=== PATIENT | male | born 1955 | race Caucasian/White ===

== ENCOUNTER 2021-10-03 18:46 | Inpatient (IN) | payer OTHER, SELFPAY ==
--- NOTE | ~2021-10-03 | XR_ITS ---
EXAMINATION: XR CHEST CLINICAL INFORMATION: Status post aspiration COMPARISON: None TECHNIQUE: Frontal view of the chest was obtained. FINDINGS: Lung volumes are symmetric. No focal consolidation is seen. Biapical scarring is noted, right greater than left. No evidence of pneumothorax, pleural effusion, or pulmonary edema. Cardiac size is within normal limits. Calcification is present at the aortic arch. No acute osseous findings are seen. XR/XR chest 1V IMPRESSION: No acute cardiopulmonary findings.
--- NOTE | ~2021-10-03 | CT_ITS ---
EXAMINATION: CT HEAD WITHOUT CONTRAST CLINICAL INFORMATION: Altered mental status, psychosis. COMPARISON: None TECHNIQUE: Contiguous axial imaging was performed from the skull base to vertex without intravenous administration of contrast. This CT examination was performed using dose optimization techniques as appropriate, variously including the following: *Automated exposure control *Adjustment of mA and/or kV according to patient size (this includes techniques or standardized protocols for targeted exams where dose is matched to indication/reason for exam; i.e. extremities or head) *Use of iterative reconstruction technique DLP: 714 mGy-cm FINDINGS: There is no evidence of acute intracranial hemorrhage or territorial infarction. No abnormal mass effect or midline shift is seen. Roberts to white matter differentiation is well preserved. No extra-axial fluid collections are identified. There is prominence of ventricles, sulci, and cisterns consistent with generalized atrophy. There is a partially calcified dural based lesion measuring approximately 1.3 x 0.4 x 1.9 cm in size with the appearance of a meningioma about the right parietal region. This does not cause significant mass effect. There is no abnormal attenuation within the brain parenchyma. The osseous structures and soft tissues are normal. The mastoid air cells are well aerated. There is partial opacification of the left sphenoid sinus and some posterior ethmoid air cells bilaterally. There is pneumatization of the right petrous portion of the temporal bone. CT/CT head/brain wo con IMPRESSION: 1. No acute intracranial pathology. 2. Right parietal meningioma without mass effect. 3. Generalized atrophy.
[2021-10-03 19:30] VITALS: BP 118/64; PULSE 91; RESP 18; TEMP 37.4; O2SAT 96
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
[2021-10-04 06:00] VITALS: BP 117/69; PULSE 83; RESP 18; TEMP 36.8; O2SAT 94
[2021-10-04] MEDS: Sennosides 8.6 MG TABLET PO (08:49)
[2021-10-04] MEDS: Milk of Magnesia 30 ML ORAL.SUSP PO (08:49)
[2021-10-04] MEDS: Gabapentin 100 MG CAPSULE PO ×3 (08:49→20:50)
[2021-10-04] MEDS: Docusate Sodium 100 MG CAPSULE PO ×2 (08:50→20:50)
[2021-10-04] MEDS: timoloL maleate 0.5 % Oph Sol 5 ML DRBTL 1 DROP EYE-BOTH ×2 (08:50→20:56)
[2021-10-04] MEDS: Brimonidine Tartrate 0.2% Oph 5 ML BOTTLE 1 DROP EYE-BOTH ×3 (08:50→20:49)
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
[2021-10-04 18:00] VITALS: BP 127/68; PULSE 83; RESP 16; TEMP 37.2; O2SAT 95
[2021-10-04] MEDS: Albuterol Sulfate 90 MCG 8 GM INHALER 1 PUFF INHALE (20:49)
[2021-10-04] MEDS: Latanoprost 0.005 % Ophth Sol 2.5 ML DROPS 1 DROP EYE-BOTH (20:51)
[2021-10-04] MEDS: Mirtazapine 7.5 MG TABLET PO (20:51)
[2021-10-04] MEDS: risperiDONE 0.25 MG TABLET PO (20:51)
[2021-10-05 06:00] VITALS: BP 112/62; PULSE 85; RESP 16; TEMP 37.2; O2SAT 93
[2021-10-05 08:12] LABS: MANUAL DIFF FLAG NO
[2021-10-05 08:24] LABS: Basophils Percent Auto 0.3 % (0-2); Eosinophils Absolute Auto 0.2 X10*3/uL (0.0-0.4); Eosinophils Percent Auto 1.6 % (0-4); Hematocrit 41.2 % (42.0-52.0); Hemoglobin 13.5 g/dl (14.0-18.0); Imm Gran Abs Auto 0.17 X10*3/uL (0.00-0.03); Imm Gran Pct Auto 1.5 % (0.0-0.4); Lymphocytes Absolute Auto 1.4 X10*3/uL (1.2-4.9); Lymphocytes Percent Auto 12.3 % (20-40); Mean Corpuscular HGB Conc 32.8 g/dl (31.0-36.0); Mean Corpuscular Volume 91.6 fL (80.0-98.0); Mean Platelet Volume 9.1 fL (9.4-12.4); Monocytes Absolute Auto 1.1 X10*3/uL (0.1-1.2); Monocytes Percent Auto 9.6 % (2-11); Neutrophils Absolute Auto 8.4 x10*3/uL (2.0-8.3); Neutrophils Percent Auto 74.7 % (45-73); Platelet Count 282 X10*3/uL (160-400); Red Cell Distribution Width 13.2 % (11.0-16.0); White Blood Count 11.3 X10*3/uL (4.8-10.8)
[2021-10-05 08:29] LABS: Estimated Average Glucose 108 mg/dL; Hemoglobin A1c % 5.4 %
[2021-10-05 08:42] LABS: Alanine Aminotransferase 12 U/L (0-40); Albumin Level 3.9 g/dL (3.5-5.0); Alkaline Phosphatase 121 U/L (39-117); Anion Gap 17 (12-20); Aspartate Amino Transferase 18 U/L (5-37); Bilirubin Direct 0.4 mg/dL (0.0-0.5); Bilirubin Total 1.4 mg/dL (0.0-1.0); Blood Urea Nitrogen 20 mg/dL (9-16); Carbon Dioxide 25 mmol/L (22-29); Chloride 102 mmol/L (96-108); Cholesterol 232 mg/dL; Estimated Glomerular Filt Rate > 60; Glucose Random 89 mg/dL (60-115); HDL Cholesterol 42 mg/dL; LDL Cholesterol Calculated 169 mg/dl; Potassium 4.8 mmol/L (3.3-5.1); Sodium 139 mmol/L (135-145); Total Protein 6.5 g/dL (6.5-8.0); Triglycerides 108 mg/dL
[2021-10-05 09:02] LABS: Thyroid Stimulating Hormone 1.95 uIU/mL (0.32-4.0)
[2021-10-05] MEDS: Gabapentin 100 MG CAPSULE PO ×2 (09:06→21:21)
[2021-10-05] MEDS: Docusate Sodium 100 MG CAPSULE PO ×2 (09:06→21:23)
[2021-10-05] MEDS: Milk of Magnesia 30 ML ORAL.SUSP PO (09:06)
[2021-10-05] MEDS: Sennosides 8.6 MG TABLET PO (09:06)
[2021-10-05] MEDS: Brimonidine Tartrate 0.2% Oph 5 ML BOTTLE 1 DROP EYE-BOTH ×2 (09:07→21:17)
[2021-10-05] MEDS: timoloL maleate 0.5 % Oph Sol 5 ML DRBTL 1 DROP EYE-BOTH ×2 (09:11→21:20)
--- NOTE | 2021-10-05 11:36 | HO.PSYCHPN ---
Subjective Subjective Date of Service: 10/05/21 Reason For Visit: Unspecified Depressive Disorder Subjective Notes: Conditional Voluntary Interim History: The nursing staff reported the patient has been pleasant and cooperative, he was notice illogical thinking at times. He has attended a few groups and history did only to person and he presented with delayed response. The social science research assistant contact her sister and apparently he does not have any mental hygiene problems but he has been mostly isolated most of his life. On interview the patient denies new symptoms he looks emaciated, confused. Mental Status Exam Mental Status Exam Patient Appearance: Well Grooomed Patient Orientation: Person and Situation Level of Consciousness: Awake Patient Behavior: Cooperative Mood Description: Suspicious Affect Description: Constricted Patient Cognition Impaired: Yes Ability to Follow Directions: Good Speech Pattern: Clear Hallucinations: None Delusions: Paranoid Ideation Thought Process: Distracted and Evasive Thought Content: positive for [place] and positive for Circumstantial Judgement: Fair Diagnostics Vital Signs (24Hr): Vital Signs - 24 hr 10/04/21 18:00 10/05/21 06:00 Temperature 98.9 F 98.9 F Pulse Rate 83 85 Respiratory Rate 16 16 Blood Pressure 127/68 112/62 Pulse Oximetry 95 93 Oxygen Delivery Method Room Air Room Air Labs Results: 10/05/21 08:01 10/05/21 08:01 Labs: Laboratory Results - last 48 hr 10/05/21 10/05/21 10/05/21 08:01 08:01 08:01 WBC 11.3 H RBC 4.50 L Hgb 13.5 L Hct 41.2 L MCV 91.6 MCH 30.0 MCHC 32.8 RDW 13.2 Plt Count 282 MPV 9.1 L Immature Gran % (Auto) 1.5 H Neut % (Auto) 74.7 H Lymph % (Auto) 12.3 L [place] % (Auto) 9.6 Eos % (Auto) 1.6 Baso % (Auto) 0.3 Lymph # (Auto) 1.4 [place] # (Auto) 1.1 Eos # (Auto) 0.2 Baso # (Auto) 0.0 Abs Immat Gran (auto) 0.17 H Absolute Neuts (auto) 8.4 H Absolute Nucleated RBC 0.000 Nucleated RBC % (auto) 0.0 Sodium 139 Potassium 4.8 Chloride 102 Carbon Dioxide 25 Anion Gap 17 BUN 20 H Creatinine 1.00 Estim Creat Clear Calc TNP Estimated GFR > 60 Random Glucose 89 Estimat Average Glucose 108 Hemoglobin A1c % 5.4 Calcium 9.0 Total Bilirubin 1.4 H Direct Bilirubin 0.4 AST 18 ALT 12 Alkaline Phosphatase 121 H Total Protein 6.5 Albumin 3.9 Triglycerides 108 Cholesterol 232 LDL Cholesterol, Calc 169 HDL Cholesterol 42 TSH 1.95 Medications Medications Current Medications Acetaminophen (Acetaminophen 325 Mg Tablet) 650 mg PO Q6H PRN PRN Reason: Headache/Pain Mild Scale (1-3) Al Hydroxide/Mg Hydroxide (Magnesium Hydrox/Alum Hydrox 30 Ml Oral.Susp) 30 ml PO Q6H PRN PRN Reason: Heartburn/Nausea Albuterol Sulfate (Albuterol Sulfate 90 Mcg 8 Gm Inhaler) 1 puff INHALE RQID [facility] Last Admin: 10/05/21 09:10 Dose: Not Given Brimonidine Tartrate (Brimonidine Tartrate 0.2% Oph 5 Ml Bottle) 1 drop EYE-BOTH TID [facility] Last Admin: 10/05/21 09:07 Dose: 1 drop Docusate Sodium (Docusate Sodium 100 Mg Capsule) 100 mg PO BID [facility] Last Admin: 10/05/21 09:06 Dose: 100 mg Gabapentin (Gabapentin 100 Mg Capsule) 100 mg PO TID [facility] Last Admin: 10/05/21 09:06 Dose: 100 mg Latanoprost (Latanoprost 0.005 % Ophth Jessie 2.5 Ml Drops) 1 drop EYE-BOTH BEDTIME [facility] Last Admin: 10/04/21 20:51 Dose: 1 drop Magnesium Hydroxide (Milk Of Magnesia 30 Ml Oral.Susp) 30 ml PO DAILY [facility] Last Admin: 10/05/21 09:06 Dose: 30 ml Melatonin (Melatonin 3 Mg Tablet) 3 mg PO BEDTIME PRN PRN Reason: Insomnia Mirtazapine (Mirtazapine 7.5 Mg Tablet) 7.5 mg PO BEDTIME [facility] Last Admin: 10/04/21 20:51 Dose: 7.5 mg Risperidone (Risperidone 0.25 Mg Tablet) 0.25 mg PO BEDTIME [facility] Last Admin: 10/04/21 20:51 Dose: 0.25 mg Senna (Sennosides 8.6 Mg Tablet) 8.6 mg PO DAILY [facility] Last Admin: 10/05/21 09:06 Dose: 8.6 mg Timolol Maleate (Timolol Maleate 0.5 % Oph Jessie 5 Ml Drbtl) 1 drop EYE-BOTH BID [facility] Last Admin: 10/05/21 09:11 Dose: 1 drop Allergies Allergies Allergy/AdvReac Type Severity Reaction Status Date / Time sulfamethoxazole Allergy Itching Verified 10/03/21 19:19 [From Bactrim] trimethoprim [From Bactrim] Allergy Itching Verified 10/03/21 19:19 Assessment & Plan Assessment & Plan (1) Mood disorder: Status: Acute Code(s): F39 - Unspecified mood [affective] disorder Plan The patient is an elderly male with no prior psychiatric history admitted for bizarre statements and suicidal ideation. He has a strong family history sings her mother suffer from schizophrenia. Plan 1. Gather collateral information. 2. Start Risperdal 0.25 mg p.o. q.h.s. to target psychosis and mood lability. 3. Start Remeron 7.5 mg p.o. q.h.s. to target depression. 4. Basic metabolic panel, CBC, TSH and other blood work for tomorrow morning. 5. CT scan today. 6. Hospitalist consult. I spent ___20___ minutes with the patient and/or on the patient floor today, greater than?50% of which was spent counseling/coordinating care. Reason for contiued inpatient stay Substantial Risk for: inability to function, rapid decompensation and med/psych decompensation
[2021-10-05 14:51] VITALS: BMI 17.8
--- NOTE | 2021-10-05 16:09 | P.CNHOSGPS_ITS ---
History of Present Illness Data of Consult Service Date: 10/05/21 Primary Care Provider: Unknown Physician HPI Reason for consult: routine 66M admitted to inpatient psychiatry for acute psychosis. Patient has past medical history of being underweight, otherwise unremarkable. Patient denies any active symptoms such as chest pain, shortness of breath, fever, chills. Review of Systems Review of Systems: Yes all other systems are reviewed and are negative PMFSH Medical History Underweight Family History Mother Psychotic disorder Social History Household Members: Unknown / Unable to assess Housing: Unknown / Unable to assess Unable to assess alcohol history related to: Unknown Patient Tobacco Use Status: Never used Tobacco Use of substances other than those prescribed or required for medical reasons: Unknown Substance Use Type: Unknown Last Used Substance: Unknown Currently Displaying Signs/Symptoms of Drug Intoxication Withdrawal: No Advance Directives: No Advance Directives Information Provided: No Do you have thoughts of harming others: None Do you have a plan to hurt others: No Plan Recently lost weight without trying: Unsure How much weight loss: Unsure Eating poorly because of decreased appetite: Yes Nutrition screen score: 5 Poor oral hygiene: Yes service: No Sexual orientation: Straight/Heterosexual Meds Allergies Allergy/AdvReac Type Severity Reaction Status Date / Time sulfamethoxazole Allergy Itching Verified 10/03/21 19:19 [From Bactrim] trimethoprim [From Bactrim] Allergy Itching Verified 10/03/21 19:19 Active Medications: Current Medications Acetaminophen (Acetaminophen 325 Mg Tablet) 650 mg PO Q6H PRN PRN Reason: Headache/Pain Mild Scale (1-3) Al Hydroxide/Mg Hydroxide (Magnesium Hydrox/Alum Hydrox 30 Ml Oral.Susp) 30 ml PO Q6H PRN PRN Reason: Heartburn/Nausea Albuterol Sulfate (Albuterol Sulfate 90 Mcg 8 Gm Inhaler) 1 puff INHALE RQID [facility] Last Admin: 10/05/21 12:21 Dose: Not Given Brimonidine Tartrate (Brimonidine Tartrate 0.2% Oph 5 Ml Bottle) 1 drop EYE- BOTH TID [facility] Last Admin: 10/05/21 15:44 Dose: Not Given Docusate Sodium (Docusate Sodium 100 Mg Capsule) 100 mg PO BID [facility] Last Admin: 10/05/21 09:06 Dose: 100 mg Gabapentin (Gabapentin 100 Mg Capsule) 100 mg PO TID [facility] Last Admin: 10/05/21 15:44 Dose: Not Given Latanoprost (Latanoprost 0.005 % Ophth Jessie 2.5 Ml Drops) 1 drop EYE-BOTH BEDTIME [facility] Last Admin: 10/04/21 20:51 Dose: 1 drop Magnesium Hydroxide (Milk Of Magnesia 30 Ml Oral.Susp) 30 ml PO DAILY [facility] Last Admin: 10/05/21 09:06 Dose: 30 ml Melatonin (Melatonin 3 Mg Tablet) 3 mg PO BEDTIME PRN PRN Reason: Insomnia Mirtazapine (Mirtazapine 7.5 Mg Tablet) 7.5 mg PO BEDTIME [facility] Last Admin: 10/04/21 20:51 Dose: 7.5 mg Risperidone (Risperidone 0.25 Mg Tablet) 0.25 mg PO BEDTIME [facility] Last Admin: 10/04/21 20:51 Dose: 0.25 mg Senna (Sennosides 8.6 Mg Tablet) 8.6 mg PO DAILY [facility] Last Admin: 10/05/21 09:06 Dose: 8.6 mg Timolol Maleate (Timolol Maleate 0.5 % Oph Jessie 5 Ml Drbtl) 1 drop EYE-BOTH BID [facility] Last Admin: 10/05/21 09:11 Dose: 1 drop Home Medications Medication Instructions Recorded Confirmed Last Taken Type Milk of Magnesia 30 ml PO DAILY 10/03/21 10/03/21 Unknown History acetaminophen 650 mg tablet 650 mg PO Q6H PRN Pain 10/03/21 10/03/21 Unknown History albuterol 90 mcg/actuation aerosol 90 mcg inhalation QID 10/03/21 10/03/21 Unknown History inhaler brimonidine 0.2 % ophthalmic (eye) TID 10/03/21 10/03/21 Unknown History docusate sodium 100 mg capsule 100 mg PO BID 10/03/21 10/03/21 Unknown History gabapentin 100 mg capsule 100 mg PO TID 10/03/21 10/03/21 Unknown History latanoprost 0.005 % eye drops 1 drp ophthalmic (eye) QPM 10/03/21 10/03/21 Unknown History melatonin 3 mg capsule 3 mg PO BEDTIME PRN Insomnia 10/03/21 10/03/21 Unknown History sennosides 8.6 mg tablet (senna) 8.6 mg PO DAILY 10/03/21 10/03/21 Unknown History timolol 0.5 % eye drops 1 drp ophthalmic (eye) BID 10/03/21 10/03/21 Unknown History Results Labs CBC and Chem 7: 10/05/21 08:01 10/05/21 08:01 Labs: Laboratory Results - last 24 hr 10/05/21 10/05/21 10/05/21 08:01 08:01 08:01 MCV 91.6 MCH 30.0 MCHC 32.8 RDW 13.2 Plt Count 282 MPV 9.1 L Immature Gran % (Auto) 1.5 H Neut % (Auto) 74.7 H Lymph % (Auto) 12.3 L [place] % (Auto) 9.6 Eos % (Auto) 1.6 Baso % (Auto) 0.3 Lymph # (Auto) 1.4 [place] # (Auto) 1.1 Eos # (Auto) 0.2 Baso # (Auto) 0.0 Abs Immat Gran (auto) 0.17 H Absolute Neuts (auto) 8.4 H Absolute Nucleated RBC 0.000 Nucleated RBC % (auto) 0.0 Anion Gap 17 Estim Creat Clear Calc TNP Estimated GFR > 60 Random Glucose 89 Estimat Average Glucose 108 Hemoglobin A1c % 5.4 Calcium 9.0 Total Bilirubin 1.4 H Direct Bilirubin 0.4 AST 18 ALT 12 Alkaline Phosphatase 121 H Total Protein 6.5 Albumin 3.9 Triglycerides 108 Cholesterol 232 LDL Cholesterol, Calc 169 HDL Cholesterol 42 TSH 1.95 Imaging Radiologist's Impressions: Impressions Head CT 10/04/21 15:04 IMPRESSION: 1. No acute intracranial pathology. 2. Right parietal meningioma without mass effect. 3. Generalized atrophy. Assessment and Plan (1) Underweight: Status: Acute Plan 66M admitted to inpatient psychiatry for acute psychosis Under weight Consider nutrition evaluation Physical Exam Vital Signs: Last Vital Signs Temp 98.9 F 10/05/21 06:00 Pulse 85 10/05/21 06:00 Resp 16 10/05/21 06:00 BP 112/62 10/05/21 06:00 Pulse Ox 93 10/05/21 06:00 O2 Del Method 10/05/21 06:00 BMI result Body Mass Index 17.8 General: AO X 3, no acute distress Resp: CTA bilateral, no accessory muscles used CVS: S1,S2,RRR GI: soft, non tender, non distended Neuro: motor grossly intact, alert Neuro Cranial nerves: Yes CN's II-XII intact bilaterally
[2021-10-05 18:00] VITALS: BP 119/67; PULSE 75; RESP 16; TEMP 37.7; O2SAT 93
[2021-10-05] MEDS: Mirtazapine 7.5 MG TABLET PO (21:18)
[2021-10-05] MEDS: risperiDONE 0.25 MG TABLET PO (21:19)
[2021-10-05] MEDS: Melatonin 3 MG TABLET PO (21:22)
[2021-10-05] MEDS: Latanoprost 0.005 % Ophth Sol 2.5 ML DROPS 1 DROP EYE-BOTH (21:23)
[2021-10-05] MEDS: Albuterol Sulfate 90 MCG 8 GM INHALER 1 PUFF INHALE (21:28)
[2021-10-05 22:14] VITALS: TEMP 37.6
[2021-10-06] MEDS: Sennosides 8.6 MG TABLET PO (08:24)
[2021-10-06] MEDS: Gabapentin 100 MG CAPSULE PO ×3 (08:25→21:07)
[2021-10-06] MEDS: Docusate Sodium 100 MG CAPSULE PO ×2 (08:25→21:09)
[2021-10-06] MEDS: Milk of Magnesia 30 ML ORAL.SUSP PO (08:25)
[2021-10-06] MEDS: Brimonidine Tartrate 0.2% Oph 5 ML BOTTLE 1 DROP EYE-BOTH ×3 (08:31→21:11)
[2021-10-06 08:44] VITALS: BP 124/66; PULSE 84; RESP 18; TEMP 36.5; O2SAT 96
[2021-10-06] MEDS: timoloL maleate 0.5 % Oph Sol 5 ML DRBTL 1 DROP EYE-BOTH ×2 (08:53→21:07)
--- NOTE | 2021-10-06 09:05 | P.PNPSI_ITS ---
Subjective Subjective Date of Service: 10/06/21 Reason For Visit: Unspecified Depressive Disorder Subjective Notes: [place] Warning Healthcare Proxy: No Guardianship: No Medical Problems Affecting Mental Status: No Interim History: I spoke with pt's team, he is not caring for himself, has recent wt loss. Pt has R parietal meningioma, seen by hospitalist, RN is having to clean it as area surrounding is serosanguinous. Will order wound consult. I spoke with pt today and when asked about his meningioma he reports its not another nipple, you dont have to worry about it. Says his mood is okay. Pt is unable to meaningfully engage in conversation, says he has difficulty comprehending, youre talking, its just not coming through as Urdu. Pt makes non-sensical statements, i.e. says something about subzero temperatures, brain function. Pt says he is bored, I have nothing to keep my mind on anything. He is not oriented to situation, says he is in the hospital because im not where I was. No med changes made. Medication Compliance: Yes Side effects from medications: No Attending Groups: No Review of Systems Acute medical concerns: No Medical Review of Systems: unchanged Mental Status Exam Mental Status Exam Narrative: Patient Appearance: Well Grooomed Patient Orientation: Person and Situation Level of Consciousness: Awake Patient Behavior: Cooperative Mood Description: Suspicious Affect Description: Constricted Patient Cognition Impaired: Yes Ability to Follow Directions: Good Speech Pattern: Clear Hallucinations: None Delusions: Paranoid Ideation Thought Process: Distracted and Evasive Thought Content: positive for [place] and positive for Circumstantial Judgement: Fair Diagnostics Vital Signs (24Hr): Vital Signs - 24 hr 10/05/21 18:00 10/05/21 22:14 Temperature 100 F 99.6 F Pulse Rate 75 Respiratory Rate 16 Blood Pressure 119/67 Pulse Oximetry 93 Oxygen Delivery Method Room Air BMI result Body Mass Index 17.8 Labs Results: 10/05/21 08:01 10/05/21 08:01 Labs: Laboratory Results - last 48 hr 10/05/21 10/05/21 10/05/21 08:01 08:01 08:01 WBC 11.3 H RBC 4.50 L Hgb 13.5 L Hct 41.2 L MCV 91.6 MCH 30.0 MCHC 32.8 RDW 13.2 Plt Count 282 MPV 9.1 L Immature Gran % (Auto) 1.5 H Neut % (Auto) 74.7 H Lymph % (Auto) 12.3 L [place] % (Auto) 9.6 Eos % (Auto) 1.6 Baso % (Auto) 0.3 Lymph # (Auto) 1.4 [place] # (Auto) 1.1 Eos # (Auto) 0.2 Baso # (Auto) 0.0 Abs Immat Gran (auto) 0.17 H Absolute Neuts (auto) 8.4 H Absolute Nucleated RBC 0.000 Nucleated RBC % (auto) 0.0 Sodium 139 Potassium 4.8 Chloride 102 Carbon Dioxide 25 Anion Gap 17 BUN 20 H Creatinine 1.00 Estim Creat Clear Calc TNP Estimated GFR > 60 Random Glucose 89 Estimat Average Glucose 108 Hemoglobin A1c % 5.4 Calcium 9.0 Total Bilirubin 1.4 H Direct Bilirubin 0.4 AST 18 ALT 12 Alkaline Phosphatase 121 H Total Protein 6.5 Albumin 3.9 Triglycerides 108 Cholesterol 232 LDL Cholesterol, Calc 169 HDL Cholesterol 42 TSH 1.95 Imaging Radiology Impressions: ITS Impressions Head CT 10/04/21 15:04 IMPRESSION: 1. No acute intracranial pathology. 2. Right parietal meningioma without mass effect. 3. Generalized atrophy. Medications Medications Current Medications Acetaminophen (Acetaminophen 325 Mg Tablet) 650 mg PO Q6H PRN PRN Reason: Headache/Pain Mild Scale (1-3) Al Hydroxide/Mg Hydroxide (Magnesium Hydrox/Alum Hydrox 30 Ml Oral.Susp) 30 ml PO Q6H PRN PRN Reason: Heartburn/Nausea Albuterol Sulfate (Albuterol Sulfate 90 Mcg 8 Gm Inhaler) 1 puff INHALE RQID [facility] Last Admin: 10/06/21 08:31 Dose: Not Given Brimonidine Tartrate (Brimonidine Tartrate 0.2% Oph 5 Ml Bottle) 1 drop EYE- BOTH TID [facility] Last Admin: 10/06/21 08:31 Dose: 1 drop Docusate Sodium (Docusate Sodium 100 Mg Capsule) 100 mg PO BID [facility] Last Admin: 10/06/21 08:25 Dose: 100 mg Gabapentin (Gabapentin 100 Mg Capsule) 100 mg PO TID [facility] Last Admin: 10/06/21 08:25 Dose: 100 mg Latanoprost (Latanoprost 0.005 % Ophth Jessie 2.5 Ml Drops) 1 drop EYE-BOTH BEDTIME [facility] Last Admin: 10/05/21 21:23 Dose: 1 drop Magnesium Hydroxide (Milk Of Magnesia 30 Ml Oral.Susp) 30 ml PO DAILY [facility] Last Admin: 10/06/21 08:25 Dose: 30 ml Melatonin (Melatonin 3 Mg Tablet) 3 mg PO BEDTIME PRN PRN Reason: Insomnia Last Admin: 10/05/21 21:22 Dose: 3 mg Mirtazapine (Mirtazapine 7.5 Mg Tablet) 7.5 mg PO BEDTIME [facility] Last Admin: 10/05/21 21:18 Dose: 7.5 mg Risperidone (Risperidone 0.25 Mg Tablet) 0.25 mg PO BEDTIME [facility] Last Admin: 10/05/21 21:19 Dose: 0.25 mg Senna (Sennosides 8.6 Mg Tablet) 8.6 mg PO DAILY [facility] Last Admin: 10/06/21 08:24 Dose: 8.6 mg Timolol Maleate (Timolol Maleate 0.5 % Oph Jessie 5 Ml Drbtl) 1 drop EYE-BOTH BID [facility] Last Admin: 10/06/21 08:53 Dose: 1 drop Allergies Allergies Allergy/AdvReac Type Severity Reaction Status Date / Time sulfamethoxazole Allergy Itching Verified 10/03/21 19:19 [From Bactrim] trimethoprim [From Bactrim] Allergy Itching Verified 10/03/21 19:19 Assessment & Plan Assessment & Plan (1) Underweight: Status: Acute Code(s): R63.6 - Underweight Plan 66M admitted to inpatient psychiatry for acute psychosis Under weight Consider nutrition evaluation I spent minutes with the patient and/or on the patient floor today, greater than?50% of which was spent counseling/coordinating care. Patient educated on: other Reason for contiued inpatient stay Substantial Risk for: inability to function, rapid decompensation and med/psych decompensation
[2021-10-06 18:00] VITALS: BP 110/62; PULSE 68; RESP 18; TEMP 37.2; O2SAT 95
[2021-10-06] MEDS: risperiDONE 0.25 MG TABLET PO (21:08)
[2021-10-06] MEDS: Mirtazapine 7.5 MG TABLET PO (21:08)
[2021-10-06] MEDS: Melatonin 3 MG TABLET PO (21:08)
[2021-10-06] MEDS: Latanoprost 0.005 % Ophth Sol 2.5 ML DROPS 1 DROP EYE-BOTH (21:10)
[2021-10-07 08:00] VITALS: BP 136/65; PULSE 74; RESP 16; TEMP 36.8; O2SAT 94
[2021-10-07] MEDS: Docusate Sodium 100 MG CAPSULE PO ×2 (08:11→21:03)
[2021-10-07] MEDS: Sennosides 8.6 MG TABLET PO (08:11)
[2021-10-07] MEDS: Gabapentin 100 MG CAPSULE PO ×3 (08:12→21:03)
[2021-10-07] MEDS: Brimonidine Tartrate 0.2% Oph 5 ML BOTTLE 1 DROP EYE-BOTH ×3 (08:12→21:01)
[2021-10-07] MEDS: Milk of Magnesia 30 ML ORAL.SUSP PO (08:12)
[2021-10-07] MEDS: timoloL maleate 0.5 % Oph Sol 5 ML DRBTL 1 DROP EYE-BOTH ×2 (08:18→21:02)
--- NOTE | 2021-10-07 17:49 | P.PNPSI_ITS ---
Subjective Subjective Date of Service: 10/07/21 Reason For Visit: Unspecified Depressive Disorder Interim History: I spoke with pt's team, he slept well last night, isolative, cognition is confused. I attempted to evaluated pt this evening but he declined, asleep and prefers to keep sleeping. No med adjustments. Mental Status Exam Mental Status Exam Narrative: Patient Appearance: Well Grooomed Patient Orientation: Person and Situation Level of Consciousness: Awake Patient Behavior: Cooperative Mood Description: Suspicious Affect Description: Constricted Patient Cognition Impaired: Yes Ability to Follow Directions: Good Speech Pattern: Clear Hallucinations: None Delusions: Paranoid Ideation Thought Process: Distracted and Evasive Thought Content: positive for [place] and positive for Circumstantial Judgement: Fair Diagnostics Vital Signs (24Hr): Vital Signs - 24 hr 10/06/21 18:00 10/07/21 08:00 Temperature 98.9 F 98.3 F Pulse Rate 68 74 Respiratory Rate 18 16 Blood Pressure 110/62 136/65 Pulse Oximetry 95 94 Oxygen Delivery Method Room Air Room Air BMI result Body Mass Index 17.8 Labs Results: 10/05/21 08:01 10/05/21 08:01 Imaging Radiology Impressions: ITS Impressions Head CT 10/04/21 15:04 IMPRESSION: 1. No acute intracranial pathology. 2. Right parietal meningioma without mass effect. 3. Generalized atrophy. Medications Medications Current Medications Acetaminophen (Acetaminophen 325 Mg Tablet) 650 mg PO Q6H PRN PRN Reason: Headache/Pain Mild Scale (1-3) Al Hydroxide/Mg Hydroxide (Magnesium Hydrox/Alum Hydrox 30 Ml Oral.Susp) 30 ml PO Q6H PRN PRN Reason: Heartburn/Nausea Brimonidine Tartrate (Brimonidine Tartrate 0.2% Oph 5 Ml Bottle) 1 drop EYE- BOTH TID [facility] Docusate Sodium (Docusate Sodium 100 Mg Capsule) 100 mg PO BID [facility] Last Admin: 10/07/21 08:11 Dose: 100 mg Gabapentin (Gabapentin 100 Mg Capsule) 100 mg PO TID [facility] Last Admin: 10/07/21 15:29 Dose: 100 mg Latanoprost (Latanoprost 0.005 % Ophth Jessie 2.5 Ml Drops) 1 drop EYE-BOTH BEDTIME [facility] Magnesium Hydroxide (Milk Of Magnesia 30 Ml Oral.Susp) 30 ml PO DAILY [facility] Last Admin: 10/07/21 08:12 Dose: 30 ml Melatonin (Melatonin 3 Mg Tablet) 3 mg PO BEDTIME PRN PRN Reason: Insomnia Last Admin: 10/06/21 21:08 Dose: 3 mg Mirtazapine (Mirtazapine 7.5 Mg Tablet) 7.5 mg PO BEDTIME [facility] Last Admin: 10/06/21 21:08 Dose: 7.5 mg Risperidone (Risperidone 0.25 Mg Tablet) 0.25 mg PO BEDTIME [facility] Last Admin: 10/06/21 21:08 Dose: 0.25 mg Senna (Sennosides 8.6 Mg Tablet) 8.6 mg PO DAILY [facility] Last Admin: 10/07/21 08:11 Dose: 8.6 mg Timolol Maleate (Timolol Maleate 0.5 % Oph Jessie 5 Ml Drbtl) 1 drop EYE-BOTH BID [facility] Allergies Allergies Allergy/AdvReac Type Severity Reaction Status Date / Time sulfamethoxazole Allergy Itching Verified 10/03/21 19:19 [From Bactrim] trimethoprim [From Bactrim] Allergy Itching Verified 10/03/21 19:19 Assessment & Plan Assessment & Plan (1) Underweight: Status: Acute Code(s): R63.6 - Underweight Plan The patient is an elderly male with no prior psychiatric history admitted for bizarre statements and suicidal ideation.? He has a strong family history sings her mother suffer from schizophrenia.? Plan 1. Gather collateral information.? 2. Start Risperdal 0.25 mg p.o. q.h.s. to target psychosis and mood lability.? 3. Start Remeron 7.5 mg p.o. q.h.s. to target depression.? 4. Basic metabolic panel, CBC, TSH and other blood work for tomorrow morning.? 5. CT scan today. 6. wound consult ordered Per Hospitalist consult: 66M admitted to inpatient psychiatry for acute psychosis Under weight Consider nutrition evaluation I spent minutes with the patient and/or on the patient floor today, greater than?50% of which was spent counseling/coordinating care. Patient educated on: other Reason for contiued inpatient stay Substantial Risk for: inability to function and med/psych decompensation
[2021-10-07 18:00] VITALS: BP 95/50; PULSE 68; RESP 16; TEMP 37.6; O2SAT 94
[2021-10-07] MEDS: Latanoprost 0.005 % Ophth Sol 2.5 ML DROPS 1 DROP EYE-BOTH (21:02)
[2021-10-07] MEDS: Mirtazapine 7.5 MG TABLET PO (21:03)
[2021-10-07] MEDS: risperiDONE 0.25 MG TABLET PO (21:03)
[2021-10-08 08:00] VITALS: BP 97/55; PULSE 64; RESP 14; TEMP 37.1; O2SAT 95
[2021-10-08] MEDS: Docusate Sodium 100 MG CAPSULE PO ×2 (08:08→20:07)
[2021-10-08] MEDS: Milk of Magnesia 30 ML ORAL.SUSP PO (08:09)
[2021-10-08] MEDS: Gabapentin 100 MG CAPSULE PO ×3 (08:09→20:07)
[2021-10-08] MEDS: Sennosides 8.6 MG TABLET PO (08:09)
[2021-10-08] MEDS: Brimonidine Tartrate 0.2% Oph 5 ML BOTTLE 1 DROP EYE-BOTH (14:34)
--- NOTE | 2021-10-08 14:52 | MHC.CLN ---
NUTRITION DIET=REGULAR NDD2 CONSISTENCY. NUTRITION DX MODERATE MALNUTRITION. PATIENT DECLINED SUPPLEMENT AND EXPRESSED CONCERNS WITH APPEARING FAT . FOLLOW FOR WEIGHTS AND INTAKE.
--- NOTE | 2021-10-08 15:54 | HO.PSYCHPN ---
Subjective Subjective Date of Service: 10/08/21 Reason For Visit: Unspecified Depressive Disorder Subjective Notes: Conditional Voluntary Interim History: The nursing staff reported the patient has been isolative mostly in his room he remains is slightly depressed and anxious but he has attended to several groups. On interview the patient denies new symptoms he denies side effects with the medications and he states that he feels a little better. Currently walking with the help of a Merry Walker. Mental Status Exam Mental Status Exam Patient Appearance: Appropriate Patient Orientation: Person and Situation Level of Consciousness: Awake Patient Behavior: Cooperative Mood Description: Withdrawn Affect Description: Constricted Patient Cognition Impaired: Yes Ability to Follow Directions: Good Speech Pattern: Clear Hallucinations: None Delusions: Paranoid Ideation and Bizarre Thought Process: Slowed Thinking Thought Content: positive for Disoriented Judgement: Fair Diagnostics Vital Signs (24Hr): Vital Signs - 24 hr 10/07/21 18:00 10/08/21 08:00 Temperature 99.6 F 98.8 F Pulse Rate 68 64 Respiratory Rate 16 14 Blood Pressure 95/50 L 97/55 L Pulse Oximetry 94 95 Oxygen Delivery Method Room Air Room Air BMI result Body Mass Index 17.8 Labs Results: 10/05/21 08:01 10/05/21 08:01 Imaging Radiology Impressions: ITS Impressions Head CT 10/04/21 15:04 IMPRESSION: 1. No acute intracranial pathology. 2. Right parietal meningioma without mass effect. 3. Generalized atrophy. Medications Medications Current Medications Acetaminophen (Acetaminophen 325 Mg Tablet) 650 mg PO Q6H PRN PRN Reason: Headache/Pain Mild Scale (1-3) Al Hydroxide/Mg Hydroxide (Magnesium Hydrox/Alum Hydrox 30 Ml Oral.Susp) 30 ml PO Q6H PRN PRN Reason: Heartburn/Nausea Brimonidine Tartrate (Brimonidine Tartrate 0.2% Oph 5 Ml Bottle) 1 drop EYE-BOTH TID [facility] Last Admin: 10/08/21 14:34 Dose: 1 drop Docusate Sodium (Docusate Sodium 100 Mg Capsule) 100 mg PO BID [facility] Last Admin: 10/08/21 08:08 Dose: 100 mg Gabapentin (Gabapentin 100 Mg Capsule) 100 mg PO TID [facility] Last Admin: 10/08/21 14:32 Dose: 100 mg Latanoprost (Latanoprost 0.005 % Ophth Jessie 2.5 Ml Drops) 1 drop EYE-BOTH BEDTIME [facility] Last Admin: 10/07/21 21:02 Dose: 1 drop Magnesium Hydroxide (Milk Of Magnesia 30 Ml Oral.Susp) 30 ml PO DAILY [facility] Last Admin: 10/08/21 08:09 Dose: 30 ml Melatonin (Melatonin 3 Mg Tablet) 3 mg PO BEDTIME PRN PRN Reason: Insomnia Last Admin: 10/06/21 21:08 Dose: 3 mg Mirtazapine (Mirtazapine 7.5 Mg Tablet) 7.5 mg PO BEDTIME [facility] Last Admin: 10/07/21 21:03 Dose: 7.5 mg Risperidone (Risperidone 0.25 Mg Tablet) 0.25 mg PO BEDTIME [facility] Last Admin: 10/07/21 21:03 Dose: 0.25 mg Senna (Sennosides 8.6 Mg Tablet) 8.6 mg PO DAILY [facility] Last Admin: 10/08/21 08:09 Dose: 8.6 mg Timolol Maleate (Timolol Maleate 0.5 % Oph Jessie 5 Ml Drbtl) 1 drop EYE-BOTH BID [facility] Last Admin: 10/08/21 10:04 Dose: Not Given Allergies Allergies Allergy/AdvReac Type Severity Reaction Status Date / Time sulfamethoxazole Allergy Itching Verified 10/03/21 19:19 [From Bactrim] trimethoprim [From Bactrim] Allergy Itching Verified 10/03/21 19:19 Assessment & Plan Assessment & Plan (1) Underweight: Status: Acute Code(s): R63.6 - Underweight Plan The patient is an elderly male with no prior psychiatric history admitted for bizarre statements and suicidal ideation.? He has a strong family history sings her mother suffer from schizophrenia.? Plan 1. Gather collateral information.? 2. Start Risperdal 0.25 mg p.o. q.h.s. to target psychosis and mood lability.? 3. Start Remeron 7.5 mg p.o. q.h.s. to target depression.? 4. Basic metabolic panel, CBC, TSH and other blood work for tomorrow morning.? 5. CT scan with no new lesions. 6. wound consult ordered Per Hospitalist consult: 66M admitted to inpatient psychiatry for acute psychosis Under weight Consider nutrition evaluation I spent __20____ minutes with the patient and/or on the patient floor today, greater than?50% of which was spent counseling/coordinating care. Reason for contiued inpatient stay Substantial Risk for: inability to function, rapid decompensation and med/psych decompensation
[2021-10-08 18:00] VITALS: BP 114/62; PULSE 79; RESP 16; TEMP 37.3; O2SAT 95
[2021-10-08] MEDS: Mirtazapine 7.5 MG TABLET PO (20:07)
[2021-10-08] MEDS: risperiDONE 0.25 MG TABLET PO (20:07)
[2021-10-09 06:00] VITALS: BP 114/67; PULSE 72; RESP 18; TEMP 36.7; O2SAT 97
[2021-10-09] MEDS: Sennosides 8.6 MG TABLET PO (08:25)
[2021-10-09] MEDS: Docusate Sodium 100 MG CAPSULE PO ×2 (08:26→20:17)
[2021-10-09] MEDS: Gabapentin 100 MG CAPSULE PO ×3 (08:26→20:17)
[2021-10-09] MEDS: Milk of Magnesia 30 ML ORAL.SUSP PO (08:26)
[2021-10-09] MEDS: timoloL maleate 0.5 % Oph Sol 5 ML DRBTL 1 DROP EYE-BOTH ×2 (08:38→20:17)
[2021-10-09] MEDS: Brimonidine Tartrate 0.2% Oph 5 ML BOTTLE 1 DROP EYE-BOTH ×3 (08:45→20:17)
[2021-10-09] MEDS: Acetaminophen 325 MG TABLET 650 MG PO (15:33)
--- NOTE | 2021-10-09 16:55 | P.PNPSI_ITS ---
Subjective Subjective Date of Service: 10/09/21 Reason For Visit: Unspecified Depressive Disorder Subjective Notes: Conditional Voluntary Interim History: The nursing staff reported the patient has been socializing with peers and he admitted to 1 group in the morning. He is eating 100% of his meals. On interview the patient complained of headaches he feels a little better but still he looks slightly confused and dysphoric. We will try to gather more collateral information. Mental Status Exam Mental Status Exam Patient Appearance: Well Grooomed Patient Orientation: Person and Situation Level of Consciousness: Awake Patient Behavior: Cooperative Mood Description: Calm Affect Description: Constricted Patient Cognition Impaired: Yes Ability to Follow Directions: Good Speech Pattern: Clear Hallucinations: None Delusions: Paranoid Ideation Thought Process: Illogical and Distracted Thought Content: positive for [place] Judgement: Fair Diagnostics Vital Signs (24Hr): Vital Signs - 24 hr 10/08/21 18:00 10/09/21 06:00 Temperature 99.1 F 98.0 F Pulse Rate 79 72 Respiratory Rate 16 18 Blood Pressure 114/62 114/67 Pulse Oximetry 95 97 Oxygen Delivery Method Room Air Room Air BMI result Body Mass Index 17.8 Labs Results: 10/05/21 08:01 10/05/21 08:01 Imaging Radiology Impressions: ITS Impressions Head CT 10/04/21 15:04 IMPRESSION: 1. No acute intracranial pathology. 2. Right parietal meningioma without mass effect. 3. Generalized atrophy. Medications Medications Current Medications Acetaminophen (Acetaminophen 325 Mg Tablet) 650 mg PO Q6H PRN PRN Reason: Headache/Pain Mild Scale (1-3) Last Admin: 10/09/21 15:33 Dose: 650 mg Al Hydroxide/Mg Hydroxide (Magnesium Hydrox/Alum Hydrox 30 Ml Oral.Susp) 30 ml PO Q6H PRN PRN Reason: Heartburn/Nausea Brimonidine Tartrate (Brimonidine Tartrate 0.2% Oph 5 Ml Bottle) 1 drop EYE- BOTH TID [facility] Last Admin: 10/09/21 15:34 Dose: 1 drop Docusate Sodium (Docusate Sodium 100 Mg Capsule) 100 mg PO BID [facility] Last Admin: 10/09/21 08:26 Dose: 100 mg Gabapentin (Gabapentin 100 Mg Capsule) 100 mg PO TID [facility] Last Admin: 10/09/21 15:34 Dose: 100 mg Latanoprost (Latanoprost 0.005 % Ophth Jessie 2.5 Ml Drops) 1 drop EYE-BOTH BEDTIME [facility] Last Admin: 10/08/21 20:08 Dose: Not Given Magnesium Hydroxide (Milk Of Magnesia 30 Ml Oral.Susp) 30 ml PO DAILY [facility] Last Admin: 10/09/21 08:26 Dose: 30 ml Melatonin (Melatonin 3 Mg Tablet) 3 mg PO BEDTIME PRN PRN Reason: Insomnia Last Admin: 10/06/21 21:08 Dose: 3 mg Mirtazapine (Mirtazapine 7.5 Mg Tablet) 7.5 mg PO BEDTIME [facility] Last Admin: 10/08/21 20:07 Dose: 7.5 mg Risperidone (Risperidone 0.25 Mg Tablet) 0.25 mg PO BEDTIME [facility] Last Admin: 10/08/21 20:07 Dose: 0.25 mg Senna (Sennosides 8.6 Mg Tablet) 8.6 mg PO DAILY [facility] Last Admin: 10/09/21 08:25 Dose: 8.6 mg Timolol Maleate (Timolol Maleate 0.5 % Oph Jessie 5 Ml Drbtl) 1 drop EYE-BOTH BID [facility] Last Admin: 10/09/21 08:38 Dose: 1 drop Allergies Allergies Allergy/AdvReac Type Severity Reaction Status Date / Time sulfamethoxazole Allergy Itching Verified 10/03/21 19:19 [From Bactrim] trimethoprim [From Bactrim] Allergy Itching Verified 10/03/21 19:19 Assessment & Plan Assessment & Plan (1) Underweight: Status: Acute Code(s): R63.6 - Underweight Plan The patient is an elderly male with no prior psychiatric history ad mitted for bizarre statements and suicidal ideation.? He has a strong family history sings her mother suffer from schizophrenia.? Plan 1. Gather collateral information.? 2. Start Risperdal 0.25 mg p.o. q.h.s. to target psychosis and mood lability.? 3. Start Remeron 7.5 mg p.o. q.h.s. to target depression.? 4. Basic metabolic panel, CBC, TSH and other blood work for tomorrow morning.? 5. CT scan with no new lesions. 6. wound consult ordered Per Hospitalist consult: 66M admitted to inpatient psychiatry for acute psychosis Under weight Consider nutrition evaluation I spent __20____ minutes with the patient and/or on the patient floor today, greater than?50% of which was spent counseling/coordinating care. Reason for contiued inpatient stay Substantial Risk for: inability to function, rapid decompensation and med/psych decompensation
[2021-10-09] MEDS: Mirtazapine 7.5 MG TABLET PO (20:17)
[2021-10-09] MEDS: risperiDONE 0.25 MG TABLET PO (20:17)
[2021-10-09] MEDS: Latanoprost 0.005 % Ophth Sol 2.5 ML DROPS 1 DROP EYE-BOTH (20:23)
[2021-10-09 20:26] VITALS: BP 96/51; PULSE 62; RESP 16; TEMP 36.8; O2SAT 95
[2021-10-10 08:00] VITALS: BP 103/59; PULSE 63; RESP 18; TEMP 36.4; O2SAT 95
[2021-10-10] MEDS: Brimonidine Tartrate 0.2% Oph 5 ML BOTTLE 1 DROP EYE-BOTH ×3 (08:05→20:57)
[2021-10-10] MEDS: Docusate Sodium 100 MG CAPSULE PO ×2 (08:08→20:54)
[2021-10-10] MEDS: Milk of Magnesia 30 ML ORAL.SUSP PO (08:08)
[2021-10-10] MEDS: Gabapentin 100 MG CAPSULE PO ×3 (08:08→20:53)
[2021-10-10] MEDS: Sennosides 8.6 MG TABLET PO (08:08)
[2021-10-10] MEDS: timoloL maleate 0.5 % Oph Sol 5 ML DRBTL 1 DROP EYE-BOTH ×2 (08:13→20:58)
--- NOTE | 2021-10-10 14:20 | P.PNPSI_ITS ---
Subjective Subjective Date of Service: 10/10/21 Reason For Visit: Unspecified Depressive Disorder Subjective Notes: Conditional Voluntary Interim History: The occupational therapist reported that his Prentice was 7/30. He has attended a couple of groups and he has been pleasant and cooperative, sometimes he has even sarcastic. The social media marketing specialist talk with his sister apparently she did not know that he was cognitively impaired they tried to fill an application for ancillary services and the patient needed a lot of redirection. The nursing staff reported that he has a lesion on his neck and knows that bleeds and it looks like skin cancer. We will call the hospitalist. On interview the patient denies new symptoms he is pleasant and cooperative. Today at noon, will [facility] stating that the roommate that he had at [facility] had Klebsiella multidrug resistant and he needed to be tested. Testing supplies will be mailed. At this moment the patient is asymptomatic. According to that the pH worker, he does not need to be on isolation. Medication Compliance: Yes Side effects from medications: No Attending Groups: Yes Review of Systems Medical Review of Systems: unchanged Mental Status Exam Mental Status Exam Patient Appearance: Appropriate Patient Orientation: Person and Situation Level of Consciousness: Awake Patient Behavior: Cooperative Mood Description: Calm Affect Description: Constricted Patient Cognition Impaired: Yes Ability to Follow Directions: Good Speech Pattern: Clear Hallucinations: None Delusions: Not Present Thought Process: Illogical Thought Content: positive for Disoriented Judgement: Fair Diagnostics Vital Signs (24Hr): Vital Signs - 24 hr 10/09/21 20:26 10/10/21 08:00 Temperature 98.2 F 97.5 F Pulse Rate 62 63 Respiratory Rate 16 18 Blood Pressure 96/51 L 103/59 L Pulse Oximetry 95 95 Oxygen Delivery Method Room Air Room Air BMI result Body Mass Index 17.8 Labs Results: 10/05/21 08:01 10/05/21 08:01 Imaging Radiology Impressions: ITS Impressions Head CT 10/04/21 15:04 IMPRESSION: 1. No acute intracranial pathology. 2. Right parietal meningioma without mass effect. 3. Generalized atrophy. Medications Medications Current Medications Acetaminophen (Acetaminophen 325 Mg Tablet) 650 mg PO Q6H PRN PRN Reason: Headache/Pain Mild Scale (1-3) Last Admin: 10/09/21 15:33 Dose: 650 mg Al Hydroxide/Mg Hydroxide (Magnesium Hydrox/Alum Hydrox 30 Ml Oral.Susp) 30 ml PO Q6H PRN PRN Reason: Heartburn/Nausea Brimonidine Tartrate (Brimonidine Tartrate 0.2% Oph 5 Ml Bottle) 1 drop EYE- BOTH TID [facility] Last Admin: 10/10/21 08:05 Dose: 1 drop Docusate Sodium (Docusate Sodium 100 Mg Capsule) 100 mg PO BID [facility] Last Admin: 10/10/21 08:08 Dose: 100 mg Gabapentin (Gabapentin 100 Mg Capsule) 100 mg PO TID [facility] Last Admin: 10/10/21 08:08 Dose: 100 mg Latanoprost (Latanoprost 0.005 % Ophth Jessie 2.5 Ml Drops) 1 drop EYE-BOTH BEDTIME [facility] Last Admin: 10/09/21 20:23 Dose: 1 drop Magnesium Hydroxide (Milk Of Magnesia 30 Ml Oral.Susp) 30 ml PO DAILY [facility] Last Admin: 10/10/21 08:08 Dose: 30 ml Melatonin (Melatonin 3 Mg Tablet) 3 mg PO BEDTIME PRN PRN Reason: Insomnia Last Admin: 10/06/21 21:08 Dose: 3 mg Mirtazapine (Mirtazapine 7.5 Mg Tablet) 7.5 mg PO BEDTIME [facility] Last Admin: 10/09/21 20:17 Dose: 7.5 mg Risperidone (Risperidone 0.25 Mg Tablet) 0.25 mg PO BEDTIME [facility] Last Admin: 10/09/21 20:17 Dose: 0.25 mg Senna (Sennosides 8.6 Mg Tablet) 8.6 mg PO DAILY [facility] Last Admin: 10/10/21 08:08 Dose: 8.6 mg Timolol Maleate (Timolol Maleate 0.5 % Oph Jessie 5 Ml Drbtl) 1 drop EYE-BOTH BID [facility] Last Admin: 10/10/21 08:13 Dose: 1 drop Allergies Allergies Allergy/AdvReac Type Severity Reaction Status Date / Time sulfamethoxazole Allergy Itching Verified 10/03/21 19:19 [From Bactrim] trimethoprim [From Bactrim] Allergy Itching Verified 10/03/21 19:19 Assessment & Plan Assessment & Plan (1) Underweight: Status: Acute Code(s): R63.6 - Underweight Plan The patient is an elderly male with no prior psychiatric history admitted for bizarre statements and suicidal ideation.? He has a strong family history sings her mother suffer from schizophrenia.? Plan 1. Gather collateral information.? 2. Start Risperdal 0.25 mg p.o. q.h.s. to target psychosis and mood lability.? 3. Start Remeron 7.5 mg p.o. q.h.s. to target depression.? 4. Basic metabolic panel, CBC, TSH and other blood work for tomorrow morning.? 5. CT scan with no new lesions. 6. wound consult ordered Per Hospitalist consult: 66M admitted to inpatient psychiatry for acute psychosis Under weight Consider nutrition evaluation I spent ___20___ minutes with the patient and/or on the patient floor today, greater than?50% of which was spent counseling/coordinating care. Reason for contiued inpatient stay Substantial Risk for: inability to function, rapid decompensation and med/psych decompensation
--- NOTE | 2021-10-10 14:58 | MHC.CLN ---
F/U PATIENT APPEARS TO BE EATING WELL. DIET=NDD2. NO ADDITIONAL NUTRITION INTERVENTIONS AT THIS TIME.
[2021-10-10 18:00] VITALS: BP 100/55; PULSE 61; RESP 16; TEMP 37.2; O2SAT 98
[2021-10-10] MEDS: Mirtazapine 7.5 MG TABLET PO (20:52)
[2021-10-10] MEDS: Melatonin 3 MG TABLET PO (20:52)
[2021-10-10] MEDS: risperiDONE 0.25 MG TABLET PO (20:53)
[2021-10-10] MEDS: Latanoprost 0.005 % Ophth Sol 2.5 ML DROPS 1 DROP EYE-BOTH (20:59)
[2021-10-11 06:00] VITALS: BP 105/57; PULSE 63; RESP 18; TEMP 35.9; O2SAT 96
--- NOTE | 2021-10-11 09:30 | HO.PSYCHPN ---
Subjective Subjective Date of Service: 10/11/21 Reason For Visit: Unspecified Depressive Disorder Subjective Notes: Conditional Voluntary Interim History: Pt reports he is doing well. He reports he is not sure why he is here but knows this is [facility]. He denies SI but expresses overall sadness. Pt denies VH/AH. Per nursing, pt slept through the night. No behavioral concerns. Medication Compliance: Yes Side effects from medications: No Review of Systems Review of Systems Yes all other systems are reviewed and are negative Mental Status Exam Mental Status Exam Narrative: Patient Appearance: Well Grooomed Patient Orientation: Person and Situation Level of Consciousness: Awake Patient Behavior: Cooperative Mood Description: Suspicious Affect Description: Constricted Patient Cognition Impaired: Yes Ability to Follow Directions: Good Speech Pattern: Clear Hallucinations: None Delusions: Paranoid Ideation Thought Process: Distracted and Evasive Thought Content: positive for [place] and positive for Circumstantial Judgement: Fair Patient Appearance: Appropriate Patient Orientation: Person and Situation Level of Consciousness: Awake Patient Behavior: Cooperative Mood Description: Calm Affect Description: Constricted Patient Cognition Impaired: Yes Ability to Follow Directions: Good Speech Pattern: Clear Diagnostics Vital Signs (24Hr): Vital Signs - 24 hr 10/11/21 18:00 10/12/21 08:37 Temperature 98.9 F 97.5 F Pulse Rate 67 75 Respiratory Rate 16 18 Blood Pressure 108/59 L 116/62 Pulse Oximetry 97 95 Oxygen Delivery Method Room Air BMI result Body Mass Index 17.8 Labs Results: 10/05/21 08:01 10/05/21 08:01 Imaging Radiology Impressions: ITS Impressions Head CT 10/04/21 15:04 IMPRESSION: 1. No acute intracranial pathology. 2. Right parietal meningioma without mass effect. 3. Generalized atrophy. Medications Medications Current Medications Acetaminophen (Acetaminophen 325 Mg Tablet) 650 mg PO Q6H PRN PRN Reason: Headache/Pain Mild Scale (1-3) Last Admin: 10/09/21 15:33 Dose: 650 mg Al Hydroxide/Mg Hydroxide (Magnesium Hydrox/Alum Hydrox 30 Ml Oral.Susp) 30 ml PO Q6H PRN PRN Reason: Heartburn/Nausea Brimonidine Tartrate (Brimonidine Tartrate 0.2% Oph 5 Ml Bottle) 1 drop EYE-BOTH TID [facility] Last Admin: 10/12/21 08:54 Dose: 1 drop Docusate Sodium (Docusate Sodium 100 Mg Capsule) 100 mg PO BID [facility] Last Admin: 10/12/21 08:53 Dose: 100 mg Gabapentin (Gabapentin 100 Mg Capsule) 100 mg PO TID [facility] Last Admin: 10/12/21 08:53 Dose: 100 mg Latanoprost (Latanoprost 0.005 % Ophth Jessie 2.5 Ml Drops) 1 drop EYE-BOTH BEDTIME [facility] Last Admin: 10/11/21 21:20 Dose: 1 drop Magnesium Hydroxide (Milk Of Magnesia 30 Ml Oral.Susp) 30 ml PO DAILY [facility] Last Admin: 10/12/21 08:53 Dose: 30 ml Melatonin (Melatonin 3 Mg Tablet) 3 mg PO BEDTIME PRN PRN Reason: Insomnia Last Admin: 10/10/21 20:52 Dose: 3 mg Mirtazapine (Mirtazapine 7.5 Mg Tablet) 7.5 mg PO BEDTIME [facility] Last Admin: 10/11/21 20:37 Dose: 7.5 mg Risperidone (Risperidone 0.25 Mg Tablet) 0.25 mg PO BEDTIME [facility] Last Admin: 10/11/21 20:37 Dose: 0.25 mg Senna (Sennosides 8.6 Mg Tablet) 8.6 mg PO DAILY [facility] Last Admin: 10/12/21 08:53 Dose: 8.6 mg Timolol Maleate (Timolol Maleate 0.5 % Oph Jessie 5 Ml Drbtl) 1 drop EYE-BOTH BID [facility] Last Admin: 10/12/21 08:54 Dose: 1 drop Allergies Allergies Allergy/AdvReac Type Severity Reaction Status Date / Time sulfamethoxazole Allergy Itching Verified 10/03/21 19:19 [From Bactrim] trimethoprim [From Bactrim] Allergy Itching Verified 10/03/21 19:19 Assessment & Plan Assessment & Plan (1) Mood disorder: Status: Acute Code(s): F39 - Unspecified mood [affective] disorder Plan The patient is an elderly male with no prior psychiatric history admitted for bizarre statements and suicidal ideation.? He has a strong family history sings her mother suffer from schizophrenia.? Plan 1. Gather collateral information.? 2. Start Risperdal 0.25 mg p.o. q.h.s. to target psychosis and mood lability.? 3. Start Remeron 7.5 mg p.o. q.h.s. to target depression.? 4. Basic metabolic panel, CBC, TSH and other blood work for tomorrow morning.? 5. CT scan with no new lesions. 6. wound consult ordered Per Hospitalist consult: 66M admitted to inpatient psychiatry for acute psychosis Under weight Consider nutrition evaluation 10/11 continue current medications I spent minutes with the patient and/or on the patient floor today, greater than?50% of which was spent counseling/coordinating care. Reason for contiued inpatient stay Substantial Risk for: inability to function
[2021-10-11] MEDS: Gabapentin 100 MG CAPSULE PO ×3 (10:19→20:36)
[2021-10-11] MEDS: Docusate Sodium 100 MG CAPSULE PO ×2 (10:19→20:36)
[2021-10-11] MEDS: Milk of Magnesia 30 ML ORAL.SUSP PO (10:19)
[2021-10-11] MEDS: Sennosides 8.6 MG TABLET PO (10:19)
[2021-10-11] MEDS: timoloL maleate 0.5 % Oph Sol 5 ML DRBTL 1 DROP EYE-BOTH ×2 (10:21→20:37)
[2021-10-11] MEDS: Brimonidine Tartrate 0.2% Oph 5 ML BOTTLE 1 DROP EYE-BOTH ×3 (10:21→20:36)
[2021-10-11 18:00] VITALS: BP 108/59; PULSE 67; RESP 16; TEMP 37.2; O2SAT 97
[2021-10-11] MEDS: risperiDONE 0.25 MG TABLET PO (20:37)
[2021-10-11] MEDS: Mirtazapine 7.5 MG TABLET PO (20:37)
[2021-10-11] MEDS: Latanoprost 0.005 % Ophth Sol 2.5 ML DROPS 1 DROP EYE-BOTH (21:20)
--- NOTE | 2021-10-12 | EEG_ITS ---
This is a 16-channel EEG with an EKG lead. The patient is reported awake during the tracing. Background EEG rhythm is 16 to 20 hertz 5 to 20 microvolt posteriorly and lower amplitude fast anteriorly. Photic stimulation does not produce any significant abnormality. Hyperventilation is not performed. Cardiac lead does not reveal any significant abnormality. Some muscle and lead artifacts are noted. IMPRESSION: No significant abnormality noted on this EEG. MD HERO Farrar/JENARO / [id number]
[2021-10-12 08:37] VITALS: BP 116/62; PULSE 75; RESP 18; TEMP 36.4; O2SAT 95
[2021-10-12] MEDS: Sennosides 8.6 MG TABLET PO (08:53)
[2021-10-12] MEDS: Milk of Magnesia 30 ML ORAL.SUSP PO (08:53)
[2021-10-12] MEDS: Gabapentin 100 MG CAPSULE PO ×3 (08:53→20:14)
[2021-10-12] MEDS: Docusate Sodium 100 MG CAPSULE PO ×2 (08:53→20:14)
[2021-10-12] MEDS: timoloL maleate 0.5 % Oph Sol 5 ML DRBTL 1 DROP EYE-BOTH ×2 (08:54→20:12)
[2021-10-12] MEDS: Brimonidine Tartrate 0.2% Oph 5 ML BOTTLE 1 DROP EYE-BOTH ×3 (08:54→20:14)
--- NOTE | 2021-10-12 11:14 | P.PNPSI_ITS ---
Subjective Subjective Date of Service: 10/12/21 Reason For Visit: Unspecified Depressive Disorder Subjective Notes: Conditional Voluntary Interim History: pt with odd affect anxious dysphoric Mental Status Exam Mental Status Exam Patient Appearance: Appropriate Patient Orientation: Person and Situation Level of Consciousness: Awake Patient Behavior: Cooperative Mood Description: Calm Affect Description: Constricted Patient Cognition Impaired: Yes Ability to Follow Directions: Good Speech Pattern: Clear Hallucinations: None Delusions: Not Present Thought Process: Illogical Thought Content: positive for Disoriented Judgement: Fair Diagnostics Vital Signs (24Hr): Vital Signs - 24 hr 10/11/21 18:00 10/12/21 08:37 Temperature 98.9 F 97.5 F Pulse Rate 67 75 Respiratory Rate 16 18 Blood Pressure 108/59 L 116/62 Pulse Oximetry 97 95 Oxygen Delivery Method Room Air BMI result Body Mass Index 17.8 Labs Results: 10/05/21 08:01 10/05/21 08:01 Imaging Radiology Impressions: ITS Impressions Head CT 10/04/21 15:04 IMPRESSION: 1. No acute intracranial pathology. 2. Right parietal meningioma without mass effect. 3. Generalized atrophy. Medications Medications Current Medications Acetaminophen (Acetaminophen 325 Mg Tablet) 650 mg PO Q6H PRN PRN Reason: Headache/Pain Mild Scale (1-3) Last Admin: 10/09/21 15:33 Dose: 650 mg Al Hydroxide/Mg Hydroxide (Magnesium Hydrox/Alum Hydrox 30 Ml Oral.Susp) 30 ml PO Q6H PRN PRN Reason: Heartburn/Nausea Brimonidine Tartrate (Brimonidine Tartrate 0.2% Oph 5 Ml Bottle) 1 drop EYE- BOTH TID [facility] Last Admin: 10/12/21 08:54 Dose: 1 drop Docusate Sodium (Docusate Sodium 100 Mg Capsule) 100 mg PO BID [facility] Last Admin: 10/12/21 08:53 Dose: 100 mg Gabapentin (Gabapentin 100 Mg Capsule) 100 mg PO TID [facility] Last Admin: 10/12/21 08:53 Dose: 100 mg Latanoprost (Latanoprost 0.005 % Ophth Jessie 2.5 Ml Drops) 1 drop EYE-BOTH BEDTIME [facility] Last Admin: 10/11/21 21:20 Dose: 1 drop Magnesium Hydroxide (Milk Of Magnesia 30 Ml Oral.Susp) 30 ml PO DAILY [facility] Last Admin: 10/12/21 08:53 Dose: 30 ml Melatonin (Melatonin 3 Mg Tablet) 3 mg PO BEDTIME PRN PRN Reason: Insomnia Last Admin: 10/10/21 20:52 Dose: 3 mg Mirtazapine (Mirtazapine 7.5 Mg Tablet) 7.5 mg PO BEDTIME [facility] Last Admin: 10/11/21 20:37 Dose: 7.5 mg Risperidone (Risperidone 0.25 Mg Tablet) 0.25 mg PO BEDTIME [facility] Last Admin: 10/11/21 20:37 Dose: 0.25 mg Senna (Sennosides 8.6 Mg Tablet) 8.6 mg PO DAILY [facility] Last Admin: 10/12/21 08:53 Dose: 8.6 mg Timolol Maleate (Timolol Maleate 0.5 % Oph Jessie 5 Ml Drbtl) 1 drop EYE-BOTH BID [facility] Last Admin: 10/12/21 08:54 Dose: 1 drop Allergies Allergies Allergy/AdvReac Type Severity Reaction Status Date / Time sulfamethoxazole Allergy Itching Verified 10/03/21 19:19 [From Bactrim] trimethoprim [From Bactrim] Allergy Itching Verified 10/03/21 19:19 Assessment & Plan Assessment & Plan (1) Mood disorder: Status: Acute Code(s): F39 - Unspecified mood [affective] disorder Plan The patient is an elderly male with no prior psychiatric history admitted for bizarre statements and suicidal ideation.? He has a strong family history sings her mother suffer from schizophrenia.? Plan 1. Gather collateral information.? 2. Start Risperdal 0.25 mg p.o. q.h.s. to target psychosis and mood lability.? 3. Start Remeron 7.5 mg p.o. q.h.s. to target depression.? 4. Basic metabolic panel, CBC, TSH and other blood work for tomorrow morning.? 5. CT scan with no new lesions. 6. wound consult ordered Per Hospitalist consult: 66M admitted to inpatient psychiatry for acute psychosis Under weight Consider nutrition evaluation 10/11 continue current medications 10/12/21 Pt seen in f/u mood anxious dysphoric cont plan of care I spent minutes with the patient and/or on the patient floor today, greater than?50% of which was spent counseling/coordinating care. Reason for contiued inpatient stay Substantial Risk for: inability to function, rapid decompensation and med/psych decompensation
--- NOTE | 2021-10-12 15:48 | MHC.CLN ---
F/U PATIENT APPEARS TO BE EATING WELL. DIET=NDD2. NO ADDITIONAL NUTRITION INTERVENTIONS AT THIS TIME. RD TO FOLLOW WEEKLY.
[2021-10-12 18:00] VITALS: BP 126/78; PULSE 58; RESP 16; TEMP 36.6; O2SAT 95
[2021-10-12] MEDS: risperiDONE 0.25 MG TABLET PO (20:14)
[2021-10-12] MEDS: Mirtazapine 7.5 MG TABLET PO (20:14)
[2021-10-12] MEDS: Latanoprost 0.005 % Ophth Sol 2.5 ML DROPS 1 DROP EYE-BOTH (20:14)
[2021-10-13 06:00] VITALS: BP 119/70; PULSE 70; RESP 14; TEMP 35.9; O2SAT 95
[2021-10-13] MEDS: Sennosides 8.6 MG TABLET PO (08:24)
[2021-10-13] MEDS: Docusate Sodium 100 MG CAPSULE PO ×2 (08:24→21:11)
[2021-10-13] MEDS: Gabapentin 100 MG CAPSULE PO ×3 (08:24→21:11)
[2021-10-13] MEDS: Milk of Magnesia 30 ML ORAL.SUSP PO (08:24)
[2021-10-13] MEDS: Brimonidine Tartrate 0.2% Oph 5 ML BOTTLE 1 DROP EYE-BOTH ×3 (08:25→21:12)
[2021-10-13] MEDS: timoloL maleate 0.5 % Oph Sol 5 ML DRBTL 1 DROP EYE-BOTH ×2 (08:25→21:12)
--- NOTE | 2021-10-13 12:31 | HO.PSYCHPN ---
Subjective Subjective Date of Service: 10/13/21 Reason For Visit: Unspecified Depressive Disorder Subjective Notes: Conditional Voluntary Interim History: Patient was seen and discussed in rounds today. Records and plans were reviewed. He has been stable, doing fairly well with no complaints. No respiratory symptoms reported. He is med compliant. Eating and sleeping well. No complaints. No side effects. No changes were made today Medication Compliance: Yes Side effects from medications: No Mental Status Exam Mental Status Exam Narrative: In today's visit he is alert, oriented x2. Speech is slow. Little eye contact. Affect is constricted. Some paranoia reported. Cognitively is impaired. No SI. Judgment is impaired Diagnostics Vital Signs (24Hr): Vital Signs - 24 hr 10/12/21 18:00 10/13/21 06:00 Temperature 97.9 F 96.7 F L Pulse Rate 58 70 Respiratory Rate 16 14 Blood Pressure 126/78 119/70 Pulse Oximetry 95 95 Oxygen Delivery Method Room Air Room Air BMI result Body Mass Index 17.8 Labs Results: 10/05/21 08:01 10/05/21 08:01 Imaging Radiology Impressions: ITS Impressions Head CT 10/04/21 15:04 IMPRESSION: 1. No acute intracranial pathology. 2. Right parietal meningioma without mass effect. 3. Generalized atrophy. Medications Medications Current Medications Acetaminophen (Acetaminophen 325 Mg Tablet) 650 mg PO Q6H PRN PRN Reason: Headache/Pain Mild Scale (1-3) Last Admin: 10/09/21 15:33 Dose: 650 mg Al Hydroxide/Mg Hydroxide (Magnesium Hydrox/Alum Hydrox 30 Ml Oral.Susp) 30 ml PO Q6H PRN PRN Reason: Heartburn/Nausea Brimonidine Tartrate (Brimonidine Tartrate 0.2% Oph 5 Ml Bottle) 1 drop EYE-BOTH TID [facility] Last Admin: 10/13/21 08:25 Dose: 1 drop Docusate Sodium (Docusate Sodium 100 Mg Capsule) 100 mg PO BID [facility] Last Admin: 10/13/21 08:24 Dose: 100 mg Gabapentin (Gabapentin 100 Mg Capsule) 100 mg PO TID [facility] Last Admin: 10/13/21 08:24 Dose: 100 mg Latanoprost (Latanoprost 0.005 % Ophth Jessie 2.5 Ml Drops) 1 drop EYE-BOTH BEDTIME [facility] Last Admin: 10/12/21 20:14 Dose: 1 drop Magnesium Hydroxide (Milk Of Magnesia 30 Ml Oral.Susp) 30 ml PO DAILY [facility] Last Admin: 10/13/21 08:24 Dose: 30 ml Melatonin (Melatonin 3 Mg Tablet) 3 mg PO BEDTIME PRN PRN Reason: Insomnia Last Admin: 10/10/21 20:52 Dose: 3 mg Mirtazapine (Mirtazapine 7.5 Mg Tablet) 7.5 mg PO BEDTIME [facility] Last Admin: 10/12/21 20:14 Dose: 7.5 mg Risperidone (Risperidone 0.25 Mg Tablet) 0.25 mg PO BEDTIME [facility] Last Admin: 10/12/21 20:14 Dose: 0.25 mg Senna (Sennosides 8.6 Mg Tablet) 8.6 mg PO DAILY [facility] Last Admin: 10/13/21 08:24 Dose: 8.6 mg Timolol Maleate (Timolol Maleate 0.5 % Oph Jessie 5 Ml Drbtl) 1 drop EYE-BOTH BID [facility] Last Admin: 10/13/21 08:25 Dose: 1 drop Allergies Allergies Allergy/AdvReac Type Severity Reaction Status Date / Time sulfamethoxazole Allergy Itching Verified 10/03/21 19:19 [From Bactrim] trimethoprim [From Bactrim] Allergy Itching Verified 10/03/21 19:19 Assessment & Plan Assessment & Plan (1) Mood disorder: Status: Acute Code(s): F39 - Unspecified mood [affective] disorder Plan The patient is an elderly male with no prior psychiatric history admitted for bizarre statements and suicidal ideation.? He has a strong family history sings her mother suffer from schizophrenia.? Plan 1. Gather collateral information.? 2. Start Risperdal 0.25 mg p.o. q.h.s. to target psychosis and mood lability.? 3. Start Remeron 7.5 mg p.o. q.h.s. to target depression.? 4. Basic metabolic panel, CBC, TSH and other blood work for tomorrow morning.? 5. CT scan with no new lesions. 6. wound consult ordered Per Hospitalist consult: 66M admitted to inpatient psychiatry for acute psychosis Under weight Consider nutrition evaluation 10/11 continue current medications 10/13: Continue current regimen and plans I spent minutes with the patient and/or on the patient floor today, greater than?50% of which was spent counseling/coordinating care. Reason for contiued inpatient stay Substantial Risk for: inability to function
[2021-10-13] MEDS: risperiDONE 0.25 MG TABLET PO (21:12)
[2021-10-13] MEDS: Latanoprost 0.005 % Ophth Sol 2.5 ML DROPS 1 DROP EYE-BOTH (21:12)
[2021-10-13] MEDS: Mirtazapine 7.5 MG TABLET PO (21:12)
[2021-10-14 06:00] VITALS: BP 116/72; PULSE 69; RESP 14; TEMP 36.9; O2SAT 97
[2021-10-14] MEDS: Milk of Magnesia 30 ML ORAL.SUSP PO (08:08)
[2021-10-14] MEDS: Sennosides 8.6 MG TABLET PO (08:08)
[2021-10-14] MEDS: Gabapentin 100 MG CAPSULE PO ×3 (08:08→21:03)
--- NOTE | 2021-10-14 09:58 | P.PNPSI_ITS ---
Subjective Subjective Date of Service: 10/14/21 Reason For Visit: Unspecified Depressive Disorder Subjective Notes: Conditional Voluntary Medical Problems Affecting Mental Status: No Interim History: Patient was seen and discussed in rounds today. Records and plans were reviewed. He has been stable, doing fairly well with no complaints. Continues to be confused about where he is and why he is here. He is eating and sleeping adequately. No complaints or side effects. No dangerous behaviors. No changes were made today y Medication Compliance: Yes Side effects from medications: No Review of Systems Review of Systems Yes all other systems are reviewed and are negative Mental Status Exam Mental Status Exam Narrative: In today's visit he is alert, oriented x2. Speech is slow. Little eye contact. Affect is constricted. Some paranoia reported. Cognitively is impaired and he continues to be somewhat confused. No SI. Judgment is impaired Diagnostics Vital Signs (24Hr): Vital Signs - 24 hr 10/14/21 06:00 Temperature 98.5 F Pulse Rate 69 Respiratory Rate 14 Blood Pressure 116/72 Pulse Oximetry 97 Oxygen Delivery Method Room Air BMI result Body Mass Index 17.8 Labs Results: 10/05/21 08:01 10/05/21 08:01 Imaging Radiology Impressions: ITS Impressions Head CT 10/04/21 15:04 IMPRESSION: 1. No acute intracranial pathology. 2. Right parietal meningioma without mass effect. 3. Generalized atrophy. Medications Medications Current Medications Acetaminophen (Acetaminophen 325 Mg Tablet) 650 mg PO Q6H PRN PRN Reason: Headache/Pain Mild Scale (1-3) Last Admin: 10/09/21 15:33 Dose: 650 mg Al Hydroxide/Mg Hydroxide (Magnesium Hydrox/Alum Hydrox 30 Ml Oral.Susp) 30 ml PO Q6H PRN PRN Reason: Heartburn/Nausea Brimonidine Tartrate (Brimonidine Tartrate 0.2% Oph 5 Ml Bottle) 1 drop EYE- BOTH TID [facility] Last Admin: 10/13/21 21:12 Dose: 1 drop Docusate Sodium (Docusate Sodium 100 Mg Capsule) 100 mg PO BID [facility] Last Admin: 10/13/21 21:11 Dose: 100 mg Gabapentin (Gabapentin 100 Mg Capsule) 100 mg PO TID [facility] Last Admin: 10/14/21 08:08 Dose: 100 mg Latanoprost (Latanoprost 0.005 % Ophth Jessie 2.5 Ml Drops) 1 drop EYE-BOTH BEDTIME [facility] Last Admin: 10/13/21 21:12 Dose: 1 drop Magnesium Hydroxide (Milk Of Magnesia 30 Ml Oral.Susp) 30 ml PO DAILY [facility] Last Admin: 10/14/21 08:08 Dose: 30 ml Melatonin (Melatonin 3 Mg Tablet) 3 mg PO BEDTIME PRN PRN Reason: Insomnia Last Admin: 10/10/21 20:52 Dose: 3 mg Mirtazapine (Mirtazapine 7.5 Mg Tablet) 7.5 mg PO BEDTIME [facility] Last Admin: 10/13/21 21:12 Dose: 7.5 mg Risperidone (Risperidone 0.25 Mg Tablet) 0.25 mg PO BEDTIME [facility] Last Admin: 10/13/21 21:12 Dose: 0.25 mg Senna (Sennosides 8.6 Mg Tablet) 8.6 mg PO DAILY [facility] Last Admin: 10/14/21 08:08 Dose: 8.6 mg Timolol Maleate (Timolol Maleate 0.5 % Oph Jessie 5 Ml Drbtl) 1 drop EYE-BOTH BID [facility] Last Admin: 10/13/21 21:12 Dose: 1 drop Allergies Allergies Allergy/AdvReac Type Severity Reaction Status Date / Time sulfamethoxazole Allergy Itching Verified 10/03/21 19:19 [From Bactrim] trimethoprim [From Bactrim] Allergy Itching Verified 10/03/21 19:19 Assessment & Plan Assessment & Plan (1) Mood disorder: Status: Acute Code(s): F39 - Unspecified mood [affective] disorder Plan The patient is an elderly male with no prior psychiatric history admitted for bizarre statements and suicidal ideation.? He has a strong family h istory sings her mother suffer from schizophrenia.? Plan 1. Gather collateral information.? 2. Start Risperdal 0.25 mg p.o. q.h.s. to target psychosis and mood lability.? 3. Start Remeron 7.5 mg p.o. q.h.s. to target depression.? 4. Basic metabolic panel, CBC, TSH and other blood work for tomorrow morning.? 5. CT scan with no new lesions. 6. wound consult ordered Per Hospitalist consult: 66M admitted to inpatient psychiatry for acute psychosis Under weight Consider nutrition evaluation 10/11 continue current medications 10/13: Continue current regimen and plans 10/14: Continue current plans and regimen I spent minutes with the patient and/or on the patient floor today, greater than?50% of which was spent counseling/coordinating care. Reason for contiued inpatient stay Substantial Risk for: inability to function
[2021-10-14] MEDS: Docusate Sodium 100 MG CAPSULE PO ×2 (11:26→21:03)
[2021-10-14] MEDS: Brimonidine Tartrate 0.2% Oph 5 ML BOTTLE 1 DROP EYE-BOTH ×3 (11:26→21:07)
[2021-10-14] MEDS: timoloL maleate 0.5 % Oph Sol 5 ML DRBTL 1 DROP EYE-BOTH ×2 (11:26→21:09)
[2021-10-14 18:00] VITALS: BP 109/63; PULSE 68; RESP 16; TEMP 37.4; O2SAT 96
[2021-10-14] MEDS: Mirtazapine 7.5 MG TABLET PO (21:03)
[2021-10-14] MEDS: risperiDONE 0.25 MG TABLET PO (21:03)
[2021-10-14] MEDS: Melatonin 3 MG TABLET PO (21:05)
[2021-10-14] MEDS: Latanoprost 0.005 % Ophth Sol 2.5 ML DROPS 1 DROP EYE-BOTH (21:08)
[2021-10-15 08:05] VITALS: BP 116/64; PULSE 68; RESP 17; TEMP 36.2; O2SAT 95
[2021-10-15] MEDS: Sennosides 8.6 MG TABLET PO (08:07)
[2021-10-15] MEDS: Gabapentin 100 MG CAPSULE PO ×3 (08:07→21:54)
[2021-10-15] MEDS: Milk of Magnesia 30 ML ORAL.SUSP PO (08:07)
[2021-10-15] MEDS: Docusate Sodium 100 MG CAPSULE PO ×2 (08:07→21:54)
[2021-10-15] MEDS: timoloL maleate 0.5 % Oph Sol 5 ML DRBTL 1 DROP EYE-BOTH ×2 (08:08→21:57)
[2021-10-15] MEDS: Brimonidine Tartrate 0.2% Oph 5 ML BOTTLE 1 DROP EYE-BOTH ×3 (08:08→21:58)
--- NOTE | 2021-10-15 16:52 | HO.PSYCHPN ---
Subjective Subjective Reason For Visit: Unspecified Depressive Disorder Interim History: biopsy, slept well, confused Diagnostics Vital Signs (24Hr): Vital Signs - 24 hr 10/14/21 18:00 10/15/21 08:05 Temperature 99.3 F 97.2 F Pulse Rate 68 68 Respiratory Rate 16 17 Blood Pressure 109/63 116/64 Pulse Oximetry 96 95 Oxygen Delivery Method Room Air Room Air BMI result Body Mass Index 17.8 Labs Results: 10/05/21 08:01 10/05/21 08:01 Imaging Radiology Impressions: ITS Impressions Head CT 10/04/21 15:04 IMPRESSION: 1. No acute intracranial pathology. 2. Right parietal meningioma without mass effect. 3. Generalized atrophy. Medications Medications Current Medications Acetaminophen (Acetaminophen 325 Mg Tablet) 650 mg PO Q6H PRN PRN Reason: Headache/Pain Mild Scale (1-3) Last Admin: 10/09/21 15:33 Dose: 650 mg Al Hydroxide/Mg Hydroxide (Magnesium Hydrox/Alum Hydrox 30 Ml Oral.Susp) 30 ml PO Q6H PRN PRN Reason: Heartburn/Nausea Brimonidine Tartrate (Brimonidine Tartrate 0.2% Oph 5 Ml Bottle) 1 drop EYE-BOTH TID [facility] Last Admin: 10/15/21 15:51 Dose: 1 drop Docusate Sodium (Docusate Sodium 100 Mg Capsule) 100 mg PO BID [facility] Last Admin: 10/15/21 08:07 Dose: 100 mg Gabapentin (Gabapentin 100 Mg Capsule) 100 mg PO TID [facility] Last Admin: 10/15/21 15:50 Dose: 100 mg Latanoprost (Latanoprost 0.005 % Ophth Jessie 2.5 Ml Drops) 1 drop EYE-BOTH BEDTIME [facility] Last Admin: 10/14/21 21:08 Dose: 1 drop Magnesium Hydroxide (Milk Of Magnesia 30 Ml Oral.Susp) 30 ml PO DAILY [facility] Last Admin: 10/15/21 08:07 Dose: 30 ml Melatonin (Melatonin 3 Mg Tablet) 3 mg PO BEDTIME PRN PRN Reason: Insomnia Last Admin: 10/14/21 21:05 Dose: 3 mg Mirtazapine (Mirtazapine 7.5 Mg Tablet) 7.5 mg PO BEDTIME [facility] Last Admin: 10/14/21 21:03 Dose: 7.5 mg Risperidone (Risperidone 0.25 Mg Tablet) 0.25 mg PO BEDTIME [facility] Last Admin: 10/14/21 21:03 Dose: 0.25 mg Senna (Sennosides 8.6 Mg Tablet) 8.6 mg PO DAILY [facility] Last Admin: 10/15/21 08:07 Dose: 8.6 mg Timolol Maleate (Timolol Maleate 0.5 % Oph Jessie 5 Ml Drbtl) 1 drop EYE-BOTH BID [facility] Last Admin: 10/15/21 08:08 Dose: 1 drop Allergies Allergies Allergy/AdvReac Type Severity Reaction Status Date / Time sulfamethoxazole Allergy Itching Verified 10/03/21 19:19 [From Bactrim] trimethoprim [From Bactrim] Allergy Itching Verified 10/03/21 19:19 Assessment & Plan Assessment & Plan (1) Mood disorder: Status: Acute Code(s): F39 - Unspecified mood [affective] disorder Plan The patient is an elderly male with no prior psychiatric history admitted for bizarre statements and suicidal ideation.? He has a strong family history sings her mother suffer from schizophrenia.? Plan 1. Gather collateral information.? 2. Start Risperdal 0.25 mg p.o. q.h.s. to target psychosis and mood lability.? 3. Start Remeron 7.5 mg p.o. q.h.s. to target depression.? 4. Basic metabolic panel, CBC, TSH and other blood work for tomorrow morning.? 5. CT scan with no new lesions. 6. wound consult ordered Per Hospitalist consult: 66M admitted to inpatient psychiatry for acute psychosis Under weight Consider nutrition evaluation 10/11 continue current medications 10/12/21 Pt seen in f/u mood anxious dysphoric cont plan of care I spent minutes with the patient and/or on the patient floor today, greater than?50% of which was spent counseling/coordinating care.
[2021-10-15] MEDS: Mirtazapine 7.5 MG TABLET PO (21:52)
[2021-10-15] MEDS: Melatonin 3 MG TABLET PO (21:53)
[2021-10-15] MEDS: risperiDONE 0.25 MG TABLET PO (21:53)
--- NOTE | 2021-10-15 21:54 | HO.PSYCHPN ---
Subjective Subjective Date of Service: 10/15/21 Reason For Visit: Unspecified Depressive Disorder Subjective Notes: Conditional Voluntary Guardianship: No Interim History: pt noted have 2 lesions one on nose 1 on neck reportedly x months Mental Status Exam Mental Status Exam Patient Appearance: Appropriate Level of Consciousness: Awake Mood Description: Apprehensive Affect Description: Suspicious, Depressed and Nervous Ability to Follow Directions: Good Memory Description: Episodic Impaired Thought Process: Slowed Thinking Thought Content: positive for Poverty of Content and positive for Slowed Thinking Abnormal Motor Activity Signs and Symptoms: Hyperactivity Judgement and Insight: lesions noted on neck and nose Diagnostics Vital Signs (24Hr): Vital Signs - 24 hr 10/15/21 08:05 Temperature 97.2 F Pulse Rate 68 Respiratory Rate 17 Blood Pressure 116/64 Pulse Oximetry 95 Oxygen Delivery Method Room Air BMI result Body Mass Index 17.8 Labs Results: 10/05/21 08:01 10/05/21 08:01 Imaging Radiology Impressions: ITS Impressions Head CT 10/04/21 15:04 IMPRESSION: 1. No acute intracranial pathology. 2. Right parietal meningioma without mass effect. 3. Generalized atrophy. Medications Medications Current Medications Acetaminophen (Acetaminophen 325 Mg Tablet) 650 mg PO Q6H PRN PRN Reason: Headache/Pain Mild Scale (1-3) Last Admin: 10/09/21 15:33 Dose: 650 mg Al Hydroxide/Mg Hydroxide (Magnesium Hydrox/Alum Hydrox 30 Ml Oral.Susp) 30 ml PO Q6H PRN PRN Reason: Heartburn/Nausea Brimonidine Tartrate (Brimonidine Tartrate 0.2% Oph 5 Ml Bottle) 1 drop EYE-BOTH TID [facility] Last Admin: 10/15/21 15:51 Dose: 1 drop Docusate Sodium (Docusate Sodium 100 Mg Capsule) 100 mg PO BID [facility] Last Admin: 10/15/21 08:07 Dose: 100 mg Gabapentin (Gabapentin 100 Mg Capsule) 100 mg PO TID [facility] Last Admin: 10/15/21 15:50 Dose: 100 mg Latanoprost (Latanoprost 0.005 % Ophth Jessie 2.5 Ml Drops) 1 drop EYE-BOTH BEDTIME [facility] Last Admin: 10/14/21 21:08 Dose: 1 drop Magnesium Hydroxide (Milk Of Magnesia 30 Ml Oral.Susp) 30 ml PO DAILY [facility] Last Admin: 10/15/21 08:07 Dose: 30 ml Melatonin (Melatonin 3 Mg Tablet) 3 mg PO BEDTIME PRN PRN Reason: Insomnia Last Admin: 10/14/21 21:05 Dose: 3 mg Mirtazapine (Mirtazapine 7.5 Mg Tablet) 7.5 mg PO BEDTIME [facility] Last Admin: 10/14/21 21:03 Dose: 7.5 mg Risperidone (Risperidone 0.25 Mg Tablet) 0.25 mg PO BEDTIME [facility] Last Admin: 10/14/21 21:03 Dose: 0.25 mg Senna (Sennosides 8.6 Mg Tablet) 8.6 mg PO DAILY [facility] Last Admin: 10/15/21 08:07 Dose: 8.6 mg Timolol Maleate (Timolol Maleate 0.5 % Oph Jessie 5 Ml Drbtl) 1 drop EYE-BOTH BID [facility] Last Admin: 10/15/21 08:08 Dose: 1 drop Allergies Allergies Allergy/AdvReac Type Severity Reaction Status Date / Time sulfamethoxazole Allergy Itching Verified 10/03/21 19:19 [From Bactrim] trimethoprim [From Bactrim] Allergy Itching Verified 10/03/21 19:19 Assessment & Plan Assessment & Plan (1) Mood disorder: Status: Acute Code(s): F39 - Unspecified mood [affective] disorder Plan continue mirtazapine low dose risperadol lesions noted hosp consult eeg pos meningioma I spent minutes with the patient and/or on the patient floor today, greater than?50% of which was spent counseling/coordinating care. Reason for contiued inpatient stay Substantial Risk for: inability to function, rapid decompensation and med/psych decompensation
[2021-10-15] MEDS: Latanoprost 0.005 % Ophth Sol 2.5 ML DROPS 1 DROP EYE-BOTH (21:56)
[2021-10-15 23:14] VITALS: BP 114/58; PULSE 82; RESP 18; TEMP 36.6; O2SAT 96
--- NOTE | 2021-10-16 09:46 | P.PNPSI_ITS ---
Subjective Subjective Date of Service: 10/16/21 Reason For Visit: Unspecified Depressive Disorder Subjective Notes: Conditional Voluntary Interim History: Patient feeling somewhat more stable disorganized in thought feeling more secure less paranoid not overly aggressive Medication Compliance: Yes Mental Status Exam Mental Status Exam Patient Appearance: Appropriate Level of Consciousness: Awake Patient Behavior: Guarded and Suspicious Mood Description: Apprehensive Affect Description: Suspicious, Depressed and Nervous Ability to Follow Directions: Good Memory Description: Episodic Impaired Thought Process: Slowed Thinking Thought Content: positive for Poverty of Content and positive for Slowed Thinking Abnormal Motor Activity Signs and Symptoms: Hyperactivity Judgement and Insight: lesions noted on neck and nose Diagnostics Vital Signs (24Hr): Vital Signs - 24 hr 10/15/21 23:14 Temperature 97.8 F Pulse Rate 82 Respiratory Rate 18 Blood Pressure 114/58 L Pulse Oximetry 96 BMI result Body Mass Index 17.8 Labs Results: 10/05/21 08:01 10/05/21 08:01 Imaging Radiology Impressions: ITS Impressions Head CT 10/04/21 15:04 IMPRESSION: 1. No acute intracranial pathology. 2. Right parietal meningioma without mass effect. 3. Generalized atrophy. Medications Medications Current Medications Acetaminophen (Acetaminophen 325 Mg Tablet) 650 mg PO Q6H PRN PRN Reason: Headache/Pain Mild Scale (1-3) Last Admin: 10/09/21 15:33 Dose: 650 mg Al Hydroxide/Mg Hydroxide (Magnesium Hydrox/Alum Hydrox 30 Ml Oral.Susp) 30 ml PO Q6H PRN PRN Reason: Heartburn/Nausea Brimonidine Tartrate (Brimonidine Tartrate 0.2% Oph 5 Ml Bottle) 1 drop EYE- BOTH TID [facility] Last Admin: 10/15/21 21:58 Dose: 1 drop Docusate Sodium (Docusate Sodium 100 Mg Capsule) 100 mg PO BID [facility] Last Admin: 10/15/21 21:54 Dose: 100 mg Gabapentin (Gabapentin 100 Mg Capsule) 100 mg PO TID [facility] Last Admin: 10/15/21 21:54 Dose: 100 mg Latanoprost (Latanoprost 0.005 % Ophth Jessie 2.5 Ml Drops) 1 drop EYE-BOTH BEDTIME [facility] Last Admin: 10/15/21 21:56 Dose: 1 drop Magnesium Hydroxide (Milk Of Magnesia 30 Ml Oral.Susp) 30 ml PO DAILY [facility] Last Admin: 08/29/22 08:07 Dose: 30 ml Melatonin (Melatonin 3 Mg Tablet) 3 mg PO BEDTIME PRN PRN Reason: Insomnia Last Admin: 10/15/21 21:53 Dose: 3 mg Mirtazapine (Mirtazapine 7.5 Mg Tablet) 7.5 mg PO BEDTIME [facility] Last Admin: 10/15/21 21:52 Dose: 7.5 mg Risperidone (Risperidone 0.25 Mg Tablet) 0.25 mg PO BEDTIME [facility] Last Admin: 10/15/21 21:53 Dose: 0.25 mg Senna (Sennosides 8.6 Mg Tablet) 8.6 mg PO DAILY [facility] Last Admin: 10/15/21 08:07 Dose: 8.6 mg Timolol Maleate (Timolol Maleate 0.5 % Oph Jessie 5 Ml Drbtl) 1 drop EYE-BOTH BID [facility] Last Admin: 10/15/21 21:57 Dose: 1 drop Allergies Allergies Allergy/AdvReac Type Severity Reaction Status Date / Time sulfamethoxazole Allergy Itching Verified 10/03/21 19:19 [From Bactrim] trimethoprim [From Bactrim] Allergy Itching Verified 10/03/21 19:19 Assessment & Plan Assessment & Plan (1) Mood disorder: Status: Acute Code(s): F39 - Unspecified mood [affective] disorder Plan continue mirtazapine low dose risperadol lesions noted hosp consult eeg pos meningioma surgical consult for lesions I spent minutes with the patient and/or on the patient floor today, greater than?50% of which was spent counseling/coordinating care. Reason for contiued inpatient stay Substantial Risk for: harm to others, rapid decompensation and med/psych decomp ensation
[2021-10-16] MEDS: timoloL maleate 0.5 % Oph Sol 5 ML DRBTL 1 DROP EYE-BOTH ×2 (11:26→20:15)
[2021-10-16] MEDS: Brimonidine Tartrate 0.2% Oph 5 ML BOTTLE 1 DROP EYE-BOTH ×3 (11:26→20:12)
[2021-10-16] MEDS: Docusate Sodium 100 MG CAPSULE PO ×2 (11:26→20:14)
[2021-10-16] MEDS: Gabapentin 100 MG CAPSULE PO ×3 (11:26→20:14)
[2021-10-16] MEDS: Sennosides 8.6 MG TABLET PO (11:26)
[2021-10-16] MEDS: Milk of Magnesia 30 ML ORAL.SUSP PO (11:27)
--- NOTE | 2021-10-16 15:49 | P.PNIM_ITS ---
Subjective Subjective Date of Service: 10/16/21 Interval History: Denies neck discomfort or pain, no fevers no chills, patient offers no acute complaints, has neck and right-sided neck lesion for several months unable to provide details about how they started, denies itching Review of Systems Review of Systems: Yes Unobtainable due to mental status Physical Exam Vital Signs: Vital Signs: Last Vital Signs Temp 97.8 F 10/15/21 23:14 Pulse 82 10/15/21 23:14 Resp 18 10/15/21 23:14 BP 114/58 L 10/15/21 23:14 Pulse Ox 96 10/15/21 23:14 O2 Del Method 10/15/21 08:05 BMI result Body Mass Index 17.8 Const: Other: General in no acute distress. Neck right-sided raised lesion with no surrounding erythema, nontender to palpation, no drainage. Nose right-sided small ulcer, margin not raised no drainage CVS regular rate rhythm, Respiratory lungs clear no respiratory distress Gastrointestinal abdomen soft, nontender, bowel sounds audible, no no guarding , no rigidity. Extremities no edema. Objective Data Active Medications Acetaminophen (Acetaminophen 325 Mg Tablet) 650 mg PO Q6H PRN PRN Reason: Headache/Pain Mild Scale (1-3) Last Admin: 10/09/21 15:33 Dose: 650 mg Documented By: FINESSE Al Hydroxide/Mg Hydroxide (Magnesium Hydrox/Alum Hydrox 30 Ml Oral.Susp) 30 ml PO Q6H PRN PRN Reason: Heartburn/Nausea Brimonidine Tartrate (Brimonidine Tartrate 0.2% Oph 5 Ml Bottle) 1 drop EYE- BOTH TID [facility] Last Admin: 10/16/21 15:18 Dose: 1 drop Documented By: TAYLOR Docusate Sodium (Docusate Sodium 100 Mg Capsule) 100 mg PO BID [facility] Last Admin: 10/16/21 11:26 Dose: 100 mg Documented By: TAYLOR Gabapentin (Gabapentin 100 Mg Capsule) 100 mg PO TID [facility] Last Admin: 10/16/21 15:18 Dose: 100 mg Documented By: TAYLOR Latanoprost (Latanoprost 0.005 % Ophth Jessie 2.5 Ml Drops) 1 drop EYE-BOTH BEDTIME [facility] Last Admin: 10/15/21 21:56 Dose: 1 drop Documented By: JOANIE Magnesium Hydroxide (Milk Of Magnesia 30 Ml Oral.Susp) 30 ml PO DAILY [facility] Last Admin: 10/16/21 11:27 Dose: 30 ml Documented By: TAYLOR Melatonin (Melatonin 3 Mg Tablet) 3 mg PO BEDTIME PRN PRN Reason: Insomnia Last Admin: 10/15/21 21:53 Dose: 3 mg Documented By: JOANIE Mirtazapine (Mirtazapine 7.5 Mg Tablet) 7.5 mg PO BEDTIME [facility] Last Admin: 10/15/21 21:52 Dose: 7.5 mg Documented By: JOANIE Risperidone (Risperidone 0.25 Mg Tablet) 0.25 mg PO BEDTIME [facility] Last Admin: 10/15/21 21:53 Dose: 0.25 mg Documented By: JOANIE Senna (Sennosides 8.6 Mg Tablet) 8.6 mg PO DAILY [facility] Last Admin: 10/16/21 11:26 Dose: 8.6 mg Documented By: TAYLOR Timolol Maleate (Timolol Maleate 0.5 % Oph Jessie 5 Ml Drbtl) 1 drop EYE-BOTH BID [facility] Last Admin: 10/16/21 11:26 Dose: 1 drop Documented By: TAYLOR Labs CBC & Chem 7: 10/05/21 08:01 10/05/21 08:01 Microbiology Microbiology Results: Microbiology 10/16/21 05:00 Gram Stain - Final Neck 10/16/21 05:00 Gram Stain - Final Nasal - Drainage Assessment and Plan (1) Underweight: Status: Acute (2) Mood disorder: Status: Acute (3) Skin lesion of neck: Status: Acute Plan 66-year-old gentleman admitted to psych for bizarre statements and suicidal ideation, hospitalist consult obtain for chronic right-sided neck and nose lesion Right-sided neck lesion chronic for last several months, no evidence of acute infection needs biopsy for definitive diagnosis Small nose lesion also no evidence of infection Recommend surgical consultation Underweight being followed by patroller, eating well. Acute psychosis treatment as per psych Quality Stroke Does the patient have a stroke diagnosis?: No VTE Prior VTE?: No VTE Risk Level:: Medical - low VTE Device Contraindication: Treatment Not Indicated VTE Drug Contraindication: Treatment Not Indicated
[2021-10-16 18:00] VITALS: BP 102/58; PULSE 65; RESP 16; TEMP 36.8; O2SAT 97
[2021-10-16] MEDS: risperiDONE 0.25 MG TABLET PO (20:14)
[2021-10-16] MEDS: Latanoprost 0.005 % Ophth Sol 2.5 ML DROPS 1 DROP EYE-BOTH (20:14)
[2021-10-16] MEDS: Mirtazapine 7.5 MG TABLET PO (20:14)
[2021-10-17 06:00] VITALS: BP 105/57; PULSE 60; RESP 17; TEMP 36.7; O2SAT 95
[2021-10-17] MEDS: Milk of Magnesia 30 ML ORAL.SUSP PO (08:14)
[2021-10-17] MEDS: Gabapentin 100 MG CAPSULE PO ×3 (08:14→21:11)
[2021-10-17] MEDS: Sennosides 8.6 MG TABLET PO (08:14)
[2021-10-17] MEDS: Docusate Sodium 100 MG CAPSULE PO ×2 (08:14→21:11)
[2021-10-17] MEDS: timoloL maleate 0.5 % Oph Sol 5 ML DRBTL 1 DROP EYE-BOTH ×2 (08:15→21:12)
[2021-10-17] MEDS: Brimonidine Tartrate 0.2% Oph 5 ML BOTTLE 1 DROP EYE-BOTH ×3 (08:15→21:10)
--- NOTE | 2021-10-17 08:49 | P.CONGS_ITS ---
History of Present Illness Consult details Consult date: 10/17/21 Narrative: 66-year-old male referred for lesions on the nose as well as the right neck. He says that he has had this for ?several months . He actually was admitted to the psych unit last October 05 because suicidal ideations. He currently says he is ?better?. He is not a very good historian. Review of Systems Constitutional: Constitutional: Denies chills and Denies fever(s) Cardiovascular: Cardiovascular: Denies chest pain, Denies dyspnea and Denies dyspnea on exertion Respiratory: Respiratory: Denies cough, Denies dyspnea and Denies dyspnea on exertion Gastrointestinal: Gastrointestinal: Denies hematochezia and Denies change in bowel habits Genitourinary: Genitourinary: Denies hematuria and Denies difficulty urinating Musculoskeletal: Musculoskeletal: Denies back pain and Denies limited range of motion Neurologic: Denies focal weakness and Denies convulsions Psychiatric: Psychiatric: Reports depression and Denies mood swings PMFSH Past Medical History Medical History Underweight Family History Family History Mother Psychotic disorder Social History Social History Household Members: Unknown / Unable to assess Housing: Unknown / Unable to assess Unable to assess alcohol history related to: Unknown Patient Tobacco Use Status: Never used Tobacco Use of substances other than those prescribed or required for medical reasons: Unknown Substance Use Type: Unknown Last Used Substance: Unknown Currently Displaying Signs/Symptoms of Drug Intoxication Withdrawal: No Advance Directives: No Advance Directives Information Provided: No Do you have thoughts of harming others: None Do you have a plan to hurt others: No Plan Recently lost weight without trying: Unsure How much weight loss: Unsure Eating poorly because of decreased appetite: Yes Nutrition screen score: 5 Poor oral hygiene: Yes service: No Sexual orientation: Straight/Heterosexual Meds Allergies Allergy/AdvReac Type Severity Reaction Status Date / Time sulfamethoxazole Allergy Itching Verified 10/03/21 19:19 [From Bactrim] trimethoprim [From Bactrim] Allergy Itching Verified 10/03/21 19:19 Active Medications: Current Medications Acetaminophen (Acetaminophen 325 Mg Tablet) 650 mg PO Q6H PRN PRN Reason: Headache/Pain Mild Scale (1-3) Last Admin: 10/09/21 15:33 Dose: 650 mg Al Hydroxide/Mg Hydroxide (Magnesium Hydrox/Alum Hydrox 30 Ml Oral.Susp) 30 ml PO Q6H PRN PRN Reason: Heartburn/Nausea Brimonidine Tartrate (Brimonidine Tartrate 0.2% Oph 5 Ml Bottle) 1 drop EYE- BOTH TID [facility] Last Admin: 10/17/21 08:15 Dose: 1 drop Docusate Sodium (Docusate Sodium 100 Mg Capsule) 100 mg PO BID [facility] Last Admin: 10/17/21 08:14 Dose: 100 mg Gabapentin (Gabapentin 100 Mg Capsule) 100 mg PO TID [facility] Last Admin: 10/17/21 08:14 Dose: 100 mg Latanoprost (Latanoprost 0.005 % Ophth Jessie 2.5 Ml Drops) 1 drop EYE-BOTH BEDTIME [facility] Last Admin: 10/16/21 20:14 Dose: 1 drop Magnesium Hydroxide (Milk Of Magnesia 30 Ml Oral.Susp) 30 ml PO DAILY [facility] Last Admin: 10/17/21 08:14 Dose: 30 ml Melatonin (Melatonin 3 Mg Tablet) 3 mg PO BEDTIME PRN PRN Reason: Insomnia Last Admin: 10/15/21 21:53 Dose: 3 mg Mirtazapine (Mirtazapine 7.5 Mg Tablet) 7.5 mg PO BEDTIME [facility] Last Admin: 10/16/21 20:14 Dose: 7.5 mg Risperidone (Risperidone 0.25 Mg Tablet) 0.25 mg PO BEDTIME [facility] Last Admin: 10/16/21 20:14 Dose: 0.25 mg Senna (Sennosides 8.6 Mg Tablet) 8.6 mg PO DAILY [facility] Last Admin: 10/17/21 08:14 Dose: 8.6 mg Timolol Maleate (Timolol Maleate 0.5 % Oph Jessie 5 Ml Drbtl) 1 drop EYE-BOTH BID [facility] Last Admin: 10/17/21 08:15 Dose: 1 drop Home Medications Medication Instructions Recorded Confirmed Last Taken Type Milk of Magnesia 30 ml PO DAILY 10/03/21 10/03/21 Unknown History acetaminophen 650 mg tablet 650 mg PO Q6H PRN Pain 10/03/21 10/03/21 Unknown History albuterol 90 mcg/actuation aerosol 90 mcg inhalation QID 10/03/21 10/03/21 Unknown History inhaler brimonidine 0.2 % ophthalmic (eye) TID 10/03/21 10/03/21 Unknown History docusate sodium 100 mg capsule 100 mg PO BID 10/03/21 10/03/21 Unknown History gabapentin 100 mg capsule 100 mg PO TID 10/03/21 10/03/21 Unknown History latanoprost 0.005 % eye drops 1 drp ophthalmic (eye) QPM 10/03/21 10/03/21 Unknown History melatonin 3 mg capsule 3 mg PO BEDTIME PRN Insomnia 10/03/21 10/03/21 Unknown History sennosides 8.6 mg tablet (senna) 8.6 mg PO DAILY 10/03/21 10/03/21 Unknown History timolol 0.5 % eye drops 1 drp ophthalmic (eye) BID 10/03/21 10/03/21 Unknown History Physical Exam Vital Signs: Vital Signs: Last Vital Signs Temp 98.1 F 10/17/21 06:00 Pulse 60 10/17/21 06:00 Resp 17 10/17/21 06:00 BP 105/57 L 10/17/21 06:00 Pulse Ox 95 10/17/21 06:00 O2 Del Method 10/17/21 06:00 BMI result Body Mass Index 17.8 Const: General: comfortable and no acute distress Orientation/consciousness: patient oriented x3 Neck: Neck: Yes no lymphadenopathy Resp: Auscultation: clear to auscultation bilaterally Cardio: Rhythm: regular rhythm GI: Palpation (GI): Soft to palpation, nontender and no guarding Skin: Other: Flat, excoriating skin lesion on the ala of the right nostril, about 5 mm in diameter, irregular; On the right neck is note of an elevated, skin lesion, about 2 cm in diameter with raw surfaces and pearly edges Neuro: General: patient oriented x3 Results Labs Result diagrams: 10/05/21 08:01 10/05/21 08:01 Labs: All other labs normal. Assessment and Plan (1) Skin lesion of neck: Status: Acute He has 2 skin lesions as described above. I had a long discussion with him about the technique of excision under local anesthesia. He is amenable to this and we will try to do this before his discharge from the unit. This will be done under local anesthesia at bedside. Procedures Date of Service Date of Service: 10/17/21
--- NOTE | 2021-10-17 09:19 | P.PNPSI_ITS ---
Subjective Subjective Date of Service: 10/17/21 Reason For Visit: Unspecified Depressive Disorder Subjective Notes: Conditional Voluntary Healthcare Proxy: Yes Interim History: Patient continues with odd fat affect was seen in surgical consult for lesions neck and nose. The patient is somewhat withdrawn isolated Medication Compliance: Yes Mental Status Exam Mental Status Exam Patient Appearance: Appropriate Level of Consciousness: Awake Patient Behavior: Guarded and Suspicious Mood Description: Apprehensive Affect Description: Suspicious, Depressed and Nervous Ability to Follow Directions: Good Memory Description: Episodic Impaired Thought Process: Slowed Thinking Thought Content: positive for Poverty of Content and positive for Slowed Thinking Abnormal Motor Activity Signs and Symptoms: Hyperactivity Judgement and Insight: lesions noted on neck and nose Diagnostics Vital Signs (24Hr): Vital Signs - 24 hr 10/16/21 18:00 10/17/21 06:00 Temperature 98.3 F 98.1 F Pulse Rate 65 60 Respiratory Rate 16 17 Blood Pressure 102/58 L 105/57 L Pulse Oximetry 97 95 Oxygen Delivery Method Room Air Room Air BMI result Body Mass Index 17.8 Labs Results: 10/05/21 08:01 10/05/21 08:01 Imaging Radiology Impressions: ITS Impressions Head CT 10/04/21 15:04 IMPRESSION: 1. No acute intracranial pathology. 2. Right parietal meningioma without mass effect. 3. Generalized atrophy. Medications Medications Current Medications Acetaminophen (Acetaminophen 325 Mg Tablet) 650 mg PO Q6H PRN PRN Reason: Headache/Pain Mild Scale (1-3) Last Admin: 10/09/21 15:33 Dose: 650 mg Al Hydroxide/Mg Hydroxide (Magnesium Hydrox/Alum Hydrox 30 Ml Oral.Susp) 30 ml PO Q6H PRN PRN Reason: Heartburn/Nausea Brimonidine Tartrate (Brimonidine Tartrate 0.2% Oph 5 Ml Bottle) 1 drop EYE- BOTH TID [facility] Last Admin: 10/17/21 08:15 Dose: 1 drop Docusate Sodium (Docusate Sodium 100 Mg Capsule) 100 mg PO BID [facility] Last Admin: 10/17/21 08:14 Dose: 100 mg Gabapentin (Gabapentin 100 Mg Capsule) 100 mg PO TID [facility] Last Admin: 10/17/21 08:14 Dose: 100 mg Latanoprost (Latanoprost 0.005 % Ophth Jessie 2.5 Ml Drops) 1 drop EYE-BOTH BEDTIME [facility] Last Admin: 10/16/21 20:14 Dose: 1 drop Magnesium Hydroxide (Milk Of Magnesia 30 Ml Oral.Susp) 30 ml PO DAILY [facility] Last Admin: 10/17/21 08:14 Dose: 30 ml Melatonin (Melatonin 3 Mg Tablet) 3 mg PO BEDTIME PRN PRN Reason: Insomnia Last Admin: 10/15/21 21:53 Dose: 3 mg Mirtazapine (Mirtazapine 7.5 Mg Tablet) 7.5 mg PO BEDTIME [facility] Last Admin: 10/16/21 20:14 Dose: 7.5 mg Risperidone (Risperidone 0.25 Mg Tablet) 0.25 mg PO BEDTIME [facility] Last Admin: 10/16/21 20:14 Dose: 0.25 mg Senna (Sennosides 8.6 Mg Tablet) 8.6 mg PO DAILY [facility] Last Admin: 10/17/21 08:14 Dose: 8.6 mg Timolol Maleate (Timolol Maleate 0.5 % Oph Jessie 5 Ml Drbtl) 1 drop EYE-BOTH BID [facility] Last Admin: 10/17/21 08:15 Dose: 1 drop Allergies Allergies Allergy/AdvReac Type Severity Reaction Status Date / Time sulfamethoxazole Allergy Itching Verified 10/03/21 19:19 [From Bactrim] trimethoprim [From Bactrim] Allergy Itching Verified 10/03/21 19:19 Assessment & Plan Assessment & Plan (1) Mood disorder: Status: Acute Code(s): F39 - Unspecified mood [affective] disorder Plan continue mirtazapine low dose risperadol lesions noted hosp consult eeg pos meningioma surgical consult for lesions 10/17/2021 Continue present treatment plan trying get additional medical history. Surgical consult appreciated patient will have biopsy unclear nature of lesions. Patient gradually somewhat less paranoid and suspicious 10/18/2021 Patient seen in psychiatric follow-up. Seems to be cycling somewhat down more withdrawn difficulty regarding discharge planning I spent minutes with the patient and/or on the patient floor today, greater than?50% of which was spent counseling/coordinating care. Reason for contiued inpatient stay Substantial Risk for: inability to function and rapid decompensation
[2021-10-17 18:00] VITALS: BP 110/61; PULSE 72; RESP 18; TEMP 37.1; O2SAT 94
[2021-10-17] MEDS: Latanoprost 0.005 % Ophth Sol 2.5 ML DROPS 1 DROP EYE-BOTH (21:12)
[2021-10-17] MEDS: Mirtazapine 7.5 MG TABLET PO (21:12)
[2021-10-17] MEDS: risperiDONE 0.25 MG TABLET PO (21:12)
[2021-10-18 06:00] VITALS: BP 125/62; PULSE 72; RESP 16; TEMP 36.8; O2SAT 96
[2021-10-18] MEDS: timoloL maleate 0.5 % Oph Sol 5 ML DRBTL 1 DROP EYE-BOTH ×2 (08:13→22:10)
[2021-10-18] MEDS: Milk of Magnesia 30 ML ORAL.SUSP PO (08:13)
[2021-10-18] MEDS: Gabapentin 100 MG CAPSULE PO ×3 (08:13→21:59)
[2021-10-18] MEDS: Docusate Sodium 100 MG CAPSULE PO ×2 (08:13→21:59)
[2021-10-18] MEDS: Brimonidine Tartrate 0.2% Oph 5 ML BOTTLE 1 DROP EYE-BOTH ×3 (08:13→22:03)
[2021-10-18] MEDS: Sennosides 8.6 MG TABLET PO (08:13)
[2021-10-18] MEDS: Acetaminophen 325 MG TABLET 650 MG PO (08:21)
[2021-10-18 18:00] VITALS: BP 95/53; PULSE 61; RESP 18; TEMP 36.4; O2SAT 96
[2021-10-18 20:39] VITALS: BMI 17.1
[2021-10-18] MEDS: Mirtazapine 7.5 MG TABLET PO (21:59)
[2021-10-18] MEDS: risperiDONE 0.25 MG TABLET PO (21:59)
[2021-10-18] MEDS: Latanoprost 0.005 % Ophth Sol 2.5 ML DROPS 1 DROP EYE-BOTH (22:02)
--- NOTE | 2021-10-18 22:42 | HO.PSYCHPN ---
Subjective Subjective Date of Service: 10/18/21 Reason For Visit: Unspecified Depressive Disorder Subjective Notes: Conditional Voluntary Interim History: Patient withdrawn flat odd affect oddly related future oriented somewhat dysphoric oddly related Mental Status Exam Mental Status Exam Patient Appearance: Appropriate Level of Consciousness: Awake Patient Behavior: Guarded and Suspicious Mood Description: Apprehensive Affect Description: Suspicious, Depressed and Nervous Ability to Follow Directions: Good Memory Description: Episodic Impaired Thought Process: Slowed Thinking Thought Content: positive for Poverty of Content and positive for Slowed Thinking Abnormal Motor Activity Signs and Symptoms: Hyperactivity Judgement and Insight: lesions noted on neck and nose Diagnostics Vital Signs (24Hr): Vital Signs - 24 hr 10/18/21 06:00 10/18/21 18:00 Temperature 98.2 F 97.5 F Pulse Rate 72 61 Respiratory Rate 16 18 Blood Pressure 125/62 95/53 L Pulse Oximetry 96 96 Oxygen Delivery Method Room Air Room Air BMI result Body Mass Index 17.1 Labs Results: 10/05/21 08:01 10/05/21 08:01 Imaging Radiology Impressions: [facility] Impressions Head CT 10/04/21 15:04 IMPRESSION: 1. No acute intracranial pathology. 2. Right parietal meningioma without mass effect. 3. Generalized atrophy. Medications Medications Current Medications Acetaminophen (Acetaminophen 325 Mg Tablet) 650 mg PO Q6H PRN PRN Reason: Headache/Pain Mild Scale (1-3) Last Admin: 10/18/21 08:21 Dose: 650 mg Al Hydroxide/Mg Hydroxide (Magnesium Hydrox/Alum Hydrox 30 Ml Oral.Susp) 30 ml PO Q6H PRN PRN Reason: Heartburn/Nausea Brimonidine Tartrate (Brimonidine Tartrate 0.2% Oph 5 Ml Bottle) 1 drop EYE-BOTH TID [facility] Last Admin: 10/18/21 22:03 Dose: 1 drop Docusate Sodium (Docusate Sodium 100 Mg Capsule) 100 mg PO BID [facility] Last Admin: 10/18/21 21:59 Dose: 100 mg Gabapentin (Gabapentin 100 Mg Capsule) 100 mg PO TID [facility] Last Admin: 10/18/21 21:59 Dose: 100 mg Latanoprost (Latanoprost 0.005 % Ophth Jessie 2.5 Ml Drops) 1 drop EYE-BOTH BEDTIME [facility] Last Admin: 10/18/21 22:02 Dose: 1 drop Magnesium Hydroxide (Milk Of Magnesia 30 Ml Oral.Susp) 30 ml PO DAILY [facility] Last Admin: 10/18/21 08:13 Dose: 30 ml Melatonin (Melatonin 3 Mg Tablet) 3 mg PO BEDTIME PRN PRN Reason: Insomnia Last Admin: 10/15/21 21:53 Dose: 3 mg Mirtazapine (Mirtazapine 7.5 Mg Tablet) 7.5 mg PO BEDTIME [facility] Last Admin: 10/18/21 21:59 Dose: 7.5 mg Risperidone (Risperidone 0.25 Mg Tablet) 0.25 mg PO BEDTIME [facility] Last Admin: 10/18/21 21:59 Dose: 0.25 mg Senna (Sennosides 8.6 Mg Tablet) 8.6 mg PO DAILY [facility] Last Admin: 10/18/21 08:13 Dose: 8.6 mg Timolol Maleate (Timolol Maleate 0.5 % Oph Jessie 5 Ml Drbtl) 1 drop EYE-BOTH BID [facility] Last Admin: 10/18/21 22:10 Dose: 1 drop Allergies Allergies Allergy/AdvReac Type Severity Reaction Status Date / Time sulfamethoxazole Allergy Itching Verified 10/03/21 19:19 [From Bactrim] trimethoprim [From Bactrim] Allergy Itching Verified 10/03/21 19:19 Assessment & Plan Assessment & Plan (1) Mood disorder: Status: Acute Code(s): F39 - Unspecified mood [affective] disorder Plan Continue medicine plan of care if healthcare proxy not willing to work with patient may need a guardianship which would extend is probable hospital stay I spent minutes with the patient and/or on the patient floor today, greater than?50% of which was spent counseling/coordinating care. Reason for contiued inpatient stay Substantial Risk for: inability to function, rapid decompensation and med/psych decompensation
[2021-10-19 06:00] VITALS: BP 116/67; PULSE 60; RESP 14; TEMP 36.8; O2SAT 96
[2021-10-19] MEDS: Gabapentin 100 MG CAPSULE PO ×3 (08:24→21:55)
[2021-10-19] MEDS: Docusate Sodium 100 MG CAPSULE PO ×2 (08:24→21:54)
[2021-10-19] MEDS: Sennosides 8.6 MG TABLET PO (08:24)
[2021-10-19] MEDS: Milk of Magnesia 30 ML ORAL.SUSP PO (08:24)
[2021-10-19] MEDS: timoloL maleate 0.5 % Oph Sol 5 ML DRBTL 1 DROP EYE-BOTH ×2 (08:25→22:08)
[2021-10-19] MEDS: Brimonidine Tartrate 0.2% Oph 5 ML BOTTLE 1 DROP EYE-BOTH ×3 (08:25→22:05)
--- NOTE | 2021-10-19 13:56 | MHC.CLN ---
F/U DIET=NDD2. STAFF REPORTS THAT PATIENT IS EATING WELL AND MAY BENEFIT FROM ENSURE SUPPLEMENT TO INCREASE CALORIE/NUTRITIONAL INTAKE. ADDED ENSURE TID (1050 KCALS, [address] TO FOLLOW WEEKLY.
--- NOTE | 2021-10-19 14:35 | W.PM.OPN ---
Operative Note Operative Note Date of Service: 10/19/21 Narrative: Preop dx: Skin lesion right neck Postop dx: same Procedure: exc of skin lesion right neck under local anesthesia at bedside Surgeon: Sushil Henderson MD The pt is a 66M with a skin lesion on the right neck. This was elevated, raw appearing with pearly borders measuring about 2 cm. He understood the technique of excision under local anesthesia and he had given consent. he was placed supine on his bed. the area of the lesion was prepped and draped. Lidocaine 1% was used as local anesthesia, I made an elliptical insion on the skin around the lesion using a mariann 15.This was carried down through the full thickness of the skin to excise the entire lesion. This incision was closed with nylon 4-0 simple interrupted sutures. Dressings were applied. He tolerated the procedure well. EBL was about 20 cc. He may have Tylenol or Ibuprofen for pain. The site should be kept dry for 24 hr.
[2021-10-19 18:00] VITALS: BP 133/67; PULSE 79; RESP 16; TEMP 37.1; O2SAT 95
[2021-10-19] MEDS: Mirtazapine 7.5 MG TABLET PO (21:54)
[2021-10-19] MEDS: risperiDONE 0.25 MG TABLET PO (21:55)
[2021-10-19] MEDS: Acetaminophen 325 MG TABLET 650 MG PO (22:01)
[2021-10-19] MEDS: Latanoprost 0.005 % Ophth Sol 2.5 ML DROPS 1 DROP EYE-BOTH (22:06)
--- NOTE | 2021-10-19 22:20 | HO.PSYCHPN ---
Subjective Subjective Date of Service: 10/19/21 Reason For Visit: Unspecified Depressive Disorder Subjective Notes: Conditional Voluntary Healthcare Proxy: Yes (Unfortunately sister will participate) Medical Problems Affecting Mental Status: Yes Interim History: Patient with meningioma status post reported traumatic brain and body injury. Patient appears to have ability to give consent to minor surgery knowing he is having a biopsy for his neck in nose and knows that he had been referred to a blueprint duplicator for biopsy number of months ago. Patient does know he is in hospital knows he can no longer live at his prior residence patient is dysphoric with suspiciousness of others and motive Mental Status Exam Mental Status Exam Narrative: Patient Appearance: Appropriate Level of Consciousness: Awake Patient Behavior: Guarded and Suspicious Mood Description: Apprehensive Affect Description: Suspicious, Depressed and Nervous Ability to Follow Directions: Good Memory Description: Episodic Impaired Thought Process: Slowed Thinking Thought Content: positive for Poverty of Content and positive for Slowed Thinking Abnormal Motor Activity Signs and Symptoms: Hyperactivity Judgement and Insight: lesions noted on neck and nose Diagnostics Vital Signs (24Hr): Vital Signs - 24 hr 10/19/21 06:00 Temperature 98.3 F Pulse Rate 60 Respiratory Rate 14 Blood Pressure 116/67 Pulse Oximetry 96 Oxygen Delivery Method Room Air BMI result Body Mass Index 17.1 Labs Results: 10/05/21 08:01 10/05/21 08:01 Imaging Radiology Impressions: [facility] Impressions Head CT 10/04/21 15:04 IMPRESSION: 1. No acute intracranial pathology. 2. Right parietal meningioma without mass effect. 3. Generalized atrophy. Medications Medications Current Medications Acetaminophen (Acetaminophen 325 Mg Tablet) 650 mg PO Q6H PRN PRN Reason: Headache/Pain Mild Scale (1-3) Last Admin: 10/19/21 22:01 Dose: 650 mg Al Hydroxide/Mg Hydroxide (Magnesium Hydrox/Alum Hydrox 30 Ml Oral.Susp) 30 ml PO Q6H PRN PRN Reason: Heartburn/Nausea Brimonidine Tartrate (Brimonidine Tartrate 0.2% Oph 5 Ml Bottle) 1 drop EYE-BOTH TID [facility] Last Admin: 10/19/21 22:05 Dose: 1 drop Docusate Sodium (Docusate Sodium 100 Mg Capsule) 100 mg PO BID [facility] Last Admin: 10/19/21 21:54 Dose: 100 mg Gabapentin (Gabapentin 100 Mg Capsule) 100 mg PO TID [facility] Last Admin: 10/19/21 21:55 Dose: 100 mg Latanoprost (Latanoprost 0.005 % Ophth Jessie 2.5 Ml Drops) 1 drop EYE-BOTH BEDTIME [facility] Last Admin: 10/19/21 22:06 Dose: 1 drop Magnesium Hydroxide (Milk Of Magnesia 30 Ml Oral.Susp) 30 ml PO DAILY [facility] Last Admin: 10/19/21 08:24 Dose: 30 ml Melatonin (Melatonin 3 Mg Tablet) 3 mg PO BEDTIME PRN PRN Reason: Insomnia Last Admin: 10/15/21 21:53 Dose: 3 mg Mirtazapine (Mirtazapine 7.5 Mg Tablet) 7.5 mg PO BEDTIME [facility] Last Admin: 10/19/21 21:54 Dose: 7.5 mg Risperidone (Risperidone 0.25 Mg Tablet) 0.25 mg PO BEDTIME [facility] Last Admin: 10/19/21 21:55 Dose: 0.25 mg Senna (Sennosides 8.6 Mg Tablet) 8.6 mg PO DAILY [facility] Last Admin: 10/19/21 08:24 Dose: 8.6 mg Timolol Maleate (Timolol Maleate 0.5 % Oph Jessie 5 Ml Drbtl) 1 drop EYE-BOTH BID [facility] Last Admin: 10/19/21 22:08 Dose: 1 drop Allergies Allergies Allergy/AdvReac Type Severity Reaction Status Date / Time sulfamethoxazole Allergy Itching Verified 10/03/21 19:19 [From Bactrim] trimethoprim [From Bactrim] Allergy Itching Verified 10/03/21 19:19 Assessment & Plan Assessment & Plan (1) Skin lesion of neck: Status: Acute Code(s): L98.9 - Disorder of the skin and subcutaneous tissue, unspecified Assessment and Plan: He has 2 skin lesions as described above. I had a long discussion with him about the technique of excision under local anesthesia. He is amenable to this and we will try to do this before his discharge from the unit. Patient was able to have biopsy by Dr. Henderson of neck lesion. Patient seems improved on combination of mirtazapine Risperdal gabapentin 100 t.i.d.. Difficulty with executive functioning we had hoped to work with HCP but does not appear to be willing and most likely will need guardianship I spent minutes with the patient and/or on the patient floor today, greater than?50% of which was spent counseling/coordinating care. Reason for contiued inpatient stay Substantial Risk for: inability to function and rapid decompensation
[2021-10-20 06:00] VITALS: BP 146/64; PULSE 92; RESP 16; TEMP 36.3; O2SAT 96
--- NOTE | 2021-10-20 09:20 | P.PNPSI_ITS ---
Subjective Subjective Date of Service: 10/20/21 Reason For Visit: Unspecified Depressive Disorder Subjective Notes: Tolbert Warning Guardianship: No Interim History: I spoke with pt and he is evasive, demented. When asked how he is, pt says you can type in that I five minutes ago, says this in joking manner. Sleep is fairly good. Mood is always janette, not good or bad, just there. Then says the good news is im not . Medication Compliance: Yes Side effects from medications: No Attending Groups: Intermittent Review of Systems Acute medical concerns: No Medical Review of Systems: unchanged Mental Status Exam Mental Status Exam Narrative: Patient Appearance: Appropriate Level of Consciousness: Awake Patient Behavior: Guarded and Suspicious Mood Description: Apprehensive Affect Description: Suspicious, Depressed and Nervous Ability to Follow Directions: Good Memory Description: Episodic Impaired Thought Process: Slowed Thinking Thought Content: positive for Poverty of Content and positive for Slowed Thinking Abnormal Motor Activity Signs and Symptoms: Hyperactivity Judgment and Insight: lesions noted on neck and nose Diagnostics Vital Signs (24Hr): Vital Signs - 24 hr 10/19/21 18:00 Temperature 98.7 F Pulse Rate 79 Respiratory Rate 16 Blood Pressure 133/67 Pulse Oximetry 95 Oxygen Delivery Method Room Air BMI result Body Mass Index 17.1 Labs Results: 10/05/21 08:01 10/05/21 08:01 Imaging Radiology Impressions: [facility] Impressions Head CT 10/04/21 15:04 IMPRESSION: 1. No acute intracranial pathology. 2. Right parietal meningioma without mass effect. 3. Generalized atrophy. Medications Medications Current Medications Acetaminophen (Acetaminophen 325 Mg Tablet) 650 mg PO Q6H PRN PRN Reason: Headache/Pain Mild Scale (1-3) Last Admin: 10/19/21 22:01 Dose: 650 mg Al Hydroxide/Mg Hydroxide (Magnesium Hydrox/Alum Hydrox 30 Ml Oral.Susp) 30 ml PO Q6H PRN PRN Reason: Heartburn/Nausea Brimonidine Tartrate (Brimonidine Tartrate 0.2% Oph 5 Ml Bottle) 1 drop EYE- BOTH TID [facility] Last Admin: 10/19/21 22:05 Dose: 1 drop Docusate Sodium (Docusate Sodium 100 Mg Capsule) 100 mg PO BID [facility] Last Admin: 10/19/21 21:54 Dose: 100 mg Gabapentin (Gabapentin 100 Mg Capsule) 100 mg PO TID [facility] Last Admin: 10/19/21 21:55 Dose: 100 mg Latanoprost (Latanoprost 0.005 % Ophth Jessie 2.5 Ml Drops) 1 drop EYE-BOTH BEDTIME [facility] Last Admin: 10/19/21 22:06 Dose: 1 drop Magnesium Hydroxide (Milk Of Magnesia 30 Ml Oral.Susp) 30 ml PO DAILY [facility] Last Admin: 10/19/21 08:24 Dose: 30 ml Melatonin (Melatonin 3 Mg Tablet) 3 mg PO BEDTIME PRN PRN Reason: Insomnia Last Admin: 10/15/21 21:53 Dose: 3 mg Mirtazapine (Mirtazapine 7.5 Mg Tablet) 7.5 mg PO BEDTIME [facility] Last Admin: 10/19/21 21:54 Dose: 7.5 mg Risperidone (Risperidone 0.25 Mg Tablet) 0.25 mg PO BEDTIME [facility] Last Admin: 10/19/21 21:55 Dose: 0.25 mg Senna (Sennosides 8.6 Mg Tablet) 8.6 mg PO DAILY [facility] Last Admin: 10/19/21 08:24 Dose: 8.6 mg Timolol Maleate (Timolol Maleate 0.5 % Oph Jessie 5 Ml Drbtl) 1 drop EYE-BOTH BID [facility] Last Admin: 10/19/21 22:08 Dose: 1 drop Allergies Allergies Allergy/AdvReac Type Severity Reaction Status Date / Time sulfamethoxazole Allergy Itching Verified 10/03/21 19:19 [From Bactrim] trimethoprim [From Bactrim] Allergy Itching Verified 10/03/21 19:19 Assessment & Plan Assessment & Plan (1) Skin lesion of neck: Status: Acute Code(s): L98.9 - Disorder of the skin and subcutaneous tissue, unspecified Assessment and Plan: He has 2 skin lesions as described above. I had a long discussion with him about the technique of excision under local anesthesia. He is amenable to this and we will try to do this before his discharge from the unit. This will be done under local anesthesia at bedside. 10/20: Pt tolerated procedure to excise neck lesion, biopsy results pending. Had stool test for klebsiella pneumonia, as pt's roommate at [facility] had this, results pending. I spent minutes with the patient and/or on the patient floor today, greater than?50% of which was spent counseling/coordinating care. Patient educated on: other Reason for contiued inpatient stay Substantial Risk for: inability to function, rapid decompensation and med/psych decompensation
[2021-10-20] MEDS: Gabapentin 100 MG CAPSULE PO ×2 (09:49→20:31)
[2021-10-20] MEDS: Docusate Sodium 100 MG CAPSULE PO ×2 (09:49→20:30)
[2021-10-20] MEDS: Sennosides 8.6 MG TABLET PO (09:49)
[2021-10-20] MEDS: Milk of Magnesia 30 ML ORAL.SUSP PO (09:49)
[2021-10-20] MEDS: Brimonidine Tartrate 0.2% Oph 5 ML BOTTLE 1 DROP EYE-BOTH ×2 (09:51→20:29)
[2021-10-20] MEDS: timoloL maleate 0.5 % Oph Sol 5 ML DRBTL 1 DROP EYE-BOTH ×2 (09:51→20:31)
[2021-10-20 18:00] VITALS: BP 137/73; PULSE 80; RESP 16; TEMP 37.1; O2SAT 95
[2021-10-20] MEDS: Mirtazapine 7.5 MG TABLET PO (20:30)
[2021-10-20] MEDS: Melatonin 3 MG TABLET PO (20:30)
[2021-10-20] MEDS: risperiDONE 0.25 MG TABLET PO (20:31)
[2021-10-20] MEDS: Latanoprost 0.005 % Ophth Sol 2.5 ML DROPS 1 DROP EYE-BOTH (20:32)
[2021-10-21 06:00] VITALS: BP 113/69; PULSE 64; RESP 16; TEMP 35.9; O2SAT 97
[2021-10-21] MEDS: Brimonidine Tartrate 0.2% Oph 5 ML BOTTLE 1 DROP EYE-BOTH ×2 (09:17→20:05)
[2021-10-21] MEDS: Gabapentin 100 MG CAPSULE PO ×2 (09:17→20:06)
[2021-10-21] MEDS: Sennosides 8.6 MG TABLET PO (09:17)
[2021-10-21] MEDS: Milk of Magnesia 30 ML ORAL.SUSP PO (09:17)
[2021-10-21] MEDS: timoloL maleate 0.5 % Oph Sol 5 ML DRBTL 1 DROP EYE-BOTH ×2 (09:17→20:08)
[2021-10-21] MEDS: Docusate Sodium 100 MG CAPSULE PO ×2 (09:17→20:06)
--- NOTE | 2021-10-21 10:50 | HO.PSYCHPN ---
Subjective Subjective Date of Service: 10/21/21 Reason For Visit: Unspecified Depressive Disorder Interim History: Per pt's team, he is isolative to his room, did not attend group, says he feels good. Slept through the night.?No complaints. Unable to interview pt, as he is asleep. Medication Compliance: Yes Side effects from medications: No Attending Groups: No Review of Systems Acute medical concerns: No Medical Review of Systems: unchanged Mental Status Exam Mental Status Exam Narrative: Patient Appearance: Appropriate Level of Consciousness: Awake Patient Behavior: Guarded and Suspicious Mood Description: Apprehensive Affect Description: Suspicious, Depressed and Nervous Ability to Follow Directions: Good Memory Description: Episodic Impaired Thought Process: Slowed Thinking Thought Content: positive for Poverty of Content and positive for Slowed Thinking Abnormal Motor Activity Signs and Symptoms: Hyperactivity Judgement and Insight: lesions noted on neck and nose Diagnostics Vital Signs (24Hr): Vital Signs - 24 hr 10/20/21 18:00 Temperature 98.7 F Pulse Rate 80 Respiratory Rate 16 Blood Pressure 137/73 Pulse Oximetry 95 Oxygen Delivery Method Room Air BMI result Body Mass Index 17.1 Labs Results: 10/05/21 08:01 10/05/21 08:01 Imaging Radiology Impressions: [facility] Impressions Head CT 10/04/21 15:04 IMPRESSION: 1. No acute intracranial pathology. 2. Right parietal meningioma without mass effect. 3. Generalized atrophy. Medications Medications Current Medications Acetaminophen (Acetaminophen 325 Mg Tablet) 650 mg PO Q6H PRN PRN Reason: Headache/Pain Mild Scale (1-3) Last Admin: 10/19/21 22:01 Dose: 650 mg Al Hydroxide/Mg Hydroxide (Magnesium Hydrox/Alum Hydrox 30 Ml Oral.Susp) 30 ml PO Q6H PRN PRN Reason: Heartburn/Nausea Brimonidine Tartrate (Brimonidine Tartrate 0.2% Oph 5 Ml Bottle) 1 drop EYE-BOTH TID [facility] Last Admin: 10/21/21 09:17 Dose: 1 drop Docusate Sodium (Docusate Sodium 100 Mg Capsule) 100 mg PO BID [facility] Last Admin: 10/21/21 09:17 Dose: 100 mg Gabapentin (Gabapentin 100 Mg Capsule) 100 mg PO TID [facility] Last Admin: 10/21/21 09:17 Dose: 100 mg Latanoprost (Latanoprost 0.005 % Ophth Jessie 2.5 Ml Drops) 1 drop EYE-BOTH BEDTIME [facility] Last Admin: 10/20/21 20:32 Dose: 1 drop Magnesium Hydroxide (Milk Of Magnesia 30 Ml Oral.Susp) 30 ml PO DAILY [facility] Last Admin: 10/21/21 09:17 Dose: 30 ml Melatonin (Melatonin 3 Mg Tablet) 3 mg PO BEDTIME PRN PRN Reason: Insomnia Last Admin: 10/20/21 20:30 Dose: 3 mg Mirtazapine (Mirtazapine 7.5 Mg Tablet) 7.5 mg PO BEDTIME [facility] Last Admin: 10/20/21 20:30 Dose: 7.5 mg Risperidone (Risperidone 0.25 Mg Tablet) 0.25 mg PO BEDTIME [facility] Last Admin: 10/20/21 20:31 Dose: 0.25 mg Senna (Sennosides 8.6 Mg Tablet) 8.6 mg PO DAILY [facility] Last Admin: 10/21/21 09:17 Dose: 8.6 mg Timolol Maleate (Timolol Maleate 0.5 % Oph Jessie 5 Ml Drbtl) 1 drop EYE-BOTH BID [facility] Last Admin: 10/21/21 09:17 Dose: 1 drop Allergies Allergies Allergy/AdvReac Type Severity Reaction Status Date / Time sulfamethoxazole Allergy Itching Verified 10/03/21 19:19 [From Bactrim] trimethoprim [From Bactrim] Allergy Itching Verified 10/03/21 19:19 Assessment & Plan Assessment & Plan (1) Skin lesion of neck: Status: Acute Code(s): L98.9 - Disorder of the skin and subcutaneous tissue, unspecified Assessment and Plan: He has 2 skin lesions as described above. I had a long discussion with him about the technique of excision under local anesthesia. He is amenable to this and we will try to do this before his discharge from the unit. This will be done under local anesthesia at bedside. 10/20: Pt tolerated procedure to excise neck lesion, biopsy results pending. Had stool test for klebsiella pneumonia, as pt's roommate at [facility] had this, results pending. 10/21: No med changes I spent minutes with the patient and/or on the patient floor today, greater than?50% of which was spent counseling/coordinating care. Reason for contiued inpatient stay Substantial Risk for: inability to function, rapid decompensation and med/psych decompensation
[2021-10-21 18:00] VITALS: BP 110/63; PULSE 64; RESP 16; TEMP 36.3; O2SAT 95
[2021-10-21] MEDS: Mirtazapine 7.5 MG TABLET PO (20:06)
[2021-10-21] MEDS: risperiDONE 0.25 MG TABLET PO (20:06)
[2021-10-21] MEDS: Latanoprost 0.005 % Ophth Sol 2.5 ML DROPS 1 DROP EYE-BOTH (20:09)
[2021-10-22 06:00] VITALS: BP 112/72; PULSE 81; RESP 18; TEMP 36.2; O2SAT 94
--- NOTE | 2021-10-22 14:06 | P.PNPSI_ITS ---
Subjective Subjective Date of Service: 10/22/21 Reason For Visit: Unspecified Depressive Disorder Interim History: I spoke with pt's team, his dressing is off his neck, nose open to air. I spoke with pt, who is demented, deflective with humor. When asked how he is, says you want to know if i still have a pulse? Mood is so, so. Sleep is not bad. Pt is awaiting surgery to come back and remove lesion from nose, I look like the wicked witch [place]. Medication Compliance: Yes Side effects from medications: No Attending Groups: No Review of Systems Acute medical concerns: No Medical Review of Systems: unchanged Mental Status Exam Mental Status Exam Narrative: Patient Appearance: Appropriate Level of Consciousness: Awake Patient Behavior: Guarded and Suspicious Mood Description: Apprehensive Affect Description: Suspicious, Depressed and Nervous Ability to Follow Directions: Good Memory Description: Episodic Impaired Thought Process: Slowed Thinking Thought Content: positive for Poverty of Content and positive for Slowed T hinking Abnormal Motor Activity Signs and Symptoms: Hyperactivity Judgement and Insight: lesions noted on neck and nose Diagnostics Vital Signs (24Hr): Vital Signs - 24 hr 10/21/21 18:00 10/22/21 06:00 Temperature 97.3 F 97.1 F Pulse Rate 64 81 Respiratory Rate 16 18 Blood Pressure 110/63 112/72 Pulse Oximetry 95 94 Oxygen Delivery Method Room Air Room Air BMI result Body Mass Index 17.1 Labs Results: 10/05/21 08:01 10/05/21 08:01 Imaging Radiology Impressions: [facility] Impressions Head CT 10/04/21 15:04 IMPRESSION: 1. No acute intracranial pathology. 2. Right parietal meningioma without mass effect. 3. Generalized atrophy. Medications Medications Current Medications Acetaminophen (Acetaminophen 325 Mg Tablet) 650 mg PO Q6H PRN PRN Reason: Headache/Pain Mild Scale (1-3) Last Admin: 10/19/21 22:01 Dose: 650 mg Al Hydroxide/Mg Hydroxide (Magnesium Hydrox/Alum Hydrox 30 Ml Oral.Susp) 30 ml PO Q6H PRN PRN Reason: Heartburn/Nausea Brimonidine Tartrate (Brimonidine Tartrate 0.2% Oph 5 Ml Bottle) 1 drop EYE- BOTH TID [facility] Last Admin: 10/22/21 10:46 Dose: Not Given Docusate Sodium (Docusate Sodium 100 Mg Capsule) 100 mg PO BID [facility] Last Admin: 10/22/21 10:47 Dose: Not Given Gabapentin (Gabapentin 100 Mg Capsule) 100 mg PO TID [facility] Last Admin: 10/22/21 10:47 Dose: Not Given Latanoprost (Latanoprost 0.005 % Ophth Jessie 2.5 Ml Drops) 1 drop EYE-BOTH BEDTIME [facility] Last Admin: 10/21/21 20:09 Dose: 1 drop Magnesium Hydroxide (Milk Of Magnesia 30 Ml Oral.Susp) 30 ml PO DAILY [facility] Last Admin: 10/22/21 10:47 Dose: Not Given Melatonin (Melatonin 3 Mg Tablet) 3 mg PO BEDTIME PRN PRN Reason: Insomnia Last Admin: 10/20/21 20:30 Dose: 3 mg Mirtazapine (Mirtazapine 7.5 Mg Tablet) 7.5 mg PO BEDTIME [facility] Last Admin: 10/21/21 20:06 Dose: 7.5 mg Risperidone (Risperidone 0.25 Mg Tablet) 0.25 mg PO BEDTIME [facility] Last Admin: 10/21/21 20:06 Dose: 0.25 mg Senna (Sennosides 8.6 Mg Tablet) 8.6 mg PO DAILY [facility] Last Admin: 10/22/21 10:47 Dose: Not Given Timolol Maleate (Timolol Maleate 0.5 % Oph Jessie 5 Ml Drbtl) 1 drop EYE-BOTH BID [facility] Last Admin: 10/22/21 10:47 Dose: Not Given Allergies Allergies Allergy/AdvReac Type Severity Reaction Status Date / Time sulfamethoxazole Allergy Itching Verified 10/03/21 19:19 [From Bactrim] trimethoprim [From Bactrim] Allergy Itching Verified 10/03/21 19:19 Assessment & Plan Assessment & Plan (1) Skin lesion of neck: Status: Acute Code(s): L98.9 - Disorder of the skin and subcutaneous tissue, unspecified Assessment and Plan: He has 2 skin lesions as described above. I had a long discussion with him about the technique of excision under local anesthesia. He is amenable to this and we will try to do this before his discharge from the unit. This will be done under local anesthesia at bedside. 10/20: Pt tolerated procedure to excise neck lesion, biopsy results pending. Had stool test for klebsiella pneumonia, as pt's roommate at [facility] had this, results pending. 10/21: No med changes 10/22: No med changes, awaiting biopsy results for neck and biopsy of nares I spent minutes with the patient and/or on the patient floor today, greater than?50% of which was spent counseling/coordinating care. Patient educated on: other Reason for contiued inpatient stay Substantial Risk for: inability to function, rapid decompensation and med/psych decompensation
[2021-10-22 18:00] VITALS: BP 125/58; PULSE 74; RESP 17; TEMP 36.6; O2SAT 94
[2021-10-22] MEDS: Brimonidine Tartrate 0.2% Oph 5 ML BOTTLE 1 DROP EYE-BOTH (20:06)
[2021-10-22] MEDS: Docusate Sodium 100 MG CAPSULE PO (20:07)
[2021-10-22] MEDS: Latanoprost 0.005 % Ophth Sol 2.5 ML DROPS 1 DROP EYE-BOTH (20:08)
[2021-10-22] MEDS: Gabapentin 100 MG CAPSULE PO (20:08)
[2021-10-22] MEDS: risperiDONE 0.25 MG TABLET PO (20:08)
[2021-10-22] MEDS: Mirtazapine 7.5 MG TABLET PO (20:08)
[2021-10-22] MEDS: timoloL maleate 0.5 % Oph Sol 5 ML DRBTL 1 DROP EYE-BOTH (20:08)
[2021-10-23 07:30] VITALS: BP 113/65; PULSE 75; RESP 16; TEMP 36.3; O2SAT 96
[2021-10-23] MEDS: Milk of Magnesia 30 ML ORAL.SUSP PO (10:31)
[2021-10-23] MEDS: Gabapentin 100 MG CAPSULE PO ×3 (10:31→20:43)
[2021-10-23] MEDS: Sennosides 8.6 MG TABLET PO (10:31)
[2021-10-23] MEDS: Docusate Sodium 100 MG CAPSULE PO ×2 (10:31→20:43)
[2021-10-23] MEDS: timoloL maleate 0.5 % Oph Sol 5 ML DRBTL 1 DROP EYE-BOTH ×2 (10:55→20:44)
[2021-10-23] MEDS: Brimonidine Tartrate 0.2% Oph 5 ML BOTTLE 1 DROP EYE-BOTH ×3 (10:55→20:42)
--- NOTE | 2021-10-23 13:53 | P.PNPSI_ITS ---
Subjective Subjective Date of Service: 10/23/21 Reason For Visit: Unspecified Depressive Disorder Subjective Notes: Conditional Voluntary Interim History: The nursing staff reported that today when the remove the gauze covering he has surgical incision, it showed with pause and looked infected. I called the surgeon and he will come to look him today. On rounds, we discussed the possibility of starting guardianship on his case since his Hemlock score 7/30 and his Phani cognitive test 3.2. We will referred to [facility] facilities. On interview the patient denies new symptoms he looks pleasantly confused Mental Status Exam Mental Status Exam Patient Appearance: Well Grooomed Patient Orientation: Person and Situation Level of Consciousness: Restless Patient Behavior: Appropriate and Cooperative Mood Description: Constricted Affect Description: Calm Patient Cognition Impaired: Yes Ability to Follow Directions: Fair Speech Pattern: Clear Hallucinations: None Delusions: Not Present Thought Process: Linear Thought Content: positive for [place] and positive for Poverty of Content Judgement: Fair Diagnostics Vital Signs (24Hr): Vital Signs - 24 hr 10/22/21 18:00 10/23/21 07:30 Temperature 98 F 97.3 F Pulse Rate 74 75 Respiratory Rate 17 16 Blood Pressure 125/58 L 113/65 Pulse Oximetry 94 96 Oxygen Delivery Method Room Air Room Air BMI result Body Mass Index 17.1 Labs Results: 10/05/21 08:01 10/05/21 08:01 Imaging Radiology Impressions: ITS Impressions Head CT 10/04/21 15:04 IMPRESSION: 1. No acute intracranial pathology. 2. Right parietal meningioma without mass effect. 3. Generalized atrophy. Medications Medications Current Medications Acetaminophen (Acetaminophen 325 Mg Tablet) 650 mg PO Q6H PRN PRN Reason: Headache/Pain Mild Scale (1-3) Last Admin: 10/19/21 22:01 Dose: 650 mg Al Hydroxide/Mg Hydroxide (Magnesium Hydrox/Alum Hydrox 30 Ml Oral.Susp) 30 ml PO Q6H PRN PRN Reason: Heartburn/Nausea Brimonidine Tartrate (Brimonidine Tartrate 0.2% Oph 5 Ml Bottle) 1 drop EYE- BOTH TID [facility] Last Admin: 10/23/21 10:55 Dose: 1 drop Docusate Sodium (Docusate Sodium 100 Mg Capsule) 100 mg PO BID [facility] Last Admin: 10/23/21 10:31 Dose: 100 mg Gabapentin (Gabapentin 100 Mg Capsule) 100 mg PO TID [facility] Last Admin: 10/23/21 10:31 Dose: 100 mg Latanoprost (Latanoprost 0.005 % Ophth Jessie 2.5 Ml Drops) 1 drop EYE-BOTH BE DTIME [facility] Last Admin: 10/22/21 20:08 Dose: 1 drop Magnesium Hydroxide (Milk Of Magnesia 30 Ml Oral.Susp) 30 ml PO DAILY [facility] Last Admin: 10/23/21 10:31 Dose: 30 ml Melatonin (Melatonin 3 Mg Tablet) 3 mg PO BEDTIME PRN PRN Reason: Insomnia Last Admin: 10/20/21 20:30 Dose: 3 mg Mirtazapine (Mirtazapine 7.5 Mg Tablet) 7.5 mg PO BEDTIME [facility] Last Admin: 10/22/21 20:08 Dose: 7.5 mg Risperidone (Risperidone 0.25 Mg Tablet) 0.25 mg PO BEDTIME [facility] Last Admin: 10/22/21 20:08 Dose: 0.25 mg Senna (Sennosides 8.6 Mg Tablet) 8.6 mg PO DAILY [facility] Last Admin: 10/23/21 10:31 Dose: 8.6 mg Timolol Maleate (Timolol Maleate 0.5 % Oph Jessie 5 Ml Drbtl) 1 drop EYE-BOTH BID [facility] Last Admin: 10/23/21 10:55 Dose: 1 drop Allergies Allergies Allergy/AdvReac Type Severity Reaction Status Date / Time sulfamethoxazole Allergy Itching Verified 10/03/21 19:19 [From Bactrim] trimethoprim [From Bactrim] Allergy Itching Verified 10/03/21 19:19 Assessment & Plan Assessment & Plan (1) Skin lesion of neck: Status: Acute Code(s): L98.9 - Disorder of the skin and subcutaneous tissue, unspecified Assessment and Plan: He has 2 skin lesions as described above. I had a long discussion with him about the technique of excision under local anesthesia. He is amenable to this and we will try to do this before his discharge from the unit. This will be done under local anesthesia at bedside. 10/20: Pt tolerated procedure to excise neck lesion, biopsy results pending. Had stool test for klebsiella pneumonia, as pt's roommate at [facility] had this, results pending. 10/21: No med changes 10/22: No med changes, awaiting biopsy results for neck and biopsy of nares Plan The patient is an elderly male with a long history of dementia, dysphoria and psychosis admitted for exacerbation of symptoms in the possibility of noncompliance with treatment. Plan 1. Follow-up by surgery regarding his possible infected wound. 2. Continue with the same treatment I spent __20____ minutes with the patient and/or on the patient floor today, greater than?50% of which was spent counseling/coordinating care. Patient educated on: diagnosis Reason for contiued inpatient stay Substantial Risk for: inability to function, rapid decompensation and med/psych decompensation
--- NOTE | 2021-10-23 13:59 | P.PNGS_ITS ---
Subjective Subjective Date of Service: 10/23/21 Interval history: asked to follow-up on patient after excision of right neck skin lesion Redness noted around incision No discharge As per patient, no unusual pain Physical Exam Vital Signs: Vital Signs: Last Vital Signs Temp 97.3 F 10/23/21 07:30 Pulse 75 10/23/21 07:30 Resp 16 10/23/21 07:30 BP 113/65 10/23/21 07:30 Pulse Ox 96 10/23/21 07:30 O2 Del Method 10/23/21 07:30 BMI result Body Mass Index 17.1 Const: General: comfortable and no acute distress Neck: Other: Excision site with some redness, no discharge, sutures in place Objective Data Active Medications Acetaminophen (Acetaminophen 325 Mg Tablet) 650 mg PO Q6H PRN PRN Reason: Headache/Pain Mild Scale (1-3) Last Admin: 10/19/21 22:01 Dose: 650 mg Documented By: JOANIE Al Hydroxide/Mg Hydroxide (Magnesium Hydrox/Alum Hydrox 30 Ml Oral.Susp) 30 ml PO Q6H PRN PRN Reason: Heartburn/Nausea Brimonidine Tartrate (Brimonidine Tartrate 0.2% Oph 5 Ml Bottle) 1 drop EYE- BOTH TID [facility] Last Admin: 10/23/21 10:55 Dose: 1 drop Documented By: JOSHUA Docusate Sodium (Docusate Sodium 100 Mg Capsule) 100 mg PO BID [facility] Last Admin: 10/23/21 10:31 Dose: 100 mg Documented By: JOSHUA Gabapentin (Gabapentin 100 Mg Capsule) 100 mg PO TID [facility] Last Admin: 10/23/21 10:31 Dose: 100 mg Documented By: JOSHUA Latanoprost (Latanoprost 0.005 % Ophth Jessie 2.5 Ml Drops) 1 drop EYE-BOTH BEDTIME [facility] Last Admin: 10/22/21 20:08 Dose: 1 drop Documented By: ZANE Magnesium Hydroxide (Milk Of Magnesia 30 Ml Oral.Susp) 30 ml PO DAILY [facility] Last Admin: 10/23/21 10:31 Dose: 30 ml Documented By: JOSHUA Melatonin (Melatonin 3 Mg Tablet) 3 mg PO BEDTIME PRN PRN Reason: Insomnia Last Admin: 10/20/21 20:30 Dose: 3 mg Documented By: JOANIE Mirtazapine (Mirtazapine 7.5 Mg Tablet) 7.5 mg PO BEDTIME [facility] Last Admin: 10/22/21 20:08 Dose: 7.5 mg Documented By: ZANE Risperidone (Risperidone 0.25 Mg Tablet) 0.25 mg PO BEDTIME [facility] Last Admin: 10/22/21 20:08 Dose: 0.25 mg Documented By: ZANE Senna (Sennosides 8.6 Mg Tablet) 8.6 mg PO DAILY [facility] Last Admin: 10/23/21 10:31 Dose: 8.6 mg Documented By: JSOHUA Timolol Maleate (Timolol Maleate 0.5 % Oph Jessie 5 Ml Drbtl) 1 drop EYE-BOTH BID [facility] Last Admin: 10/23/21 10:55 Dose: 1 drop Documented By: JOSHUA Labs CBC & Chem 7: 10/05/21 08:01 10/05/21 08:01 Procedures Date of Service Date of Service: 10/23/21 Progress Note: A&P Assessment and plan (1) Skin lesion of neck: Status: Acute Assessment and Plan: Status post excision. I was asked to do a wound check because of redness on the incision Likely due to irritation from sutures No pus at this time, no fluctuance, no induration Would not start oral antibiotics at this point Recommend doing warm compresses to the area 3 times a day for 10-15 minutes each time Will continue to follow with periodic wound checks Path report pending Time Spent With Patient Time: Total time spent is greater than 50% in coordination of care (as documented) at patient's floor/unit and/or counseling patient: Quality Stroke Does the patient have a stroke diagnosis?: No VTE Prior VTE?: No VTE Risk Level:: Medical - low VTE Device Contraindication: Treatment Not Indicated VTE Drug Contraindication: Treatment Not Indicated
[2021-10-23 18:00] VITALS: BP 99/57; PULSE 65; RESP 18; TEMP 36.2; O2SAT 96
[2021-10-23] MEDS: Mirtazapine 7.5 MG TABLET PO (20:43)
[2021-10-23] MEDS: Latanoprost 0.005 % Ophth Sol 2.5 ML DROPS 1 DROP EYE-BOTH (20:43)
[2021-10-23] MEDS: risperiDONE 0.25 MG TABLET PO (20:43)
[2021-10-24 07:30] VITALS: BP 110/60; PULSE 60; RESP 16; TEMP 36.1; O2SAT 96
[2021-10-24] MEDS: Gabapentin 100 MG CAPSULE PO ×3 (08:02→21:12)
[2021-10-24] MEDS: Docusate Sodium 100 MG CAPSULE PO ×2 (08:02→21:12)
[2021-10-24] MEDS: Milk of Magnesia 30 ML ORAL.SUSP PO (08:02)
[2021-10-24] MEDS: Sennosides 8.6 MG TABLET PO (08:02)
[2021-10-24] MEDS: timoloL maleate 0.5 % Oph Sol 5 ML DRBTL 1 DROP EYE-BOTH ×2 (08:04→21:13)
[2021-10-24] MEDS: Brimonidine Tartrate 0.2% Oph 5 ML BOTTLE 1 DROP EYE-BOTH ×3 (08:04→21:12)
--- NOTE | 2021-10-24 15:25 | P.PNPSI_ITS ---
Subjective Subjective Date of Service: 10/24/21 Reason For Visit: Unspecified Depressive Disorder Subjective Notes: Conditional Voluntary Interim History: The nursing staff reported the patient was angry with the surgeon yesterday since he did not inform about the treatment about his surgical wound. According to Dr. Henderson, he did not have an infected surgical wound the he suggested warm compresses every shift. On interview the patient remains pleasantly confused. Mental Status Exam Mental Status Exam Patient Appearance: Well Grooomed Patient Orientation: Person and Situation Level of Consciousness: Awake Patient Behavior: Cooperative Mood Description: Withdrawn Affect Description: Constricted Patient Cognition Impaired: Yes Ability to Follow Directions: Good Speech Pattern: Clear Memory Description: Intact Hallucinations: None Delusions: Not Present Thought Process: Distracted Thought Content: positive for [place] and positive for [place] Oriented Judgement: Fair Diagnostics Vital Signs (24Hr): Vital Signs - 24 hr 10/23/21 18:00 10/24/21 07:30 Temperature 97.2 F 96.9 F Pulse Rate 65 60 Respiratory Rate 18 16 Blood Pressure 99/57 L 110/60 Pulse Oximetry 96 96 Oxygen Delivery Method Room Air Room Air BMI result Body Mass Index 17.1 Labs Results: 10/05/21 08:01 10/05/21 08:01 Imaging Radiology Impressions: ITS Impressions Head CT 10/04/21 15:04 IMPRESSION: 1. No acute intracranial pathology. 2. Right parietal meningioma without mass effect. 3. Generalized atrophy. Medications Medications Current Medications Acetaminophen (Acetaminophen 325 Mg Tablet) 650 mg PO Q6H PRN PRN Reason: Headache/Pain Mild Scale (1-3) Last Admin: 10/19/21 22:01 Dose: 650 mg Al Hydroxide/Mg Hydroxide (Magnesium Hydrox/Alum Hydrox 30 Ml Oral.Susp) 30 ml PO Q6H PRN PRN Reason: Heartburn/Nausea Brimonidine Tartrate (Brimonidine Tartrate 0.2% Oph 5 Ml Bottle) 1 drop EYE- BOTH TID [facility] Last Admin: 10/24/21 14:11 Dose: 1 drop Docusate Sodium (Docusate Sodium 100 Mg Capsule) 100 mg PO BID [facility] Last Admin: 10/24/21 08:02 Dose: 100 mg Gabapentin (Gabapentin 100 Mg Capsule) 100 mg PO TID [facility] Last Admin: 10/24/21 14:11 Dose: 100 mg Latanoprost (Latanoprost 0.005 % Ophth Jessie 2.5 Ml Drops) 1 drop EYE-BOTH BEDTIME [facility] Last Admin: 10/23/21 20:43 Dose: 1 drop Magnesium Hydroxide (Milk Of Magnesia 30 Ml Oral.Susp) 30 ml PO DAILY [facility] Last Admin: 10/24/21 08:02 Dose: 30 ml Melatonin (Melatonin 3 Mg Tablet) 3 mg PO BEDTIME PRN PRN Reason: Insomnia Last Admin: 10/20/21 20:30 Dose: 3 mg Mirtazapine (Mirtazapine 7.5 Mg Tablet) 7.5 mg PO BEDTIME [facility] Last Admin: 10/23/21 20:43 Dose: 7.5 mg Risperidone (Risperidone 0.25 Mg Tablet) 0.25 mg PO BEDTIME [facility] Last Admin: 10/23/21 20:43 Dose: 0.25 mg Senna (Sennosides 8.6 Mg Tablet) 8.6 mg PO DAILY [facility] Last Admin: 10/24/21 08:02 Dose: 8.6 mg Timolol Maleate (Timolol Maleate 0.5 % Oph Jessie 5 Ml Drbtl) 1 drop EYE-BOTH BID [facility] Last Admin: 10/24/21 08:04 Dose: 1 drop Allergies Allergies Allergy/AdvReac Type Severity Reaction Status Date / Time sulfamethoxazole Allergy Itching Verified 10/03/21 19:19 [From Bactrim] trimethoprim [From Bactrim] Allergy Itching Verified 10/03/21 19:19 Assessment & Plan Assessment & Plan (1) Skin lesion of neck: Status: Acute Code(s): L98.9 - Disorder of the skin and subcutaneous tissue, unspecified Assessment and Plan: He has 2 skin lesions as described above. I had a long discussion with him about the technique of excision under local anesthesia. He is amenable to this and we will try to do this before his discharge from the unit. This will be done under local anesthesia at bedside. 10/20: Pt tolerated procedure to excise neck lesion, biopsy results pending. Had stool test for klebsiella pneumonia, as pt's roommate at [facility] had this, res ults pending. 10/21: No med changes 10/22: No med changes, awaiting biopsy results for neck and biopsy of nares Plan The patient is an elderly male with a long history of dementia, dysphoria and psychosis admitted for exacerbation of symptoms in the possibility of noncompliance with treatment. Plan 1. Follow-up by surgery regarding his possible infected wound. 2. Continue with the same treatment I spent ___20___ minutes with the patient and/or on the patient floor today, greater than?50% of which was spent counseling/coordinating care. Reason for contiued inpatient stay Substantial Risk for: inability to function, rapid decompensation and med/psych decompensation
[2021-10-24 18:00] VITALS: BP 124/61; PULSE 75; RESP 16; TEMP 37.2; O2SAT 96
[2021-10-24] MEDS: Latanoprost 0.005 % Ophth Sol 2.5 ML DROPS 1 DROP EYE-BOTH (21:13)
[2021-10-24] MEDS: Mirtazapine 7.5 MG TABLET PO (21:13)
[2021-10-24] MEDS: risperiDONE 0.25 MG TABLET PO (21:13)
[2021-10-25 06:00] VITALS: BP 123/66; PULSE 74; RESP 16; TEMP 36.2; O2SAT 96
[2021-10-25 07:00] VITALS: BMI 17.9
[2021-10-25] MEDS: Milk of Magnesia 30 ML ORAL.SUSP PO (08:21)
[2021-10-25] MEDS: Sennosides 8.6 MG TABLET PO (08:21)
[2021-10-25] MEDS: Brimonidine Tartrate 0.2% Oph 5 ML BOTTLE 1 DROP EYE-BOTH ×3 (08:22→20:27)
[2021-10-25] MEDS: Gabapentin 100 MG CAPSULE PO ×3 (08:22→20:28)
[2021-10-25] MEDS: Docusate Sodium 100 MG CAPSULE PO ×2 (08:22→20:28)
[2021-10-25] MEDS: timoloL maleate 0.5 % Oph Sol 5 ML DRBTL 1 DROP EYE-BOTH ×2 (08:22→20:27)
--- NOTE | 2021-10-25 13:33 | HO.PSYCHPN ---
Subjective Subjective Date of Service: 10/25/21 Reason For Visit: Unspecified Depressive Disorder Subjective Notes: Conditional Voluntary Interim History: The nursing staff reported the patient has been isolative in his room, he has not participated in groups according to the occupational therapist. On interview the patient denies new symptoms. Yesterday, the pathology results came back later in the evening and apparently the lesion that was excised was cancer but all the borders were taking off. The surgeon was informed yesterday. Today the patient was interviewed and explained that the lesion was completely taken out and he was relieved that any issue could arise from this lesion. Mental Status Exam Mental Status Exam Patient Appearance: Well Grooomed Patient Orientation: Person and Situation Level of Consciousness: Awake Patient Behavior: Cooperative Mood Description: Calm Affect Description: Withdrawn Patient Cognition Impaired: Yes Ability to Follow Directions: Good Speech Pattern: Appropriate Hallucinations: None Delusions: Not Present Thought Process: Distracted Thought Content: positive for Circumstantial Judgement: Fair Diagnostics Vital Signs (24Hr): Vital Signs - 24 hr 10/24/21 18:00 10/25/21 06:00 Temperature 98.9 F 97.2 F Pulse Rate 75 74 Respiratory Rate 16 16 Blood Pressure 124/61 123/66 Pulse Oximetry 96 96 Oxygen Delivery Method Room Air Room Air BMI result Body Mass Index 17.1 Labs Results: 10/05/21 08:01 10/05/21 08:01 Imaging Radiology Impressions: ITS Impressions Head CT 10/04/21 15:04 IMPRESSION: 1. No acute intracranial pathology. 2. Right parietal meningioma without mass effect. 3. Generalized atrophy. Medications Medications Current Medications Acetaminophen (Acetaminophen 325 Mg Tablet) 650 mg PO Q6H PRN PRN Reason: Headache/Pain Mild Scale (1-3) Last Admin: 10/19/21 22:01 Dose: 650 mg Al Hydroxide/Mg Hydroxide (Magnesium Hydrox/Alum Hydrox 30 Ml Oral.Susp) 30 ml PO Q6H PRN PRN Reason: Heartburn/Nausea Brimonidine Tartrate (Brimonidine Tartrate 0.2% Oph 5 Ml Bottle) 1 drop EYE-BOTH TID [facility] Last Admin: 10/25/21 08:22 Dose: 1 drop Docusate Sodium (Docusate Sodium 100 Mg Capsule) 100 mg PO BID [facility] Last Admin: 10/25/21 08:22 Dose: 100 mg Gabapentin (Gabapentin 100 Mg Capsule) 100 mg PO TID [facility] Last Admin: 10/25/21 08:22 Dose: 100 mg Latanoprost (Latanoprost 0.005 % Ophth Jessie 2.5 Ml Drops) 1 drop EYE-BOTH BEDTIME [facility] Last Admin: 10/24/21 21:13 Dose: 1 drop Magnesium Hydroxide (Milk Of Magnesia 30 Ml Oral.Susp) 30 ml PO DAILY [facility] Last Admin: 10/25/21 08:21 Dose: 30 ml Melatonin (Melatonin 3 Mg Tablet) 3 mg PO BEDTIME PRN PRN Reason: Insomnia Last Admin: 10/20/21 20:30 Dose: 3 mg Mirtazapine (Mirtazapine 7.5 Mg Tablet) 7.5 mg PO BEDTIME [facility] Last Admin: 10/24/21 21:13 Dose: 7.5 mg Risperidone (Risperidone 0.25 Mg Tablet) 0.25 mg PO BEDTIME [facility] Last Admin: 10/24/21 21:13 Dose: 0.25 mg Senna (Sennosides 8.6 Mg Tablet) 8.6 mg PO DAILY [facility] Last Admin: 10/25/21 08:21 Dose: 8.6 mg Timolol Maleate (Timolol Maleate 0.5 % Oph Jessie 5 Ml Drbtl) 1 drop EYE-BOTH BID [facility] Last Admin: 10/25/21 08:22 Dose: 1 drop Allergies Allergies Allergy/AdvReac Type Severity Reaction Status Date / Time sulfamethoxazole Allergy Itching Verified 10/03/21 19:19 [From Bactrim] trimethoprim [From Bactrim] Allergy Itching Verified 10/03/21 19:19 Assessment & Plan Assessment & Plan (1) Skin lesion of neck: Status: Acute Code(s): L98.9 - Disorder of the skin and subcutaneous tissue, unspecified Assessment and Plan: He has 2 skin lesions as described above. I had a long discussion with him about the technique of excision under local anesthesia. He is amenable to this and we will try to do this before his discharge from the unit. This will be done under local anesthesia at bedside. 10/20: Pt tolerated procedure to excise neck lesion, biopsy results pending. Had stool test for klebsiella pneumonia, as pt's roommate at [facility] had this, results pending. 10/21: No med changes 10/22: No med changes, awaiting biopsy results for neck and biopsy of nares Plan The patient is an elderly male with a long history of dementia, dysphoria and psychosis admitted for exacerbation of symptoms in the possibility of noncompliance with treatment. Plan 1. Follow-up by surgery regarding his possible infected wound. Apparently there is no infection 2. Continue with the same treatment 3. The patient had skin cancer but the lesion was completely excised I spent __20____ minutes with the patient and/or on the patient floor today, greater than?50% of which was spent counseling/coordinating care. Reason for contiued inpatient stay Substantial Risk for: inability to function, rapid decompensation and med/psych decompensation
[2021-10-25 18:00] VITALS: BP 102/52; PULSE 75; RESP 16; TEMP 37; O2SAT 95
[2021-10-25] MEDS: Latanoprost 0.005 % Ophth Sol 2.5 ML DROPS 1 DROP EYE-BOTH (20:27)
[2021-10-25] MEDS: risperiDONE 0.25 MG TABLET PO (20:28)
[2021-10-25] MEDS: Mirtazapine 7.5 MG TABLET PO (20:28)
[2021-10-26 06:00] VITALS: BP 115/69; PULSE 78; RESP 18; TEMP 36.1; O2SAT 95
[2021-10-26] MEDS: Gabapentin 100 MG CAPSULE PO ×3 (09:21→20:06)
[2021-10-26] MEDS: timoloL maleate 0.5 % Oph Sol 5 ML DRBTL 1 DROP EYE-BOTH ×2 (09:21→20:06)
[2021-10-26] MEDS: Sennosides 8.6 MG TABLET PO (09:21)
[2021-10-26] MEDS: Docusate Sodium 100 MG CAPSULE PO ×2 (09:21→20:06)
[2021-10-26] MEDS: Milk of Magnesia 30 ML ORAL.SUSP PO (09:22)
[2021-10-26] MEDS: Brimonidine Tartrate 0.2% Oph 5 ML BOTTLE 1 DROP EYE-BOTH ×3 (09:22→20:06)
--- NOTE | 2021-10-26 10:47 | P.PNPSI_ITS ---
Subjective Subjective Date of Service: 10/26/21 Reason For Visit: Unspecified Depressive Disorder Subjective Notes: Conditional Voluntary Interim History: The nursing staff reported the patient took a shower today after several days. He has been mostly seclusive in his room but pleasant and cooperative. On interview the patient denies new symptoms, he is fully compliant with treatment. Mental Status Exam Mental Status Exam Patient Appearance: Well Grooomed Patient Orientation: Person and Situation Level of Consciousness: Awake Patient Behavior: Cooperative Mood Description: Constricted Affect Description: Calm Patient Cognition Impaired: Yes Ability to Follow Directions: Good Speech Pattern: Clear Hallucinations: None Delusions: Not Present Thought Content: positive for [employer] and positive for Poverty of Content Judgement: Fair Diagnostics Vital Signs (24Hr): Vital Signs - 24 hr 10/25/21 18:00 Temperature 98.6 F Pulse Rate 75 Respiratory Rate 16 Blood Pressure 102/52 L Pulse Oximetry 95 Oxygen Delivery Method Room Air BMI result Body Mass Index 17.9 Labs Results: 10/05/21 08:01 10/05/21 08:01 Imaging Radiology Impressions: ITS Impressions Head CT 10/04/21 15:04 IMPRESSION: 1. No acute intracranial pathology. 2. Right parietal meningioma without mass effect. 3. Generalized atrophy. Medications Medications Current Medications Acetaminophen (Acetaminophen 325 Mg Tablet) 650 mg PO Q6H PRN PRN Reason: Headache/Pain Mild Scale (1-3) Last Admin: 10/19/21 22:01 Dose: 650 mg Al Hydroxide/Mg Hydroxide (Magnesium Hydrox/Alum Hydrox 30 Ml Oral.Susp) 30 ml PO Q6H PRN PRN Reason: Heartburn/Nausea Brimonidine Tartrate (Brimonidine Tartrate 0.2% Oph 5 Ml Bottle) 1 drop EYE- BOTH TID [facility] Last Admin: 10/26/21 09:22 Dose: 1 drop Docusate Sodium (Docusate Sodium 100 Mg Capsule) 100 mg PO BID [facility] Last Admin: 10/26/21 09:21 Dose: 100 mg Gabapentin (Gabapentin 100 Mg Capsule) 100 mg PO TID [facility] Last Admin: 10/26/21 09:21 Dose: 100 mg Latanoprost (Latanoprost 0.005 % Ophth Jessie 2.5 Ml Drops) 1 drop EYE-BOTH BEDTIME [facility] Last Admin: 10/25/21 20:27 Dose: 1 drop Magnesium Hydroxide (Milk Of Magnesia 30 Ml Oral.Susp) 30 ml PO DAILY [facility] Last Admin: 10/26/21 09:22 Dose: 30 ml Melatonin (Melatonin 3 Mg Tablet) 3 mg PO BEDTIME PRN PRN Reason: Insomnia Last Admin: 10/20/21 20:30 Dose: 3 mg Mirtazapine (Mirtazapine 7.5 Mg Tablet) 7.5 mg PO BEDTIME [facility] Last Admin: 10/25/21 20:28 Dose: 7.5 mg Risperidone (Risperidone 0.25 Mg Tablet) 0.25 mg PO BEDTIME [facility] Last Admin: 10/25/21 20:28 Dose: 0.25 mg Senna (Sennosides 8.6 Mg Tablet) 8.6 mg PO DAILY [facility] Last Admin: 10/26/21 09:21 Dose: 8.6 mg Timolol Maleate (Timolol Maleate 0.5 % Oph Jessie 5 Ml Drbtl) 1 drop EYE-BOTH BID [facility] Last Admin: 10/26/21 09:21 Dose: 1 drop Allergies Allergies Allergy/AdvReac Type Severity Reaction Status Date / Time sulfamethoxazole Allergy Itching Verified 10/03/21 19:19 [From Bactrim] trimethoprim [From Bactrim] Allergy Itching Verified 10/03/21 19:19 Assessment & Plan Assessment & Plan (1) Skin lesion of neck: Status: Acute Code(s): L98.9 - Disorder of the skin and subcutaneous tissue, unspecified Assessment and Plan: He has 2 skin lesions as described above. I had a long discussion with him about the technique of excision under local anesthesia. He is amenable to this and we will try to do this before his discharge from the unit. This will be done under local anesthesia at bedside. 10/20: Pt tolerated procedure to excise neck lesion, biopsy results pending. Had stool test for klebsiella pneumonia, as pt's roommate at [facility] had this, results pending. 10/21: No med changes 10/22: No med changes, awaiting biopsy results for neck and biopsy of nares Plan The patient is an elderly male with a long history of dementia, dysphoria and psychosis admitted for exacerbation of symptoms in the possibility of noncompliance with treatment. Plan 1. Follow-up by surgery regarding his possible infected wound. Apparently there is no infection 2. Continue with the same treatment 3. The patient had skin cancer but the lesion was completely excised I spent __20____ minutes with the patient and/or on the patient floor today, greater than?50% of which was spent counseling/coordinating care. Reason for contiued inpatient stay Substantial Risk for: inability to function, rapid decompensation and med/psych decompensation
--- NOTE | 2021-10-26 15:17 | P.PNGS_ITS ---
Subjective Subjective Date of Service: 10/26/21 Interval history: No new complaints Physical Exam Vital Signs: Vital Signs: Last Vital Signs Temp 96.9 F 10/26/21 06:00 Pulse 78 10/26/21 06:00 Resp 18 10/26/21 06:00 BP 115/69 10/26/21 06:00 Pulse Ox 95 10/26/21 06:00 O2 Del Method 10/26/21 06:00 BMI result Body Mass Index 17.9 Const: General: comfortable and no acute distress Neck: Other: Excision site on the right neck healing well, sutures intact, no suggestion of acute infection of the wound Objective Data Active Medications Acetaminophen (Acetaminophen 325 Mg Tablet) 650 mg PO Q6H PRN PRN Reason: Headache/Pain Mild Scale (1-3) Last Admin: 10/19/21 22:01 Dose: 650 mg Documented By: JOANIE Al Hydroxide/Mg Hydroxide (Magnesium Hydrox/Alum Hydrox 30 Ml Oral.Susp) 30 ml PO Q6H PRN PRN Reason: Heartburn/Nausea Brimonidine Tartrate (Brimonidine Tartrate 0.2% Oph 5 Ml Bottle) 1 drop EYE- BOTH TID [facility] Last Admin: 10/26/21 09:22 Dose: 1 drop Documented By: SHA Docusate Sodium (Docusate Sodium 100 Mg Capsule) 100 mg PO BID [facility] Last Admin: 10/26/21 09:21 Dose: 100 mg Documented By: SHA Gabapentin (Gabapentin 100 Mg Capsule) 100 mg PO TID [facility] Last Admin: 10/26/21 09:21 Dose: 100 mg Documented By: SHA Latanoprost (Latanoprost 0.005 % Ophth Jessie 2.5 Ml Drops) 1 drop EYE-BOTH BEDTIME [facility] Last Admin: 10/25/21 20:27 Dose: 1 drop Documented By: TAYLOR Magnesium Hydroxide (Milk Of Magnesia 30 Ml Oral.Susp) 30 ml PO DAILY [facility] Last Admin: 10/26/21 09:22 Dose: 30 ml Documented By: SHA Melatonin (Melatonin 3 Mg Tablet) 3 mg PO BEDTIME PRN PRN Reason: Insomnia Last Admin: 10/20/21 20:30 Dose: 3 mg Documented By: JOANIE Mirtazapine (Mirtazapine 7.5 Mg Tablet) 7.5 mg PO BEDTIME [facility] Last Admin: 10/25/21 20:28 Dose: 7.5 mg Documented By: TAYLOR Risperidone (Risperidone 0.25 Mg Tablet) 0.25 mg PO BEDTIME [facility] Last Admin: 10/25/21 20:28 Dose: 0.25 mg Documented By: TAYLOR Senna (Sennosides 8.6 Mg Tablet) 8.6 mg PO DAILY [facility] Last Admin: 10/26/21 09:21 Dose: 8.6 mg Documented By: SHA Timolol Maleate (Timolol Maleate 0.5 % Oph Jessie 5 Ml Drbtl) 1 drop EYE-BOTH BID [facility] Last Admin: 10/26/21 09:21 Dose: 1 drop Documented By: SHA Labs CBC & Chem 7: 10/05/21 08:01 10/05/21 08:01 Procedures Date of Service Date of Service: 10/26/21 Progress Note: A&P Assessment and plan (1) Basal cell carcinoma (BCC) of skin of neck: Status: Acute Assessment and Plan: Status post excision Path report confirms basal cell carcinoma, adequately excise Plan to DC sutures next week Time Spent With Patient Time: Total time spent is greater than 50% in coordination of care (as documented) at patient's floor/unit and/or counseling patient: Quality Stroke Does the patient have a stroke diagnosis?: No VTE Prior VTE?: No VTE Risk Level:: Medical - low VTE Device Contraindication: Treatment Not Indicated VTE Drug Contraindication: Treatment Not Indicated
--- NOTE | 2021-10-26 15:37 | MHC.CLN ---
F/U DIET=NDD2. STAFF REPORTS THAT PATIENT IS EATING WELL. CONTINUE ENSURE TID (1050 KCALS,G PROTEIN). RD TO FOLLOW WEEKLY.
[2021-10-26] MEDS: Mirtazapine 7.5 MG TABLET PO (20:06)
[2021-10-26] MEDS: Latanoprost 0.005 % Ophth Sol 2.5 ML DROPS 1 DROP EYE-BOTH (20:06)
[2021-10-26] MEDS: risperiDONE 0.25 MG TABLET PO (20:06)
[2021-10-26 22:50] VITALS: BP 104/56; PULSE 95; RESP 16; O2SAT 94
[2021-10-27] MEDS: Gabapentin 100 MG CAPSULE PO ×3 (09:03→20:30)
[2021-10-27] MEDS: Milk of Magnesia 30 ML ORAL.SUSP PO (09:03)
[2021-10-27] MEDS: Sennosides 8.6 MG TABLET PO (09:03)
[2021-10-27] MEDS: Docusate Sodium 100 MG CAPSULE PO ×2 (09:03→20:30)
[2021-10-27] MEDS: timoloL maleate 0.5 % Oph Sol 5 ML DRBTL 1 DROP EYE-BOTH ×2 (09:05→20:30)
[2021-10-27] MEDS: Brimonidine Tartrate 0.2% Oph 5 ML BOTTLE 1 DROP EYE-BOTH ×3 (09:05→20:30)
--- NOTE | 2021-10-27 14:54 | HO.PSYCHPN ---
Subjective Subjective Date of Service: 10/27/21 Reason For Visit: Unspecified Depressive Disorder Subjective Notes: Conditional Voluntary Interim History: Patient somewhat withdrawn and isolated. He has periods of distractibility and confusion and other periods where he can have a sharp wit. Difficulty with trusting at times Mental Status Exam Mental Status Exam Patient Appearance: Well Grooomed Patient Orientation: Person and Situation Level of Consciousness: Awake Patient Behavior: Cooperative Mood Description: Constricted Affect Description: Calm Patient Cognition Impaired: Yes Ability to Follow Directions: Good Speech Pattern: Clear Hallucinations: None Delusions: Not Present Thought Content: positive for [place] and positive for Poverty of Content Judgement: Fair Diagnostics Vital Signs (24Hr): Vital Signs - 24 hr 10/26/21 22:50 Pulse Rate 95 Respiratory Rate 16 Blood Pressure 104/56 L Pulse Oximetry 94 Oxygen Delivery Method Room Air BMI result Body Mass Index 17.9 Labs Results: 10/05/21 08:01 10/05/21 08:01 Imaging Radiology Impressions: ITS Impressions Head CT 10/04/21 15:04 IMPRESSION: 1. No acute intracranial pathology. 2. Right parietal meningioma without mass effect. 3. Generalized atrophy. Medications Medications Current Medications Acetaminophen (Acetaminophen 325 Mg Tablet) 650 mg PO Q6H PRN PRN Reason: Headache/Pain Mild Scale (1-3) Last Admin: 10/19/21 22:01 Dose: 650 mg Al Hydroxide/Mg Hydroxide (Magnesium Hydrox/Alum Hydrox 30 Ml Oral.Susp) 30 ml PO Q6H PRN PRN Reason: Heartburn/Nausea Brimonidine Tartrate (Brimonidine Tartrate 0.2% Oph 5 Ml Bottle) 1 drop EYE-BOTH TID [facility] Last Admin: 10/27/21 09:05 Dose: 1 drop Docusate Sodium (Docusate Sodium 100 Mg Capsule) 100 mg PO BID [facility] Last Admin: 10/27/21 09:03 Dose: 100 mg Gabapentin (Gabapentin 100 Mg Capsule) 100 mg PO TID [facility] Last Admin: 10/27/21 09:03 Dose: 100 mg Latanoprost (Latanoprost 0.005 % Ophth Jessie 2.5 Ml Drops) 1 drop EYE-BOTH BEDTIME [facility] Last Admin: 10/26/21 20:06 Dose: 1 drop Magnesium Hydroxide (Milk Of Magnesia 30 Ml Oral.Susp) 30 ml PO DAILY [facility] Last Admin: 10/27/21 09:03 Dose: 30 ml Melatonin (Melatonin 3 Mg Tablet) 3 mg PO BEDTIME PRN PRN Reason: Insomnia Last Admin: 10/20/21 20:30 Dose: 3 mg Mirtazapine (Mirtazapine 7.5 Mg Tablet) 7.5 mg PO BEDTIME [facility] Last Admin: 10/26/21 20:06 Dose: 7.5 mg Risperidone (Risperidone 0.25 Mg Tablet) 0.25 mg PO BEDTIME [facility] Last Admin: 10/26/21 20:06 Dose: 0.25 mg Senna (Sennosides 8.6 Mg Tablet) 8.6 mg PO DAILY [facility] Last Admin: 10/27/21 09:03 Dose: 8.6 mg Timolol Maleate (Timolol Maleate 0.5 % Oph Jessie 5 Ml Drbtl) 1 drop EYE-BOTH BID [facility] Last Admin: 10/27/21 09:05 Dose: 1 drop Allergies Allergies Allergy/AdvReac Type Severity Reaction Status Date / Time sulfamethoxazole Allergy Itching Verified 10/03/21 19:19 [From Bactrim] trimethoprim [From Bactrim] Allergy Itching Verified 10/03/21 19:19 Assessment & Plan Assessment & Plan (1) Basal cell carcinoma (BCC) of skin of neck: Status: Acute Code(s): C44.41 - Basal cell carcinoma of skin of scalp and neck Assessment and Plan: Status post excision Path report confirms basal cell carcinoma, adequately excise Plan to DC sutures next week Plan 10/27/2021 Continue plan of care Some periods of paranoia I spent minutes with the patient and/or on the patient floor today, greater than?50% of which was spent counseling/coordinating care. Reason for contiued inpatient stay Substantial Risk for: inability to function, rapid decompensation and med/psych decompensation
[2021-10-27 18:00] VITALS: BP 110/59; PULSE 70; RESP 20; TEMP 36.9; O2SAT 95
[2021-10-27] MEDS: Mirtazapine 7.5 MG TABLET PO (20:30)
[2021-10-27] MEDS: risperiDONE 0.25 MG TABLET PO (20:30)
[2021-10-27] MEDS: Latanoprost 0.005 % Ophth Sol 2.5 ML DROPS 1 DROP EYE-BOTH (20:30)
[2021-10-28 06:00] VITALS: BP 116/57; PULSE 76; RESP 16; TEMP 36.9; O2SAT 98
[2021-10-28] MEDS: Sennosides 8.6 MG TABLET PO (08:57)
[2021-10-28] MEDS: Docusate Sodium 100 MG CAPSULE PO ×2 (08:57→20:36)
[2021-10-28] MEDS: Gabapentin 100 MG CAPSULE PO ×3 (08:57→20:36)
[2021-10-28] MEDS: Brimonidine Tartrate 0.2% Oph 5 ML BOTTLE 1 DROP EYE-BOTH ×3 (09:00→20:36)
[2021-10-28] MEDS: timoloL maleate 0.5 % Oph Sol 5 ML DRBTL 1 DROP EYE-BOTH ×2 (09:00→20:36)
[2021-10-28] MEDS: Milk of Magnesia 30 ML ORAL.SUSP PO (09:00)
--- NOTE | 2021-10-28 16:07 | HO.PSYCHPN ---
Subjective Subjective Date of Service: 10/28/21 Reason For Visit: Unspecified Depressive Disorder Subjective Notes: Conditional Voluntary Interim History: Patient with odd affect presents with weight and sense of you wear hat difficulty with episodic memory with islands of retained capacity The patient has generally been cooperative periods of paranoia in behavioral control Medication Compliance: Yes Review of Systems Neck basal cell surgery appears to be healing Mental Status Exam Mental Status Exam Patient Appearance: Well Grooomed Patient Orientation: Person and Situation Level of Consciousness: Awake Mood Description: Calm Affect Description: Constricted Patient Cognition Impaired: Yes Ability to Follow Directions: Good Speech Pattern: Clear Hallucinations: None Delusions: Not Present Thought Process: Disoriented Thought Content: positive for [place] and positive for Circumstantial Judgement: Fair Diagnostics Vital Signs (24Hr): Vital Signs - 24 hr 10/27/21 18:00 10/28/21 06:00 Temperature 98.5 F 98.4 F Pulse Rate 70 76 Respiratory Rate 20 16 Blood Pressure 110/59 L 116/57 L Pulse Oximetry 95 98 Oxygen Delivery Method Room Air Room Air BMI result Body Mass Index 17.9 Labs Results: 10/05/21 08:01 10/29/21 07:59 Imaging Radiology Impressions: ITS Impressions Head CT 10/04/21 15:04 IMPRESSION: 1. No acute intracranial pathology. 2. Right parietal meningioma without mass effect. 3. Generalized atrophy. Medications Medications Current Medications Acetaminophen (Acetaminophen 325 Mg Tablet) 650 mg PO Q6H PRN PRN Reason: Headache/Pain Mild Scale (1-3) Last Admin: 10/19/21 22:01 Dose: 650 mg Al Hydroxide/Mg Hydroxide (Magnesium Hydrox/Alum Hydrox 30 Ml Oral.Susp) 30 ml PO Q6H PRN PRN Reason: Heartburn/Nausea Brimonidine Tartrate (Brimonidine Tartrate 0.2% Oph 5 Ml Bottle) 1 drop EYE-BOTH TID [facility] Last Admin: 10/28/21 15:28 Dose: 1 drop Docusate Sodium (Docusate Sodium 100 Mg Capsule) 100 mg PO BID [facility] Last Admin: 10/28/21 08:57 Dose: 100 mg Gabapentin (Gabapentin 100 Mg Capsule) 100 mg PO TID [facility] Last Admin: 10/28/21 15:27 Dose: 100 mg Latanoprost (Latanoprost 0.005 % Ophth Jessie 2.5 Ml Drops) 1 drop EYE-BOTH BEDTIME [facility] Last Admin: 10/27/21 20:30 Dose: 1 drop Magnesium Hydroxide (Milk Of Magnesia 30 Ml Oral.Susp) 30 ml PO DAILY [facility] Last Admin: 10/28/21 09:00 Dose: 30 ml Melatonin (Melatonin 3 Mg Tablet) 3 mg PO BEDTIME PRN PRN Reason: Insomnia Last Admin: 10/20/21 20:30 Dose: 3 mg Mirtazapine (Mirtazapine 7.5 Mg Tablet) 7.5 mg PO BEDTIME [facility] Last Admin: 10/27/21 20:30 Dose: 7.5 mg Risperidone (Risperidone 0.25 Mg Tablet) 0.25 mg PO BEDTIME [facility] Last Admin: 10/27/21 20:30 Dose: 0.25 mg Senna (Sennosides 8.6 Mg Tablet) 8.6 mg PO DAILY [facility] Last Admin: 10/28/21 08:57 Dose: 8.6 mg Timolol Maleate (Timolol Maleate 0.5 % Oph Jessie 5 Ml Drbtl) 1 drop EYE-BOTH BID [facility] Last Admin: 10/28/21 09:00 Dose: 1 drop Allergies Allergies Allergy/AdvReac Type Severity Reaction Status Date / Time sulfamethoxazole Allergy Itching Verified 10/03/21 19:19 [From Bactrim] trimethoprim [From Bactrim] Allergy Itching Verified 10/03/21 19:19 Assessment & Plan Assessment & Plan (1) Basal cell carcinoma (BCC) of skin of neck: Status: Acute Code(s): C44.41 - Basal cell carcinoma of skin of scalp and neck Assessment and Plan: Status post excision Path report confirms basal cell carcinoma, adequately excise Plan to DC sutures next week Plan 10/27/2021 Continue plan of care Some periods of paranoia9 9 9 1122 Continue plan of care discharge planning I spent minutes with the patient and/or on the patient floor today, greater than?50% of which was spent counseling/coordinating care. Reason for contiued inpatient stay Substantial Risk for: inability to function and rapid decompensation
[2021-10-28 18:00] VITALS: BP 123/60; PULSE 81; O2SAT 92
[2021-10-28] MEDS: Mirtazapine 7.5 MG TABLET PO (20:36)
[2021-10-28] MEDS: risperiDONE 0.25 MG TABLET PO (20:36)
[2021-10-28] MEDS: Latanoprost 0.005 % Ophth Sol 2.5 ML DROPS 1 DROP EYE-BOTH (20:36)
[2021-10-29 07:30] VITALS: BP 128/62; PULSE 75; RESP 18; TEMP 36.6; O2SAT 95
[2021-10-29] MEDS: Milk of Magnesia 30 ML ORAL.SUSP PO (08:18)
[2021-10-29] MEDS: Sennosides 8.6 MG TABLET PO (08:18)
[2021-10-29] MEDS: Docusate Sodium 100 MG CAPSULE PO ×2 (08:18→20:01)
[2021-10-29] MEDS: Brimonidine Tartrate 0.2% Oph 5 ML BOTTLE 1 DROP EYE-BOTH ×3 (08:18→20:02)
[2021-10-29] MEDS: Gabapentin 100 MG CAPSULE PO ×3 (08:18→20:01)
[2021-10-29] MEDS: timoloL maleate 0.5 % Oph Sol 5 ML DRBTL 1 DROP EYE-BOTH ×2 (08:18→20:02)
[2021-10-29 08:24] LABS: Anion Gap 16 (12-20); Blood Urea Nitrogen 27 mg/dL (9-16); Calcium 9.4 mg/dL (8.4-10.2); Carbon Dioxide 28 mmol/L (22-29); Chloride 106 mmol/L (96-108); Creatinine Clr Calc Pharmacy 59.7; Estimated Glomerular Filt Rate > 60; Glucose Random 97 mg/dL (60-115); Potassium 4.5 mmol/L (3.3-5.1); Sodium 145 mmol/L (135-145)
[2021-10-29 09:09] LABS: Folate 12.1 ng/mL (> or = 4.0); Vitamin B12 750 pg/mL (200-900)
--- NOTE | 2021-10-29 16:23 | HO.PSYCHPN ---
Subjective Subjective Date of Service: 10/29/21 Reason For Visit: Unspecified Depressive Disorder Subjective Notes: Conditional Voluntary Interim History: The nursing staff reports the patient has been refusing the warm compress on his neck. But he has been fully compliant with all the other medications he has been polite and superficially cooperative he looks pleasantly confused. The occupational therapist realized that the patient has poor hearing and that is why he is not very well engage in conversations. We will work on that. On interview the patient denies new symptoms. Mental Status Exam Mental Status Exam Patient Appearance: Well Grooomed Patient Orientation: Person and Situation Level of Consciousness: Awake Mood Description: Calm Affect Description: Constricted Patient Cognition Impaired: Yes Ability to Follow Directions: Good Speech Pattern: Clear Hallucinations: None Delusions: Not Present Thought Process: Disoriented Thought Content: positive for [place] and positive for Circumstantial Judgement: Fair Diagnostics Vital Signs (24Hr): Vital Signs - 24 hr 10/28/21 18:00 10/29/21 07:30 Temperature 97.9 F Pulse Rate 81 75 Respiratory Rate 18 Blood Pressure 123/60 128/62 Pulse Oximetry 92 95 Oxygen Delivery Method Room Air Room Air BMI result Body Mass Index 17.9 Labs Results: 10/05/21 08:01 10/29/21 07:59 Labs: Laboratory Results - last 48 hr 10/29/21 10/29/21 07:59 07:59 Sodium 145 Potassium 4.5 Chloride 106 Carbon Dioxide 28 Anion Gap 16 BUN 27 H Creatinine 0.95 Estim Creat Clear Calc 59.7 Estimated GFR > 60 Random Glucose 97 Calcium 9.4 Vitamin B12 750 Folate 12.1 Imaging Radiology Impressions: ITS Impressions Head CT 10/04/21 15:04 IMPRESSION: 1. No acute intracranial pathology. 2. Right parietal meningioma without mass effect. 3. Generalized atrophy. Medications Medications Current Medications Acetaminophen (Acetaminophen 325 Mg Tablet) 650 mg PO Q6H PRN PRN Reason: Headache/Pain Mild Scale (1-3) Last Admin: 10/19/21 22:01 Dose: 650 mg Al Hydroxide/Mg Hydroxide (Magnesium Hydrox/Alum Hydrox 30 Ml Oral.Susp) 30 ml PO Q6H PRN PRN Reason: Heartburn/Nausea Brimonidine Tartrate (Brimonidine Tartrate 0.2% Oph 5 Ml Bottle) 1 drop EYE-BOTH TID [facility] Last Admin: 10/29/21 15:02 Dose: 1 drop Docusate Sodium (Docusate Sodium 100 Mg Capsule) 100 mg PO BID [facility] Last Admin: 10/29/21 08:18 Dose: 100 mg Gabapentin (Gabapentin 100 Mg Capsule) 100 mg PO TID [facility] Last Admin: 10/29/21 15:02 Dose: 100 mg Latanoprost (Latanoprost 0.005 % Ophth Jessie 2.5 Ml Drops) 1 drop EYE-BOTH BEDTIME [facility] Last Admin: 10/28/21 20:36 Dose: 1 drop Magnesium Hydroxide (Milk Of Magnesia 30 Ml Oral.Susp) 30 ml PO DAILY [facility] Last Admin: 10/29/21 08:18 Dose: 30 ml Melatonin (Melatonin 3 Mg Tablet) 3 mg PO BEDTIME PRN PRN Reason: Insomnia Last Admin: 10/20/21 20:30 Dose: 3 mg Mirtazapine (Mirtazapine 7.5 Mg Tablet) 7.5 mg PO BEDTIME [facility] Last Admin: 10/28/21 20:36 Dose: 7.5 mg Risperidone (Risperidone 0.25 Mg Tablet) 0.25 mg PO BEDTIME [facility] Last Admin: 10/28/21 20:36 Dose: 0.25 mg Senna (Sennosides 8.6 Mg Tablet) 8.6 mg PO DAILY [facility] Last Admin: 10/29/21 08:18 Dose: 8.6 mg Timolol Maleate (Timolol Maleate 0.5 % Oph Jessie 5 Ml Drbtl) 1 drop EYE-BOTH BID [facility] Last Admin: 10/29/21 08:18 Dose: 1 drop Allergies Allergies Allergy/AdvReac Type Severity Reaction Status Date / Time sulfamethoxazole Allergy Itching Verified 10/03/21 19:19 [From Bactrim] trimethoprim [From Bactrim] Allergy Itching Verified 10/03/21 19:19 Assessment & Plan Assessment & Plan (1) Basal cell carcinoma (BCC) of skin of neck: Status: Acute Code(s): C44.41 - Basal cell carcinoma of skin of scalp and neck Assessment and Plan: Status post excision Path report confirms basal cell carcinoma, adequately excise Plan to DC sutures next week Plan 10/27/2021 Continue plan of care Some periods of paranoia I spent ___20___ minutes with the patient and/or on the patient floor today, greater than?50% of which was spent counseling/coordinating care. Reason for contiued inpatient stay Substantial Risk for: inability to function, rapid decompensation and med/psych decompensation
[2021-10-29 18:00] VITALS: BP 99/58; PULSE 69; RESP 16; TEMP 37.2; O2SAT 97
[2021-10-29] MEDS: risperiDONE 0.25 MG TABLET PO (20:01)
[2021-10-29] MEDS: Mirtazapine 7.5 MG TABLET PO (20:01)
[2021-10-29] MEDS: Latanoprost 0.005 % Ophth Sol 2.5 ML DROPS 1 DROP EYE-BOTH (20:02)
[2021-10-30 07:35] VITALS: BP 100/59; PULSE 68; RESP 17; TEMP 36.6; O2SAT 95
[2021-10-30] MEDS: Brimonidine Tartrate 0.2% Oph 5 ML BOTTLE 1 DROP EYE-BOTH ×3 (09:52→20:37)
[2021-10-30] MEDS: Docusate Sodium 100 MG CAPSULE PO ×2 (09:52→20:37)
[2021-10-30] MEDS: Milk of Magnesia 30 ML ORAL.SUSP PO (09:52)
[2021-10-30] MEDS: Gabapentin 100 MG CAPSULE PO ×3 (09:52→20:37)
[2021-10-30] MEDS: Sennosides 8.6 MG TABLET PO (09:52)
[2021-10-30] MEDS: timoloL maleate 0.5 % Oph Sol 5 ML DRBTL 1 DROP EYE-BOTH ×2 (09:52→20:37)
--- NOTE | 2021-10-30 15:20 | P.PNPSI_ITS ---
Subjective Subjective Date of Service: 10/30/21 Reason For Visit: Unspecified Depressive Disorder Subjective Notes: Conditional Voluntary Interim History: The nursing staff reported the patient has been isolative mostly in his room. He was upset since his diet showed a very small pieces of food, most likely due to suspicions are low. We will try to reassess if he needs to have on this kind of diet. On interview the patient remains pleasantly confused. He asked to help him with his hearing problems, asked for eardrops. Mental Status Exam Mental Status Exam Patient Appearance: Well Grooomed Patient Orientation: Person and Situation Level of Consciousness: Awake Patient Behavior: Cooperative Mood Description: Calm Affect Description: Constricted Patient Cognition Impaired: Yes Ability to Follow Directions: Good Speech Pattern: Clear Hallucinations: None Delusions: Not Present Thought Process: Distracted Thought Content: positive for [place] and positive for [place] Oriented Judgement: Fair Diagnostics Vital Signs (24Hr): Vital Signs - 24 hr 10/29/21 18:00 10/30/21 07:35 Temperature 98.9 F 97.8 F Pulse Rate 69 68 Respiratory Rate 16 17 Blood Pressure 99/58 L 100/59 L Pulse Oximetry 97 95 Oxygen Delivery Method Room Air Room Air BMI result Body Mass Index 17.9 Labs Results: 10/05/21 08:01 10/29/21 07:59 Labs: Laboratory Results - last 48 hr 10/29/21 10/29/21 07:59 07:59 Sodium 145 Potassium 4.5 Chloride 106 Carbon Dioxide 28 Anion Gap 16 BUN 27 H Creatinine 0.95 Estim Creat Clear Calc 59.7 Estimated GFR > 60 Random Glucose 97 Calcium 9.4 Vitamin B12 750 Folate 12.1 Imaging Radiology Impressions: ITS Impressions Head CT 10/04/21 15:04 IMPRESSION: 1. No acute intracranial pathology. 2. Right parietal meningioma without mass effect. 3. Generalized atrophy. Medications Medications Current Medications Acetaminophen (Acetaminophen 325 Mg Tablet) 650 mg PO Q6H PRN PRN Reason: Headache/Pain Mild Scale (1-3) Last Admin: 10/19/21 22:01 Dose: 650 mg Al Hydroxide/Mg Hydroxide (Magnesium Hydrox/Alum Hydrox 30 Ml Oral.Susp) 30 ml PO Q6H PRN PRN Reason: Heartburn/Nausea Brimonidine Tartrate (Brimonidine Tartrate 0.2% Oph 5 Ml Bottle) 1 drop EYE- BOTH TID [facility] Last Admin: 10/30/21 15:18 Dose: 1 drop Docusate Sodium (Docusate Sodium 100 Mg Capsule) 100 mg PO BID [facility] Last Admin: 10/30/21 09:52 Dose: 100 mg Gabapentin (Gabapentin 100 Mg Capsule) 100 mg PO TID [facility] Last Admin: 10/30/21 15:18 Dose: 100 mg Latanoprost (Latanoprost 0.005 % Ophth Jessie 2.5 Ml Drops) 1 drop EYE-BOTH BEDTIME [facility] Last Admin: 10/29/21 20:02 Dose: 1 drop Magnesium Hydroxide (Milk Of Magnesia 30 Ml Oral.Susp) 30 ml PO DAILY [facility] Last Admin: 10/30/21 09:52 Dose: 30 ml Melatonin (Melatonin 3 Mg Tablet) 3 mg PO BEDTIME PRN PRN Reason: Insomnia Last Admin: 10/20/21 20:30 Dose: 3 mg Mirtazapine (Mirtazapine 7.5 Mg Tablet) 7.5 mg PO BEDTIME [facility] Last Admin: 10/29/21 20:01 Dose: 7.5 mg Risperidone (Risperidone 0.25 Mg Tablet) 0.25 mg PO BEDTIME [facility] Last Admin: 10/29/21 20:01 Dose: 0.25 mg Senna (Sennosides 8.6 Mg Tablet) 8.6 mg PO DAILY [facility] Last Admin: 10/30/21 09:52 Dose: 8.6 mg Timolol Maleate (Timolol Maleate 0.5 % Oph Jessie 5 Ml Drbtl) 1 drop EYE-BOTH BID [facility] Last Admin: 10/30/21 09:52 Dose: 1 drop Allergies Allergies Allergy/AdvReac Type Severity Reaction Status Date / Time sulfamethoxazole Allergy Itching Verified 10/03/21 19:19 [From Bactrim] trimethoprim [From Bactrim] Allergy Itching Verified 10/03/21 19:19 Assessment & Plan Assessment & Plan (1) Basal cell carcinoma (BCC) of skin of neck: Status: Acute Code(s): C44.41 - Basal cell carcinoma of skin of scalp and neck Assessment and Plan: Status post excision Path report confirms basal cell carcinoma, adequately excise Plan to DC sutures next week Plan 10/27/2021 Continue plan of care Some periods of paranoia9 9 9 1122 Continue plan of care discharge planning Speech and swallow evaluations I spent _20 minutes with the patient and/or on the patient floor today, greater than?50% of which was spent counseling/coordinating care. Reason for contiued inpatient stay Substantial Risk for: inability to function, rapid decompensation and med/psych decompensation
[2021-10-30 18:00] VITALS: BP 114/59; PULSE 80; RESP 16; TEMP 37.1; O2SAT 94
[2021-10-30] MEDS: Mirtazapine 7.5 MG TABLET PO (20:37)
[2021-10-30] MEDS: Latanoprost 0.005 % Ophth Sol 2.5 ML DROPS 1 DROP EYE-BOTH (20:37)
[2021-10-30] MEDS: risperiDONE 0.25 MG TABLET PO (20:37)
[2021-10-31 08:12] VITALS: BP 115/65; PULSE 78; RESP 18; TEMP 36.5; O2SAT 93
[2021-10-31] MEDS: Sennosides 8.6 MG TABLET PO (08:14)
[2021-10-31] MEDS: Gabapentin 100 MG CAPSULE PO ×3 (08:14→19:44)
[2021-10-31] MEDS: Milk of Magnesia 30 ML ORAL.SUSP PO (08:14)
[2021-10-31] MEDS: Docusate Sodium 100 MG CAPSULE PO ×2 (08:14→19:44)
[2021-10-31] MEDS: Brimonidine Tartrate 0.2% Oph 5 ML BOTTLE 1 DROP EYE-BOTH ×3 (08:16→19:44)
[2021-10-31] MEDS: timoloL maleate 0.5 % Oph Sol 5 ML DRBTL 1 DROP EYE-BOTH ×2 (08:18→19:44)
--- NOTE | 2021-10-31 10:16 | MHC.OT.ID ---
[address] [phone] F: [phone] Occupational Therapy Inpatient Daily Note Start Time: 9AM End Time: 9:30 Visit Duration: Billable Time: Pain Score: Pain Location: Self-Care Feeding: Grooming: Washing: Dressing: Toileting: Functional Mobility Bed Mobility: Transfers: Ambulation: Therapeutic Activities IADL/Homecare: Balance: Gabapentin Therapeutic Exercise: Cognition: Assessment Assessment: Pt is hard of hearing which has affected his participation on the unit milieu. OT procured an [facility] external hearing device and trialled it with pt. He stated Finally, something good happened, I can hear you, it's beautiful. Can I have this all of the time? Pt immediately increase group and milieu participation. Plan Plan of Care: Hearing device has 8 inch speaker wire where ear buds are attached. This is against unit safety policy. Pt will need to be monitored in common areas. Pt will not be able to have device in his room. D/C Today: Electronically Signed By: Davida Escobar OTR/L Reviewed/agree with student documentation: Therapist:
--- NOTE | 2021-10-31 10:37 | PM.EVENT ---
Event Note Date of Service: 10/31/21 Event Note: sutures from right neck excision site removed incision wellhealed plan to remove lesion on nose as well nefore pt gets discharged
--- NOTE | 2021-10-31 13:12 | HO.PSYCHPN ---
Subjective Subjective Date of Service: 10/31/21 Reason For Visit: Unspecified Depressive Disorder Subjective Notes: Conditional Voluntary Interim History: The nursing staff reported the patient has been isolative, laying on his bed most of the time. He was seen going out for meals. Yesterday he complained of poor hearing and we started ear drops to help in remove the cerumen. Still dysphoric, pleasantly confused Mental Status Exam Mental Status Exam Patient Appearance: Well Grooomed Patient Orientation: Person and Situation Level of Consciousness: Awake Mood Description: Withdrawn Affect Description: Constricted Patient Cognition Impaired: Yes Ability to Follow Directions: Good Speech Pattern: Clear Hallucinations: None Delusions: Not Present Thought Process: Distracted Thought Content: positive for [place] and positive for Circumstantial Judgement: Fair Diagnostics Vital Signs (24Hr): Vital Signs - 24 hr 10/30/21 18:00 10/31/21 08:12 Temperature 98.7 F 97.7 F Pulse Rate 80 78 Respiratory Rate 16 18 Blood Pressure 114/59 L 115/65 Pulse Oximetry 94 93 Oxygen Delivery Method Room Air Room Air BMI result Body Mass Index 17.9 Labs Results: 10/05/21 08:01 10/29/21 07:59 Imaging Radiology Impressions: ITS Impressions Head CT 10/04/21 15:04 IMPRESSION: 1. No acute intracranial pathology. 2. Right parietal meningioma without mass effect. 3. Generalized atrophy. Medications Medications Current Medications Acetaminophen (Acetaminophen 325 Mg Tablet) 650 mg PO Q6H PRN PRN Reason: Headache/Pain Mild Scale (1-3) Last Admin: 10/19/21 22:01 Dose: 650 mg Al Hydroxide/Mg Hydroxide (Magnesium Hydrox/Alum Hydrox 30 Ml Oral.Susp) 30 ml PO Q6H PRN PRN Reason: Heartburn/Nausea Brimonidine Tartrate (Brimonidine Tartrate 0.2% Oph 5 Ml Bottle) 1 drop EYE-BOTH TID [facility] Last Admin: 10/31/21 08:16 Dose: 1 drop Carbamide Peroxide (Carbamide Peroxide 6.5% Otic 15 Ml Drpbtl) 5 drop EAR-BOTH BID [facility] Stop: 11/03/21 16:16 Last Admin: 10/31/21 08:19 Dose: Not Given Docusate Sodium (Docusate Sodium 100 Mg Capsule) 100 mg PO BID [facility] Last Admin: 10/31/21 08:14 Dose: 100 mg Gabapentin (Gabapentin 100 Mg Capsule) 100 mg PO TID [facility] Last Admin: 10/31/21 08:14 Dose: 100 mg Latanoprost (Latanoprost 0.005 % Ophth Jessie 2.5 Ml Drops) 1 drop EYE-BOTH BEDTIME [facility] Last Admin: 10/30/21 20:37 Dose: 1 drop Magnesium Hydroxide (Milk Of Magnesia 30 Ml Oral.Susp) 30 ml PO DAILY [facility] Last Admin: 10/31/21 08:14 Dose: 30 ml Melatonin (Melatonin 3 Mg Tablet) 3 mg PO BEDTIME PRN PRN Reason: Insomnia Last Admin: 10/20/21 20:30 Dose: 3 mg Mirtazapine (Mirtazapine 7.5 Mg Tablet) 7.5 mg PO BEDTIME [facility] Last Admin: 10/30/21 20:37 Dose: 7.5 mg Risperidone (Risperidone 0.25 Mg Tablet) 0.25 mg PO BEDTIME [facility] Last Admin: 10/30/21 20:37 Dose: 0.25 mg Senna (Sennosides 8.6 Mg Tablet) 8.6 mg PO DAILY [facility] Last Admin: 10/31/21 08:14 Dose: 8.6 mg Timolol Maleate (Timolol Maleate 0.5 % Oph Jessie 5 Ml Drbtl) 1 drop EYE-BOTH BID [facility] Last Admin: 10/31/21 08:18 Dose: 1 drop Allergies Allergies Allergy/AdvReac Type Severity Reaction Status Date / Time sulfamethoxazole Allergy Itching Verified 10/03/21 19:19 [From Bactrim] trimethoprim [From Bactrim] Allergy Itching Verified 10/03/21 19:19 Assessment & Plan Assessment & Plan (1) Basal cell carcinoma (BCC) of skin of neck: Status: Acute Code(s): C44.41 - Basal cell carcinoma of skin of scalp and neck Assessment and Plan: Status post excision Path report confirms basal cell carcinoma, adequately excise Plan to DC sutures next week Plan 10/27/2021 Continue plan of care Some periods of paranoia9 9 1122 Continue plan of care discharge planning Speech and swallow evaluations I spent ___20___ minutes with the patient and/or on the patient floor today, greater than?50% of which was spent counseling/coordinating care. Reason for contiued inpatient stay Substantial Risk for: inability to function, rapid decompensation and med/psych decompensation
--- NOTE | 2021-10-31 14:11 | MHC.SLORD ---
Addendum entered and electronically signed by Wen Rosas MA, CCC-RECEPTION AGENT 10/31/21 15:58: D.S. Original Note: Speech Language Pathology Order Status: Attempted to see pt 2X today. Staff requested RECEPTION AGENT to come back later in day or around dinner time. Checked in with staff who reported pt pockets and stuffs food in mouth. Staff reports that they need to cue him to stop in chew before taking in more food; he does not always attend to cues. Reported no coughing observed. Staff also reported that they were wondering why he was on the ground diet.
[2021-10-31 19:39] VITALS: BP 125/58; PULSE 77; RESP 16; TEMP 37; O2SAT 95
[2021-10-31] MEDS: risperiDONE 0.25 MG TABLET PO (19:44)
[2021-10-31] MEDS: Mirtazapine 7.5 MG TABLET PO (19:44)
[2021-10-31] MEDS: Carbamide Peroxide 6.5% Otic 15 ML DRPBTL 5 DROP EAR-BOTH (19:45)
[2021-10-31] MEDS: Latanoprost 0.005 % Ophth Sol 2.5 ML DROPS 1 DROP EYE-BOTH (19:45)
[2021-11-01 06:00] VITALS: BP 120/76; PULSE 79; RESP 14; TEMP 37.2; O2SAT 96
[2021-11-01] MEDS: Docusate Sodium 100 MG CAPSULE PO ×2 (08:19→20:34)
[2021-11-01] MEDS: Gabapentin 100 MG CAPSULE PO ×3 (08:19→20:33)
[2021-11-01] MEDS: Sennosides 8.6 MG TABLET PO (08:19)
[2021-11-01] MEDS: Milk of Magnesia 30 ML ORAL.SUSP PO (08:19)
[2021-11-01] MEDS: timoloL maleate 0.5 % Oph Sol 5 ML DRBTL 1 DROP EYE-BOTH ×2 (08:19→20:33)
[2021-11-01] MEDS: Brimonidine Tartrate 0.2% Oph 5 ML BOTTLE 1 DROP EYE-BOTH ×3 (08:19→20:33)
[2021-11-01] MEDS: Carbamide Peroxide 6.5% Otic 15 ML DRPBTL 5 DROP EAR-BOTH ×2 (08:32→20:33)
[2021-11-01 13:28] VITALS: BMI 18.2
--- NOTE | 2021-11-01 15:14 | HO.PSYCHPN ---
Subjective Subjective Date of Service: 11/01/21 Reason For Visit: Unspecified Depressive Disorder Subjective Notes: Conditional Voluntary Interim History: The nursing staff reported the patient has been compliant with treatment. Occupational therapist gave in and [id number] outer leaf on a and he is now able to listen much better, has help in an his affect is brighter now that he can not communicate much better. No new symptoms Mental Status Exam Mental Status Exam Patient Appearance: Well Grooomed Patient Orientation: Person and Situation Level of Consciousness: Awake and Alert Patient Behavior: Cooperative Mood Description: Calm Affect Description: Constricted Patient Cognition Impaired: Yes Ability to Follow Directions: Good Speech Pattern: Clear Hallucinations: None Delusions: Not Present Thought Process: Linear Thought Content: positive for [place] Judgement: Fair Diagnostics Vital Signs (24Hr): Vital Signs - 24 hr 10/31/21 19:39 Temperature 98.6 F Pulse Rate 77 Respiratory Rate 16 Blood Pressure 125/58 L Pulse Oximetry 95 Oxygen Delivery Method Room Air BMI result Body Mass Index 18.2 Labs Results: 10/05/21 08:01 10/29/21 07:59 Imaging Radiology Impressions: ITS Impressions Head CT 10/04/21 15:04 IMPRESSION: 1. No acute intracranial pathology. 2. Right parietal meningioma without mass effect. 3. Generalized atrophy. Medications Medications Current Medications Acetaminophen (Acetaminophen 325 Mg Tablet) 650 mg PO Q6H PRN PRN Reason: Headache/Pain Mild Scale (1-3) Last Admin: 10/19/21 22:01 Dose: 650 mg Al Hydroxide/Mg Hydroxide (Magnesium Hydrox/Alum Hydrox 30 Ml Oral.Susp) 30 ml PO Q6H PRN PRN Reason: Heartburn/Nausea Brimonidine Tartrate (Brimonidine Tartrate 0.2% Oph 5 Ml Bottle) 1 drop EYE-BOTH TID [facility] Last Admin: 11/01/21 08:19 Dose: 1 drop Carbamide Peroxide (Carbamide Peroxide 6.5% Otic 15 Ml Drpbtl) 5 drop EAR-BOTH BID [facility] Stop: 11/03/21 16:16 Last Admin: 11/01/21 08:32 Dose: 5 drop Docusate Sodium (Docusate Sodium 100 Mg Capsule) 100 mg PO BID [facility] Last Admin: 11/01/21 08:19 Dose: 100 mg Gabapentin (Gabapentin 100 Mg Capsule) 100 mg PO TID [facility] Last Admin: 11/01/21 08:19 Dose: 100 mg Latanoprost (Latanoprost 0.005 % Ophth Jessie 2.5 Ml Drops) 1 drop EYE-BOTH BEDTIME [facility] Last Admin: 10/31/21 19:45 Dose: 1 drop Magnesium Hydroxide (Milk Of Magnesia 30 Ml Oral.Susp) 30 ml PO DAILY [facility] Last Admin: 11/01/21 08:19 Dose: 30 ml Melatonin (Melatonin 3 Mg Tablet) 3 mg PO BEDTIME PRN PRN Reason: Insomnia Last Admin: 10/20/21 20:30 Dose: 3 mg Mirtazapine (Mirtazapine 7.5 Mg Tablet) 7.5 mg PO BEDTIME [facility] Last Admin: 10/31/21 19:44 Dose: 7.5 mg Risperidone (Risperidone 0.25 Mg Tablet) 0.25 mg PO BEDTIME [facility] Last Admin: 10/31/21 19:44 Dose: 0.25 mg Senna (Sennosides 8.6 Mg Tablet) 8.6 mg PO DAILY [facility] Last Admin: 11/01/21 08:19 Dose: 8.6 mg Timolol Maleate (Timolol Maleate 0.5 % Oph Jessie 5 Ml Drbtl) 1 drop EYE-BOTH BID [facility] Last Admin: 11/01/21 08:19 Dose: 1 drop Allergies Allergies Allergy/AdvReac Type Severity Reaction Status Date / Time sulfamethoxazole Allergy Itching Verified 10/03/21 19:19 [From Bactrim] trimethoprim [From Bactrim] Allergy Itching Verified 10/03/21 19:19 Assessment & Plan Assessment & Plan (1) Basal cell carcinoma (BCC) of skin of neck: Status: Acute Code(s): C44.41 - Basal cell carcinoma of skin of scalp and neck Assessment and Plan: Status post excision Path report confirms basal cell carcinoma, adequately excise Plan to DC sutures next week Plan 10/27/2021 Continue plan of care Some periods of paranoia9 9 9 1122 Continue plan of care discharge planning Speech and swallow evaluations I spent ___20___ minutes with the patient and/or on the patient floor today, greater than?50% of which was spent counseling/coordinating care. Reason for contiued inpatient stay Substantial Risk for: inability to function, rapid decompensation and med/psych decompensation
--- NOTE | 2021-11-01 15:51 | MHC.SL.SWA ---
Addendum entered and electronically signed by Wen Rosas MA, [facility]-REIMBURSEMENT SPECIALIST 11/06/21 17:39: D.S. Original Note: Speech Pathologist Impression: Dysphagia Risk of Aspiration Due to: Reduced Cognition Weak Cough Unsafe eating behaviors Dysphasia Diet Status: Upgrade solids Liquid Consistency and Strategies for Safe Swallow: Liquid Intake Recommendation: Thin Liquid Intake Strategies: Small Sips No Straws Solid Food Consistency: Dietary Recommendations: Chopped/Advanced (NDD3) Additional Modifications to Solid Foods: Oral Medication Intake: Whole with Liquid Please contact the pharmacy regarding appropriate crushable or liquid drug formulations that are available whenever modified delivery is recommended. Compensatory Strategies and Precautions to be Taken for Safe Swallow: Sitting Upright (90 deg) No Straw Liquids from Cup Small Bites and Sips Alternate Liquids/Solids Rate of Ingestion Change Oral Check Supervision While Eating and Drinking for Safe Swallow: Total Supervision (1:1) Swallowing Recommended Treatments: Compens. Strategy Educat. Recommendation for Speech: Inpatient Speech Therapy Comment: Pt demonstrates unsafe eating behaviors putting him at risk for aspiration. Behaviors include stuffing mouth with food, introduce additional bites prior to clearance of bolus, and taking very large bites. Upon palpation, pt presents with timely and complete swallow. Recommend UPGRADE to CHOPPED/ADVANCED (NDD3), continue with THIN liquid, pills whole with liquid. No straws. Recommend pt be supervised during meals to provide cueing for safe eating behavior. Pt should be cued to take small bites and sips, slow pace of eating, wait to introduce solids or liquids to mouth until oral cavity is cleared, alternate between solids and liquids. Monitor for s/s of aspiration. Monitor for wet vocal quality. Cue pt to swallow again if wet/gurgly voice is observed. REIMBURSEMENT SPECIALIST will continue to follow. REIMBURSEMENT SPECIALIST to continue to follow to reassess swallow, monitor toleration of diet, and upgrade as warranted. Desk Attendant Clinican/Clinical Fellow: Yes: Roseanne Jeff M.A., CF-REIMBURSEMENT SPECIALIST Supervisory Statement: I have reviewed and agree with the student/clinical fellow's documentation: Speech Language Pathologist:
[2021-11-01 18:00] VITALS: BP 134/60; PULSE 99; RESP 16; TEMP 36; O2SAT 96
[2021-11-01] MEDS: Latanoprost 0.005 % Ophth Sol 2.5 ML DROPS 1 DROP EYE-BOTH (20:33)
[2021-11-01] MEDS: risperiDONE 0.25 MG TABLET PO (20:34)
[2021-11-01] MEDS: Mirtazapine 7.5 MG TABLET PO (20:34)
[2021-11-02 06:00] VITALS: BP 126/67; PULSE 76; RESP 14; TEMP 36.7; O2SAT 96
--- NOTE | 2021-11-02 08:27 | P.PNPSI_ITS ---
Subjective Subjective Date of Service: 11/02/21 Reason For Visit: Unspecified Depressive Disorder Subjective Notes: Conditional Voluntary Interim History: The nursing staff reported the patient has been ambulatory with the help of his Merry Walker. Now that he is hearing with a [id number] headphones he is able to communicate well. He slept well last night and he has been eating 100% of his meals but in general he remains mostly isolative in his room. Today on interview he was in the common area on the patio and he looks more organized. He denies new symptoms. Mental Status Exam Mental Status Exam Patient Appearance: Well Grooomed Patient Orientation: Person and Situation Level of Consciousness: Awake Patient Behavior: Cooperative and Passive Mood Description: Constricted Affect Description: Constricted Patient Cognition Impaired: Yes Ability to Follow Directions: Good Speech Pattern: Clear Memory Description: Intact Hallucinations: None Delusions: Not Present Thought Process: Linear Thought Content: positive for [place] and positive for [place] of Content Judgement: Fair Diagnostics Vital Signs (24Hr): Vital Signs - 24 hr 11/01/21 18:00 Temperature 96.8 F Pulse Rate 99 Respiratory Rate 16 Blood Pressure 134/60 Pulse Oximetry 96 Oxygen Delivery Method Room Air BMI result Body Mass Index 18.2 Labs Results: 10/05/21 08:01 10/29/21 07:59 Imaging Radiology Impressions: ITS Impressions Head CT 10/04/21 15:04 IMPRESSION: 1. No acute intracranial pathology. 2. Right parietal meningioma without mass effect. 3. Generalized atrophy. Medications Medications Current Medications Acetaminophen (Acetaminophen 325 Mg Tablet) 650 mg PO Q6H PRN PRN Reason: Headache/Pain Mild Scale (1-3) Last Admin: 10/19/21 22:01 Dose: 650 mg Al Hydroxide/Mg Hydroxide (Magnesium Hydrox/Alum Hydrox 30 Ml Oral.Susp) 30 ml PO Q6H PRN PRN Reason: Heartburn/Nausea Brimonidine Tartrate (Brimonidine Tartrate 0.2% Oph 5 Ml Bottle) 1 drop EYE- BOTH TID [facility] Last Admin: 11/01/21 20:33 Dose: 1 drop Carbamide Peroxide (Carbamide Peroxide 6.5% Otic 15 Ml Drpbtl) 5 drop EAR-BOTH BID [facility] Stop: 11/03/21 16:16 Last Admin: 11/01/21 20:33 Dose: 5 drop Docusate Sodium (Docusate Sodium 100 Mg Capsule) 100 mg PO BID [facility] Last Admin: 11/01/21 20:34 Dose: 100 mg Gabapentin (Gabapentin 100 Mg Capsule) 100 mg PO TID [facility] Last Admin: 11/01/21 20:33 Dose: 100 mg Latanoprost (Latanoprost 0.005 % Ophth Jessie 2.5 Ml Drops) 1 drop EYE-BOTH BEDTIME [facility] Last Admin: 11/01/21 20:33 Dose: 1 drop Magnesium Hydroxide (Milk Of Magnesia 30 Ml Oral.Susp) 30 ml PO DAILY [facility] Last Admin: 11/01/21 08:19 Dose: 30 ml Melatonin (Melatonin 3 Mg Tablet) 3 mg PO BEDTIME PRN PRN Reason: Insomnia Last Admin: 10/20/21 20:30 Dose: 3 mg Mirtazapine (Mirtazapine 7.5 Mg Tablet) 7.5 mg PO BEDTIME [facility] Last Admin: 11/01/21 20:34 Dose: 7.5 mg Risperidone (Risperidone 0.25 Mg Tablet) 0.25 mg PO BEDTIME [facility] Last Admin: 11/01/21 20:34 Dose: 0.25 mg Senna (Sennosides 8.6 Mg Tablet) 8.6 mg PO DAILY [facility] Last Admin: 11/01/21 08:19 Dose: 8.6 mg Timolol Maleate (Timolol Maleate 0.5 % Oph Jessie 5 Ml Drbtl) 1 drop EYE-BOTH BID [facility] Last Admin: 11/01/21 20:33 Dose: 1 drop Allergies Allergies Allergy/AdvReac Type Severity Reaction Status Date / Time sulfamethoxazole Allergy Itching Verified 10/03/21 19:19 [From Bactrim] trimethoprim [From Bactrim] Allergy Itching Verified 10/03/21 19:19 Assessment & Plan Assessment & Plan (1) Basal cell carcinoma (BCC) of skin of neck: Status: Acute Code(s): C44.41 - Basal cell carcinoma of skin of scalp and neck Assessment and Plan: Status post excision Path report confirms basal cell carcinoma, adequately excise Plan to DC sutures next week Plan Continue with Remeron and Risperdal as prescribed. Waiting for guardianship another legal papers for proper placement. I spent __20____ minutes with the patient and/or on the patient floor today, greater than?50% of which was spent counseling/coordinating care. Reason for contiued inpatient stay Substantial Risk for: inability to function, rapid decompensation and med/psych decompensation
[2021-11-02] MEDS: Milk of Magnesia 30 ML ORAL.SUSP PO (08:48)
[2021-11-02] MEDS: Sennosides 8.6 MG TABLET PO (08:48)
[2021-11-02] MEDS: Docusate Sodium 100 MG CAPSULE PO ×2 (08:48→20:55)
[2021-11-02] MEDS: Gabapentin 100 MG CAPSULE PO ×2 (08:48→20:55)
[2021-11-02] MEDS: timoloL maleate 0.5 % Oph Sol 5 ML DRBTL 1 DROP EYE-BOTH ×2 (08:52→20:57)
[2021-11-02] MEDS: Brimonidine Tartrate 0.2% Oph 5 ML BOTTLE 1 DROP EYE-BOTH ×2 (08:52→20:57)
[2021-11-02] MEDS: Carbamide Peroxide 6.5% Otic 15 ML DRPBTL 5 DROP EAR-BOTH ×2 (08:53→21:02)
--- NOTE | 2021-11-02 14:27 | MHC.CLN ---
F/U PATIENT SEEN BY HELIARC WELDER WITH DIET CONSISTENCY UPGRADE TO NDD3. STAFF REPORTS THAT PATIENT IS EATING WELL. CONTINUE ENSURE TID (1050 KCALS,G PROTEIN). SHOWS FAVORABLE WEIGH X 30 DAYS, +2.3%. RD TO FOLLOW WEEKLY.
--- NOTE | 2021-11-02 17:17 | MHC.SLORD ---
Addendum entered and electronically signed by Wen Rosas MA, CCC-DIRECTOR OF PUPIL PERSONNEL PROGRAM 11/02/21 18:27: D.S. Original Note: Speech Language Pathology Order Status: DIRECTOR OF PUPIL PERSONNEL PROGRAM called to check in with RN. RN reported pt is doing fine with current CHOPPED/ADVANCED (NDD3) diet. Reported behavior of packing food into mouth was not observed. DIRECTOR OF PUPIL PERSONNEL PROGRAM will continue to follow.
[2021-11-02 18:00] VITALS: BP 126/60; PULSE 83; RESP 16; TEMP 37.3; O2SAT 97
[2021-11-02] MEDS: risperiDONE 0.25 MG TABLET PO (20:55)
[2021-11-02] MEDS: Mirtazapine 7.5 MG TABLET PO (20:55)
[2021-11-02] MEDS: Latanoprost 0.005 % Ophth Sol 2.5 ML DROPS 1 DROP EYE-BOTH (20:57)
[2021-11-03 07:30] VITALS: BP 134/74; PULSE 71; RESP 18; TEMP 36; O2SAT 97
[2021-11-03] MEDS: Docusate Sodium 100 MG CAPSULE PO ×2 (08:43→21:26)
[2021-11-03] MEDS: Brimonidine Tartrate 0.2% Oph 5 ML BOTTLE 1 DROP EYE-BOTH ×3 (08:43→23:09)
[2021-11-03] MEDS: Carbamide Peroxide 6.5% Otic 15 ML DRPBTL 5 DROP EAR-BOTH (08:43)
[2021-11-03] MEDS: Sennosides 8.6 MG TABLET PO (08:43)
[2021-11-03] MEDS: timoloL maleate 0.5 % Oph Sol 5 ML DRBTL 1 DROP EYE-BOTH ×2 (08:43→21:29)
[2021-11-03] MEDS: Milk of Magnesia 30 ML ORAL.SUSP PO (08:43)
[2021-11-03] MEDS: Gabapentin 100 MG CAPSULE PO ×3 (08:43→21:25)
--- NOTE | 2021-11-03 10:31 | P.PNPSI_ITS ---
Subjective Subjective Date of Service: 11/03/21 Reason For Visit: Unspecified Depressive Disorder Subjective Notes: Section 8 Interim History: Pt ambulating with walker. He reports doing well, hoping to make millions. His affect brightens at times. He denies physical concerns. No SI/HI. No VH/AH. Per nursing, no behavioral concerns. Medication Compliance: Yes Review of Systems Review of Systems Yes all other systems are reviewed and are negative and Unobtainable due to me ntal status Constitutional: Denies chills and Denies fever(s) Cardiovascular: Denies chest pain, Denies dyspnea and Denies dyspnea on exertion Respiratory: Denies cough, Denies dyspnea and Denies dyspnea on exertion Gastrointestinal: Denies hematochezia and Denies change in bowel habits Genitourinary: Denies hematuria and Denies difficulty urinating Musculoskeletal: Denies back pain and Denies limited range of motion Denies focal weakness and Denies convulsions Psychiatric: Reports depression and Denies mood swings Mental Status Exam Mental Status Exam Narrative: Patient Appearance: Well Grooomed Patient Orientation: Person and Situation Level of Consciousness: Awake Patient Behavior: Cooperative Mood Description: Suspicious Affect Description: Constricted Patient Cognition Impaired: Yes Ability to Follow Directions: Good Speech Pattern: Clear Hallucinations: None Delusions: Paranoid Ideation Thought Process: Distracted and Evasive Thought Content: positive for [place] and positive for Circumstantial Judgement: Fair Diagnostics Vital Signs (24Hr): BMI result Body Mass Index 18.2 Labs Results: 10/05/21 08:01 10/29/21 07:59 Imaging Radiology Impressions: ITS Impressions Head CT 10/04/21 15:04 IMPRESSION: 1. No acute intracranial pathology. 2. Right parietal meningioma without mass effect. 3. Generalized atrophy. Medications Medications Current Medications Acetaminophen (Acetaminophen 325 Mg Tablet) 650 mg PO Q6H PRN PRN Reason: Headache/Pain Mild Scale (1-3) Last Admin: 10/19/21 22:01 Dose: 650 mg Al Hydroxide/Mg Hydroxide (Magnesium Hydrox/Alum Hydrox 30 Ml Oral.Susp) 30 ml PO Q6H PRN PRN Reason: Heartburn/Nausea Brimonidine Tartrate (Brimonidine Tartrate 0.2% Oph 5 Ml Bottle) 1 drop EYE- BOTH TID [facility] Last Admin: 11/04/21 09:17 Dose: 1 drop Docusate Sodium (Docusate Sodium 100 Mg Capsule) 100 mg PO BID [facility] Last Admin: 11/04/21 09:15 Dose: 100 mg Gabapentin (Gabapentin 100 Mg Capsule) 100 mg PO TID [facility] Last Admin: 11/04/21 09:15 Dose: 100 mg Latanoprost (Latanoprost 0.005 % Ophth Jessie 2.5 Ml Drops) 1 drop EYE-BOTH B EDTIME [facility] Last Admin: 11/03/21 21:29 Dose: 1 drop Magnesium Hydroxide (Milk Of Magnesia 30 Ml Oral.Susp) 30 ml PO DAILY [facility] Last Admin: 11/04/21 09:16 Dose: 30 ml Melatonin (Melatonin 3 Mg Tablet) 3 mg PO BEDTIME PRN PRN Reason: Insomnia Last Admin: 11/03/21 21:25 Dose: 3 mg Mirtazapine (Mirtazapine 7.5 Mg Tablet) 7.5 mg PO BEDTIME [facility] Last Admin: 11/03/21 21:26 Dose: 7.5 mg Risperidone (Risperidone 0.25 Mg Tablet) 0.25 mg PO BEDTIME [facility] Last Admin: 11/03/21 21:26 Dose: 0.25 mg Senna (Sennosides 8.6 Mg Tablet) 8.6 mg PO DAILY [facility] Last Admin: 11/04/21 09:15 Dose: 8.6 mg Timolol Maleate (Timolol Maleate 0.5 % Oph Jessie 5 Ml Drbtl) 1 drop EYE-BOTH BID [facility] Last Admin: 11/04/21 09:17 Dose: 1 drop Allergies Allergies Allergy/AdvReac Type Severity Reaction Status Date / Time sulfamethoxazole Allergy Itching Verified 10/03/21 19:19 [From Bactrim] trimethoprim [From Bactrim] Allergy Itching Verified 10/03/21 19:19 Assessment & Plan Assessment & Plan (1) Mood disorder: Status: Acute Code(s): F39 - Unspecified mood [affective] disorder Plan Continue with Remeron and Risperdal as prescribed. Waiting for guardianship another legal papers for proper placement. 11/03 continue current medications. I spent minutes with the patient and/or on the patient floor today, greater than?50% of which was spent counseling/coordinating care. Reason for contiued inpatient stay Substantial Risk for: inability to function
[2021-11-03] MEDS: Melatonin 3 MG TABLET PO (21:25)
[2021-11-03] MEDS: risperiDONE 0.25 MG TABLET PO (21:26)
[2021-11-03] MEDS: Mirtazapine 7.5 MG TABLET PO (21:26)
[2021-11-03] MEDS: Latanoprost 0.005 % Ophth Sol 2.5 ML DROPS 1 DROP EYE-BOTH (21:29)
[2021-11-04 07:30] VITALS: BP 108/60; PULSE 60; RESP 16; TEMP 36.4; O2SAT 97
[2021-11-04] MEDS: Docusate Sodium 100 MG CAPSULE PO ×2 (09:15→20:23)
[2021-11-04] MEDS: Sennosides 8.6 MG TABLET PO (09:15)
[2021-11-04] MEDS: Gabapentin 100 MG CAPSULE PO ×3 (09:15→20:23)
[2021-11-04] MEDS: Milk of Magnesia 30 ML ORAL.SUSP PO (09:16)
[2021-11-04] MEDS: Brimonidine Tartrate 0.2% Oph 5 ML BOTTLE 1 DROP EYE-BOTH ×3 (09:17→20:23)
[2021-11-04] MEDS: timoloL maleate 0.5 % Oph Sol 5 ML DRBTL 1 DROP EYE-BOTH ×2 (09:17→20:23)
--- NOTE | 2021-11-04 10:34 | P.PNPSI_ITS ---
Subjective Subjective Date of Service: 11/04/21 Reason For Visit: Unspecified Depressive Disorder Subjective Notes: Section 8 Interim History: Pt in bed. He continues to report he is doing well, hoping to make millions when discharged. His affect brightens at times, while making jokes. He denies physical concerns. No SI/HI. No VH/AH. Per nursing, no behavioral concerns. Review of Systems Review of Systems Yes all other systems are reviewed and are negative and Unobtainable due to mental status Constitutional: Denies chills and Denies fever(s) Cardiovascular: Denies chest pain, Denies dyspnea and Denies dyspnea on exertion Respiratory: Denies cough, Denies dyspnea and Denies dyspnea on exertion Gastrointestinal: Denies hematochezia and Denies change in bowel habits Genitourinary: Denies hematuria and Denies difficulty urinating Musculoskeletal: Denies back pain and Denies limited range of motion Denies focal weakness and Denies convulsions Psychiatric: Reports depression and Denies mood swings Mental Status Exam Mental Status Exam Narrative: Patient Appearance: Well Grooomed Patient Orientation: Person and Situation Level of Consciousness: Awake Patient Behavior: Cooperative Mood Description: Suspicious Affect Description: Constricted Patient Cognition Impaired: Yes Ability to Follow Directions: Good Speech Pattern: Clear Hallucinations: None Delusions: Paranoid Ideation Thought Process: Distracted and Evasive Thought Content: positive for [place] and positive for Circumstantial Judgement: Fair Patient Appearance: Well Grooomed Patient Orientation: Person and Situation Level of Consciousness: Awake Patient Behavior: Cooperative and Passive Mood Description: Constricted Affect Description: Constricted Patient Cognition Impaired: Yes Ability to Follow Directions: Good Speech Pattern: Clear Memory Description: Intact Diagnostics Vital Signs (24Hr): BMI result Body Mass Index 18.2 Labs Results: 10/05/21 08:01 10/29/21 07:59 Imaging Radiology Impressions: ITS Impressions Head CT 10/04/21 15:04 IMPRESSION: 1. No acute intracranial pathology. 2. Right parietal meningioma without mass effect. 3. Generalized atrophy. Medications Medications Current Medications Acetaminophen (Acetaminophen 325 Mg Tablet) 650 mg PO Q6H PRN PRN Reason: Headache/Pain Mild Scale (1-3) Last Admin: 10/19/21 22:01 Dose: 650 mg Al Hydroxide/Mg Hydroxide (Magnesium Hydrox/Alum Hydrox 30 Ml Oral.Susp) 30 ml PO Q6H PRN PRN Reason: Heartburn/Nausea Brimonidine Tartrate (Brimonidine Tartrate 0.2% Oph 5 Ml Bottle) 1 drop EYE- BOTH TID [facility] Last Admin: 11/04/21 09:17 Dose: 1 drop Docusate Sodium (Docusate Sodium 100 Mg Capsule) 100 mg PO BID [facility] Last Admin: 11/04/21 09:15 Dose: 100 mg Gabapentin (Gabapentin 100 Mg Capsule) 100 mg PO TID [facility] Last Admin: 11/04/21 09:15 Dose: 100 mg Latanoprost (Latanoprost 0.005 % Ophth Jessie 2.5 Ml Drops) 1 drop EYE-BOTH BEDTIME [facility] Last Admin: 11/03/21 21:29 Dose: 1 drop Magnesium Hydroxide (Milk Of Magnesia 30 Ml Oral.Susp) 30 ml PO DAILY [facility] Last Admin: 11/04/21 09:16 Dose: 30 ml Melatonin (Melatonin 3 Mg Tablet) 3 mg PO BEDTIME PRN PRN Reason: Insomnia Last Admin: 11/03/21 21:25 Dose: 3 mg Mirtazapine (Mirtazapine 7.5 Mg Tablet) 7.5 mg PO BEDTIME [facility] Last Admin: 11/03/21 21:26 Dose: 7.5 mg Risperidone (Risperidone 0.25 Mg Tablet) 0.25 mg PO BEDTIME [facility] Last Admin: 11/03/21 21:26 Dose: 0.25 mg Senna (Sennosides 8.6 Mg Tablet) 8.6 mg PO DAILY [facility] Last Admin: 11/04/21 09:15 Dose: 8.6 mg Timolol Maleate (Timolol Maleate 0.5 % Oph Jessie 5 Ml Drbtl) 1 drop EYE-BOTH BID [facility] Last Admin: 11/04/21 09:17 Dose: 1 drop Allergies Allergies Allergy/AdvReac Type Severity Reaction Status Date / Time sulfamethoxazole Allergy Itching Verified 10/03/21 19:19 [From Bactrim] trimethoprim [From Bactrim] Allergy Itching Verified 10/03/21 19:19 Assessment & Plan Assessment & Plan (1) Mood disorder: Status: Acute Code(s): F39 - Unspecified mood [affective] disorder Plan Continue with Remeron and Risperdal as prescribed. Waiting for guardianship another legal papers for proper placement. 11/03 continue current medications. 11/04 continue current tx plan. I spent minutes with the patient and/or on the patient floor today, greater than?50% of which was spent counseling/coordinating care. Reason for contiued inpatient stay Substantial Risk for: inability to function
[2021-11-04 18:00] VITALS: BP 108/58; PULSE 72; RESP 16; TEMP 37.1; O2SAT 95
[2021-11-04] MEDS: Latanoprost 0.005 % Ophth Sol 2.5 ML DROPS 1 DROP EYE-BOTH (20:23)
[2021-11-04] MEDS: Mirtazapine 7.5 MG TABLET PO (20:23)
[2021-11-04] MEDS: risperiDONE 0.25 MG TABLET PO (20:23)
[2021-11-05 07:48] VITALS: BP 106/67; PULSE 67; RESP 14; TEMP 36; O2SAT 94
[2021-11-05] MEDS: timoloL maleate 0.5 % Oph Sol 5 ML DRBTL 1 DROP EYE-BOTH ×2 (07:49→20:07)
[2021-11-05] MEDS: Docusate Sodium 100 MG CAPSULE PO ×2 (07:50→20:25)
[2021-11-05] MEDS: Sennosides 8.6 MG TABLET PO (07:50)
[2021-11-05] MEDS: Brimonidine Tartrate 0.2% Oph 5 ML BOTTLE 1 DROP EYE-BOTH ×3 (07:50→20:06)
[2021-11-05] MEDS: Milk of Magnesia 30 ML ORAL.SUSP PO (07:50)
[2021-11-05] MEDS: Gabapentin 100 MG CAPSULE PO ×3 (07:50→20:06)
--- NOTE | 2021-11-05 11:43 | MHC.SLORD ---
Addendum entered and electronically signed by Wen Rosas MA, CCC-ENVIRONMENTAL HEALTH TECHNOLOGIST 11/05/21 12:55: D.S. Original Note: Speech Language Pathology Order Status: ENVIRONMENTAL HEALTH TECHNOLOGIST called floor to check in regarding pt's toleration for solids upgrade (from NDD2 ground to NDD3 chopped/advanced). Staff reported pt ate fine and ate everything for this morning's breakfast. Staff reported no coughing, no packing of food into mouth, no concerns. Staff reported pt eats in common area where there are 3-4 staff present supervising mealtime.
--- NOTE | 2021-11-05 15:13 | HO.PSYCHPN ---
Subjective Subjective Date of Service: 11/05/21 Reason For Visit: Unspecified Depressive Disorder Subjective Notes: Conditional Voluntary Interim History: the nursing staff reported the patient has been cooperative and pleasant, confused at times but easily redirectable. He has been sleeping much better now that he is using [id number] headphones he can hear better. On interview he denies new symptoms. Mental Status Exam Mental Status Exam Patient Appearance: Well Grooomed Patient Orientation: Person and Situation Level of Consciousness: Awake Patient Behavior: Cooperative Mood Description: Calm Affect Description: Constricted Patient Cognition Impaired: Yes Ability to Follow Directions: Good Speech Pattern: Clear Hallucinations: None Delusions: Not Present Thought Process: Linear Thought Content: positive for [place] Judgement: Fair Diagnostics Vital Signs (24Hr): Vital Signs - 24 hr 11/04/21 18:00 11/05/21 07:48 Temperature 98.7 F 96.8 F Pulse Rate 72 67 Respiratory Rate 16 14 Blood Pressure 108/58 L 106/67 Pulse Oximetry 95 94 Oxygen Delivery Method Room Air Room Air BMI result Body Mass Index 18.2 Labs Results: 10/05/21 08:01 10/29/21 07:59 Imaging Radiology Impressions: ITS Impressions Head CT 10/04/21 15:04 IMPRESSION: 1. No acute intracranial pathology. 2. Right parietal meningioma without mass effect. 3. Generalized atrophy. Medications Medications Current Medications Acetaminophen (Acetaminophen 325 Mg Tablet) 650 mg PO Q6H PRN PRN Reason: Headache/Pain Mild Scale (1-3) Last Admin: 10/19/21 22:01 Dose: 650 mg Al Hydroxide/Mg Hydroxide (Magnesium Hydrox/Alum Hydrox 30 Ml Oral.Susp) 30 ml PO Q6H PRN PRN Reason: Heartburn/Nausea Brimonidine Tartrate (Brimonidine Tartrate 0.2% Oph 5 Ml Bottle) 1 drop EYE-BOTH TID [facility] Last Admin: 11/05/21 14:36 Dose: 1 drop Docusate Sodium (Docusate Sodium 100 Mg Capsule) 100 mg PO BID [facility] Last Admin: 11/05/21 07:50 Dose: 100 mg Gabapentin (Gabapentin 100 Mg Capsule) 100 mg PO TID [facility] Last Admin: 11/05/21 14:36 Dose: 100 mg Latanoprost (Latanoprost 0.005 % Ophth Jessie 2.5 Ml Drops) 1 drop EYE-BOTH BEDTIME [facility] Last Admin: 11/04/21 20:23 Dose: 1 drop Magnesium Hydroxide (Milk Of Magnesia 30 Ml Oral.Susp) 30 ml PO DAILY [facility] Last Admin: 11/05/21 07:50 Dose: 30 ml Melatonin (Melatonin 3 Mg Tablet) 3 mg PO BEDTIME PRN PRN Reason: Insomnia Last Admin: 11/03/21 21:25 Dose: 3 mg Mirtazapine (Mirtazapine 7.5 Mg Tablet) 7.5 mg PO BEDTIME [facility] Last Admin: 11/04/21 20:23 Dose: 7.5 mg Risperidone (Risperidone 0.25 Mg Tablet) 0.25 mg PO BEDTIME [facility] Last Admin: 11/04/21 20:23 Dose: 0.25 mg Senna (Sennosides 8.6 Mg Tablet) 8.6 mg PO DAILY [facility] Last Admin: 11/05/21 07:50 Dose: 8.6 mg Timolol Maleate (Timolol Maleate 0.5 % Oph Jessie 5 Ml Drbtl) 1 drop EYE-BOTH BID [facility] Last Admin: 11/05/21 07:49 Dose: 1 drop Allergies Allergies Allergy/AdvReac Type Severity Reaction Status Date / Time sulfamethoxazole Allergy Itching Verified 10/03/21 19:19 [From Bactrim] trimethoprim [From Bactrim] Allergy Itching Verified 10/03/21 19:19 Assessment & Plan Assessment & Plan (1) Mood disorder: Status: Acute Code(s): F39 - Unspecified mood [affective] disorder Plan Continue with Remeron and Risperdal as prescribed. Waiting for guardianship another legal papers for proper placement. I spent ___20___ minutes with the patient and/or on the patient floor today, greater than?50% of which was spent counseling/coordinating care. Reason for contiued inpatient stay Substantial Risk for: inability to function, rapid decompensation and med/psych decompensation
[2021-11-05 18:00] VITALS: BP 99/63; PULSE 66; TEMP 36.3; O2SAT 96
[2021-11-05] MEDS: Melatonin 3 MG TABLET PO (20:06)
[2021-11-05] MEDS: Mirtazapine 7.5 MG TABLET PO (20:06)
[2021-11-05] MEDS: risperiDONE 0.25 MG TABLET PO (20:06)
[2021-11-05] MEDS: Latanoprost 0.005 % Ophth Sol 2.5 ML DROPS 1 DROP EYE-BOTH (20:07)
[2021-11-06 07:45] VITALS: BP 101/62; PULSE 67; RESP 14; TEMP 36.6; O2SAT 97
[2021-11-06] MEDS: Milk of Magnesia 30 ML ORAL.SUSP PO (08:04)
[2021-11-06] MEDS: Sennosides 8.6 MG TABLET PO (08:04)
[2021-11-06] MEDS: Docusate Sodium 100 MG CAPSULE PO (08:04)
[2021-11-06] MEDS: Brimonidine Tartrate 0.2% Oph 5 ML BOTTLE 1 DROP EYE-BOTH ×3 (08:05→20:08)
[2021-11-06] MEDS: Gabapentin 100 MG CAPSULE PO ×3 (08:05→20:03)
[2021-11-06] MEDS: timoloL maleate 0.5 % Oph Sol 5 ML DRBTL 1 DROP EYE-BOTH ×2 (08:10→20:06)
--- NOTE | 2021-11-06 12:40 | HO.PSYCHPN ---
Subjective Subjective Date of Service: 11/06/21 Reason For Visit: Unspecified Depressive Disorder Subjective Notes: Conditional Voluntary Interim History: the nursing staff reported the patient has been fully compliant with treatment. The occupational therapist reported that in 1 group he reported that sometimes I am in your planet, sometimes I am on my own . On interview the patient denies new symptoms he looks pleasantly confused, unable to do his own ADLs without help. Mental Status Exam Mental Status Exam Patient Appearance: Well Grooomed Patient Orientation: Person and Situation Level of Consciousness: Awake Patient Behavior: Cooperative Mood Description: Calm Affect Description: Constricted Patient Cognition Impaired: Yes Ability to Follow Directions: Good Speech Pattern: Clear Hallucinations: None Delusions: Not Present Thought Process: Linear Thought Content: positive for Circumstantial Judgement: Fair Diagnostics Vital Signs (24Hr): Vital Signs - 24 hr 11/05/21 18:00 11/06/21 07:45 Temperature 97.3 F 97.8 F Pulse Rate 66 67 Respiratory Rate 14 Blood Pressure 99/63 101/62 Pulse Oximetry 96 97 Oxygen Delivery Method Room Air Room Air BMI result Body Mass Index 18.2 Labs Results: 10/05/21 08:01 10/29/21 07:59 Imaging Radiology Impressions: ITS Impressions Head CT 10/04/21 15:04 IMPRESSION: 1. No acute intracranial pathology. 2. Right parietal meningioma without mass effect. 3. Generalized atrophy. Medications Medications Current Medications Acetaminophen (Acetaminophen 325 Mg Tablet) 650 mg PO Q6H PRN PRN Reason: Headache/Pain Mild Scale (1-3) Last Admin: 10/19/21 22:01 Dose: 650 mg Al Hydroxide/Mg Hydroxide (Magnesium Hydrox/Alum Hydrox 30 Ml Oral.Susp) 30 ml PO Q6H PRN PRN Reason: Heartburn/Nausea Brimonidine Tartrate (Brimonidine Tartrate 0.2% Oph 5 Ml Bottle) 1 drop EYE-BOTH TID [facility] Last Admin: 11/06/21 08:05 Dose: 1 drop Docusate Sodium (Docusate Sodium 100 Mg Capsule) 100 mg PO BID [facility] Last Admin: 11/06/21 08:04 Dose: 100 mg Gabapentin (Gabapentin 100 Mg Capsule) 100 mg PO TID [facility] Last Admin: 11/06/21 08:05 Dose: 100 mg Latanoprost (Latanoprost 0.005 % Ophth Jessie 2.5 Ml Drops) 1 drop EYE-BOTH BEDTIME [facility] Last Admin: 11/05/21 20:07 Dose: 1 drop Magnesium Hydroxide (Milk Of Magnesia 30 Ml Oral.Susp) 30 ml PO DAILY [facility] Last Admin: 11/06/21 08:04 Dose: 30 ml Melatonin (Melatonin 3 Mg Tablet) 3 mg PO BEDTIME PRN PRN Reason: Insomnia Last Admin: 11/05/21 20:06 Dose: 3 mg Mirtazapine (Mirtazapine 7.5 Mg Tablet) 7.5 mg PO BEDTIME [facility] Last Admin: 11/05/21 20:06 Dose: 7.5 mg Risperidone (Risperidone 0.25 Mg Tablet) 0.25 mg PO BEDTIME [facility] Last Admin: 11/05/21 20:06 Dose: 0.25 mg Senna (Sennosides 8.6 Mg Tablet) 8.6 mg PO DAILY [facility] Last Admin: 11/06/21 08:04 Dose: 8.6 mg Timolol Maleate (Timolol Maleate 0.5 % Oph Jessie 5 Ml Drbtl) 1 drop EYE-BOTH BID [facility] Last Admin: 11/06/21 08:10 Dose: 1 drop Allergies Allergies Allergy/AdvReac Type Severity Reaction Status Date / Time sulfamethoxazole Allergy Itching Verified 10/03/21 19:19 [From Bactrim] trimethoprim [From Bactrim] Allergy Itching Verified 10/03/21 19:19 Assessment & Plan Assessment & Plan (1) Mood disorder: Status: Acute Code(s): F39 - Unspecified mood [affective] disorder Plan Continue with Remeron and Risperdal as prescribed. Waiting for guardianship another legal papers for proper placement. I spent ___20___ minutes with the patient and/or on the patient floor today, greater than?50% of which was spent counseling/coordinating care. Reason for contiued inpatient stay Substantial Risk for: inability to function, rapid decompensation and med/psych decompensation
--- NOTE | 2021-11-06 14:58 | MHC.SL.SWA ---
Addendum entered and electronically signed by Wen Rosas MA, [facility], [place]-LABOUR MARKET ECONOMIST 11/06/21 16:30: D.S. Original Note: Risk of Aspiration Due to: Reduced Cognition Weak Cough Dysphasia Diet Status: Recommend UPGRADE to REGULAR solids and THIN liquids. Liquid Consistency and Strategies for Safe Swallow: Liquid Intake Recommendation: Thin Liquid Intake Strategies: Small Sips No Straws Solid Food Consistency: Dietary Recommendations: Regular Additional Modifications to Solid Foods: Oral Medication Intake: Whole with Liquid Please contact the pharmacy regarding appropriate crushable or liquid drug formulations that are available whenever modified delivery is recommended. Compensatory Strategies and Precautions to be Taken for Safe Swallow: Sitting Upright (90 deg) No Straw Small Bites and Sips Alternate Liquids/Solids Rate of Ingestion Change Supervision While Eating and Drinking for Safe Swallow: Total Supervision (1:1) Swallowing Recommended Treatments: Compens. Strategy Educat. Recommendation for Speech: Inpatient Speech Therapy Comment: Pt seen for bedside dysphagia treatment this afternoon. Staff and pt reported dissatisfaction with modified diet. Pt feels like a baby with food cut up for him. Pt was observed towards the end of lunch. Pt presented with wet vocal quality following a sip of thin liquids by cup. LABOUR MARKET ECONOMIST cued pt to swallow again and vocal quality returned to normal. Pt was not observed to engage in unsafe eating behaviors such as stuffing food into mouth or eating at a fast rate. Staff corroborated that they have not observed these behaviors. LABOUR MARKET ECONOMIST discussed upgrade with pt. LABOUR MARKET ECONOMIST reminded pt that he will need to make sure he continues to take small bites, eat slow, and does not stuff too much food into his mouth. D/t pt observation during lunch, staff reports, and pt's desire for regular solids, recommend UPGRADE to REGULAR solids. Recommend UPGRADE to REGULAR solids and THIN liquids. Pills whole with liquid. No straws. Recommend pt be supervised during meals to provide cueing for safe eating behavior. Pt should be cued to take small bites and sips, slow pace of eating, wait to introduce solids or liquids to mouth until oral cavity is cleared, alternate between solids and liquids. Monitor for s/s of aspiration. Monitor for wet vocal quality. Cue pt to swallow again if wet/gurgly voice is observed. LABOUR MARKET ECONOMIST will continue to follow. Checked in with nursing after evaluation. Sent message to care team via [place]. LABOUR MARKET ECONOMIST to continue to follow to reassess swallow and monitor toleration of diet. Pigment Processor Clinican/Clinical Fellow: Yes: Roseanne Jeff M.A., CF-LABOUR MARKET ECONOMIST Supervisory Statement: I have reviewed and agree with the student/clinical fellow's documentation: Speech Language Pathologist:
[2021-11-06 18:00] VITALS: BP 103/56; PULSE 64; RESP 17; TEMP 37.2; O2SAT 96
[2021-11-06] MEDS: risperiDONE 0.25 MG TABLET PO (20:04)
[2021-11-06] MEDS: Mirtazapine 7.5 MG TABLET PO (20:04)
[2021-11-06] MEDS: Melatonin 3 MG TABLET PO (20:05)
[2021-11-06] MEDS: Latanoprost 0.005 % Ophth Sol 2.5 ML DROPS 1 DROP EYE-BOTH (22:07)
[2021-11-07 07:40] VITALS: BP 112/69; PULSE 63; RESP 16; TEMP 36.2; O2SAT 97
[2021-11-07] MEDS: Brimonidine Tartrate 0.2% Oph 5 ML BOTTLE 1 DROP EYE-BOTH ×3 (07:47→21:44)
[2021-11-07] MEDS: Docusate Sodium 100 MG CAPSULE PO (07:48)
[2021-11-07] MEDS: Sennosides 8.6 MG TABLET PO (07:49)
[2021-11-07] MEDS: Milk of Magnesia 30 ML ORAL.SUSP PO (07:49)
[2021-11-07] MEDS: Gabapentin 100 MG CAPSULE PO ×3 (07:49→20:42)
[2021-11-07] MEDS: timoloL maleate 0.5 % Oph Sol 5 ML DRBTL 1 DROP EYE-BOTH ×2 (07:52→21:45)
--- NOTE | 2021-11-07 09:51 | P.PNPSI_ITS ---
Subjective Subjective Date of Service: 11/07/21 Reason For Visit: Unspecified Depressive Disorder Subjective Notes: Conditional Voluntary Interim History: The nursing staff reported the patient has been compliant with treatment, he has been sleeping all his meals. Speech and Swallow saw him and decided to change his diet to regular diet. He is very pleased with this change. He has slept very well last night. Still with [id number] hearing aids that helps him to communicate. Pleasantly confused cooperative Mental Status Exam Mental Status Exam Patient Appearance: Well Grooomed Patient Orientation: Person, Place and Situation Level of Consciousness: Awake Patient Behavior: Cooperative Mood Description: Calm Affect Description: Constricted Patient Cognition Impaired: Yes Ability to Follow Directions: Good Speech Pattern: Clear Hallucinations: None Delusions: Not Present Thought Process: Distracted Thought Content: positive for Circumstantial Judgement: Fair Diagnostics Vital Signs (24Hr): Vital Signs - 24 hr 11/06/21 18:00 11/07/21 07:40 Temperature 98.9 F 97.2 F Pulse Rate 64 63 Respiratory Rate 17 16 Blood Pressure 103/56 L 112/69 Pulse Oximetry 96 97 Oxygen Delivery Method Room Air Room Air BMI result Body Mass Index 18.2 Labs Results: 10/05/21 08:01 10/29/21 07:59 Imaging Radiology Impressions: ITS Impressions Head CT 10/04/21 15:04 IMPRESSION: 1. No acute intracranial pathology. 2. Right parietal meningioma without mass effect. 3. Generalized atrophy. Medications Medications Current Medications Acetaminophen (Acetaminophen 325 Mg Tablet) 650 mg PO Q6H PRN PRN Reason: Headache/Pain Mild Scale (1-3) Last Admin: 10/19/21 22:01 Dose: 650 mg Al Hydroxide/Mg Hydroxide (Magnesium Hydrox/Alum Hydrox 30 Ml Oral.Susp) 30 ml PO Q6H PRN PRN Reason: Heartburn/Nausea Brimonidine Tartrate (Brimonidine Tartrate 0.2% Oph 5 Ml Bottle) 1 drop EYE- BOTH TID [facility] Last Admin: 11/07/21 07:47 Dose: 1 drop Docusate Sodium (Docusate Sodium 100 Mg Capsule) 100 mg PO BID [facility] Last Admin: 11/07/21 07:48 Dose: 100 mg Gabapentin (Gabapentin 100 Mg Capsule) 100 mg PO TID [facility] Last Admin: 11/07/21 07:49 Dose: 100 mg Latanoprost (Latanoprost 0.005 % Ophth Jessie 2.5 Ml Drops) 1 drop EYE-BOTH BEDTIME [facility] Last Admin: 11/06/21 22:07 Dose: 1 drop Magnesium Hydroxide (Milk Of Magnesia 30 Ml Oral.Susp) 30 ml PO DAILY [facility] Last Admin: 11/07/21 07:49 Dose: 30 ml Melatonin (Melatonin 3 Mg Tablet) 3 mg PO BEDTIME PRN PRN Reason: Insomnia Last Admin: 11/06/21 20:05 Dose: 3 mg Mirtazapine (Mirtazapine 7.5 Mg Tablet) 7.5 mg PO BEDTIME [facility] Last Admin: 11/06/21 20:04 Dose: 7.5 mg Risperidone (Risperidone 0.25 Mg Tablet) 0.25 mg PO BEDTIME [facility] Last Admin: 11/06/21 20:04 Dose: 0.25 mg Senna (Sennosides 8.6 Mg Tablet) 8.6 mg PO DAILY [facility] Last Admin: 11/07/21 07:49 Dose: 8.6 mg Timolol Maleate (Timolol Maleate 0.5 % Oph Jessie 5 Ml Drbtl) 1 drop EYE-BOTH BID [facility] Last Admin: 11/07/21 07:52 Dose: 1 drop Allergies Allergies Allergy/AdvReac Type Severity Reaction Status Date / Time sulfamethoxazole Allergy Itching Verified 10/03/21 19:19 [From Bactrim] trimethoprim [From Bactrim] Allergy Itching Verified 10/03/21 19:19 Assessment & Plan Assessment & Plan (1) Mood disorder: Status: Acute Code(s): F39 - Unspecified mood [affective] disorder Plan Continue with Remeron and Risperdal as prescribed. Waiting for guardianship another legal papers for proper placement. I spent ___20___ minutes with the patient and/or on the patient floor today, greater than?50% of which was spent counseling/coordinating care. Reason for contiued inpatient stay Substantial Risk for: inability to function, rapid decompensation and med/psych decompensation
--- NOTE | 2021-11-07 09:52 | MHC.SL.SWA ---
Addendum entered and electronically signed by Wen Rosas MA, [facility]-MANAGER TALENT 11/07/21 10:04: D.S. Original Note: Risk of Aspiration Due to: Reduced Cognition Weak Cough Dysphasia Diet Status: No change Liquid Consistency and Strategies for Safe Swallow: Liquid Intake Recommendation: Thin Liquid Intake Strategies: Small Sips No Straws Solid Food Consistency: Dietary Recommendations: Regular Additional Modifications to Solid Foods: Oral Medication Intake: Whole with Liquid Please contact the pharmacy regarding appropriate crushable or liquid drug formulations that are available whenever modified delivery is recommended. Compensatory Strategies and Precautions to be Taken for Safe Swallow: Sitting Upright (90 deg) No Straw Small Bites and Sips Alternate Liquids/Solids Rate of Ingestion Change Supervision While Eating and Drinking for Safe Swallow: Intermittent Supervision, provide cueing for safe eating behaviors. Swallowing Recommended Treatments: Compens. Strategy Educat. Recommendation for Speech: Inpatient Speech Therapy Comment: Pt seen this morning to monitor for toleration of diet upgrade to regular solids. Pt was upgraded 11/06 in the afternoon. Staff reported pt did fine with last night's dinner and this morning's breakfast. Staff reported no coughing and no stuffing of mouth during both meals. MANAGER TALENT checked in with pt regarding diet. Pt was awake and alert in room. Pt reported no problems with diet upgrade. MANAGER TALENT provided pt education of safe eating strategies: take small bites, eat slow, and wait to introduce new food until food in mouth is swallowed. Checked in with staff upon exit to update them on plan to d/c pt from speech. Staff was agreeable to plan. Staff demonstrated understanding that pt should continued to be cued when eating. Staff demonstrated understanding of cueing to support pt in safe eating behaviors. MANAGER TALENT updated care team on pt's d/c from speech via [place]. Recommend to continue with REGULAR solids and THIN liquids. Pills whole with liquid. No straws. Recommend pt be supervised intermittently during meals to provide cueing for safe eating behavior. Pt should be cued to take small bites and sips, slow pace of eating, wait to introduce solids or liquids to mouth until oral cavity is cleared, alternate between solids and liquids. Monitor for s/s of aspiration. Monitor for wet vocal quality. Cue pt to swallow again if wet/gurgly voice is observed. Physician Specialist Clinican/Clinical Fellow: Yes: Roseanne Jeff M.A., CF-MANAGER TALENT Supervisory Statement: I have reviewed and agree with the student/clinical fellow's documentation: Yes Speech Language Pathologist: Wen Rosas M.A., [facility]-MANAGER TALENT
[2021-11-07 18:00] VITALS: BP 90/52; PULSE 64; RESP 16; TEMP 37.2; O2SAT 96
[2021-11-07] MEDS: risperiDONE 0.25 MG TABLET PO (20:43)
[2021-11-07] MEDS: Melatonin 3 MG TABLET PO (20:43)
[2021-11-07] MEDS: Mirtazapine 7.5 MG TABLET PO (20:43)
[2021-11-07 20:48] VITALS: BP 89/53; PULSE 66; RESP 18; O2SAT 94
[2021-11-07] MEDS: Latanoprost 0.005 % Ophth Sol 2.5 ML DROPS 1 DROP EYE-BOTH (21:46)
--- NOTE | 2021-11-08 01:20 | PC.NURSE ---
[id number] Dr Shirley Bishop contacted notified 1. pts b/p soft (1899 90/52) (2099 89/53) 2. apical hr 64-66 bpm 3. no temp 4. mentation intact 5. concerned that eye drops scheduled may contribute to further hypotension 6. baseline b/ps reviewed 105-115 mmhg 7. scheduled eye drops reviewed -md ok with b/ps and wishes to proceed with eye drop administration.
[2021-11-08 06:00] VITALS: BP 121/71; PULSE 81; RESP 16; TEMP 35.8; O2SAT 96
[2021-11-08] MEDS: Milk of Magnesia 30 ML ORAL.SUSP PO (08:25)
[2021-11-08] MEDS: Gabapentin 100 MG CAPSULE PO ×2 (08:25→19:57)
[2021-11-08] MEDS: Sennosides 8.6 MG TABLET PO (08:25)
[2021-11-08] MEDS: Docusate Sodium 100 MG CAPSULE PO ×2 (08:25→19:57)
[2021-11-08] MEDS: Brimonidine Tartrate 0.2% Oph 5 ML BOTTLE 1 DROP EYE-BOTH ×2 (10:35→20:13)
[2021-11-08] MEDS: timoloL maleate 0.5 % Oph Sol 5 ML DRBTL 1 DROP EYE-BOTH ×2 (10:36→19:58)
--- NOTE | 2021-11-08 13:43 | P.PNPSI_ITS ---
Subjective Subjective Date of Service: 11/08/21 Reason For Visit: Unspecified Depressive Disorder Subjective Notes: Conditional Voluntary Interim History: The patient slept very well last night, he had a low blood pressure but no symptoms. The occupational therapist reported that he has successfully attended to groups and he participates. On interview the patient denies new symptoms. On physical exam we noticed that the lesion on his nose started bleeding, we will re-consult surgery for Assessment and treatment. Mental Status Exam Mental Status Exam Patient Appearance: Well Grooomed Patient Orientation: Person Level of Consciousness: Awake Patient Behavior: Cooperative Mood Description: Constricted Affect Description: Calm Patient Cognition Impaired: Yes Ability to Follow Directions: Good Speech Pattern: Clear Hallucinations: None Delusions: Not Present Thought Process: Linear Thought Content: positive for [place] Judgement: Fair Diagnostics Vital Signs (24Hr): Vital Signs - 24 hr 11/07/21 20:48 11/07/21 18:00 11/08/21 06:00 Temperature 99 F 96.5 F L Pulse Rate 66 64 81 Respiratory Rate 18 16 16 Blood Pressure 89/53 L 90/52 L 121/71 Pulse Oximetry 94 96 96 Oxygen Delivery Method Room Air Room Air Room Air BMI result Body Mass Index 18.2 Labs Results: 10/05/21 08:01 10/29/21 07:59 Imaging Radiology Impressions: ITS Impressions Head CT 10/04/21 15:04 IMPRESSION: 1. No acute intracranial pathology. 2. Right parietal meningioma without mass effect. 3. Generalized atrophy. Medications Medications Current Medications Acetaminophen (Acetaminophen 325 Mg Tablet) 650 mg PO Q6H PRN PRN Reason: Headache/Pain Mild Scale (1-3) Last Admin: 10/19/21 22:01 Dose: 650 mg Al Hydroxide/Mg Hydroxide (Magnesium Hydrox/Alum Hydrox 30 Ml Oral.Susp) 30 ml PO Q6H PRN PRN Reason: Heartburn/Nausea Brimonidine Tartrate (Brimonidine Tartrate 0.2% Oph 5 Ml Bottle) 1 drop EYE- BOTH TID [facility] Last Admin: 11/08/21 10:35 Dose: 1 drop Docusate Sodium (Docusate Sodium 100 Mg Capsule) 100 mg PO BID [facility] Last Admin: 11/08/21 08:25 Dose: 100 mg Gabapentin (Gabapentin 100 Mg Capsule) 100 mg PO TID [facility] Last Admin: 11/08/21 08:25 Dose: 100 mg Latanoprost (Latanoprost 0.005 % Ophth Jessie 2.5 Ml Drops) 1 drop EYE-BOTH BEDTIME [facility] Last Admin: 11/07/21 21:46 Dose: 1 drop Magnesium Hydroxide (Milk Of Magnesia 30 Ml Oral.Susp) 30 ml PO DAILY [facility] Last Admin: 11/08/21 08:25 Dose: 30 ml Melatonin (Melatonin 3 Mg Tablet) 3 mg PO BEDTIME PRN PRN Reason: Insomnia Last Admin: 11/07/21 20:43 Dose: 3 mg Mirtazapine (Mirtazapine 7.5 Mg Tablet) 7.5 mg PO BEDTIME [facility] Last Admin: 11/07/21 20:43 Dose: 7.5 mg Risperidone (Risperidone 0.25 Mg Tablet) 0.25 mg PO BEDTIME [facility] Last Admin: 11/07/21 20:43 Dose: 0.25 mg Senna (Sennosides 8.6 Mg Tablet) 8.6 mg PO DAILY [facility] Last Admin: 11/08/21 08:25 Dose: 8.6 mg Timolol Maleate (Timolol Maleate 0.5 % Oph Jessie 5 Ml Drbtl) 1 drop EYE-BOTH BID [facility] Last Admin: 11/08/21 10:36 Dose: 1 drop Allergies Allergies Allergy/AdvReac Type Severity Reaction Status Date / Time sulfamethoxazole Allergy Itching Verified 10/03/21 19:19 [From Bactrim] trimethoprim [From Bactrim] Allergy Itching Verified 10/03/21 19:19 Assessment & Plan Assessment & Plan (1) Mood disorder: Status: Acute Code(s): F39 - Unspecified mood [affective] disorder Plan Continue with Remeron and Risperdal as prescribed. Waiting for guardianship another legal papers for proper placement. Re-consult for surgery I spent __20____ minutes with the patient and/or on the patient floor today, greater than?50% of which was spent counseling/coordinating care. Reason for contiued inpatient stay Substantial Risk for: inability to function, rapid decompensation and med/psych decompensation
[2021-11-08 19:40] VITALS: BP 113/59; PULSE 70; RESP 14; TEMP 37.1; O2SAT 70
[2021-11-08] MEDS: Mirtazapine 7.5 MG TABLET PO (19:56)
[2021-11-08] MEDS: risperiDONE 0.25 MG TABLET PO (19:56)
[2021-11-08] MEDS: Melatonin 3 MG TABLET PO (19:57)
[2021-11-08] MEDS: Latanoprost 0.005 % Ophth Sol 2.5 ML DROPS 1 DROP EYE-BOTH (19:58)
[2021-11-09 06:00] VITALS: BP 128/67; PULSE 77; RESP 16; TEMP 35.9; O2SAT 97
[2021-11-09] MEDS: Docusate Sodium 100 MG CAPSULE PO ×2 (08:10→20:21)
[2021-11-09] MEDS: Gabapentin 100 MG CAPSULE PO ×2 (08:10→20:21)
[2021-11-09] MEDS: Sennosides 8.6 MG TABLET PO (08:10)
[2021-11-09] MEDS: Milk of Magnesia 30 ML ORAL.SUSP PO (08:10)
--- NOTE | 2021-11-09 08:30 | HO.PSYCHPN ---
Subjective Subjective Date of Service: 11/09/21 Reason For Visit: Unspecified Depressive Disorder Subjective Notes: Conditional Voluntary Interim History: The nursing staff reported the patient has been fully compliant with treatment. He slept 6 hours and he has been participating groups. Yesterday I spoke with the surgeon and he will followed the lesion on his nose. On interview today the patient denies new symptoms he is cooperative, pleasant and sarcastic at times. Mental Status Exam Mental Status Exam Patient Appearance: Well Grooomed Patient Orientation: Person and Situation Level of Consciousness: Awake Patient Behavior: Cooperative Mood Description: Withdrawn Affect Description: Constricted Patient Cognition Impaired: Yes Ability to Follow Directions: Good Speech Pattern: Clear Hallucinations: None Delusions: Not Present Thought Process: Distracted Thought Content: positive for [place], positive for Circumstantial and positive for Poverty of Content Judgement: Fair Diagnostics Vital Signs (24Hr): Vital Signs - 24 hr 11/08/21 19:40 Temperature 98.8 F Pulse Rate 70 Respiratory Rate 14 Blood Pressure 113/59 L Pulse Oximetry 70 L Oxygen Delivery Method Room Air BMI result Body Mass Index 18.2 Labs Results: 10/05/21 08:01 10/29/21 07:59 Imaging Radiology Impressions: ITS Impressions Head CT 10/04/21 15:04 IMPRESSION: 1. No acute intracranial pathology. 2. Right parietal meningioma without mass effect. 3. Generalized atrophy. Medications Medications Current Medications Acetaminophen (Acetaminophen 325 Mg Tablet) 650 mg PO Q6H PRN PRN Reason: Headache/Pain Mild Scale (1-3) Last Admin: 10/19/21 22:01 Dose: 650 mg Al Hydroxide/Mg Hydroxide (Magnesium Hydrox/Alum Hydrox 30 Ml Oral.Susp) 30 ml PO Q6H PRN PRN Reason: Heartburn/Nausea Brimonidine Tartrate (Brimonidine Tartrate 0.2% Oph 5 Ml Bottle) 1 drop EYE-BOTH TID [facility] Last Admin: 11/08/21 20:13 Dose: 1 drop Docusate Sodium (Docusate Sodium 100 Mg Capsule) 100 mg PO BID [facility] Last Admin: 11/09/21 08:10 Dose: 100 mg Gabapentin (Gabapentin 100 Mg Capsule) 100 mg PO TID [facility] Last Admin: 11/09/21 08:10 Dose: 100 mg Latanoprost (Latanoprost 0.005 % Ophth Jessie 2.5 Ml Drops) 1 drop EYE-BOTH BEDTIME [facility] Last Admin: 11/08/21 19:58 Dose: 1 drop Magnesium Hydroxide (Milk Of Magnesia 30 Ml Oral.Susp) 30 ml PO DAILY [facility] Last Admin: 11/09/21 08:10 Dose: 30 ml Melatonin (Melatonin 3 Mg Tablet) 3 mg PO BEDTIME PRN PRN Reason: Insomnia Last Admin: 11/08/21 19:57 Dose: 3 mg Mirtazapine (Mirtazapine 7.5 Mg Tablet) 7.5 mg PO BEDTIME [facility] Last Admin: 11/08/21 19:56 Dose: 7.5 mg Risperidone (Risperidone 0.25 Mg Tablet) 0.25 mg PO BEDTIME [facility] Last Admin: 11/08/21 19:56 Dose: 0.25 mg Senna (Sennosides 8.6 Mg Tablet) 8.6 mg PO DAILY [facility] Last Admin: 11/09/21 08:10 Dose: 8.6 mg Timolol Maleate (Timolol Maleate 0.5 % Oph Jessie 5 Ml Drbtl) 1 drop EYE-BOTH BID [facility] Last Admin: 11/08/21 19:58 Dose: 1 drop Allergies Allergies Allergy/AdvReac Type Severity Reaction Status Date / Time sulfamethoxazole Allergy Itching Verified 10/03/21 19:19 [From Bactrim] trimethoprim [From Bactrim] Allergy Itching Verified 10/03/21 19:19 Assessment & Plan Assessment & Plan (1) Mood disorder: Status: Acute Code(s): F39 - Unspecified mood [affective] disorder Plan Continue with Remeron and Risperdal as prescribed. Waiting for guardianship another legal papers for proper placement. Re-consult for surgery . Dr. Henderson stated that he will come and see him again to schedule at next biopsy. I spent ___20___ minutes with the patient and/or on the patient floor today, greater than?50% of which was spent counseling/coordinating care. Reason for contiued inpatient stay Substantial Risk for: inability to function, rapid decompensation and med/psych decompensation
[2021-11-09] MEDS: Brimonidine Tartrate 0.2% Oph 5 ML BOTTLE 1 DROP EYE-BOTH ×3 (10:35→21:41)
--- NOTE | 2021-11-09 10:53 | MHC.CLN ---
F/U DIET CONSISTENCY UPGRADED TO REGULAR PER [employer] 11/06. STAFF REPORTS THAT PATIENT IS EATING WELL. CONTINUE ENSURE TID (1050 KCALS, 60 G PROTEIN). BMI=18.2, UNDERWEIGHT WITH NUTRITION DX NON SEVERE (MODERATE) MALNUTRITION. RD TO FOLLOW WEEKLY.
[2021-11-09] MEDS: Acetaminophen 325 MG TABLET 650 MG PO (14:37)
--- NOTE | 2021-11-09 14:41 | P.OP_ITS ---
Operative Note Operative Note Date of Service: 11/09/21 Narrative: Preop diagnosis: Skin lesion, right side of the nose Postop diagnosis: The same Procedure: Excision of skin lesion, right side of the nose under local anesthesia done at bedside Surgeon: Sushil Henderson MD The patient is a 66-year-old male who is in the because of a mood disorder, with a skin lesion on the right side of the nose at the ala. This was about . 8 cm ulcerating lesion. He understood the technique of excision under local anesthesia. He was ordered risks benefits, and alternatives. He has given consent. The procedure was done at bedside. He was placed supine in a slightly reclining position. the nose was prepped and draped in the sterile fashion. A surgical time-out was done. The area around the lesion was infiltrated with lidocaine 1%. I made the incision surrounding this lesion using blade 15 and this carried down through the full-thickness of the skin and subcutaneous layer. The specimen actually was tearing apart during the procedure because of the thin nature of the soft tissue of the ala of the nose. I excise Up to grossly normal-appearing margins. I then proceeded to close the incision with full- thickness nylon 5 0 interrupted sutures. Steri-Strips and dressings were applied. The procedure was completed. The patient tolerated procedure well. There were no immediate complications Estimated blood loss about 5 cc. The wound should be kept clean and dry for at least 24-48 hours. After that, dressing changes may be done big band aid or a dry gauze.
[2021-11-09] MEDS: timoloL maleate 0.5 % Oph Sol 5 ML DRBTL 1 DROP EYE-BOTH ×2 (15:00→21:41)
[2021-11-09 19:30] VITALS: BP 111/73; PULSE 82; RESP 16; TEMP 37.3; O2SAT 98
[2021-11-09] MEDS: Mirtazapine 7.5 MG TABLET PO (20:21)
[2021-11-09] MEDS: risperiDONE 0.25 MG TABLET PO (20:21)
[2021-11-09] MEDS: Latanoprost 0.005 % Ophth Sol 2.5 ML DROPS 1 DROP EYE-BOTH (21:41)
[2021-11-10 08:23] VITALS: BP 111/74; PULSE 68; RESP 16; TEMP 37.2; O2SAT 98
[2021-11-10] MEDS: timoloL maleate 0.5 % Oph Sol 5 ML DRBTL 1 DROP EYE-BOTH ×2 (08:33→20:38)
[2021-11-10] MEDS: Brimonidine Tartrate 0.2% Oph 5 ML BOTTLE 1 DROP EYE-BOTH ×3 (08:33→20:38)
[2021-11-10] MEDS: Sennosides 8.6 MG TABLET PO (08:33)
[2021-11-10] MEDS: Milk of Magnesia 30 ML ORAL.SUSP PO (08:33)
[2021-11-10] MEDS: Docusate Sodium 100 MG CAPSULE PO ×2 (08:33→20:42)
[2021-11-10] MEDS: Gabapentin 100 MG CAPSULE PO ×3 (08:33→20:41)
--- NOTE | 2021-11-10 10:45 | HO.PSYCHPN ---
Subjective Subjective Date of Service: 11/10/21 Reason For Visit: Unspecified Depressive Disorder Subjective Notes: Conditional Voluntary Interim History: Patient was seen and discussed in rounds today. Records and plans were reviewed. He continues to be on 5 minute checks. He has been med compliant. He had a bout of diarrhea this morning. Unfortunately he had received his morning medications. Stool softeners and laxatives will be held tomorrow if he still has diarrhea. No other complaints or changes. No other side effects or issues. Current regimen is maintained with attention to stool softeners and laxatives Mental Status Exam Mental Status Exam Patient Appearance: Well Grooomed Patient Orientation: Person and Situation Level of Consciousness: Awake Patient Behavior: Cooperative Mood Description: Withdrawn Affect Description: Constricted Patient Cognition Impaired: Yes Ability to Follow Directions: Good Speech Pattern: Clear Hallucinations: None Delusions: Not Present Thought Process: Distracted Thought Content: positive for [place], positive for Circumstantial and positive for Poverty of Content Judgement: Fair Diagnostics Vital Signs (24Hr): Vital Signs - 24 hr 11/09/21 19:30 11/10/21 08:23 Temperature 99.2 F 98.9 F Pulse Rate 82 68 Respiratory Rate 16 16 Blood Pressure 111/73 111/74 Pulse Oximetry 98 98 Oxygen Delivery Method Room Air Room Air BMI result Body Mass Index 18.2 Labs Results: 10/05/21 08:01 10/29/21 07:59 Imaging Radiology Impressions: ITS Impressions Head CT 10/04/21 15:04 IMPRESSION: 1. No acute intracranial pathology. 2. Right parietal meningioma without mass effect. 3. Generalized atrophy. Medications Medications Current Medications Acetaminophen (Acetaminophen 325 Mg Tablet) 650 mg PO Q6H PRN PRN Reason: Headache/Pain Mild Scale (1-3) Last Admin: 11/09/21 14:37 Dose: 650 mg Al Hydroxide/Mg Hydroxide (Magnesium Hydrox/Alum Hydrox 30 Ml Oral.Susp) 30 ml PO Q6H PRN PRN Reason: Heartburn/Nausea Brimonidine Tartrate (Brimonidine Tartrate 0.2% Oph 5 Ml Bottle) 1 drop EYE-BOTH TID [facility] Last Admin: 11/10/21 08:33 Dose: 1 drop Docusate Sodium (Docusate Sodium 100 Mg Capsule) 100 mg PO BID [facility] Last Admin: 11/10/21 08:33 Dose: 100 mg Gabapentin (Gabapentin 100 Mg Capsule) 100 mg PO TID [facility] Last Admin: 11/10/21 08:33 Dose: 100 mg Latanoprost (Latanoprost 0.005 % Ophth Jessie 2.5 Ml Drops) 1 drop EYE-BOTH BEDTIME [facility] Last Admin: 11/09/21 21:41 Dose: 1 drop Magnesium Hydroxide (Milk Of Magnesia 30 Ml Oral.Susp) 30 ml PO DAILY [facility] Last Admin: 11/10/21 08:33 Dose: 30 ml Melatonin (Melatonin 3 Mg Tablet) 3 mg PO BEDTIME PRN PRN Reason: Insomnia Last Admin: 11/08/21 19:57 Dose: 3 mg Mirtazapine (Mirtazapine 7.5 Mg Tablet) 7.5 mg PO BEDTIME [facility] Last Admin: 11/09/21 20:21 Dose: 7.5 mg Risperidone (Risperidone 0.25 Mg Tablet) 0.25 mg PO BEDTIME [facility] Last Admin: 11/09/21 20:21 Dose: 0.25 mg Senna (Sennosides 8.6 Mg Tablet) 8.6 mg PO DAILY [facility] Last Admin: 11/10/21 08:33 Dose: 8.6 mg Timolol Maleate (Timolol Maleate 0.5 % Oph Jessie 5 Ml Drbtl) 1 drop EYE-BOTH BID [facility] Last Admin: 11/10/21 08:33 Dose: 1 drop Allergies Allergies Allergy/AdvReac Type Severity Reaction Status Date / Time sulfamethoxazole Allergy Itching Verified 10/03/21 19:19 [From Bactrim] trimethoprim [From Bactrim] Allergy Itching Verified 10/03/21 19:19 Assessment & Plan Assessment & Plan (1) Mood disorder: Status: Acute Code(s): F39 - Unspecified mood [affective] disorder Plan Continue with Remeron and Risperdal as prescribed. Waiting for guardianship another legal papers for proper placement. Re-consult for surgery . Dr. Henderson stated that he will come and see him again to schedule at next biopsy. 11/10: Continue current regimen and plans. Hold stool softeners and laxatives tomorrow if he still has diarrhea I spent minutes with the patient and/or on the patient floor today, greater than?50% of which was spent counseling/coordinating care. Reason for contiued inpatient stay Substantial Risk for: med/psych decompensation
[2021-11-10 18:27] VITALS: BP 129/66; PULSE 80; RESP 16; TEMP 36.3; O2SAT 96
[2021-11-10] MEDS: Latanoprost 0.005 % Ophth Sol 2.5 ML DROPS 1 DROP EYE-BOTH (20:38)
[2021-11-10] MEDS: risperiDONE 0.25 MG TABLET PO (20:42)
[2021-11-10] MEDS: Mirtazapine 7.5 MG TABLET PO (20:42)
[2021-11-11 08:29] VITALS: BP 119/72; PULSE 72; RESP 16; TEMP 36.8; O2SAT 95
[2021-11-11] MEDS: Brimonidine Tartrate 0.2% Oph 5 ML BOTTLE 1 DROP EYE-BOTH ×3 (08:30→21:04)
[2021-11-11] MEDS: timoloL maleate 0.5 % Oph Sol 5 ML DRBTL 1 DROP EYE-BOTH ×2 (08:30→21:04)
[2021-11-11] MEDS: Docusate Sodium 100 MG CAPSULE PO ×2 (08:31→21:01)
[2021-11-11] MEDS: Milk of Magnesia 30 ML ORAL.SUSP PO (08:31)
[2021-11-11] MEDS: Gabapentin 100 MG CAPSULE PO ×3 (08:31→21:01)
[2021-11-11] MEDS: Sennosides 8.6 MG TABLET PO (08:31)
--- NOTE | 2021-11-11 08:37 | P.PNPSI_ITS ---
Subjective Subjective Date of Service: 11/11/21 Reason For Visit: Unspecified Depressive Disorder Subjective Notes: Conditional Voluntary Interim History: Patient was seen and discussed in rounds today. Records and plans were reviewed. He is doing much better today and has had no more bouts of diarrhea. He states that he knows why he had diarrhea yesterday and thinks it was because of eating chili. Current medications reviewed. No changes were implemented. He is eating and sleeping adequately and has been pleasant and interactive and social. No complaints. No changes were made today. No behavioral issues reported Review of Systems Review of Systems Yes all other systems are reviewed and are negative Cardiovascular: Denies chest pain, Denies dyspnea and Denies dyspnea on exertion Respiratory: Denies cough, Denies dyspnea and Denies dyspnea on exertion Gastrointestinal: Denies hematochezia and Denies change in bowel habits Genitourinary: Denies hematuria and Denies difficulty urinating Musculoskeletal: Denies back pain and Denies limited range of motion Denies focal weakness and Denies convulsions Psychiatric: Reports depression and Denies mood swings Mental Status Exam Mental Status Exam Patient Appearance: Well Grooomed Patient Orientation: Person and Situation Level of Consciousness: Awake Patient Behavior: Cooperative Mood Description: Withdrawn Affect Description: Constricted Patient Cognition Impaired: Yes Ability to Follow Directions: Good Speech Pattern: Clear Hallucinations: None Delusions: Not Present Thought Process: Distracted Thought Content: positive for [place], positive for Circumstantial and positive for Poverty of Content Judgement: Fair Diagnostics Vital Signs (24Hr): Vital Signs - 24 hr 11/10/21 18:27 11/11/21 08:29 Temperature 97.3 F 98.3 F Pulse Rate 80 72 Respiratory Rate 16 16 Blood Pressure 129/66 119/72 Pulse Oximetry 96 95 Oxygen Delivery Method Room Air Room Air BMI result Body Mass Index 18.2 Labs Results: 10/05/21 08:01 10/29/21 07:59 Imaging Radiology Impressions: ITS Impressions Head CT 10/04/21 15:04 IMPRESSION: 1. No acute intracranial pathology. 2. Right parietal meningioma without mass effect. 3. Generalized atrophy. Medications Medications Current Medications Acetaminophen (Acetaminophen 325 Mg Tablet) 650 mg PO Q6H PRN PRN Reason: Headache/Pain Mild Scale (1-3) Last Admin: 11/09/21 14:37 Dose: 650 mg Al Hydroxide/Mg Hydroxide (Magnesium Hydrox/Alum Hydrox 30 Ml Oral.Susp) 30 ml PO Q6H PRN PRN Reason: Heartburn/Nausea Brimonidine Tartrate (Brimonidine Tartrate 0.2% Oph 5 Ml Bottle) 1 drop EYE- BOTH TID [facility] Last Admin: 11/11/21 08:30 Dose: 1 drop Docusate Sodium (Docusate Sodium 100 Mg Capsule) 100 mg PO BID [facility] Last Admin: 11/11/21 08:31 Dose: 100 mg Gabapentin (Gabapentin 100 Mg Capsule) 100 mg PO TID [facility] Last Admin: 11/11/21 08:31 Dose: 100 mg Latanoprost (Latanoprost 0.005 % Ophth Jessie 2.5 Ml Drops) 1 drop EYE-BOTH BEDTIME [facility] Last Admin: 11/10/21 20:38 Dose: 1 drop Magnesium Hydroxide (Milk Of Magnesia 30 Ml Oral.Susp) 30 ml PO DAILY [facility] Last Admin: 11/11/21 08:31 Dose: 30 ml Melatonin (Melatonin 3 Mg Tablet) 3 mg PO BEDTIME PRN PRN Reason: Insomnia Last Admin: 11/08/21 19:57 Dose: 3 mg Mirtazapine (Mirtazapine 7.5 Mg Tablet) 7.5 mg PO BEDTIME [facility] Last Admin: 11/10/21 20:42 Dose: 7.5 mg Risperidone (Risperidone 0.25 Mg Tablet) 0.25 mg PO BEDTIME [facility] Last Admin: 11/10/21 20:42 Dose: 0.25 mg Senna (Sennosides 8.6 Mg Tablet) 8.6 mg PO DAILY [facility] Last Admin: 11/11/21 08:31 Dose: 8.6 mg Timolol Maleate (Timolol Maleate 0.5 % Oph Jessie 5 Ml Drbtl) 1 drop EYE-BOTH BID [facility] Last Admin: 11/11/21 08:30 Dose: 1 drop Allergies Allergies Allergy/AdvReac Type Severity Reaction Status Date / Time sulfamethoxazole Allergy Itching Verified 10/03/21 19:19 [From Bactrim] trimethoprim [From Bactrim] Allergy Itching Verified 10/03/21 19:19 Assessment & Plan Assessment & Plan (1) Mood disorder: Status: Acute Code(s): F39 - Unspecified mood [affective] disorder Plan 11/11: Continue current regimen and plans I spent minutes with the patient and/or on the patient floor today, greater than?50% of which was spent counseling/coordinating care. Reason for contiued inpatient stay Substantial Risk for: med/psych decompensation
[2021-11-11 18:00] VITALS: BP 109/58; PULSE 68; RESP 16; TEMP 37; O2SAT 95
[2021-11-11] MEDS: Melatonin 3 MG TABLET PO (21:01)
[2021-11-11] MEDS: risperiDONE 0.25 MG TABLET PO (21:02)
[2021-11-11] MEDS: Mirtazapine 7.5 MG TABLET PO (21:02)
[2021-11-11] MEDS: Latanoprost 0.005 % Ophth Sol 2.5 ML DROPS 1 DROP EYE-BOTH (21:04)
[2021-11-12 06:00] VITALS: BP 127/80; PULSE 88; RESP 16; TEMP 37; O2SAT 98
[2021-11-12] MEDS: Gabapentin 100 MG CAPSULE PO ×2 (10:33→21:14)
[2021-11-12] MEDS: Sennosides 8.6 MG TABLET PO (10:33)
[2021-11-12] MEDS: Docusate Sodium 100 MG CAPSULE PO ×2 (10:33→21:15)
[2021-11-12] MEDS: Milk of Magnesia 30 ML ORAL.SUSP PO (10:33)
[2021-11-12] MEDS: timoloL maleate 0.5 % Oph Sol 5 ML DRBTL 1 DROP EYE-BOTH ×2 (10:35→21:16)
[2021-11-12] MEDS: Brimonidine Tartrate 0.2% Oph 5 ML BOTTLE 1 DROP EYE-BOTH ×2 (10:35→21:16)
--- NOTE | 2021-11-12 13:56 | HO.PSYCHPN ---
Subjective Subjective Date of Service: 11/12/21 Reason For Visit: Unspecified Depressive Disorder Subjective Notes: Conditional Voluntary Interim History: The nursing staff reported the patient had been fully compliant with treatment, he is doing fine and his nose was biopsied. On interview the patient denies new symptoms, we will have the hearing next for his guardianship. Mental Status Exam Mental Status Exam Patient Appearance: Well Grooomed Patient Orientation: Person and Situation Level of Consciousness: Awake Patient Behavior: Guarded Mood Description: Constricted Affect Description: Depressed Patient Cognition Impaired: Yes Ability to Follow Directions: Good Speech Pattern: Clear Hallucinations: None Delusions: Not Present Thought Process: Distracted Judgement: Fair Diagnostics Vital Signs (24Hr): Vital Signs - 24 hr 11/11/21 18:00 11/12/21 06:00 Temperature 98.6 F 98.6 F Pulse Rate 68 88 Respiratory Rate 16 16 Blood Pressure 109/58 L 127/80 Pulse Oximetry 95 98 Oxygen Delivery Method Room Air Room Air BMI result Body Mass Index 18.2 Labs Results: 10/05/21 08:01 10/29/21 07:59 Imaging Radiology Impressions: ITS Impressions Head CT 10/04/21 15:04 IMPRESSION: 1. No acute intracranial pathology. 2. Right parietal meningioma without mass effect. 3. Generalized atrophy. Medications Medications Current Medications Acetaminophen (Acetaminophen 325 Mg Tablet) 650 mg PO Q6H PRN PRN Reason: Headache/Pain Mild Scale (1-3) Last Admin: 11/09/21 14:37 Dose: 650 mg Al Hydroxide/Mg Hydroxide (Magnesium Hydrox/Alum Hydrox 30 Ml Oral.Susp) 30 ml PO Q6H PRN PRN Reason: Heartburn/Nausea Brimonidine Tartrate (Brimonidine Tartrate 0.2% Oph 5 Ml Bottle) 1 drop EYE-BOTH TID [facility] Last Admin: 11/12/21 10:35 Dose: 1 drop Docusate Sodium (Docusate Sodium 100 Mg Capsule) 100 mg PO BID [facility] Last Admin: 11/12/21 10:33 Dose: 100 mg Gabapentin (Gabapentin 100 Mg Capsule) 100 mg PO TID [facility] Last Admin: 11/12/21 10:33 Dose: 100 mg Latanoprost (Latanoprost 0.005 % Ophth Jessie 2.5 Ml Drops) 1 drop EYE-BOTH BEDTIME [facility] Last Admin: 11/11/21 21:04 Dose: 1 drop Magnesium Hydroxide (Milk Of Magnesia 30 Ml Oral.Susp) 30 ml PO DAILY [facility] Last Admin: 11/12/21 10:33 Dose: 30 ml Melatonin (Melatonin 3 Mg Tablet) 3 mg PO BEDTIME PRN PRN Reason: Insomnia Last Admin: 11/11/21 21:01 Dose: 3 mg Mirtazapine (Mirtazapine 7.5 Mg Tablet) 7.5 mg PO BEDTIME [facility] Last Admin: 11/11/21 21:02 Dose: 7.5 mg Risperidone (Risperidone 0.25 Mg Tablet) 0.25 mg PO BEDTIME [facility] Last Admin: 11/11/21 21:02 Dose: 0.25 mg Senna (Sennosides 8.6 Mg Tablet) 8.6 mg PO DAILY [facility] Last Admin: 11/12/21 10:33 Dose: 8.6 mg Timolol Maleate (Timolol Maleate 0.5 % Oph Jessie 5 Ml Drbtl) 1 drop EYE-BOTH BID [facility] Last Admin: 11/12/21 10:35 Dose: 1 drop Allergies Allergies Allergy/AdvReac Type Severity Reaction Status Date / Time sulfamethoxazole Allergy Itching Verified 10/03/21 19:19 [From Bactrim] trimethoprim [From Bactrim] Allergy Itching Verified 10/03/21 19:19 Assessment & Plan Assessment & Plan (1) Mood disorder: Status: Acute Code(s): F39 - Unspecified mood [affective] disorder Plan Continue with same treatment, waiting for guardianship and later placement. I spent ___20___ minutes with the patient and/or on the patient floor today, greater than?50% of which was spent counseling/coordinating care. Reason for contiued inpatient stay Substantial Risk for: inability to function, rapid decompensation and med/psych decompensation
[2021-11-12 19:00] VITALS: BP 121/62; PULSE 88; RESP 16; TEMP 37.4; O2SAT 95
[2021-11-12] MEDS: Mirtazapine 7.5 MG TABLET PO (21:14)
[2021-11-12] MEDS: risperiDONE 0.25 MG TABLET PO (21:14)
[2021-11-12] MEDS: Melatonin 3 MG TABLET PO (21:14)
[2021-11-12] MEDS: Latanoprost 0.005 % Ophth Sol 2.5 ML DROPS 1 DROP EYE-BOTH (21:16)
[2021-11-13] MEDS: timoloL maleate 0.5 % Oph Sol 5 ML DRBTL 1 DROP EYE-BOTH ×2 (08:05→21:00)
[2021-11-13] MEDS: Sennosides 8.6 MG TABLET PO (08:05)
[2021-11-13] MEDS: Gabapentin 100 MG CAPSULE PO ×2 (08:05→21:00)
[2021-11-13] MEDS: Milk of Magnesia 30 ML ORAL.SUSP PO (08:05)
[2021-11-13] MEDS: Docusate Sodium 100 MG CAPSULE PO ×2 (08:05→20:59)
[2021-11-13 08:09] VITALS: BP 126/60; PULSE 71; RESP 17; TEMP 37; O2SAT 97
[2021-11-13] MEDS: Brimonidine Tartrate 0.2% Oph 5 ML BOTTLE 1 DROP EYE-BOTH ×2 (08:09→20:59)
--- NOTE | 2021-11-13 16:16 | P.PNPSI_ITS ---
Subjective Subjective Date of Service: 11/13/21 Reason For Visit: Unspecified Depressive Disorder Subjective Notes: Conditional Voluntary Interim History: the nursing staff reported the patient has been fully compliant with treatment, he is pleasant and sarcastic at times. On interview the patient denies new symptoms Mental Status Exam Mental Status Exam Patient Appearance: Well Grooomed Patient Orientation: Person Level of Consciousness: Awake Patient Behavior: Cooperative Mood Description: Calm Affect Description: Constricted Patient Cognition Impaired: Yes Ability to Follow Directions: Good Speech Pattern: Clear Hallucinations: None Delusions: Not Present Thought Process: Linear Thought Content: positive for Circumstantial Judgement: Fair Diagnostics Vital Signs (24Hr): Vital Signs - 24 hr 11/12/21 19:00 11/13/21 08:09 Temperature 99.4 F 98.6 F Pulse Rate 88 71 Respiratory Rate 16 17 Blood Pressure 121/62 126/60 Pulse Oximetry 95 97 Oxygen Delivery Method Room Air Room Air BMI result Body Mass Index 18.2 Labs Results: 10/05/21 08:01 10/29/21 07:59 Imaging Radiology Impressions: ITS Impressions Head CT 10/04/21 15:04 IMPRESSION: 1. No acute intracranial pathology. 2. Right parietal meningioma without mass effect. 3. Generalized atrophy. Medications Medications Current Medications Acetaminophen (Acetaminophen 325 Mg Tablet) 650 mg PO Q6H PRN PRN Reason: Headache/Pain Mild Scale (1-3) Last Admin: 11/09/21 14:37 Dose: 650 mg Al Hydroxide/Mg Hydroxide (Magnesium Hydrox/Alum Hydrox 30 Ml Oral.Susp) 30 ml PO Q6H PRN PRN Reason: Heartburn/Nausea Brimonidine Tartrate (Brimonidine Tartrate 0.2% Oph 5 Ml Bottle) 1 drop EYE- BOTH TID [facility] Last Admin: 11/13/21 08:09 Dose: 1 drop Docusate Sodium (Docusate Sodium 100 Mg Capsule) 100 mg PO BID [facility] Last Admin: 11/13/21 08:05 Dose: 100 mg Gabapentin (Gabapentin 100 Mg Capsule) 100 mg PO TID [facility] Last Admin: 11/13/21 08:05 Dose: 100 mg Latanoprost (Latanoprost 0.005 % Ophth Jessie 2.5 Ml Drops) 1 drop EYE-BOTH BEDTIME [facility] Last Admin: 11/12/21 21:16 Dose: 1 drop Magnesium Hydroxide (Milk Of Magnesia 30 Ml Oral.Susp) 30 ml PO DAILY [facility] Last Admin: 11/13/21 08:05 Dose: 30 ml Melatonin (Melatonin 3 Mg Tablet) 3 mg PO BEDTIME PRN PRN Reason: Insomnia Last Admin: 11/12/21 21:14 Dose: 3 mg Mirtazapine (Mirtazapine 7.5 Mg Tablet) 7.5 mg PO BEDTIME [facility] Last Admin: 11/12/21 21:14 Dose: 7.5 mg Risperidone (Risperidone 0.25 Mg Tablet) 0.25 mg PO BEDTIME [facility] Last Admin: 11/12/21 21:14 Dose: 0.25 mg Senna (Sennosides 8.6 Mg Tablet) 8.6 mg PO DAILY [facility] Last Admin: 11/13/21 08:05 Dose: 8.6 mg Timolol Maleate (Timolol Maleate 0.5 % Oph Jessie 5 Ml Drbtl) 1 drop EYE-BOTH BID [facility] Last Admin: 11/13/21 08:05 Dose: 1 drop Allergies Allergies Allergy/AdvReac Type Severity Reaction Status Date / Time sulfamethoxazole Allergy Itching Verified 10/03/21 19:19 [From Bactrim] trimethoprim [From Bactrim] Allergy Itching Verified 10/03/21 19:19 Assessment & Plan Assessment & Plan (1) Mood disorder: Status: Acute Code(s): F39 - Unspecified mood [affective] disorder Plan Continue with same treatment, waiting for guardianship and later placement. I spent _20 minutes with the patient and/or on the patient floor today, greater than?50% of which was spent counseling/coordinating care. Reason for contiued inpatient stay Substantial Risk for: inability to function, rapid decompensation and med/psych decompensation
[2021-11-13 18:00] VITALS: BP 142/68; PULSE 78; RESP 14; TEMP 37.3; O2SAT 96
[2021-11-13] MEDS: Latanoprost 0.005 % Ophth Sol 2.5 ML DROPS 1 DROP EYE-BOTH (21:00)
[2021-11-13] MEDS: risperiDONE 0.25 MG TABLET PO (21:00)
[2021-11-13] MEDS: Mirtazapine 7.5 MG TABLET PO (21:00)
[2021-11-14 07:30] VITALS: BP 128/76; PULSE 79; RESP 16; TEMP 36.4; O2SAT 95
[2021-11-14] MEDS: Milk of Magnesia 30 ML ORAL.SUSP PO (09:53)
[2021-11-14] MEDS: Docusate Sodium 100 MG CAPSULE PO ×2 (09:56→20:16)
[2021-11-14] MEDS: timoloL maleate 0.5 % Oph Sol 5 ML DRBTL 1 DROP EYE-BOTH ×2 (09:56→20:17)
[2021-11-14] MEDS: Gabapentin 100 MG CAPSULE PO ×3 (09:56→20:16)
[2021-11-14] MEDS: Sennosides 8.6 MG TABLET PO (09:56)
[2021-11-14] MEDS: Brimonidine Tartrate 0.2% Oph 5 ML BOTTLE 1 DROP EYE-BOTH ×3 (09:56→20:17)
--- NOTE | 2021-11-14 14:56 | P.PNPSI_ITS ---
Subjective Subjective Date of Service: 11/14/21 Reason For Visit: Unspecified Depressive Disorder Subjective Notes: Conditional Voluntary Interim History: The nursing staff reported the patient has been isolative in his room most of the time. The transition social worker reported that he will have a hearing for his guardianship today and he is not objecting eat it. On interview the patient denies new symptoms, we will contact Dr. Henderson regarding his treatment of skin cancer. Mental Status Exam Mental Status Exam Patient Appearance: Well Grooomed Patient Orientation: Person Level of Consciousness: Awake Patient Behavior: Cooperative Mood Description: Constricted Affect Description: Calm Patient Cognition Impaired: Yes Ability to Follow Directions: Good Speech Pattern: Clear Hallucinations: None Delusions: Not Present Thought Content: positive for Circumstantial Judgement: Fair Diagnostics Vital Signs (24Hr): Vital Signs - 24 hr 11/13/21 18:00 11/14/21 07:30 Temperature 99.2 F 97.6 F Pulse Rate 78 79 Respiratory Rate 14 16 Blood Pressure 142/68 H 128/76 Pulse Oximetry 96 95 Oxygen Delivery Method Room Air Room Air BMI result Body Mass Index 18.2 Labs Results: 10/05/21 08:01 10/29/21 07:59 Imaging Radiology Impressions: ITS Impressions Head CT 10/04/21 15:04 IMPRESSION: 1. No acute intracranial pathology. 2. Right parietal meningioma without mass effect. 3. Generalized atrophy. Medications Medications Current Medications Acetaminophen (Acetaminophen 325 Mg Tablet) 650 mg PO Q6H PRN PRN Reason: Headache/Pain Mild Scale (1-3) Last Admin: 11/09/21 14:37 Dose: 650 mg Al Hydroxide/Mg Hydroxide (Magnesium Hydrox/Alum Hydrox 30 Ml Oral.Susp) 30 ml PO Q6H PRN PRN Reason: Heartburn/Nausea Brimonidine Tartrate (Brimonidine Tartrate 0.2% Oph 5 Ml Bottle) 1 drop EYE- BOTH TID [facility] Last Admin: 11/14/21 09:56 Dose: 1 drop Docusate Sodium (Docusate Sodium 100 Mg Capsule) 100 mg PO BID [facility] Last Admin: 11/14/21 09:56 Dose: 100 mg Gabapentin (Gabapentin 100 Mg Capsule) 100 mg PO TID [facility] Last Admin: 11/14/21 09:56 Dose: 100 mg Latanoprost (Latanoprost 0.005 % Ophth Jessie 2.5 Ml Drops) 1 drop EYE-BOTH BEDTIME [facility] Last Admin: 11/13/21 21:00 Dose: 1 drop Magnesium Hydroxide (Milk Of Magnesia 30 Ml Oral.Susp) 30 ml PO DAILY [facility] Last Admin: 11/14/21 09:53 Dose: 30 ml Melatonin (Melatonin 3 Mg Tablet) 3 mg PO BEDTIME PRN PRN Reason: Insomnia Last Admin: 11/12/21 21:14 Dose: 3 mg Mirtazapine (Mirtazapine 7.5 Mg Tablet) 7.5 mg PO BEDTIME [facility] Last Admin: 11/13/21 21:00 Dose: 7.5 mg Risperidone (Risperidone 0.25 Mg Tablet) 0.25 mg PO BEDTIME [facility] Last Admin: 11/13/21 21:00 Dose: 0.25 mg Senna (Sennosides 8.6 Mg Tablet) 8.6 mg PO DAILY [facility] Last Admin: 11/14/21 09:56 Dose: 8.6 mg Timolol Maleate (Timolol Maleate 0.5 % Oph Jessie 5 Ml Drbtl) 1 drop EYE-BOTH BID [facility] Last Admin: 11/14/21 09:56 Dose: 1 drop Allergies Allergies Allergy/AdvReac Type Severity Reaction Status Date / Time sulfamethoxazole Allergy Itching Verified 10/03/21 19:19 [From Bactrim] trimethoprim [From Bactrim] Allergy Itching Verified 10/03/21 19:19 Assessment & Plan Assessment & Plan (1) Mood disorder: Status: Acute Code(s): F39 - Unspecified mood [affective] disorder Plan Continue with same treatment, waiting for guardianship and later placement. According to Dr. Henderson, he will not need other referrals for his skin cancer at this moment. I spent __20____ minutes with the patient and/or on the patient floor today, greater than?50% of which was spent counseling/coordinating care. Reason for contiued inpatient stay Substantial Risk for: inability to function, rapid decompensation and med/psych decompensation
[2021-11-14 18:00] VITALS: BP 105/60; PULSE 75; RESP 14; TEMP 35.6; O2SAT 97
[2021-11-14] MEDS: Mirtazapine 7.5 MG TABLET PO (20:16)
[2021-11-14] MEDS: risperiDONE 0.25 MG TABLET PO (20:16)
[2021-11-14] MEDS: Latanoprost 0.005 % Ophth Sol 2.5 ML DROPS 1 DROP EYE-BOTH (20:17)
[2021-11-15 06:00] VITALS: BP 101/61; PULSE 62; RESP 16; TEMP 36.6; O2SAT 95
[2021-11-15] MEDS: Sennosides 8.6 MG TABLET PO (08:16)
[2021-11-15] MEDS: Milk of Magnesia 30 ML ORAL.SUSP PO (08:16)
[2021-11-15] MEDS: Gabapentin 100 MG CAPSULE PO ×3 (08:16→20:03)
[2021-11-15] MEDS: Docusate Sodium 100 MG CAPSULE PO ×2 (08:16→20:03)
[2021-11-15] MEDS: Brimonidine Tartrate 0.2% Oph 5 ML BOTTLE 1 DROP EYE-BOTH ×3 (08:17→20:03)
[2021-11-15] MEDS: timoloL maleate 0.5 % Oph Sol 5 ML DRBTL 1 DROP EYE-BOTH ×2 (08:18→20:03)
[2021-11-15 13:00] VITALS: BMI 18.8
--- NOTE | 2021-11-15 13:05 | HO.PSYCHPN ---
Subjective Subjective Date of Service: 11/15/21 Reason For Visit: Unspecified Depressive Disorder Subjective Notes: Conditional Voluntary Interim History: The nursing staff reports the patient has slept well with his medications. He is pleasant, isolative in his room. The occupational therapist reported that he engages in some groups. Court appointed a guardian for him. On interview the patient denies new symptoms, still confused at times. Mental Status Exam Mental Status Exam Patient Appearance: Well Grooomed Patient Orientation: Person and Situation Level of Consciousness: Awake Patient Behavior: Cooperative Mood Description: Constricted Affect Description: Calm Patient Cognition Impaired: Yes Ability to Follow Directions: Good Speech Pattern: Clear Hallucinations: None Delusions: Not Present Thought Process: Distracted Thought Content: positive for [place] and positive for Circumstantial Judgement: Fair Diagnostics Vital Signs (24Hr): Vital Signs - 24 hr 11/14/21 18:00 11/15/21 06:00 Temperature 96.0 F L 97.8 F Pulse Rate 75 62 Respiratory Rate 14 16 Blood Pressure 105/60 101/61 Pulse Oximetry 97 95 Oxygen Delivery Method Room Air Room Air BMI result Body Mass Index 18.2 Labs Results: 10/05/21 08:01 10/29/21 07:59 Imaging Radiology Impressions: ITS Impressions Head CT 10/04/21 15:04 IMPRESSION: 1. No acute intracranial pathology. 2. Right parietal meningioma without mass effect. 3. Generalized atrophy. Medications Medications Current Medications Acetaminophen (Acetaminophen 325 Mg Tablet) 650 mg PO Q6H PRN PRN Reason: Headache/Pain Mild Scale (1-3) Last Admin: 11/09/21 14:37 Dose: 650 mg Al Hydroxide/Mg Hydroxide (Magnesium Hydrox/Alum Hydrox 30 Ml Oral.Susp) 30 ml PO Q6H PRN PRN Reason: Heartburn/Nausea Brimonidine Tartrate (Brimonidine Tartrate 0.2% Oph 5 Ml Bottle) 1 drop EYE-BOTH TID [facility] Last Admin: 11/15/21 08:17 Dose: 1 drop Docusate Sodium (Docusate Sodium 100 Mg Capsule) 100 mg PO BID [facility] Last Admin: 11/15/21 08:16 Dose: 100 mg Gabapentin (Gabapentin 100 Mg Capsule) 100 mg PO TID [facility] Last Admin: 11/15/21 08:16 Dose: 100 mg Latanoprost (Latanoprost 0.005 % Ophth Jessie 2.5 Ml Drops) 1 drop EYE-BOTH BEDTIME [facility] Last Admin: 11/14/21 20:17 Dose: 1 drop Magnesium Hydroxide (Milk Of Magnesia 30 Ml Oral.Susp) 30 ml PO DAILY [facility] Last Admin: 11/15/21 08:16 Dose: 30 ml Melatonin (Melatonin 3 Mg Tablet) 3 mg PO BEDTIME PRN PRN Reason: Insomnia Last Admin: 11/12/21 21:14 Dose: 3 mg Mirtazapine (Mirtazapine 7.5 Mg Tablet) 7.5 mg PO BEDTIME [facility] Last Admin: 11/14/21 20:16 Dose: 7.5 mg Risperidone (Risperidone 0.25 Mg Tablet) 0.25 mg PO BEDTIME [facility] Last Admin: 11/14/21 20:16 Dose: 0.25 mg Senna (Sennosides 8.6 Mg Tablet) 8.6 mg PO DAILY [facility] Last Admin: 11/15/21 08:16 Dose: 8.6 mg Timolol Maleate (Timolol Maleate 0.5 % Oph Jessie 5 Ml Drbtl) 1 drop EYE-BOTH BID [facility] Last Admin: 11/15/21 08:18 Dose: 1 drop Allergies Allergies Allergy/AdvReac Type Severity Reaction Status Date / Time sulfamethoxazole Allergy Itching Verified 10/03/21 19:19 [From Bactrim] trimethoprim [From Bactrim] Allergy Itching Verified 10/03/21 19:19 Assessment & Plan Assessment & Plan (1) Mood disorder: Status: Acute Code(s): F39 - Unspecified mood [affective] disorder Plan Continue with same treatment, waiting for guardianship and later placement. According to Dr. Henderson, he will not need other referrals for his skin cancer at this moment. I spent ___20___ minutes with the patient and/or on the patient floor today, greater than?50% of which was spent counseling/coordinating care. Reason for contiued inpatient stay Substantial Risk for: inability to function, rapid decompensation and med/psych decompensation
[2021-11-15 18:00] VITALS: BP 116/67; PULSE 92; TEMP 36.7; O2SAT 94
[2021-11-15] MEDS: Latanoprost 0.005 % Ophth Sol 2.5 ML DROPS 1 DROP EYE-BOTH (20:03)
[2021-11-15] MEDS: Melatonin 3 MG TABLET PO (20:03)
[2021-11-15] MEDS: risperiDONE 0.25 MG TABLET PO (20:03)
[2021-11-15] MEDS: Mirtazapine 7.5 MG TABLET PO (20:03)
[2021-11-16 07:45] VITALS: BP 114/62; PULSE 75; RESP 14; TEMP 35.8; O2SAT 97
[2021-11-16] MEDS: Sennosides 8.6 MG TABLET PO (08:11)
[2021-11-16] MEDS: Docusate Sodium 100 MG CAPSULE PO ×2 (08:11→21:01)
[2021-11-16] MEDS: Milk of Magnesia 30 ML ORAL.SUSP PO (08:11)
[2021-11-16] MEDS: Gabapentin 100 MG CAPSULE PO ×3 (08:11→21:01)
[2021-11-16] MEDS: timoloL maleate 0.5 % Oph Sol 5 ML DRBTL 1 DROP EYE-BOTH ×2 (08:11→21:06)
[2021-11-16] MEDS: Brimonidine Tartrate 0.2% Oph 5 ML BOTTLE 1 DROP EYE-BOTH ×3 (08:11→21:05)
[2021-11-16] MEDS: Magnesium Hydrox/Alum Hydrox 30 ML ORAL.SUSP PO (08:11)
--- NOTE | 2021-11-16 12:35 | MHC.CLN ---
F/U DIET=REGULAR. CONTINUE ENSURE TID (1050 KCALS, 60 G PROTEIN). STAFF REPORTS THAT PATIENT IS EATING WELL. FAVORABLE +5.7% WEIGHT GAIN SINCE ADMISSION. CONTINUE CURRENT DIET AND SUPPLEMENT. RD TO FOLLOW WEEKLY.
--- NOTE | 2021-11-16 15:07 | P.PNPSI_ITS ---
Subjective Subjective Date of Service: 11/16/21 Reason For Visit: Unspecified Depressive Disorder Subjective Notes: Conditional Voluntary Interim History: the nursing staff reports the patient prefers to be in his room he comes out for meals and sporadically engage in some groups. Occupational therapist will try to do a [place] this week. On interview the patient denies new symptoms Mental Status Exam Mental Status Exam Patient Appearance: Well Grooomed Patient Orientation: Person and Situation Level of Consciousness: Awake Mood Description: Withdrawn Affect Description: Constricted Patient Cognition Impaired: Yes Ability to Follow Directions: Fair Speech Pattern: Clear Hallucinations: None Delusions: Not Present Thought Process: Linear Thought Content: positive for Intact Judgement: Fair Diagnostics Vital Signs (24Hr): Vital Signs - 24 hr 11/15/21 18:00 11/16/21 07:45 Temperature 98.0 F 96.4 F L Pulse Rate 92 75 Respiratory Rate 14 Blood Pressure 116/67 114/62 Pulse Oximetry 94 97 Oxygen Delivery Method Room Air Room Air BMI result Body Mass Index 18.8 Labs Results: 10/05/21 08:01 10/29/21 07:59 Imaging Radiology Impressions: ITS Impressions Head CT 10/04/21 15:04 IMPRESSION: 1. No acute intracranial pathology. 2. Right parietal meningioma without mass effect. 3. Generalized atrophy. Medications Medications Current Medications Acetaminophen (Acetaminophen 325 Mg Tablet) 650 mg PO Q6H PRN PRN Reason: Headache/Pain Mild Scale (1-3) Last Admin: 11/09/21 14:37 Dose: 650 mg Al Hydroxide/Mg Hydroxide (Magnesium Hydrox/Alum Hydrox 30 Ml Oral.Susp) 30 ml PO Q6H PRN PRN Reason: Heartburn/Nausea Last Admin: 11/16/21 08:11 Dose: 30 ml Brimonidine Tartrate (Brimonidine Tartrate 0.2% Oph 5 Ml Bottle) 1 drop EYE- BOTH TID [facility] Last Admin: 11/16/21 08:11 Dose: 1 drop Docusate Sodium (Docusate Sodium 100 Mg Capsule) 100 mg PO BID [facility] Last Admin: 11/16/21 08:11 Dose: 100 mg Gabapentin (Gabapentin 100 Mg Capsule) 100 mg PO TID [facility] Last Admin: 11/16/21 08:11 Dose: 100 mg Latanoprost (Latanoprost 0.005 % Ophth Jessie 2.5 Ml Drops) 1 drop EYE-BOTH BEDTIME [facility] Last Admin: 11/15/21 20:03 Dose: 1 drop Magnesium Hydroxide (Milk Of Magnesia 30 Ml Oral.Susp) 30 ml PO DAILY [facility] Last Admin: 11/16/21 08:11 Dose: 30 ml Melatonin (Melatonin 3 Mg Tablet) 3 mg PO BEDTIME PRN PRN Reason: Insomnia Last Admin: 11/15/21 20:03 Dose: 3 mg Mirtazapine (Mirtazapine 7.5 Mg Tablet) 7.5 mg PO BEDTIME [facility] Last Admin: 11/15/21 20:03 Dose: 7.5 mg Risperidone (Risperidone 0.25 Mg Tablet) 0.25 mg PO BEDTIME [facility] Last Admin: 11/15/21 20:03 Dose: 0.25 mg Senna (Sennosides 8.6 Mg Tablet) 8.6 mg PO DAILY [facility] Last Admin: 11/16/21 08:11 Dose: 8.6 mg Timolol Maleate (Timolol Maleate 0.5 % Oph Jessie 5 Ml Drbtl) 1 drop EYE-BOTH BID [facility] Last Admin: 11/16/21 08:11 Dose: 1 drop Allergies Allergies Allergy/AdvReac Type Severity Reaction Status Date / Time sulfamethoxazole Allergy Itching Verified 10/03/21 19:19 [From Bactrim] trimethoprim [From Bactrim] Allergy Itching Verified 10/03/21 19:19 Assessment & Plan Assessment & Plan (1) Mood disorder: Status: Acute Code(s): F39 - Unspecified mood [affective] disorder Plan Continue with same treatment, waiting for guardianship and later placement. According to Dr. Henderson, he will not need other referrals for his skin cancer at this moment. I spent ___20___ minutes with the patient and/or on the patient floor today, greater than?50% of which was spent counseling/coordinating care. Reason for contiued inpatient stay Substantial Risk for: inability to function, rapid decompensation and med/psych decompensation
[2021-11-16 18:00] VITALS: BP 106/63; PULSE 80; RESP 14; TEMP 36.8; O2SAT 95
[2021-11-16] MEDS: Mirtazapine 7.5 MG TABLET PO (21:01)
[2021-11-16] MEDS: risperiDONE 0.25 MG TABLET PO (21:02)
[2021-11-16] MEDS: Latanoprost 0.005 % Ophth Sol 2.5 ML DROPS 1 DROP EYE-BOTH (21:03)
[2021-11-17 06:00] VITALS: BP 118/62; PULSE 82; RESP 16; TEMP 36.7; O2SAT 97
[2021-11-17] MEDS: Gabapentin 100 MG CAPSULE PO ×3 (08:23→20:47)
[2021-11-17] MEDS: Docusate Sodium 100 MG CAPSULE PO ×2 (08:23→20:47)
[2021-11-17] MEDS: Sennosides 8.6 MG TABLET PO (08:23)
[2021-11-17] MEDS: Milk of Magnesia 30 ML ORAL.SUSP PO (08:23)
--- NOTE | 2021-11-17 09:18 | P.PNPSI_ITS ---
Subjective Subjective Date of Service: 11/17/21 Reason For Visit: Unspecified Depressive Disorder Subjective Notes: Conditional Voluntary Interim History: The nursing staff reported the patient has been cooperative and pleasant, he has been fully compliant with treatment. On interview the patient denies new symptoms Mental Status Exam Mental Status Exam Patient Appearance: Well Grooomed Patient Orientation: Person Level of Consciousness: Awake Patient Behavior: Cooperative Mood Description: Constricted Affect Description: Calm Patient Cognition Impaired: Yes Ability to Follow Directions: Good Speech Pattern: Clear Hallucinations: None Delusions: Not Present Thought Content: positive for Circumstantial Judgement: Fair Diagnostics Vital Signs (24Hr): Vital Signs - 24 hr 11/16/21 18:00 Temperature 98.2 F Pulse Rate 80 Respiratory Rate 14 Blood Pressure 106/63 Pulse Oximetry 95 Oxygen Delivery Method Room Air BMI result Body Mass Index 18.8 Labs Results: 10/05/21 08:01 10/29/21 07:59 Imaging Radiology Impressions: ITS Impressions Head CT 10/04/21 15:04 IMPRESSION: 1. No acute intracranial pathology. 2. Right parietal meningioma without mass effect. 3. Generalized atrophy. Medications Medications Current Medications Acetaminophen (Acetaminophen 325 Mg Tablet) 650 mg PO Q6H PRN PRN Reason: Headache/Pain Mild Scale (1-3) Last Admin: 11/09/21 14:37 Dose: 650 mg Al Hydroxide/Mg Hydroxide (Magnesium Hydrox/Alum Hydrox 30 Ml Oral.Susp) 30 ml PO Q6H PRN PRN Reason: Heartburn/Nausea Last Admin: 11/16/21 08:11 Dose: 30 ml Brimonidine Tartrate (Brimonidine Tartrate 0.2% Oph 5 Ml Bottle) 1 drop EYE- BOTH TID [facility] Last Admin: 11/16/21 21:05 Dose: 1 drop Docusate Sodium (Docusate Sodium 100 Mg Capsule) 100 mg PO BID [facility] Last Admin: 11/17/21 08:23 Dose: 100 mg Gabapentin (Gabapentin 100 Mg Capsule) 100 mg PO TID [facility] Last Admin: 11/17/21 08:23 Dose: 100 mg Latanoprost (Latanoprost 0.005 % Ophth Jessie 2.5 Ml Drops) 1 drop EYE-BOTH BEDTIME [facility] Last Admin: 11/16/21 21:03 Dose: 1 drop Magnesium Hydroxide (Milk Of Magnesia 30 Ml Oral.Susp) 30 ml PO DAILY [facility] Last Admin: 11/17/21 08:23 Dose: 30 ml Melatonin (Melatonin 3 Mg Tablet) 3 mg PO BEDTIME PRN PRN Reason: Insomnia Last Admin: 11/15/21 20:03 Dose: 3 mg Mirtazapine (Mirtazapine 7.5 Mg Tablet) 7.5 mg PO BEDTIME [facility] Last Admin: 11/16/21 21:01 Dose: 7.5 mg Risperidone (Risperidone 0.25 Mg Tablet) 0.25 mg PO BEDTIME [facility] Last Admin: 11/16/21 21:02 Dose: 0.25 mg Senna (Sennosides 8.6 Mg Tablet) 8.6 mg PO DAILY [facility] Last Admin: 11/17/21 08:23 Dose: 8.6 mg Timolol Maleate (Timolol Maleate 0.5 % Oph Jessie 5 Ml Drbtl) 1 drop EYE-BOTH BID [facility] Last Admin: 11/16/21 21:06 Dose: 1 drop Allergies Allergies Allergy/AdvReac Type Severity Reaction Status Date / Time sulfamethoxazole Allergy Itching Verified 10/03/21 19:19 [From Bactrim] trimethoprim [From Bactrim] Allergy Itching Verified 10/03/21 19:19 Assessment & Plan Assessment & Plan (1) Mood disorder: Status: Acute Code(s): F39 - Unspecified mood [affective] disorder Plan Continue with same treatment, waiting for guardianship and later placement. According to Dr. Henderson, he will not need other referrals for his skin cancer at this moment. I spent ___20___ minutes with the patient and/or on the patient floor today, greater than?50% of which was spent counseling/coordinating care. Reason for contiued inpatient stay Substantial Risk for: inability to function, rapid decompensation and med/psych decompensation
[2021-11-17] MEDS: Brimonidine Tartrate 0.2% Oph 5 ML BOTTLE 1 DROP EYE-BOTH ×3 (16:17→20:48)
[2021-11-17 19:45] VITALS: BP 103/63; PULSE 75; RESP 14; TEMP 37; O2SAT 96
[2021-11-17] MEDS: risperiDONE 0.25 MG TABLET PO (20:47)
[2021-11-17] MEDS: Mirtazapine 7.5 MG TABLET PO (20:47)
[2021-11-17] MEDS: timoloL maleate 0.5 % Oph Sol 5 ML DRBTL 1 DROP EYE-BOTH (20:48)
[2021-11-17] MEDS: Latanoprost 0.005 % Ophth Sol 2.5 ML DROPS 1 DROP EYE-BOTH (20:48)
[2021-11-18 06:00] VITALS: BP 113/61; PULSE 74; RESP 16; TEMP 36.4; O2SAT 97
[2021-11-18] MEDS: Milk of Magnesia 30 ML ORAL.SUSP PO (10:50)
[2021-11-18] MEDS: Gabapentin 100 MG CAPSULE PO ×3 (10:50→20:04)
[2021-11-18] MEDS: Docusate Sodium 100 MG CAPSULE PO ×2 (10:50→20:04)
[2021-11-18] MEDS: Sennosides 8.6 MG TABLET PO (10:50)
[2021-11-18] MEDS: timoloL maleate 0.5 % Oph Sol 5 ML DRBTL 1 DROP EYE-BOTH ×2 (10:52→20:07)
[2021-11-18] MEDS: Brimonidine Tartrate 0.2% Oph 5 ML BOTTLE 1 DROP EYE-BOTH ×2 (10:53→20:06)
--- NOTE | 2021-11-18 11:00 | HO.PSYCHPN ---
Subjective Subjective Date of Service: 11/18/21 Reason For Visit: Unspecified Depressive Disorder Subjective Notes: Conditional Voluntary Interim History: The nursing staff reported the patient has been compliant with treatment, he slept 7 hours he denies new symptoms. Today, at lunch, he choked with his food, no evidence of aspiration. Mental Status Exam Mental Status Exam Patient Appearance: Well Grooomed Patient Orientation: Person and Situation Level of Consciousness: Awake Patient Behavior: Cooperative Mood Description: Constricted Affect Description: Calm Patient Cognition Impaired: Yes Ability to Follow Directions: Good Speech Pattern: Clear Hallucinations: None Delusions: Not Present Thought Process: Distracted Thought Content: positive for Circumstantial Judgement: Fair Diagnostics Vital Signs (24Hr): Vital Signs - 24 hr 11/17/21 19:45 11/18/21 06:00 Temperature 98.6 F 97.5 F Pulse Rate 75 74 Respiratory Rate 14 16 Blood Pressure 103/63 113/61 Pulse Oximetry 96 97 Oxygen Delivery Method Room Air Room Air BMI result Body Mass Index 18.8 Labs Results: 10/05/21 08:01 10/29/21 07:59 Imaging Radiology Impressions: ITS Impressions Head CT 10/04/21 15:04 IMPRESSION: 1. No acute intracranial pathology. 2. Right parietal meningioma without mass effect. 3. Generalized atrophy. Medications Medications Current Medications Acetaminophen (Acetaminophen 325 Mg Tablet) 650 mg PO Q6H PRN PRN Reason: Headache/Pain Mild Scale (1-3) Last Admin: 11/09/21 14:37 Dose: 650 mg Al Hydroxide/Mg Hydroxide (Magnesium Hydrox/Alum Hydrox 30 Ml Oral.Susp) 30 ml PO Q6H PRN PRN Reason: Heartburn/Nausea Last Admin: 11/16/21 08:11 Dose: 30 ml Brimonidine Tartrate (Brimonidine Tartrate 0.2% Oph 5 Ml Bottle) 1 drop EYE-BOTH TID [facility] Last Admin: 11/18/21 10:53 Dose: 1 drop Docusate Sodium (Docusate Sodium 100 Mg Capsule) 100 mg PO BID [facility] Last Admin: 11/18/21 10:50 Dose: 100 mg Gabapentin (Gabapentin 100 Mg Capsule) 100 mg PO TID [facility] Last Admin: 11/18/21 10:50 Dose: 100 mg Latanoprost (Latanoprost 0.005 % Ophth Jessie 2.5 Ml Drops) 1 drop EYE-BOTH BEDTIME [facility] Last Admin: 11/17/21 20:48 Dose: 1 drop Magnesium Hydroxide (Milk Of Magnesia 30 Ml Oral.Susp) 30 ml PO DAILY [facility] Last Admin: 11/18/21 10:50 Dose: 30 ml Melatonin (Melatonin 3 Mg Tablet) 3 mg PO BEDTIME PRN PRN Reason: Insomnia Last Admin: 11/15/21 20:03 Dose: 3 mg Mirtazapine (Mirtazapine 7.5 Mg Tablet) 7.5 mg PO BEDTIME [facility] Last Admin: 11/17/21 20:47 Dose: 7.5 mg Risperidone (Risperidone 0.25 Mg Tablet) 0.25 mg PO BEDTIME [facility] Last Admin: 11/17/21 20:47 Dose: 0.25 mg Senna (Sennosides 8.6 Mg Tablet) 8.6 mg PO DAILY [facility] Last Admin: 11/18/21 10:50 Dose: 8.6 mg Timolol Maleate (Timolol Maleate 0.5 % Oph Jessie 5 Ml Drbtl) 1 drop EYE-BOTH BID [facility] Last Admin: 11/18/21 10:52 Dose: 1 drop Allergies Allergies Allergy/AdvReac Type Severity Reaction Status Date / Time sulfamethoxazole Allergy Itching Verified 10/03/21 19:19 [From Bactrim] trimethoprim [From Bactrim] Allergy Itching Verified 10/03/21 19:19 Assessment & Plan Assessment & Plan (1) Mood disorder: Status: Acute Code(s): F39 - Unspecified mood [affective] disorder Plan Continue with same treatment, waiting for guardianship and later placement. According to Dr. Henderson, he will not need other referrals for his skin cancer at this moment. I spent ___20___ minutes with the patient and/or on the patient floor today, greater than?50% of which was spent counseling/coordinating care. Reason for contiued inpatient stay Substantial Risk for: inability to function, rapid decompensation and med/psych decompensation
--- NOTE | 2021-11-18 15:35 | PC.NURSE ---
Pt observed at lunch time with copious amt of mucous on napkin in front of him on table and hanging off of hand and chin. Face/eyes reddened, fearful expression on face. Initially did not say anything, but kept trying to clear throat. Pt stated he felt as though food was stuck at chest level. Continued to bring up large amt's clear mucous x4 and continued to state he felt food was stuck and felt it was at throat level. This advertising copy writer assisted pt with positioning, support. Pt not able to clear on own. Staff assisted with clearing with back tap. Lg amt undigested food vomited with full relief reported. Lung sounds clear upon auscultation. Dr Recio informed, chopped diet ordered.
[2021-11-18 19:34] VITALS: PULSE 85; RESP 16; TEMP 36.9; O2SAT 96
[2021-11-18] MEDS: risperiDONE 0.25 MG TABLET PO (20:03)
[2021-11-18] MEDS: Mirtazapine 7.5 MG TABLET PO (20:03)
[2021-11-18] MEDS: Latanoprost 0.005 % Ophth Sol 2.5 ML DROPS 1 DROP EYE-BOTH (20:07)
[2021-11-19 07:30] VITALS: BP 128/64; PULSE 87; RESP 15; TEMP 36.6; O2SAT 98
--- NOTE | 2021-11-19 08:34 | PM.EVENT ---
Event Note Date of Service: 11/19/21 Event Note: Sutures removed Incision healing well Path report shows basal cell carcinoma, margins positive Allow incision to completely heal Re-evaluate down the line for likely wider excision Doing well overall
[2021-11-19] MEDS: Brimonidine Tartrate 0.2% Oph 5 ML BOTTLE 1 DROP EYE-BOTH ×3 (09:14→19:54)
[2021-11-19] MEDS: Milk of Magnesia 30 ML ORAL.SUSP PO (09:14)
[2021-11-19] MEDS: Gabapentin 100 MG CAPSULE PO ×3 (09:15→19:51)
[2021-11-19] MEDS: Sennosides 8.6 MG TABLET PO (09:15)
[2021-11-19] MEDS: Docusate Sodium 100 MG CAPSULE PO ×2 (09:15→19:52)
[2021-11-19] MEDS: timoloL maleate 0.5 % Oph Sol 5 ML DRBTL 1 DROP EYE-BOTH ×2 (09:39→19:55)
--- NOTE | 2021-11-19 15:41 | HO.PSYCHPN ---
Subjective Subjective Date of Service: 11/19/21 Reason For Visit: Unspecified Depressive Disorder Subjective Notes: Conditional Voluntary Interim History: The nursing staff reported the patient had been fully compliant with treatment, he denies new symptoms on interview today he walked about 06:00 o'clock in the morning and he was taking his Ensure. Yesterday he choked on his food and we needed to change his diet he was unhappy with that. Mental Status Exam Mental Status Exam Patient Appearance: Well Grooomed Patient Orientation: Person and Situation Level of Consciousness: Awake Patient Behavior: Cooperative Mood Description: Constricted Affect Description: Calm Patient Cognition Impaired: Yes Ability to Follow Directions: Good Speech Pattern: Clear Hallucinations: None Delusions: Not Present Thought Process: Distracted Thought Content: positive for [place] Judgement: Fair Diagnostics Vital Signs (24Hr): Vital Signs - 24 hr 11/18/21 19:34 11/19/21 07:30 Temperature 98.4 F 97.9 F Pulse Rate 85 87 Respiratory Rate 16 15 Blood Pressure 128/64 Pulse Oximetry 96 98 Oxygen Delivery Method Room Air Room Air BMI result Body Mass Index 18.8 Labs Results: 10/05/21 08:01 10/29/21 07:59 Imaging Radiology Impressions: ITS Impressions Head CT 10/04/21 15:04 IMPRESSION: 1. No acute intracranial pathology. 2. Right parietal meningioma without mass effect. 3. Generalized atrophy. Medications Medications Current Medications Acetaminophen (Acetaminophen 325 Mg Tablet) 650 mg PO Q6H PRN PRN Reason: Headache/Pain Mild Scale (1-3) Last Admin: 11/09/21 14:37 Dose: 650 mg Al Hydroxide/Mg Hydroxide (Magnesium Hydrox/Alum Hydrox 30 Ml Oral.Susp) 30 ml PO Q6H PRN PRN Reason: Heartburn/Nausea Last Admin: 11/16/21 08:11 Dose: 30 ml Brimonidine Tartrate (Brimonidine Tartrate 0.2% Oph 5 Ml Bottle) 1 drop EYE-BOTH TID [facility] Last Admin: 11/19/21 09:14 Dose: 1 drop Docusate Sodium (Docusate Sodium 100 Mg Capsule) 100 mg PO BID [facility] Last Admin: 11/19/21 09:15 Dose: 100 mg Gabapentin (Gabapentin 100 Mg Capsule) 100 mg PO TID [facility] Last Admin: 11/19/21 09:15 Dose: 100 mg Latanoprost (Latanoprost 0.005 % Ophth Jessie 2.5 Ml Drops) 1 drop EYE-BOTH BEDTIME [facility] Last Admin: 11/18/21 20:07 Dose: 1 drop Magnesium Hydroxide (Milk Of Magnesia 30 Ml Oral.Susp) 30 ml PO DAILY [facility] Last Admin: 11/19/21 09:14 Dose: 30 ml Melatonin (Melatonin 3 Mg Tablet) 3 mg PO BEDTIME PRN PRN Reason: Insomnia Last Admin: 11/15/21 20:03 Dose: 3 mg Mirtazapine (Mirtazapine 7.5 Mg Tablet) 7.5 mg PO BEDTIME [facility] Last Admin: 11/18/21 20:03 Dose: 7.5 mg Risperidone (Risperidone 0.25 Mg Tablet) 0.25 mg PO BEDTIME [facility] Last Admin: 11/18/21 20:03 Dose: 0.25 mg Senna (Sennosides 8.6 Mg Tablet) 8.6 mg PO DAILY [facility] Last Admin: 11/19/21 09:15 Dose: 8.6 mg Timolol Maleate (Timolol Maleate 0.5 % Oph Jessie 5 Ml Drbtl) 1 drop EYE-BOTH BID [facility] Last Admin: 11/19/21 09:39 Dose: 1 drop Allergies Allergies Allergy/AdvReac Type Severity Reaction Status Date / Time sulfamethoxazole Allergy Itching Verified 10/03/21 19:19 [From Bactrim] trimethoprim [From Bactrim] Allergy Itching Verified 10/03/21 19:19 Assessment & Plan Assessment & Plan (1) Mood disorder: Status: Acute Code(s): F39 - Unspecified mood [affective] disorder Plan Continue with same treatment, waiting for guardianship and later placement. According to Dr. Henderson, he will not need other referrals for his skin cancer at this moment. I spent __20____ minutes with the patient and/or on the patient floor today, greater than?50% of which was spent counseling/coordinating care. Reason for contiued inpatient stay Substantial Risk for: inability to function, rapid decompensation and med/psych decompensation
[2021-11-19 18:00] VITALS: BP 97/59; PULSE 64; RESP 17; TEMP 36.9; O2SAT 96
[2021-11-19] MEDS: Mirtazapine 7.5 MG TABLET PO (19:52)
[2021-11-19] MEDS: risperiDONE 0.25 MG TABLET PO (19:52)
[2021-11-19] MEDS: Latanoprost 0.005 % Ophth Sol 2.5 ML DROPS 1 DROP EYE-BOTH (19:55)
[2021-11-20 07:30] VITALS: BP 139/70; PULSE 75; RESP 16; TEMP 36.2; O2SAT 97
[2021-11-20] MEDS: Docusate Sodium 100 MG CAPSULE PO ×2 (08:06→21:12)
[2021-11-20] MEDS: Gabapentin 100 MG CAPSULE PO ×3 (08:06→21:13)
[2021-11-20] MEDS: Milk of Magnesia 30 ML ORAL.SUSP PO (08:06)
[2021-11-20] MEDS: Sennosides 8.6 MG TABLET PO (08:06)
[2021-11-20] MEDS: Brimonidine Tartrate 0.2% Oph 5 ML BOTTLE 1 DROP EYE-BOTH ×3 (08:09→21:10)
[2021-11-20] MEDS: timoloL maleate 0.5 % Oph Sol 5 ML DRBTL 1 DROP EYE-BOTH ×2 (08:09→21:11)
--- NOTE | 2021-11-20 15:32 | P.PNPSI_ITS ---
Subjective Subjective Date of Service: 11/20/21 Reason For Visit: Unspecified Depressive Disorder Subjective Notes: Conditional Voluntary Interim History: The nursing staff reported the patient has been isolative in his room, medicated compliance. His [place] now was redo and he score 16/30 much better since the last time. He scored 4.8 on the Phani test. On interview the patient denies new symptoms. Mental Status Exam Mental Status Exam Patient Appearance: Well Grooomed Patient Orientation: Person and Situation Level of Consciousness: Appropriate Patient Behavior: Cooperative Mood Description: Calm Affect Description: Constricted Patient Cognition Impaired: Yes Ability to Follow Directions: Good Speech Pattern: Clear Hallucinations: None Thought Process: Distracted Thought Content: positive for [place] Judgement: Fair Diagnostics Vital Signs (24Hr): Vital Signs - 24 hr 11/19/21 18:00 11/20/21 07:30 Temperature 98.4 F 97.1 F Pulse Rate 64 75 Respiratory Rate 17 16 Blood Pressure 97/59 L 139/70 Pulse Oximetry 96 97 Oxygen Delivery Method Room Air Room Air BMI result Body Mass Index 18.8 Labs Results: 10/05/21 08:01 10/29/21 07:59 Imaging Radiology Impressions: ITS Impressions Head CT 10/04/21 15:04 IMPRESSION: 1. No acute intracranial pathology. 2. Right parietal meningioma without mass effect. 3. Generalized atrophy. Medications Medications Current Medications Acetaminophen (Acetaminophen 325 Mg Tablet) 650 mg PO Q6H PRN PRN Reason: Headache/Pain Mild Scale (1-3) Last Admin: 11/09/21 14:37 Dose: 650 mg Al Hydroxide/Mg Hydroxide (Magnesium Hydrox/Alum Hydrox 30 Ml Oral.Susp) 30 ml PO Q6H PRN PRN Reason: Heartburn/Nausea Last Admin: 11/16/21 08:11 Dose: 30 ml Brimonidine Tartrate (Brimonidine Tartrate 0.2% Oph 5 Ml Bottle) 1 drop EYE- BOTH TID [facility] Last Admin: 11/20/21 15:03 Dose: 1 drop Docusate Sodium (Docusate Sodium 100 Mg Capsule) 100 mg PO BID [facility] Last Admin: 11/20/21 08:06 Dose: 100 mg Gabapentin (Gabapentin 100 Mg Capsule) 100 mg PO TID [facility] Last Admin: 11/20/21 15:03 Dose: 100 mg Latanoprost (Latanoprost 0.005 % Ophth Jessie 2.5 Ml Drops) 1 drop EYE-BOTH BEDTIME [facility] Last Admin: 11/19/21 19:55 Dose: 1 drop Magnesium Hydroxide (Milk Of Magnesia 30 Ml Oral.Susp) 30 ml PO DAILY [facility] Last Admin: 11/20/21 08:06 Dose: 30 ml Melatonin (Melatonin 3 Mg Tablet) 3 mg PO BEDTIME PRN PRN Reason: Insomnia Last Admin: 11/15/21 20:03 Dose: 3 mg Mirtazapine (Mirtazapine 7.5 Mg Tablet) 7.5 mg PO BEDTIME [facility] Last Admin: 11/19/21 19:52 Dose: 7.5 mg Risperidone (Risperidone 0.25 Mg Tablet) 0.25 mg PO BEDTIME [facility] Last Admin: 11/19/21 19:52 Dose: 0.25 mg Senna (Sennosides 8.6 Mg Tablet) 8.6 mg PO DAILY [facility] Last Admin: 11/20/21 08:06 Dose: 8.6 mg Timolol Maleate (Timolol Maleate 0.5 % Oph Jessie 5 Ml Drbtl) 1 drop EYE-BOTH BID [facility] Last Admin: 11/20/21 08:09 Dose: 1 drop Allergies Allergies Allergy/AdvReac Type Severity Reaction Status Date / Time sulfamethoxazole Allergy Itching Verified 10/03/21 19:19 [From Bactrim] trimethoprim [From Bactrim] Allergy Itching Verified 10/03/21 19:19 Assessment & Plan Assessment & Plan (1) Mood disorder: Status: Acute Code(s): F39 - Unspecified mood [affective] disorder Plan Continue with same treatment, waiting for guardianship and later placement. According to Dr. Henderson, he will not need other referrals for his skin cancer at this moment. I spent ___20___ minutes with the patient and/or on the patient floor today, greater than?50% of which was spent counseling/coordinating care. Reason for contiued inpatient stay Substantial Risk for: inability to function, rapid decompensation and med/psych decompensation
[2021-11-20 16:34] VITALS: BP 98/54; PULSE 64; RESP 16; TEMP 36.7; O2SAT 96
[2021-11-20] MEDS: Latanoprost 0.005 % Ophth Sol 2.5 ML DROPS 1 DROP EYE-BOTH (21:10)
[2021-11-20] MEDS: Mirtazapine 7.5 MG TABLET PO (21:12)
[2021-11-20] MEDS: risperiDONE 0.25 MG TABLET PO (21:13)
[2021-11-20] MEDS: Melatonin 3 MG TABLET PO (21:13)
[2021-11-21 06:00] VITALS: BP 112/68; PULSE 76; TEMP 36.7; O2SAT 94
[2021-11-21] MEDS: Milk of Magnesia 30 ML ORAL.SUSP PO (09:48)
[2021-11-21] MEDS: Docusate Sodium 100 MG CAPSULE PO ×2 (09:48→21:08)
[2021-11-21] MEDS: Gabapentin 100 MG CAPSULE PO ×3 (09:48→21:08)
[2021-11-21] MEDS: Sennosides 8.6 MG TABLET PO (09:48)
[2021-11-21] MEDS: timoloL maleate 0.5 % Oph Sol 5 ML DRBTL 1 DROP EYE-BOTH ×2 (12:28→21:06)
[2021-11-21] MEDS: Brimonidine Tartrate 0.2% Oph 5 ML BOTTLE 1 DROP EYE-BOTH ×3 (12:28→21:06)
--- NOTE | 2021-11-21 12:44 | HO.PSYCHPN ---
Subjective Subjective Date of Service: 11/21/21 Reason For Visit: Unspecified Depressive Disorder Subjective Notes: Conditional Voluntary Interim History: The nursing staff reported the patient has been cooperative and pleasant, he even has been joking. The social studies teacher spoke with her new guardian and a new mass had a plication was started. On interview the patient denies new symptoms. Mental Status Exam Mental Status Exam Patient Appearance: Well Grooomed Patient Orientation: Person and Situation Level of Consciousness: Disoriented Patient Behavior: Cooperative Mood Description: Constricted Affect Description: Labile Patient Cognition Impaired: Yes Ability to Follow Directions: Good Speech Pattern: Clear Hallucinations: None Delusions: Not Present Thought Process: Distracted Thought Content: positive for [place] Judgement: Fair Diagnostics Vital Signs (24Hr): Vital Signs - 24 hr 11/20/21 16:34 11/21/21 06:00 Temperature 98.0 F 98.1 F Pulse Rate 64 76 Respiratory Rate 16 Blood Pressure 98/54 L 112/68 Pulse Oximetry 96 94 Oxygen Delivery Method Room Air Room Air BMI result Body Mass Index 18.8 Labs Results: 10/05/21 08:01 10/29/21 07:59 Imaging Radiology Impressions: ITS Impressions Head CT 10/04/21 15:04 IMPRESSION: 1. No acute intracranial pathology. 2. Right parietal meningioma without mass effect. 3. Generalized atrophy. Medications Medications Current Medications Acetaminophen (Acetaminophen 325 Mg Tablet) 650 mg PO Q6H PRN PRN Reason: Headache/Pain Mild Scale (1-3) Last Admin: 11/09/21 14:37 Dose: 650 mg Al Hydroxide/Mg Hydroxide (Magnesium Hydrox/Alum Hydrox 30 Ml Oral.Susp) 30 ml PO Q6H PRN PRN Reason: Heartburn/Nausea Last Admin: 11/16/21 08:11 Dose: 30 ml Brimonidine Tartrate (Brimonidine Tartrate 0.2% Oph 5 Ml Bottle) 1 drop EYE-BOTH TID [facility] Last Admin: 11/21/21 12:28 Dose: 1 drop Docusate Sodium (Docusate Sodium 100 Mg Capsule) 100 mg PO BID [facility] Last Admin: 11/21/21 09:48 Dose: 100 mg Gabapentin (Gabapentin 100 Mg Capsule) 100 mg PO TID [facility] Last Admin: 11/21/21 09:48 Dose: 100 mg Latanoprost (Latanoprost 0.005 % Ophth Jessie 2.5 Ml Drops) 1 drop EYE-BOTH BEDTIME [facility] Last Admin: 11/20/21 21:10 Dose: 1 drop Magnesium Hydroxide (Milk Of Magnesia 30 Ml Oral.Susp) 30 ml PO DAILY [facility] Last Admin: 11/21/21 09:48 Dose: 30 ml Melatonin (Melatonin 3 Mg Tablet) 3 mg PO BEDTIME PRN PRN Reason: Insomnia Last Admin: 11/20/21 21:13 Dose: 3 mg Mirtazapine (Mirtazapine 7.5 Mg Tablet) 7.5 mg PO BEDTIME [facility] Last Admin: 11/20/21 21:12 Dose: 7.5 mg Risperidone (Risperidone 0.25 Mg Tablet) 0.25 mg PO BEDTIME [facility] Last Admin: 11/20/21 21:13 Dose: 0.25 mg Senna (Sennosides 8.6 Mg Tablet) 8.6 mg PO DAILY [facility] Last Admin: 11/21/21 09:48 Dose: 8.6 mg Timolol Maleate (Timolol Maleate 0.5 % Oph Jessie 5 Ml Drbtl) 1 drop EYE-BOTH BID [facility] Last Admin: 11/21/21 12:28 Dose: 1 drop Allergies Allergies Allergy/AdvReac Type Severity Reaction Status Date / Time sulfamethoxazole Allergy Itching Verified 10/03/21 19:19 [From Bactrim] trimethoprim [From Bactrim] Allergy Itching Verified 10/03/21 19:19 Assessment & Plan Assessment & Plan (1) Mood disorder: Status: Acute Code(s): F39 - Unspecified mood [affective] disorder Plan Continue with same treatment, According to Dr. Henderson, he will not need other referrals for his skin cancer at this moment. Waiting for placement now that we have guardianship I spent minutes with the patient and/or on the patient floor today, greater than?50% of which was spent counseling/coordinating care. Reason for contiued inpatient stay Substantial Risk for: inability to function, rapid decompensation and med/psych decompensation
[2021-11-21 18:00] VITALS: BP 110/59; PULSE 78; RESP 12; TEMP 36.7; O2SAT 96
[2021-11-21] MEDS: Latanoprost 0.005 % Ophth Sol 2.5 ML DROPS 1 DROP EYE-BOTH (21:06)
[2021-11-21] MEDS: Mirtazapine 7.5 MG TABLET PO (21:08)
[2021-11-21] MEDS: Melatonin 3 MG TABLET PO (21:08)
[2021-11-21] MEDS: risperiDONE 0.25 MG TABLET PO (21:08)
[2021-11-22 06:00] VITALS: BP 131/70; PULSE 75; RESP 15; TEMP 37; O2SAT 94
[2021-11-22] MEDS: Docusate Sodium 100 MG CAPSULE PO ×2 (10:43→20:31)
[2021-11-22] MEDS: timoloL maleate 0.5 % Oph Sol 5 ML DRBTL 1 DROP EYE-BOTH ×2 (10:43→20:34)
[2021-11-22] MEDS: Gabapentin 100 MG CAPSULE PO ×3 (10:43→20:31)
[2021-11-22] MEDS: Milk of Magnesia 30 ML ORAL.SUSP PO (10:44)
[2021-11-22] MEDS: Brimonidine Tartrate 0.2% Oph 5 ML BOTTLE 1 DROP EYE-BOTH ×3 (10:44→20:32)
[2021-11-22] MEDS: Sennosides 8.6 MG TABLET PO (10:44)
--- NOTE | 2021-11-22 16:16 | P.PNPSI_ITS ---
Subjective Subjective Date of Service: 11/22/21 Reason For Visit: Unspecified Depressive Disorder Subjective Notes: Conditional Voluntary Interim History: The nursing staff reported the patient has been out more in the common areas, he has been more active and he has participating a few crypts. On interview the patient denies new symptoms Mental Status Exam Mental Status Exam Patient Appearance: Well Grooomed Patient Orientation: Person and Situation Level of Consciousness: Awake Patient Behavior: Cooperative Mood Description: Calm Affect Description: Constricted Patient Cognition Impaired: Yes Ability to Follow Directions: Good Speech Pattern: Clear Hallucinations: None Delusions: Not Present Thought Process: Distracted Thought Content: positive for [place] Judgement: Fair Diagnostics Vital Signs (24Hr): Vital Signs - 24 hr 11/21/21 18:00 11/22/21 06:00 Temperature 98.1 F 98.6 F Pulse Rate 78 75 Respiratory Rate 12 15 Blood Pressure 110/59 L 131/70 Pulse Oximetry 96 94 Oxygen Delivery Method Room Air Room Air BMI result Body Mass Index 18.8 Labs Results: 10/05/21 08:01 10/29/21 07:59 Imaging Radiology Impressions: ITS Impressions Head CT 10/04/21 15:04 IMPRESSION: 1. No acute intracranial pathology. 2. Right parietal meningioma without mass effect. 3. Generalized atrophy. Medications Medications Current Medications Acetaminophen (Acetaminophen 325 Mg Tablet) 650 mg PO Q6H PRN PRN Reason: Headache/Pain Mild Scale (1-3) Last Admin: 11/09/21 14:37 Dose: 650 mg Al Hydroxide/Mg Hydroxide (Magnesium Hydrox/Alum Hydrox 30 Ml Oral.Susp) 30 ml PO Q6H PRN PRN Reason: Heartburn/Nausea Last Admin: 11/16/21 08:11 Dose: 30 ml Brimonidine Tartrate (Brimonidine Tartrate 0.2% Oph 5 Ml Bottle) 1 drop EYE- BOTH TID [facility] Last Admin: 11/22/21 15:58 Dose: 1 drop Docusate Sodium (Docusate Sodium 100 Mg Capsule) 100 mg PO BID [facility] Last Admin: 11/22/21 10:43 Dose: 100 mg Gabapentin (Gabapentin 100 Mg Capsule) 100 mg PO TID [facility] Last Admin: 11/22/21 15:57 Dose: 100 mg Latanoprost (Latanoprost 0.005 % Ophth Jessie 2.5 Ml Drops) 1 drop EYE-BOTH BEDTIME [facility] Last Admin: 11/21/21 21:06 Dose: 1 drop Magnesium Hydroxide (Milk Of Magnesia 30 Ml Oral.Susp) 30 ml PO DAILY [facility] Last Admin: 11/22/21 10:44 Dose: 30 ml Melatonin (Melatonin 3 Mg Tablet) 3 mg PO BEDTIME PRN PRN Reason: Insomnia Last Admin: 11/21/21 21:08 Dose: 3 mg Mirtazapine (Mirtazapine 7.5 Mg Tablet) 7.5 mg PO BEDTIME [facility] Last Admin: 11/21/21 21:08 Dose: 7.5 mg Risperidone (Risperidone 0.25 Mg Tablet) 0.25 mg PO BEDTIME [facility] Last Admin: 11/21/21 21:08 Dose: 0.25 mg Senna (Sennosides 8.6 Mg Tablet) 8.6 mg PO DAILY [facility] Last Admin: 11/22/21 10:44 Dose: 8.6 mg Timolol Maleate (Timolol Maleate 0.5 % Oph Jessie 5 Ml Drbtl) 1 drop EYE-BOTH BID [facility] Last Admin: 11/22/21 10:43 Dose: 1 drop Allergies Allergies Allergy/AdvReac Type Severity Reaction Status Date / Time sulfamethoxazole Allergy Itching Verified 10/03/21 19:19 [From Bactrim] trimethoprim [From Bactrim] Allergy Itching Verified 10/03/21 19:19 Assessment & Plan Assessment & Plan (1) Mood disorder: Status: Acute Code(s): F39 - Unspecified mood [affective] disorder Plan Continue with same treatment, According to Dr. Henderson, he will not need other referrals for his skin cancer at this moment. Waiting for placement now that we have guardianship I spent ___20___ minutes with the patient and/or on the patient floor today, greater than?50% of which was spent counseling/coordinating care. Reason for contiued inpatient stay Substantial Risk for: inability to function, rapid decompensation and med/psych decompensation
[2021-11-22 18:00] VITALS: BP 118/60; PULSE 77; RESP 18; TEMP 37.1; O2SAT 97
[2021-11-22] MEDS: Mirtazapine 7.5 MG TABLET PO (20:30)
[2021-11-22] MEDS: risperiDONE 0.25 MG TABLET PO (20:31)
[2021-11-22] MEDS: Latanoprost 0.005 % Ophth Sol 2.5 ML DROPS 1 DROP EYE-BOTH (20:33)
[2021-11-23] MEDS: timoloL maleate 0.5 % Oph Sol 5 ML DRBTL 1 DROP EYE-BOTH ×2 (07:42→20:25)
[2021-11-23] MEDS: Milk of Magnesia 30 ML ORAL.SUSP PO (07:42)
[2021-11-23] MEDS: Docusate Sodium 100 MG CAPSULE PO ×2 (07:43→20:26)
[2021-11-23] MEDS: Sennosides 8.6 MG TABLET PO (07:43)
[2021-11-23] MEDS: Gabapentin 100 MG CAPSULE PO ×3 (07:43→20:26)
[2021-11-23 07:52] VITALS: BP 124/72; PULSE 91; RESP 17; TEMP 37.2; O2SAT 94
--- NOTE | 2021-11-23 11:23 | HO.PSYCHPN ---
Subjective Subjective Date of Service: 11/23/21 Reason For Visit: Unspecified Depressive Disorder Subjective Notes: Conditional Voluntary Interim History: Pt sitting outside in the sun. When asked how he was feeling he states I don't know, what do you think? He has some sense of humor. He denies SI/HI. He reports sleeping and eating well. He asks this scientific technical writer if I can get him a million dollars, otherwise denies any concern. Per nursing, no behavioral concerns, pt sleeps through the night, takes medications as prescribed. Medication Compliance: Yes Side effects from medications: No Attending Groups: Yes Review of Systems Review of Systems Yes all other systems are reviewed and are negative and Unobtainable due to mental status Constitutional: Denies chills and Denies fever(s) Cardiovascular: Denies chest pain, Denies dyspnea and Denies dyspnea on exertion Respiratory: Denies cough, Denies dyspnea and Denies dyspnea on exertion Gastrointestinal: Denies hematochezia and Denies change in bowel habits Genitourinary: Denies hematuria and Denies difficulty urinating Musculoskeletal: Denies back pain and Denies limited range of motion Denies focal weakness and Denies convulsions Psychiatric: Reports depression and Denies mood swings Mental Status Exam Mental Status Exam Patient Appearance: Well Grooomed Patient Orientation: Person and Situation Level of Consciousness: Awake Patient Behavior: Cooperative Mood Description: Calm Affect Description: Constricted Patient Cognition Impaired: Yes Ability to Follow Directions: Good Speech Pattern: Clear Memory Description: Intact Diagnostics Vital Signs (24Hr): Vital Signs - 24 hr 11/23/21 18:00 Temperature 98.7 F Pulse Rate 67 Respiratory Rate 18 Blood Pressure 99/55 L Pulse Oximetry 97 Oxygen Delivery Method Room Air BMI result Body Mass Index 18.8 Labs Results: 10/05/21 08:01 10/29/21 07:59 Imaging Radiology Impressions: ITS Impressions Head CT 10/04/21 15:04 IMPRESSION: 1. No acute intracranial pathology. 2. Right parietal meningioma without mass effect. 3. Generalized atrophy. Medications Medications Current Medications Acetaminophen (Acetaminophen 325 Mg Tablet) 650 mg PO Q6H PRN PRN Reason: Headache/Pain Mild Scale (1-3) Last Admin: 11/09/21 14:37 Dose: 650 mg Al Hydroxide/Mg Hydroxide (Magnesium Hydrox/Alum Hydrox 30 Ml Oral.Susp) 30 ml PO Q6H PRN PRN Reason: Heartburn/Nausea Last Admin: 11/16/21 08:11 Dose: 30 ml Brimonidine Tartrate (Brimonidine Tartrate 0.2% Oph 5 Ml Bottle) 1 drop EYE-BOTH TID [facility] Last Admin: 11/23/21 20:24 Dose: 1 drop Docusate Sodium (Docusate Sodium 100 Mg Capsule) 100 mg PO BID [facility] Last Admin: 11/23/21 20:26 Dose: 100 mg Gabapentin (Gabapentin 100 Mg Capsule) 100 mg PO TID [facility] Last Admin: 11/23/21 20:26 Dose: 100 mg Latanoprost (Latanoprost 0.005 % Ophth Jessie 2.5 Ml Drops) 1 drop EYE-BOTH BEDTIME [facility] Last Admin: 11/23/21 20:25 Dose: 1 drop Magnesium Hydroxide (Milk Of Magnesia 30 Ml Oral.Susp) 30 ml PO DAILY [facility] Last Admin: 11/23/21 07:42 Dose: 30 ml Melatonin (Melatonin 3 Mg Tablet) 3 mg PO BEDTIME PRN PRN Reason: Insomnia Last Admin: 11/21/21 21:08 Dose: 3 mg Mirtazapine (Mirtazapine 7.5 Mg Tablet) 7.5 mg PO BEDTIME [facility] Last Admin: 11/23/21 20:25 Dose: 7.5 mg Risperidone (Risperidone 0.25 Mg Tablet) 0.25 mg PO BEDTIME [facility] Last Admin: 11/23/21 20:25 Dose: 0.25 mg Senna (Sennosides 8.6 Mg Tablet) 8.6 mg PO DAILY [facility] Last Admin: 11/23/21 07:43 Dose: 8.6 mg Timolol Maleate (Timolol Maleate 0.5 % Oph Jessie 5 Ml Drbtl) 1 drop EYE-BOTH BID [facility] Last Admin: 11/23/21 20:25 Dose: 1 drop Allergies Allergies Allergy/AdvReac Type Severity Reaction Status Date / Time sulfamethoxazole Allergy Itching Verified 10/03/21 19:19 [From Bactrim] trimethoprim [From Bactrim] Allergy Itching Verified 10/03/21 19:19 Assessment & Plan Assessment & Plan (1) Mood disorder: Status: Acute Code(s): F39 - Unspecified mood [affective] disorder Plan 11/23 continue current medications. I spent minutes with the patient and/or on the patient floor today, greater than?50% of which was spent counseling/coordinating care. Reason for contiued inpatient stay Substantial Risk for: inability to function
--- NOTE | 2021-11-23 14:53 | MHC.CLN ---
F/U DIET=REGULAR. CONTINUE ENSURE TID (1050 KCALS, 60 G PROTEIN). STAFF REPORTS THAT PATIENT IS EATING WELL. CONTINUE CURRENT DIET AND SUPPLEMENT. RD TO FOLLOW WEEKLY.
[2021-11-23 18:00] VITALS: BP 99/55; PULSE 67; RESP 18; TEMP 37.1; O2SAT 97
[2021-11-23] MEDS: Brimonidine Tartrate 0.2% Oph 5 ML BOTTLE 1 DROP EYE-BOTH (20:24)
[2021-11-23] MEDS: Mirtazapine 7.5 MG TABLET PO (20:25)
[2021-11-23] MEDS: risperiDONE 0.25 MG TABLET PO (20:25)
[2021-11-23] MEDS: Latanoprost 0.005 % Ophth Sol 2.5 ML DROPS 1 DROP EYE-BOTH (20:25)
[2021-11-24 06:00] VITALS: BP 124/70; PULSE 75; TEMP 36.7; O2SAT 97
[2021-11-24] MEDS: Gabapentin 100 MG CAPSULE PO ×3 (10:17→20:11)
[2021-11-24] MEDS: timoloL maleate 0.5 % Oph Sol 5 ML DRBTL 1 DROP EYE-BOTH ×2 (10:18→20:11)
[2021-11-24] MEDS: Sennosides 8.6 MG TABLET PO (10:18)
[2021-11-24] MEDS: Docusate Sodium 100 MG CAPSULE PO ×2 (10:18→20:10)
[2021-11-24] MEDS: Milk of Magnesia 30 ML ORAL.SUSP PO (10:18)
[2021-11-24] MEDS: Brimonidine Tartrate 0.2% Oph 5 ML BOTTLE 1 DROP EYE-BOTH ×3 (10:18→20:10)
[2021-11-24 18:00] VITALS: BP 90/54; PULSE 61; RESP 18; TEMP 36.8; O2SAT 95
[2021-11-24] MEDS: Latanoprost 0.005 % Ophth Sol 2.5 ML DROPS 1 DROP EYE-BOTH (20:09)
[2021-11-24] MEDS: Mirtazapine 7.5 MG TABLET PO (20:10)
[2021-11-24] MEDS: risperiDONE 0.25 MG TABLET PO (20:11)
--- NOTE | 2021-11-24 22:56 | HO.PSYCHPN ---
Subjective Subjective Date of Service: 11/24/21 Reason For Visit: Unspecified Depressive Disorder Interim History: Patient sitting on edge of bed alone in the dark in his room. On approach patient said that he is bored, board to and that scientific writer should check him for rigor mortis. When asked if he needed anything he said a mortician? Other than boredom no complaints and no requests; denies medication side effects remains in appropriate behavioral control. Mental Status Exam Mental Status Exam Narrative: Pt is alert and oriented; behavior is marginally cooperative but not inappropriate; patient is not in distress; dressed in casual attire with hair combed back and adequate hygiene; mood is described as bored to and affect congruent, a little irritable; eye contact appropriate; Speech is normal rate, volume and prosody and not pressured; no psychomotor agitation/retardation present; thought process is organized and goal directed; Thought content is on not liking being on unit; otherwise pertinent to relevant topics and without any delusional content, paranoid ideations or grandiosity; denies any SI/HI. There is no evidence of perceptual disturbance. Patients insight and judgment appear intact. Diagnostics Vital Signs (24Hr): Vital Signs - 24 hr 11/24/21 06:00 11/24/21 18:00 Temperature 98.0 F 98.2 F Pulse Rate 75 61 Respiratory Rate 18 Blood Pressure 124/70 90/54 L Pulse Oximetry 97 95 Oxygen Delivery Method Room Air Room Air BMI result Body Mass Index 18.8 Labs Results: 10/05/21 08:01 10/29/21 07:59 Imaging Radiology Impressions: [facility] Impressions Head CT 10/04/21 15:04 IMPRESSION: 1. No acute intracranial pathology. 2. Right parietal meningioma without mass effect. 3. Generalized atrophy. Medications Medications Current Medications Acetaminophen (Acetaminophen 325 Mg Tablet) 650 mg PO Q6H PRN PRN Reason: Headache/Pain Mild Scale (1-3) Last Admin: 11/09/21 14:37 Dose: 650 mg Al Hydroxide/Mg Hydroxide (Magnesium Hydrox/Alum Hydrox 30 Ml Oral.Susp) 30 ml PO Q6H PRN PRN Reason: Heartburn/Nausea Last Admin: 11/16/21 08:11 Dose: 30 ml Brimonidine Tartrate (Brimonidine Tartrate 0.2% Oph 5 Ml Bottle) 1 drop EYE-BOTH TID [facility] Last Admin: 11/24/21 20:10 Dose: 1 drop Docusate Sodium (Docusate Sodium 100 Mg Capsule) 100 mg PO BID [facility] Last Admin: 11/24/21 20:10 Dose: 100 mg Gabapentin (Gabapentin 100 Mg Capsule) 100 mg PO TID [facility] Last Admin: 11/24/21 20:11 Dose: 100 mg Latanoprost (Latanoprost 0.005 % Ophth Jessie 2.5 Ml Drops) 1 drop EYE-BOTH BEDTIME [facility] Last Admin: 11/24/21 20:09 Dose: 1 drop Magnesium Hydroxide (Milk Of Magnesia 30 Ml Oral.Susp) 30 ml PO DAILY [facility] Last Admin: 11/24/21 10:18 Dose: 30 ml Melatonin (Melatonin 3 Mg Tablet) 3 mg PO BEDTIME PRN PRN Reason: Insomnia Last Admin: 11/21/21 21:08 Dose: 3 mg Mirtazapine (Mirtazapine 7.5 Mg Tablet) 7.5 mg PO BEDTIME [facility] Last Admin: 11/24/21 20:10 Dose: 7.5 mg Risperidone (Risperidone 0.25 Mg Tablet) 0.25 mg PO BEDTIME [facility] Last Admin: 11/24/21 20:11 Dose: 0.25 mg Senna (Sennosides 8.6 Mg Tablet) 8.6 mg PO DAILY [facility] Last Admin: 11/24/21 10:18 Dose: 8.6 mg Timolol Maleate (Timolol Maleate 0.5 % Oph Jessie 5 Ml Drbtl) 1 drop EYE-BOTH BID [facility] Last Admin: 11/24/21 20:11 Dose: 1 drop Allergies Allergies Allergy/AdvReac Type Severity Reaction Status Date / Time sulfamethoxazole Allergy Itching Verified 10/03/21 19:19 [From Bactrim] trimethoprim [From Bactrim] Allergy Itching Verified 10/03/21 19:19 Assessment & Plan Assessment & Plan (1) Mood disorder: Status: Acute Code(s): F39 - Unspecified mood [affective] disorder Plan 11/23 continue current medications. 11/24 continue current medications. I spent minutes with the patient and/or on the patient floor today, greater than?50% of which was spent counseling/coordinating care. Patient educated on: diagnosis Informed Consent: understands Reason for contiued inpatient stay Substantial Risk for: med/psych decompensation
[2021-11-25 06:00] VITALS: BP 134/75; PULSE 68; TEMP 36.4; O2SAT 96
[2021-11-25] MEDS: Brimonidine Tartrate 0.2% Oph 5 ML BOTTLE 1 DROP EYE-BOTH ×3 (08:42→21:49)
[2021-11-25] MEDS: Docusate Sodium 100 MG CAPSULE PO ×2 (08:42→21:49)
[2021-11-25] MEDS: Gabapentin 100 MG CAPSULE PO ×3 (08:42→21:49)
[2021-11-25] MEDS: Milk of Magnesia 30 ML ORAL.SUSP PO (08:42)
[2021-11-25] MEDS: Sennosides 8.6 MG TABLET PO (08:42)
[2021-11-25] MEDS: timoloL maleate 0.5 % Oph Sol 5 ML DRBTL 1 DROP EYE-BOTH ×2 (08:43→21:49)
[2021-11-25 18:00] VITALS: BP 94/52; PULSE 64; RESP 16; TEMP 36.4; O2SAT 98
--- NOTE | 2021-11-25 19:00 | HO.PSYCHPN ---
Subjective Subjective Date of Service: 11/25/21 Reason For Visit: Unspecified Depressive Disorder Interim History: No complaints no requests; remains good behavioral control Mental Status Exam Mental Status Exam Narrative: Pt is alert and oriented; behavior is marginally cooperative but not inappropriate; patient is not in distress; dressed in casual attire with hair combed back and adequate hygiene; mood is described as mildly irritable and affect congruent; eye contact appropriate; Speech is normal rate, volume and prosody and not pressured; no psychomotor agitation/retardation present; thought process is organized and goal directed; Thought content is on not liking being on unit; otherwise pertinent to relevant topics and without any delusional content, paranoid ideations or grandiosity; denies any SI/HI. There is no evidence of perceptual disturbance. Patients insight and judgment appear intact. Diagnostics Vital Signs (24Hr): Vital Signs - 24 hr 11/25/21 06:00 Temperature 97.6 F Pulse Rate 68 Blood Pressure 134/75 Pulse Oximetry 96 Oxygen Delivery Method Room Air BMI result Body Mass Index 18.8 Labs Results: 10/05/21 08:01 10/29/21 07:59 Imaging Radiology Impressions: [facility] Impressions Head CT 10/04/21 15:04 IMPRESSION: 1. No acute intracranial pathology. 2. Right parietal meningioma without mass effect. 3. Generalized atrophy. Medications Medications Current Medications Acetaminophen (Acetaminophen 325 Mg Tablet) 650 mg PO Q6H PRN PRN Reason: Headache/Pain Mild Scale (1-3) Last Admin: 11/09/21 14:37 Dose: 650 mg Al Hydroxide/Mg Hydroxide (Magnesium Hydrox/Alum Hydrox 30 Ml Oral.Susp) 30 ml PO Q6H PRN PRN Reason: Heartburn/Nausea Last Admin: 11/16/21 08:11 Dose: 30 ml Brimonidine Tartrate (Brimonidine Tartrate 0.2% Oph 5 Ml Bottle) 1 drop EYE-BOTH TID [facility] Last Admin: 11/25/21 15:58 Dose: 1 drop Docusate Sodium (Docusate Sodium 100 Mg Capsule) 100 mg PO BID [facility] Last Admin: 11/25/21 08:42 Dose: 100 mg Gabapentin (Gabapentin 100 Mg Capsule) 100 mg PO TID [facility] Last Admin: 11/25/21 15:58 Dose: 100 mg Latanoprost (Latanoprost 0.005 % Ophth Jessie 2.5 Ml Drops) 1 drop EYE-BOTH BEDTIME [facility] Last Admin: 11/24/21 20:09 Dose: 1 drop Magnesium Hydroxide (Milk Of Magnesia 30 Ml Oral.Susp) 30 ml PO DAILY [facility] Last Admin: 11/25/21 08:42 Dose: 30 ml Melatonin (Melatonin 3 Mg Tablet) 3 mg PO BEDTIME PRN PRN Reason: Insomnia Last Admin: 11/21/21 21:08 Dose: 3 mg Mirtazapine (Mirtazapine 7.5 Mg Tablet) 7.5 mg PO BEDTIME [facility] Last Admin: 11/24/21 20:10 Dose: 7.5 mg Risperidone (Risperidone 0.25 Mg Tablet) 0.25 mg PO BEDTIME [facility] Last Admin: 11/24/21 20:11 Dose: 0.25 mg Senna (Sennosides 8.6 Mg Tablet) 8.6 mg PO DAILY [facility] Last Admin: 11/25/21 08:42 Dose: 8.6 mg Timolol Maleate (Timolol Maleate 0.5 % Oph Jessie 5 Ml Drbtl) 1 drop EYE-BOTH BID [facility] Last Admin: 11/25/21 08:43 Dose: 1 drop Allergies Allergies Allergy/AdvReac Type Severity Reaction Status Date / Time sulfamethoxazole Allergy Itching Verified 10/03/21 19:19 [From Bactrim] trimethoprim [From Bactrim] Allergy Itching Verified 10/03/21 19:19 Assessment & Plan Assessment & Plan (1) Mood disorder: Status: Acute Code(s): F39 - Unspecified mood [affective] disorder Plan 11/23 continue current medications. 11/24 continue current medications. 11/25 continue current medications. I spent minutes with the patient and/or on the patient floor today, greater than?50% of which was spent counseling/coordinating care. Reason for contiued inpatient stay Substantial Risk for: stable for discharge
[2021-11-25] MEDS: Mirtazapine 7.5 MG TABLET PO (21:50)
[2021-11-25] MEDS: Melatonin 3 MG TABLET PO (21:50)
[2021-11-25] MEDS: risperiDONE 0.25 MG TABLET PO (21:50)
[2021-11-25] MEDS: Latanoprost 0.005 % Ophth Sol 2.5 ML DROPS 1 DROP EYE-BOTH (21:50)
[2021-11-26 06:00] VITALS: BP 112/70; PULSE 70; RESP 16; TEMP 36.6; O2SAT 97
[2021-11-26] MEDS: Milk of Magnesia 30 ML ORAL.SUSP PO (08:32)
[2021-11-26] MEDS: Sennosides 8.6 MG TABLET PO (08:32)
[2021-11-26] MEDS: Gabapentin 100 MG CAPSULE PO ×3 (08:32→21:25)
[2021-11-26] MEDS: Docusate Sodium 100 MG CAPSULE PO ×2 (08:32→21:25)
[2021-11-26] MEDS: Brimonidine Tartrate 0.2% Oph 5 ML BOTTLE 1 DROP EYE-BOTH ×2 (11:11→21:24)
[2021-11-26] MEDS: timoloL maleate 0.5 % Oph Sol 5 ML DRBTL 1 DROP EYE-BOTH ×2 (11:11→21:25)
[2021-11-26 17:31] VITALS: BP 112/70; PULSE 70; RESP 16; TEMP 36.6; O2SAT 97
--- NOTE | 2021-11-26 18:45 | P.PNPSI_ITS ---
Subjective Subjective Date of Service: 11/26/21 Reason For Visit: Unspecified Depressive Disorder Interim History: Calm, keeping to himself though also social in the milieu at times No change, no complaints no requests Mental Status Exam Mental Status Exam Narrative: Pt is alert and oriented; behavior is marginally cooperative but not inappropriate; patient is not in distress; dressed in casual attire with hair combed back and adequate hygiene; mood is described as mildly irritable and affect congruent; eye contact appropriate; Speech is normal rate, volume and prosody and not pressured; no psychomotor agitation/retardation present; thought process is organized and goal directed; Thought content is on not liking being on unit; otherwise pertinent to relevant topics and without any delusional content, paranoid ideations or grandiosity; denies any SI/HI. There is no evidence of perceptual disturbance. Patients insight and judgment appear intact. Diagnostics Vital Signs (24Hr): Vital Signs - 24 hr 11/26/21 06:00 11/26/21 17:31 Temperature 97.8 F 97.8 F Pulse Rate 70 70 Respiratory Rate 16 16 Blood Pressure 112/70 112/70 Pulse Oximetry 97 97 Oxygen Delivery Method Room Air Room Air BMI result Body Mass Index 18.8 Labs Results: 10/05/21 08:01 10/29/21 07:59 Imaging Radiology Impressions: [facility] Impressions Head CT 10/04/21 15:04 IMPRESSION: 1. No acute intracranial pathology. 2. Right parietal meningioma without mass effect. 3. Generalized atrophy. Medications Medications Current Medications Acetaminophen (Acetaminophen 325 Mg Tablet) 650 mg PO Q6H PRN PRN Reason: Headache/Pain Mild Scale (1-3) Last Admin: 11/09/21 14:37 Dose: 650 mg Al Hydroxide/Mg Hydroxide (Magnesium Hydrox/Alum Hydrox 30 Ml Oral.Susp) 30 ml PO Q6H PRN PRN Reason: Heartburn/Nausea Last Admin: 11/16/21 08:11 Dose: 30 ml Brimonidine Tartrate (Brimonidine Tartrate 0.2% Oph 5 Ml Bottle) 1 drop EYE- BOTH TID [facility] Last Admin: 11/26/21 17:00 Dose: Not Given Docusate Sodium (Docusate Sodium 100 Mg Capsule) 100 mg PO BID [facility] Last Admin: 11/26/21 08:32 Dose: 100 mg Gabapentin (Gabapentin 100 Mg Capsule) 100 mg PO TID [facility] Last Admin: 11/26/21 16:02 Dose: 100 mg Latanoprost (Latanoprost 0.005 % Ophth Jessie 2.5 Ml Drops) 1 drop EYE-BOTH BEDTIME [facility] Last Admin: 11/25/21 21:50 Dose: 1 drop Magnesium Hydroxide (Milk Of Magnesia 30 Ml Oral.Susp) 30 ml PO DAILY [facility] Last Admin: 11/26/21 08:32 Dose: 30 ml Melatonin (Melatonin 3 Mg Tablet) 3 mg PO BEDTIME PRN PRN Reason: Insomnia Last Admin: 11/25/21 21:50 Dose: 3 mg Mirtazapine (Mirtazapine 7.5 Mg Tablet) 7.5 mg PO BEDTIME [facility] Last Admin: 11/25/21 21:50 Dose: 7.5 mg Risperidone (Risperidone 0.25 Mg Tablet) 0.25 mg PO BEDTIME [facility] Last Admin: 11/25/21 21:50 Dose: 0.25 mg Senna (Sennosides 8.6 Mg Tablet) 8.6 mg PO DAILY [facility] Last Admin: 11/26/21 08:32 Dose: 8.6 mg Timolol Maleate (Timolol Maleate 0.5 % Oph Jessie 5 Ml Drbtl) 1 drop EYE-BOTH BID [facility] Last Admin: 11/26/21 11:11 Dose: 1 drop Allergies Allergies Allergy/AdvReac Type Severity Reaction Status Date / Time sulfamethoxazole Allergy Itching Verified 10/03/21 19:19 [From Bactrim] trimethoprim [From Bactrim] Allergy Itching Verified 10/03/21 19:19 Assessment & Plan Assessment & Plan (1) Mood disorder: Status: Acute Code(s): F39 - Unspecified mood [affective] disorder Plan 11/23 continue current medications. 11/24 continue current medications. 11/25 continue current medications. 11/26 continue current medications. I spent minutes with the patient and/or on the patient floor today, greater than?50% of which was spent counseling/coordinating care. Reason for contiued inpatient stay Substantial Risk for: stable for discharge
[2021-11-26] MEDS: Mirtazapine 7.5 MG TABLET PO (21:25)
[2021-11-26] MEDS: Latanoprost 0.005 % Ophth Sol 2.5 ML DROPS 1 DROP EYE-BOTH (21:25)
[2021-11-26] MEDS: risperiDONE 0.25 MG TABLET PO (21:25)
[2021-11-27 08:00] VITALS: BP 114/71; PULSE 63; RESP 16; TEMP 36.5; O2SAT 97
[2021-11-27] MEDS: Sennosides 8.6 MG TABLET PO (09:35)
[2021-11-27] MEDS: Milk of Magnesia 30 ML ORAL.SUSP PO (09:36)
[2021-11-27] MEDS: Docusate Sodium 100 MG CAPSULE PO ×2 (09:36→20:28)
[2021-11-27] MEDS: Gabapentin 100 MG CAPSULE PO ×3 (09:36→20:28)
[2021-11-27] MEDS: Brimonidine Tartrate 0.2% Oph 5 ML BOTTLE 1 DROP EYE-BOTH ×2 (15:04→20:26)
--- NOTE | 2021-11-27 17:36 | P.PNPSI_ITS ---
Subjective Subjective Date of Service: 11/27/21 Reason For Visit: Unspecified Depressive Disorder Subjective Notes: Conditional Voluntary Interim History: The nursing staff reported the patient has been fully compliant with treatment, he has been eating his meals he denies anxiety. On interview the patient denies new symptoms. Mental Status Exam Mental Status Exam Patient Appearance: Well Grooomed Patient Orientation: Person and Situation Level of Consciousness: Awake Patient Behavior: Cooperative Mood Description: Calm Affect Description: Constricted Patient Cognition Impaired: Yes Ability to Follow Directions: Good Speech Pattern: Clear Hallucinations: None Delusions: Not Present Thought Process: Distracted Thought Content: positive for [place] and positive for Circumstantial Judgement: Fair Diagnostics Vital Signs (24Hr): Vital Signs - 24 hr 11/27/21 08:00 Temperature 97.7 F Pulse Rate 63 Respiratory Rate 16 Blood Pressure 114/71 Pulse Oximetry 97 Oxygen Delivery Method Room Air BMI result Body Mass Index 18.8 Labs Results: 10/05/21 08:01 10/29/21 07:59 Imaging Radiology Impressions: [facility] Impressions Head CT 10/04/21 15:04 IMPRESSION: 1. No acute intracranial pathology. 2. Right parietal meningioma without mass effect. 3. Generalized atrophy. Medications Medications Current Medications Acetaminophen (Acetaminophen 325 Mg Tablet) 650 mg PO Q6H PRN PRN Reason: Headache/Pain Mild Scale (1-3) Last Admin: 11/09/21 14:37 Dose: 650 mg Al Hydroxide/Mg Hydroxide (Magnesium Hydrox/Alum Hydrox 30 Ml Oral.Susp) 30 ml PO Q6H PRN PRN Reason: Heartburn/Nausea Last Admin: 11/16/21 08:11 Dose: 30 ml Brimonidine Tartrate (Brimonidine Tartrate 0.2% Oph 5 Ml Bottle) 1 drop EYE- BOTH TID [facility] Last Admin: 11/27/21 15:04 Dose: 1 drop Docusate Sodium (Docusate Sodium 100 Mg Capsule) 100 mg PO BID [facility] Last Admin: 11/27/21 09:36 Dose: 100 mg Gabapentin (Gabapentin 100 Mg Capsule) 100 mg PO TID [facility] Last Admin: 11/27/21 15:04 Dose: 100 mg Latanoprost (Latanoprost 0.005 % Ophth Jessie 2.5 Ml Drops) 1 drop EYE-BOTH BEDTIME [facility] Last Admin: 11/26/21 21:25 Dose: 1 drop Magnesium Hydroxide (Milk Of Magnesia 30 Ml Oral.Susp) 30 ml PO DAILY [facility] Last Admin: 11/27/21 09:36 Dose: 30 ml Melatonin (Melatonin 3 Mg Tablet) 3 mg PO BEDTIME PRN PRN Reason: Insomnia Last Admin: 11/25/21 21:50 Dose: 3 mg Mirtazapine (Mirtazapine 7.5 Mg Tablet) 7.5 mg PO BEDTIME [facility] Last Admin: 11/26/21 21:25 Dose: 7.5 mg Risperidone (Risperidone 0.25 Mg Tablet) 0.25 mg PO BEDTIME [facility] Last Admin: 11/26/21 21:25 Dose: 0.25 mg Senna (Sennosides 8.6 Mg Tablet) 8.6 mg PO DAILY [facility] Last Admin: 11/27/21 09:35 Dose: 8.6 mg Timolol Maleate (Timolol Maleate 0.5 % Oph Jessie 5 Ml Drbtl) 1 drop EYE-BOTH BID [facility] Last Admin: 11/27/21 10:34 Dose: Not Given Allergies Allergies Allergy/AdvReac Type Severity Reaction Status Date / Time sulfamethoxazole Allergy Itching Verified 10/03/21 19:19 [From Bactrim] trimethoprim [From Bactrim] Allergy Itching Verified 10/03/21 19:19 Assessment & Plan Assessment & Plan (1) Mood disorder: Status: Acute Code(s): F39 - Unspecified mood [affective] disorder Plan Elderly male with a recent history of dementia, with poor social support referred for delirium. Currently stable ready for discharge waiting for placement. We already had guardianship and we are working are appropriate discharge planning. I spent ___20___ minutes with the patient and/or on the patient floor today, greater than?50% of which was spent counseling/coordinating care. Reason for contiued inpatient stay Substantial Risk for: inability to function, rapid decompensation and med/psych decompensation
[2021-11-27 18:00] VITALS: BP 93/55; PULSE 60; RESP 18; TEMP 37; O2SAT 97
[2021-11-27] MEDS: Latanoprost 0.005 % Ophth Sol 2.5 ML DROPS 1 DROP EYE-BOTH (20:26)
[2021-11-27] MEDS: risperiDONE 0.25 MG TABLET PO (20:27)
[2021-11-27] MEDS: timoloL maleate 0.5 % Oph Sol 5 ML DRBTL 1 DROP EYE-BOTH (20:27)
[2021-11-27] MEDS: Mirtazapine 7.5 MG TABLET PO (20:27)
[2021-11-27] MEDS: Melatonin 3 MG TABLET PO (20:28)
[2021-11-28 06:00] VITALS: BP 120/84; PULSE 62; RESP 14; TEMP 36.3; O2SAT 96
[2021-11-28] MEDS: Gabapentin 100 MG CAPSULE PO ×2 (09:41→20:20)
[2021-11-28] MEDS: Sennosides 8.6 MG TABLET PO (09:41)
[2021-11-28] MEDS: Docusate Sodium 100 MG CAPSULE PO ×2 (09:41→20:20)
[2021-11-28] MEDS: Milk of Magnesia 30 ML ORAL.SUSP PO (09:41)
[2021-11-28] MEDS: Brimonidine Tartrate 0.2% Oph 5 ML BOTTLE 1 DROP EYE-BOTH ×2 (09:44→20:20)
[2021-11-28] MEDS: timoloL maleate 0.5 % Oph Sol 5 ML DRBTL 1 DROP EYE-BOTH ×2 (09:45→20:20)
--- NOTE | 2021-11-28 15:04 | HO.PSYCHPN ---
Subjective Subjective Date of Service: 11/28/21 Reason For Visit: Unspecified Depressive Disorder Subjective Notes: Conditional Voluntary Interim History: The nursing staff reported the patient had been fully compliant with treatment no new symptoms. On interview he states that he is doing fine. Waiting for placement Mental Status Exam Mental Status Exam Patient Appearance: Well Grooomed Patient Orientation: Person and Situation Level of Consciousness: Awake Patient Behavior: Cooperative Mood Description: Calm Affect Description: Constricted Patient Cognition Impaired: Yes Ability to Follow Directions: Good Speech Pattern: Clear Hallucinations: None Delusions: Not Present Thought Process: Linear Thought Content: positive for Circumstantial Judgement: Fair Diagnostics Vital Signs (24Hr): Vital Signs - 24 hr 11/27/21 18:00 11/28/21 06:00 Temperature 98.6 F 97.4 F Pulse Rate 60 62 Respiratory Rate 18 14 Blood Pressure 93/55 L 120/84 Pulse Oximetry 97 96 Oxygen Delivery Method Room Air Room Air BMI result Body Mass Index 18.8 Labs Results: 10/05/21 08:01 10/29/21 07:59 Imaging Radiology Impressions: [facility] Impressions Head CT 10/04/21 15:04 IMPRESSION: 1. No acute intracranial pathology. 2. Right parietal meningioma without mass effect. 3. Generalized atrophy. Medications Medications Current Medications Acetaminophen (Acetaminophen 325 Mg Tablet) 650 mg PO Q6H PRN PRN Reason: Headache/Pain Mild Scale (1-3) Last Admin: 11/09/21 14:37 Dose: 650 mg Al Hydroxide/Mg Hydroxide (Magnesium Hydrox/Alum Hydrox 30 Ml Oral.Susp) 30 ml PO Q6H PRN PRN Reason: Heartburn/Nausea Last Admin: 11/16/21 08:11 Dose: 30 ml Brimonidine Tartrate (Brimonidine Tartrate 0.2% Oph 5 Ml Bottle) 1 drop EYE-BOTH TID [facility] Last Admin: 11/28/21 09:44 Dose: 1 drop Docusate Sodium (Docusate Sodium 100 Mg Capsule) 100 mg PO BID [facility] Last Admin: 11/28/21 09:41 Dose: 100 mg Gabapentin (Gabapentin 100 Mg Capsule) 100 mg PO TID [facility] Last Admin: 11/28/21 09:41 Dose: 100 mg Latanoprost (Latanoprost 0.005 % Ophth Jessie 2.5 Ml Drops) 1 drop EYE-BOTH BEDTIME [facility] Last Admin: 11/27/21 20:26 Dose: 1 drop Magnesium Hydroxide (Milk Of Magnesia 30 Ml Oral.Susp) 30 ml PO DAILY [facility] Last Admin: 11/28/21 09:41 Dose: 30 ml Melatonin (Melatonin 3 Mg Tablet) 3 mg PO BEDTIME PRN PRN Reason: Insomnia Last Admin: 11/27/21 20:28 Dose: 3 mg Mirtazapine (Mirtazapine 7.5 Mg Tablet) 7.5 mg PO BEDTIME [facility] Last Admin: 11/27/21 20:27 Dose: 7.5 mg Risperidone (Risperidone 0.25 Mg Tablet) 0.25 mg PO BEDTIME [facility] Last Admin: 11/27/21 20:27 Dose: 0.25 mg Senna (Sennosides 8.6 Mg Tablet) 8.6 mg PO DAILY [facility] Last Admin: 11/28/21 09:41 Dose: 8.6 mg Timolol Maleate (Timolol Maleate 0.5 % Oph Jessie 5 Ml Drbtl) 1 drop EYE-BOTH BID [facility] Last Admin: 11/28/21 09:45 Dose: 1 drop Allergies Allergies Allergy/AdvReac Type Severity Reaction Status Date / Time sulfamethoxazole Allergy Itching Verified 10/03/21 19:19 [From Bactrim] trimethoprim [From Bactrim] Allergy Itching Verified 10/03/21 19:19 Assessment & Plan Assessment & Plan (1) Mood disorder: Status: Acute Code(s): F39 - Unspecified mood [affective] disorder Plan Elderly male with a recent history of dementia, with poor social support referred for delirium. Currently stable ready for discharge waiting for placement. We already had guardianship and we are working are appropriate discharge planning. I spent minutes with the patient and/or on the patient floor today, greater than?50% of which was spent counseling/coordinating care. Reason for contiued inpatient stay Substantial Risk for: inability to function, rapid decompensation and med/psych decompensation
[2021-11-28 18:00] VITALS: BP 119/61; PULSE 70; RESP 18; TEMP 37.2; O2SAT 96
[2021-11-28] MEDS: Latanoprost 0.005 % Ophth Sol 2.5 ML DROPS 1 DROP EYE-BOTH (20:20)
[2021-11-28] MEDS: risperiDONE 0.25 MG TABLET PO (20:20)
[2021-11-28] MEDS: Mirtazapine 7.5 MG TABLET PO (20:20)
[2021-11-29 06:00] VITALS: BP 115/73; PULSE 93; RESP 18; TEMP 37; O2SAT 94
[2021-11-29] MEDS: Gabapentin 100 MG CAPSULE PO ×3 (08:42→20:10)
[2021-11-29] MEDS: Milk of Magnesia 30 ML ORAL.SUSP PO (08:42)
[2021-11-29] MEDS: Docusate Sodium 100 MG CAPSULE PO ×2 (08:42→20:11)
[2021-11-29] MEDS: Sennosides 8.6 MG TABLET PO (08:42)
[2021-11-29] MEDS: timoloL maleate 0.5 % Oph Sol 5 ML DRBTL 1 DROP EYE-BOTH ×2 (11:09→20:10)
[2021-11-29] MEDS: Brimonidine Tartrate 0.2% Oph 5 ML BOTTLE 1 DROP EYE-BOTH ×3 (11:09→20:12)
[2021-11-29 13:00] VITALS: BMI 18.3
--- NOTE | 2021-11-29 17:35 | P.PNPSI_ITS ---
Subjective Subjective Reason For Visit: Unspecified Depressive Disorder Diagnostics Vital Signs (24Hr): Vital Signs - 24 hr 11/28/21 18:00 11/29/21 06:00 Temperature 98.9 F 98.6 F Pulse Rate 70 93 Respiratory Rate 18 18 Blood Pressure 119/61 115/73 Pulse Oximetry 96 94 Oxygen Delivery Method Room Air Room Air BMI result Body Mass Index 18.3 Labs Results: 10/05/21 08:01 10/29/21 07:59 Imaging Radiology Impressions: [facility] Impressions Head CT 10/04/21 15:04 IMPRESSION: 1. No acute intracranial pathology. 2. Right parietal meningioma without mass effect. 3. Generalized atrophy. Medications Medications Current Medications Acetaminophen (Acetaminophen 325 Mg Tablet) 650 mg PO Q6H PRN PRN Reason: Headache/Pain Mild Scale (1-3) Last Admin: 11/09/21 14:37 Dose: 650 mg Al Hydroxide/Mg Hydroxide (Magnesium Hydrox/Alum Hydrox 30 Ml Oral.Susp) 30 ml PO Q6H PRN PRN Reason: Heartburn/Nausea Last Admin: 11/16/21 08:11 Dose: 30 ml Brimonidine Tartrate (Brimonidine Tartrate 0.2% Oph 5 Ml Bottle) 1 drop EYE- BOTH TID [facility] Last Admin: 11/29/21 11:09 Dose: 1 drop Docusate Sodium (Docusate Sodium 100 Mg Capsule) 100 mg PO BID [facility] Last Admin: 11/29/21 08:42 Dose: 100 mg Gabapentin (Gabapentin 100 Mg Capsule) 100 mg PO TID [facility] Last Admin: 11/29/21 15:51 Dose: 100 mg Latanoprost (Latanoprost 0.005 % Ophth Jessie 2.5 Ml Drops) 1 drop EYE-BOTH BEDTIME [facility] Last Admin: 11/28/21 20:20 Dose: 1 drop Magnesium Hydroxide (Milk Of Magnesia 30 Ml Oral.Susp) 30 ml PO DAILY [facility] Last Admin: 11/29/21 08:42 Dose: 30 ml Melatonin (Melatonin 3 Mg Tablet) 3 mg PO BEDTIME PRN PRN Reason: Insomnia Last Admin: 11/27/21 20:28 Dose: 3 mg Mirtazapine (Mirtazapine 7.5 Mg Tablet) 7.5 mg PO BEDTIME [facility] Last Admin: 11/28/21 20:20 Dose: 7.5 mg Risperidone (Risperidone 0.25 Mg Tablet) 0.25 mg PO BEDTIME [facility] Last Admin: 11/28/21 20:20 Dose: 0.25 mg Senna (Sennosides 8.6 Mg Tablet) 8.6 mg PO DAILY [facility] Last Admin: 11/29/21 08:42 Dose: 8.6 mg Timolol Maleate (Timolol Maleate 0.5 % Oph Jessie 5 Ml Drbtl) 1 drop EYE-BOTH BID [facility] Last Admin: 11/29/21 11:09 Dose: 1 drop Allergies Allergies Allergy/AdvReac Type Severity Reaction Status Date / Time sulfamethoxazole Allergy Itching Verified 10/03/21 19:19 [From Bactrim] trimethoprim [From Bactrim] Allergy Itching Verified 10/03/21 19:19 Assessment & Plan Assessment & Plan (1) Mood disorder: Status: Acute Code(s): F39 - Unspecified mood [affective] disorder Plan Elderly male with a recent history of dementia, with poor social support referred for delirium. Currently stable ready for discharge waiting for placement. We already had guardianship and we are working are appropriate discharge planning. I spent minutes with the patient and/or on the patient floor today, greater than?50% of which was spent counseling/coordinating care.
[2021-11-29 18:00] VITALS: BP 103/58; PULSE 79; RESP 18; TEMP 37; O2SAT 95
[2021-11-29] MEDS: risperiDONE 0.25 MG TABLET PO (20:11)
[2021-11-29] MEDS: Latanoprost 0.005 % Ophth Sol 2.5 ML DROPS 1 DROP EYE-BOTH (20:11)
[2021-11-29] MEDS: Mirtazapine 7.5 MG TABLET PO (20:11)
[2021-11-30 07:30] VITALS: BP 120/64; PULSE 69; RESP 15; TEMP 36.9; O2SAT 96
[2021-11-30] MEDS: Milk of Magnesia 30 ML ORAL.SUSP PO (09:01)
[2021-11-30] MEDS: Docusate Sodium 100 MG CAPSULE PO ×2 (09:02→21:23)
[2021-11-30] MEDS: Sennosides 8.6 MG TABLET PO (09:02)
[2021-11-30] MEDS: Gabapentin 100 MG CAPSULE PO ×3 (09:02→21:23)
[2021-11-30] MEDS: timoloL maleate 0.5 % Oph Sol 5 ML DRBTL 1 DROP EYE-BOTH ×2 (09:18→21:25)
--- NOTE | 2021-11-30 09:18 | P.PNPSI_ITS ---
Subjective Subjective Date of Service: 11/30/21 Reason For Visit: Unspecified Depressive Disorder Subjective Notes: Conditional Voluntary Interim History: Pt reports multiple episodes of loose stool. He denies abdominal pain, vomiting, no fever or malaise. Pt reports sleeping and eating fairly well. He denies SI/HI. He reports he is waitng to see where he will go. No AH/VH. pleasant on approach. will order labs and loperamide for loose stool. no recent use of a ntibiotics, will repeat covid test. Medication Compliance: Yes Mental Status Exam Mental Status Exam Narrative: Appearance: laying in bed, casual clothing, fair hygiene, in NAD Behavior: pleasant Psychomotor: no agitation or retardation noted Speech: clear, normal rate/rhythm, spontaneous TP: poverty of thought, some sense of humor, mostly linear TC: no over delusional content noted or reported, just waiting Mood: okay Affect: constricted, but congruent SI: none HI: none AH/VH: none Delusions: none Insight/judgment: limited by memory/cog impairements Memory/cog: alert, not oriented to year, month, underlying cognitive impairments s/s to dementia. Diagnostics Vital Signs (24Hr): Vital Signs - 24 hr 11/30/21 18:00 Temperature 97.2 F Pulse Rate 73 Respiratory Rate 16 Blood Pressure 116/58 L Pulse Oximetry 97 Oxygen Delivery Method Room Air BMI result Body Mass Index 18.3 Labs Results: 10/05/21 08:01 10/29/21 07:59 Labs: Laboratory Results - last 48 hr 11/30/21 18:25 COVID-19 ([facility]) Negative COVID-19 Clin Com See Note Imaging Radiology Impressions: ITS Impressions Head CT 10/04/21 15:04 IMPRESSION: 1. No acute intracranial pathology. 2. Right parietal meningioma without mass effect. 3. Generalized atrophy. Medications Medications Current Medications Acetaminophen (Acetaminophen 325 Mg Tablet) 650 mg PO Q6H PRN PRN Reason: Headache/Pain Mild Scale (1-3) Last Admin: 11/09/21 14:37 Dose: 650 mg Al Hydroxide/Mg Hydroxide (Magnesium Hydrox/Alum Hydrox 30 Ml Oral.Susp) 30 ml PO Q6H PRN PRN Reason: Heartburn/Nausea Last Admin: 11/16/21 08:11 Dose: 30 ml Brimonidine Tartrate (Brimonidine Tartrate 0.2% Oph 5 Ml Bottle) 1 drop EYE- BOTH TID [facility] Last Admin: 12/01/21 08:51 Dose: 1 drop Docusate Sodium (Docusate Sodium 100 Mg Capsule) 100 mg PO BID [facility] Last Admin: 12/01/21 08:51 Dose: 100 mg Gabapentin (Gabapentin 100 Mg Capsule) 100 mg PO TID [facility] Last Admin: 12/01/21 08:51 Dose: 100 mg Latanoprost (Latanoprost 0.005 % Ophth Jessie 2.5 Ml Drops) 1 drop EYE-BOTH BEDTIME [facility] Last Admin: 11/30/21 21:24 Dose: 1 drop Loperamide HCl (Loperamide Hcl 2 Mg Capsule) 2 mg PO Q4H PRN PRN Reason: Diarrhea Magnesium Hydroxide (Milk Of Magnesia 30 Ml Oral.Susp) 30 ml PO DAILY [facility] Last Admin: 12/01/21 08:51 Dose: 30 ml Melatonin (Melatonin 3 Mg Tablet) 3 mg PO BEDTIME PRN PRN Reason: Insomnia Last Admin: 11/27/21 20:28 Dose: 3 mg Mirtazapine (Mirtazapine 7.5 Mg Tablet) 7.5 mg PO BEDTIME [facility] Last Admin: 11/30/21 21:24 Dose: 7.5 mg Risperidone (Risperidone 0.25 Mg Tablet) 0.25 mg PO BEDTIME [facility] Last Admin: 11/30/21 21:24 Dose: 0.25 mg Senna (Sennosides 8.6 Mg Tablet) 8.6 mg PO DAILY [facility] Last Admin: 11/30/21 09:02 Dose: 8.6 mg Timolol Maleate (Timolol Maleate 0.5 % Oph Jessie 5 Ml Drbtl) 1 drop EYE-BOTH BID [facility] Last Admin: 12/01/21 08:52 Dose: 1 drop Allergies Allergies Allergy/AdvReac Type Severity Reaction Status Date / Time sulfamethoxazole Allergy Itching Verified 10/03/21 19:19 [From Bactrim] trimethoprim [From Bactrim] Allergy Itching Verified 10/03/21 19:19 Assessment & Plan Assessment & Plan (1) Mood disorder: Status: Acute Code(s): F39 - Unspecified mood [affective] disorder (2) Major neurocognitive disorder: Status: Acute Code(s): F03.90 - Unspecified dementia, unspecified severity, without behavioral disturbance, psychotic disturbance, mood disturbance, and anxiety Plan 11/30 continue current tx. order cmp, loperamide, covid for new onset loose stool. I spent minutes with the patient and/or on the patient floor today, greater than?50% of which was spent counseling/coordinating care. Reason for contiued inpatient stay Substantial Risk for: inability to function
[2021-11-30] MEDS: Brimonidine Tartrate 0.2% Oph 5 ML BOTTLE 1 DROP EYE-BOTH ×3 (09:19→21:23)
--- NOTE | 2021-11-30 15:55 | MHC.CLN ---
F/U DIET=REGULAR, NDD3. STAFF REPORTS THAT PATIENT IS EATING WELL. REVIEW OF WEIGHT HX SHOWS WEIGHT OVERALL STABLE SINCE ADMISSION. CONTINUE CURRENT DIET. RD TO FOLLOW WEEKLY.
[2021-11-30 18:00] VITALS: BP 116/58; PULSE 73; RESP 16; TEMP 36.2; O2SAT 97
[2021-11-30 19:00] LABS: COVID-19 Test Negative (Negative); IDNOW Serial# 55D5AD1C
[2021-11-30] MEDS: Mirtazapine 7.5 MG TABLET PO (21:24)
[2021-11-30] MEDS: Latanoprost 0.005 % Ophth Sol 2.5 ML DROPS 1 DROP EYE-BOTH (21:24)
[2021-11-30] MEDS: risperiDONE 0.25 MG TABLET PO (21:24)
[2021-12-01 08:30] VITALS: BP 108/74; PULSE 84; RESP 16; TEMP 35.9; O2SAT 94
[2021-12-01] MEDS: Milk of Magnesia 30 ML ORAL.SUSP PO (08:51)
[2021-12-01] MEDS: Docusate Sodium 100 MG CAPSULE PO ×2 (08:51→20:34)
[2021-12-01] MEDS: Brimonidine Tartrate 0.2% Oph 5 ML BOTTLE 1 DROP EYE-BOTH ×3 (08:51→20:34)
[2021-12-01] MEDS: Gabapentin 100 MG CAPSULE PO ×3 (08:51→20:34)
[2021-12-01] MEDS: timoloL maleate 0.5 % Oph Sol 5 ML DRBTL 1 DROP EYE-BOTH ×2 (08:52→20:35)
[2021-12-01] MEDS: Sennosides 8.6 MG TABLET PO (10:12)
--- NOTE | 2021-12-01 12:24 | HO.PSYCHPN ---
Subjective Subjective Date of Service: 12/01/21 Reason For Visit: Unspecified Depressive Disorder Interim History: pt perla schwarz bed, awakens as MD enters room and exchanges words with sitter. closes eyes agin as MD attempt to speak with him. states he is sleeping. MD inquires as to his well-being, and he replies he is sleeping once again. MD states that it appears he does not wish to speak with MD, to which he responds yes. MD excuses himself. per staff, dementia. eating and sleeping well. Mental Status Exam Mental Status Exam Narrative: Appearance: lying in bed, casual clothing, fair hygiene, in NAD Behavior: no PMA/PMR Speech: clear, normal rate/rhythm, non-spontaneous TP: poverty of thought TC: no over delusional content noted or reported Mood: okay Affect: constricted, but congruent SI: none HI: none AH/VH: none Delusions: none Insight/judgment: limited by memory/cog impairements Memory/cog: alert, not oriented to year, month, underlying cognitive impairments s/s to dementia. Diagnostics Vital Signs (24Hr): Vital Signs - 24 hr 11/30/21 18:00 12/01/21 08:30 Temperature 97.2 F 96.7 F L Pulse Rate 73 84 Respiratory Rate 16 16 Blood Pressure 116/58 L 108/74 Pulse Oximetry 97 94 Oxygen Delivery Method Room Air Room Air BMI result Body Mass Index 18.3 Labs Results: 10/05/21 08:01 10/29/21 07:59 Labs: Laboratory Results - last 48 hr 11/30/21 18:25 COVID-19 ([facility]) Negative COVID-19 Clin Com See Note Imaging Radiology Impressions: ITS Impressions Head CT 10/04/21 15:04 IMPRESSION: 1. No acute intracranial pathology. 2. Right parietal meningioma without mass effect. 3. Generalized atrophy. Medications Medications Current Medications Acetaminophen (Acetaminophen 325 Mg Tablet) 650 mg PO Q6H PRN PRN Reason: Headache/Pain Mild Scale (1-3) Last Admin: 11/09/21 14:37 Dose: 650 mg Al Hydroxide/Mg Hydroxide (Magnesium Hydrox/Alum Hydrox 30 Ml Oral.Susp) 30 ml PO Q6H PRN PRN Reason: Heartburn/Nausea Last Admin: 11/16/21 08:11 Dose: 30 ml Brimonidine Tartrate (Brimonidine Tartrate 0.2% Oph 5 Ml Bottle) 1 drop EYE-BOTH TID COUNTS INCLUDE 234 BEDS AT THE [facility] Last Admin: 12/01/21 08:51 Dose: 1 drop Docusate Sodium (Docusate Sodium 100 Mg Capsule) 100 mg PO BID COUNTS INCLUDE 234 BEDS AT THE [facility] Last Admin: 12/01/21 08:51 Dose: 100 mg Gabapentin (Gabapentin 100 Mg Capsule) 100 mg PO TID COUNTS INCLUDE 234 BEDS AT THE [facility] Last Admin: 12/01/21 08:51 Dose: 100 mg Latanoprost (Latanoprost 0.005 % Ophth Jessie 2.5 Ml Drops) 1 drop EYE-BOTH BEDTIME COUNTS INCLUDE 234 BEDS AT THE [facility] Last Admin: 11/30/21 21:24 Dose: 1 drop Loperamide HCl (Loperamide Hcl 2 Mg Capsule) 2 mg PO Q4H PRN PRN Reason: Diarrhea Magnesium Hydroxide (Milk Of Magnesia 30 Ml Oral.Susp) 30 ml PO DAILY COUNTS INCLUDE 234 BEDS AT THE [facility] Last Admin: 12/01/21 08:51 Dose: 30 ml Melatonin (Melatonin 3 Mg Tablet) 3 mg PO BEDTIME PRN PRN Reason: Insomnia Last Admin: 11/27/21 20:28 Dose: 3 mg Mirtazapine (Mirtazapine 7.5 Mg Tablet) 7.5 mg PO BEDTIME COUNTS INCLUDE 234 BEDS AT THE [facility] Last Admin: 11/30/21 21:24 Dose: 7.5 mg Risperidone (Risperidone 0.25 Mg Tablet) 0.25 mg PO BEDTIME COUNTS INCLUDE 234 BEDS AT THE [facility] Last Admin: 11/30/21 21:24 Dose: 0.25 mg Senna (Sennosides 8.6 Mg Tablet) 8.6 mg PO DAILY COUNTS INCLUDE 234 BEDS AT THE [facility] Last Admin: 12/01/21 10:12 Dose: 8.6 mg Timolol Maleate (Timolol Maleate 0.5 % Oph Jessei 5 Ml Drbtl) 1 drop EYE-BOTH BID COUNTS INCLUDE 234 BEDS AT THE [facility] Last Admin: 12/01/21 08:52 Dose: 1 drop Allergies Allergies Allergy/AdvReac Type Severity Reaction Status Date / Time sulfamethoxazole Allergy Itching Verified 10/03/21 19:19 [From Bactrim] trimethoprim [From Bactrim] Allergy Itching Verified 10/03/21 19:19 Assessment & Plan Assessment & Plan (1) Mood disorder: Status: Acute Code(s): F39 - Unspecified mood [affective] disorder (2) Major neurocognitive disorder: Status: Acute Code(s): F03.90 - Unspecified dementia, unspecified severity, without behavioral disturbance, psychotic disturbance, mood disturbance, and anxiety Plan 11/30 continue current tx. order cmp, loperamide, covid for new onset loose stool. 12/01: no change in mgmt I spent ___15___ minutes with the patient and/or on the patient floor today, greater than?50% of which was spent counseling/coordinating care. Reason for contiued inpatient stay Substantial Risk for: inability to function
[2021-12-01] MEDS: Mirtazapine 7.5 MG TABLET PO (20:34)
[2021-12-01] MEDS: risperiDONE 0.25 MG TABLET PO (20:34)
[2021-12-01] MEDS: Latanoprost 0.005 % Ophth Sol 2.5 ML DROPS 1 DROP EYE-BOTH (20:42)
[2021-12-02 06:00] VITALS: BP 125/74; PULSE 89; RESP 18; TEMP 36.7; O2SAT 96
[2021-12-02] MEDS: Gabapentin 100 MG CAPSULE PO ×3 (08:53→20:15)
[2021-12-02] MEDS: Sennosides 8.6 MG TABLET PO (08:53)
[2021-12-02] MEDS: Brimonidine Tartrate 0.2% Oph 5 ML BOTTLE 1 DROP EYE-BOTH ×3 (08:53→20:16)
[2021-12-02] MEDS: Milk of Magnesia 30 ML ORAL.SUSP PO (08:53)
[2021-12-02] MEDS: Docusate Sodium 100 MG CAPSULE PO ×2 (08:53→20:16)
[2021-12-02] MEDS: timoloL maleate 0.5 % Oph Sol 5 ML DRBTL 1 DROP EYE-BOTH ×2 (08:53→20:16)
--- NOTE | 2021-12-02 11:48 | HO.PSYCHPN ---
Subjective Subjective Date of Service: 12/02/21 Reason For Visit: Unspecified Depressive Disorder Interim History: lying in bed, minimally responsive. asks only for his hearing aids, which are then provided to him by NA. no other complaints or requests. later seen ambulating the halls with walker. per staff, sleeping and eating well. no issues. Mental Status Exam Mental Status Exam Narrative: Appearance: lying in bed, casual clothing, poor hygiene, in NAD Behavior: general PMR Speech: clear, normal rate/rhythm, non-spontaneous TP: poverty of thought TC: no over delusional content noted or reported Mood: okay Affect: constricted, but congruent SI: none HI: none AH/VH: none Delusions: none Insight/judgment: limited by memory/cog impairements Memory/cog: alert, not oriented to year, month, underlying cognitive impairments s/s to dementia. Diagnostics Vital Signs (24Hr): Vital Signs - 24 hr 12/02/21 06:00 Temperature 98.1 F Pulse Rate 89 Respiratory Rate 18 Blood Pressure 125/74 Pulse Oximetry 96 Oxygen Delivery Method Room Air BMI result Body Mass Index 18.3 Labs Results: 10/05/21 08:01 10/29/21 07:59 Labs: Laboratory Results - last 48 hr 11/30/21 18:25 COVID-19 ([facility]) Negative COVID-19 Clin Com See Note Imaging Radiology Impressions: ITS Impressions Head CT 10/04/21 15:04 IMPRESSION: 1. No acute intracranial pathology. 2. Right parietal meningioma without mass effect. 3. Generalized atrophy. Medications Medications Current Medications Acetaminophen (Acetaminophen 325 Mg Tablet) 650 mg PO Q6H PRN PRN Reason: Headache/Pain Mild Scale (1-3) Last Admin: 11/09/21 14:37 Dose: 650 mg Al Hydroxide/Mg Hydroxide (Magnesium Hydrox/Alum Hydrox 30 Ml Oral.Susp) 30 ml PO Q6H PRN PRN Reason: Heartburn/Nausea Last Admin: 11/16/21 08:11 Dose: 30 ml Brimonidine Tartrate (Brimonidine Tartrate 0.2% Oph 5 Ml Bottle) 1 drop EYE-BOTH TID [facility] Last Admin: 12/02/21 08:53 Dose: 1 drop Docusate Sodium (Docusate Sodium 100 Mg Capsule) 100 mg PO BID [facility] Last Admin: 12/02/21 08:53 Dose: 100 mg Gabapentin (Gabapentin 100 Mg Capsule) 100 mg PO TID [facility] Last Admin: 12/02/21 08:53 Dose: 100 mg Latanoprost (Latanoprost 0.005 % Ophth Jessie 2.5 Ml Drops) 1 drop EYE-BOTH BEDTIME [facility] Last Admin: 12/01/21 20:42 Dose: 1 drop Loperamide HCl (Loperamide Hcl 2 Mg Capsule) 2 mg PO Q4H PRN PRN Reason: Diarrhea Magnesium Hydroxide (Milk Of Magnesia 30 Ml Oral.Susp) 30 ml PO DAILY [facility] Last Admin: 12/02/21 08:53 Dose: 30 ml Melatonin (Melatonin 3 Mg Tablet) 3 mg PO BEDTIME PRN PRN Reason: Insomnia Last Admin: 11/27/21 20:28 Dose: 3 mg Mirtazapine (Mirtazapine 7.5 Mg Tablet) 7.5 mg PO BEDTIME [facility] Last Admin: 12/01/21 20:34 Dose: 7.5 mg Risperidone (Risperidone 0.25 Mg Tablet) 0.25 mg PO BEDTIME [facility] Last Admin: 12/01/21 20:34 Dose: 0.25 mg Senna (Sennosides 8.6 Mg Tablet) 8.6 mg PO DAILY [facility] Last Admin: 12/02/21 08:53 Dose: 8.6 mg Timolol Maleate (Timolol Maleate 0.5 % Oph Jessie 5 Ml Drbtl) 1 drop EYE-BOTH BID [facility] Last Admin: 12/02/21 08:53 Dose: 1 drop Allergies Allergies Allergy/AdvReac Type Severity Reaction Status Date / Time sulfamethoxazole Allergy Itching Verified 10/03/21 19:19 [From Bactrim] trimethoprim [From Bactrim] Allergy Itching Verified 10/03/21 19:19 Assessment & Plan Assessment & Plan (1) Mood disorder: Status: Acute Code(s): F39 - Unspecified mood [affective] disorder (2) Major neurocognitive disorder: Status: Acute Code(s): F03.90 - Unspecified dementia, unspecified severity, without behavioral disturbance, psychotic disturbance, mood disturbance, and anxiety Plan 11/30 continue current tx. order cmp, loperamide, covid for new onset loose stool. 12/01: no change in mgmt 12/02: swtable presentation. no change in mgmt I spent ___10___ minutes with the patient and/or on the patient floor today, greater than?50% of which was spent counseling/coordinating care. Reason for contiued inpatient stay Substantial Risk for: inability to function and rapid decompensation
[2021-12-02 18:00] VITALS: BP 105/56; PULSE 60; RESP 18; TEMP 36.8; O2SAT 93
[2021-12-02] MEDS: Mirtazapine 7.5 MG TABLET PO (20:15)
[2021-12-02] MEDS: risperiDONE 0.25 MG TABLET PO (20:16)
[2021-12-02] MEDS: Latanoprost 0.005 % Ophth Sol 2.5 ML DROPS 1 DROP EYE-BOTH (20:16)
[2021-12-03 08:45] VITALS: BP 110/64; PULSE 70; RESP 16; TEMP 36.1; O2SAT 98
[2021-12-03] MEDS: Brimonidine Tartrate 0.2% Oph 5 ML BOTTLE 1 DROP EYE-BOTH ×3 (09:50→21:46)
[2021-12-03] MEDS: Docusate Sodium 100 MG CAPSULE PO ×2 (09:50→21:46)
[2021-12-03] MEDS: Milk of Magnesia 30 ML ORAL.SUSP PO (09:50)
[2021-12-03] MEDS: Gabapentin 100 MG CAPSULE PO ×3 (09:50→21:46)
[2021-12-03] MEDS: Sennosides 8.6 MG TABLET PO (09:50)
[2021-12-03] MEDS: timoloL maleate 0.5 % Oph Sol 5 ML DRBTL 1 DROP EYE-BOTH ×2 (09:50→21:50)
--- NOTE | 2021-12-03 15:59 | HO.PSYCHPN ---
Subjective Subjective Date of Service: 12/03/21 Reason For Visit: Unspecified Depressive Disorder Subjective Notes: Conditional Voluntary Interim History: Pt in bed. he denies loose stool, or diarrhea, as he was last Friday. He reports going well. No physical concerns. Pt denies SI/HI. Per nursing, pt sleeping and eating well. No behavioral concerns. awaiting placement. Medication Compliance: Yes Side effects from medications: No Attending Groups: Intermittent Mental Status Exam Mental Status Exam Narrative: Appearance: lying in bed, casual clothing, poor hygiene, in NAD Behavior: general PMR Speech: clear, normal rate/rhythm, non-spontaneous TP: poverty of thought TC: no over delusional content noted or reported Mood: okay Affect: constricted, but congruent SI: none HI: none AH/VH: none Delusions: none Insight/judgment: limited by memory/cog impairements Memory/cog: alert, not oriented to year, month, underlying cognitive impairments s/s to dementia. Diagnostics Vital Signs (24Hr): Vital Signs - 24 hr 12/02/21 18:00 12/03/21 08:45 Temperature 98.3 F 97 F Pulse Rate 60 70 Respiratory Rate 18 16 Blood Pressure 105/56 L 110/64 Pulse Oximetry 93 98 Oxygen Delivery Method Room Air Room Air BMI result Body Mass Index 18.3 Labs Results: 10/05/21 08:01 10/29/21 07:59 Imaging Radiology Impressions: ITS Impressions Head CT 10/04/21 15:04 IMPRESSION: 1. No acute intracranial pathology. 2. Right parietal meningioma without mass effect. 3. Generalized atrophy. Medications Medications Current Medications Acetaminophen (Acetaminophen 325 Mg Tablet) 650 mg PO Q6H PRN PRN Reason: Headache/Pain Mild Scale (1-3) Last Admin: 11/09/21 14:37 Dose: 650 mg Al Hydroxide/Mg Hydroxide (Magnesium Hydrox/Alum Hydrox 30 Ml Oral.Susp) 30 ml PO Q6H PRN PRN Reason: Heartburn/Nausea Last Admin: 11/16/21 08:11 Dose: 30 ml Brimonidine Tartrate (Brimonidine Tartrate 0.2% Oph 5 Ml Bottle) 1 drop EYE-BOTH TID [facility] Last Admin: 12/03/21 09:50 Dose: 1 drop Docusate Sodium (Docusate Sodium 100 Mg Capsule) 100 mg PO BID [facility] Last Admin: 12/03/21 09:50 Dose: 100 mg Gabapentin (Gabapentin 100 Mg Capsule) 100 mg PO TID [facility] Last Admin: 12/03/21 09:50 Dose: 100 mg Latanoprost (Latanoprost 0.005 % Ophth Jessie 2.5 Ml Drops) 1 drop EYE-BOTH BEDTIME [facility] Last Admin: 12/02/21 20:16 Dose: 1 drop Loperamide HCl (Loperamide Hcl 2 Mg Capsule) 2 mg PO Q4H PRN PRN Reason: Diarrhea Magnesium Hydroxide (Milk Of Magnesia 30 Ml Oral.Susp) 30 ml PO DAILY [facility] Last Admin: 12/03/21 09:50 Dose: 30 ml Melatonin (Melatonin 3 Mg Tablet) 3 mg PO BEDTIME PRN PRN Reason: Insomnia Last Admin: 11/27/21 20:28 Dose: 3 mg Mirtazapine (Mirtazapine 7.5 Mg Tablet) 7.5 mg PO BEDTIME [facility] Last Admin: 12/02/21 20:15 Dose: 7.5 mg Risperidone (Risperidone 0.25 Mg Tablet) 0.25 mg PO BEDTIME [facility] Last Admin: 12/02/21 20:16 Dose: 0.25 mg Senna (Sennosides 8.6 Mg Tablet) 8.6 mg PO DAILY [facility] Last Admin: 12/03/21 09:50 Dose: 8.6 mg Timolol Maleate (Timolol Maleate 0.5 % Oph Jessie 5 Ml Drbtl) 1 drop EYE-BOTH BID [facility] Last Admin: 12/03/21 09:50 Dose: 1 drop Allergies Allergies Allergy/AdvReac Type Severity Reaction Status Date / Time sulfamethoxazole Allergy Itching Verified 10/03/21 19:19 [From Bactrim] trimethoprim [From Bactrim] Allergy Itching Verified 10/03/21 19:19 Assessment & Plan Assessment & Plan (1) Mood disorder: Status: Acute Code(s): F39 - Unspecified mood [affective] disorder (2) Major neurocognitive disorder: Status: Acute Code(s): F03.90 - Unspecified dementia, unspecified severity, without behavioral disturbance, psychotic disturbance, mood disturbance, and anxiety Plan 11/30 continue current tx. order cmp, loperamide, covid for new onset loose stool. 12/01: no change in mgmt 12/02: swtable presentation. no change in mgmt 12/03 continue current tx. I spent minutes with the patient and/or on the patient floor today, greater than?50% of which was spent counseling/coordinating care. Reason for contiued inpatient stay Substantial Risk for: inability to function
[2021-12-03 20:00] VITALS: BP 100/56; PULSE 68; RESP 16; TEMP 36.3; O2SAT 93
[2021-12-03] MEDS: Mirtazapine 7.5 MG TABLET PO (21:46)
[2021-12-03] MEDS: risperiDONE 0.25 MG TABLET PO (21:46)
[2021-12-03] MEDS: Latanoprost 0.005 % Ophth Sol 2.5 ML DROPS 1 DROP EYE-BOTH (21:49)
[2021-12-04 06:00] VITALS: BP 107/67; PULSE 69; RESP 16; TEMP 36.9; O2SAT 98
[2021-12-04 09:24] LABS: Alanine Aminotransferase 13 U/L (0-40); Albumin Level 4.1 g/dL (3.5-5.0); Alkaline Phosphatase 120 U/L (39-117); Anion Gap 18 (12-20); Aspartate Amino Transferase 22 U/L (5-37); Bilirubin Total 0.8 mg/dL (0.0-1.0); Blood Urea Nitrogen 21 mg/dL (9-16); Calcium 9.2 mg/dL (8.4-10.2); Carbon Dioxide 23 mmol/L (22-29); Chloride 104 mmol/L (96-108); Creatinine Clr Calc Pharmacy 61.5; Estimated Glomerular Filt Rate > 60; Glucose Random 85 mg/dL (60-115); Potassium 5.1 mmol/L (3.3-5.1); Sodium 140 mmol/L (135-145)
[2021-12-04] MEDS: Milk of Magnesia 30 ML ORAL.SUSP PO (10:07)
[2021-12-04] MEDS: Docusate Sodium 100 MG CAPSULE PO ×2 (10:07→21:24)
[2021-12-04] MEDS: Sennosides 8.6 MG TABLET PO (10:07)
[2021-12-04] MEDS: Gabapentin 100 MG CAPSULE PO ×3 (10:07→21:24)
[2021-12-04] MEDS: timoloL maleate 0.5 % Oph Sol 5 ML DRBTL 1 DROP EYE-BOTH ×3 (10:08→21:22)
[2021-12-04] MEDS: Brimonidine Tartrate 0.2% Oph 5 ML BOTTLE 1 DROP EYE-BOTH ×3 (10:08→21:23)
--- NOTE | 2021-12-04 14:16 | HO.PSYCHPN ---
Subjective Subjective Date of Service: 12/04/21 Reason For Visit: Unspecified Depressive Disorder Subjective Notes: Section 7 Interim History: Pt in bed after lunch but awake. When asked how is he doing he states (pointing at one of the staff), I don't know, she has not let me know yet. Pt reports he would like to stay here, I don't want to go anywhere else, I can here. He denies SI/HI. Pt informed of placement situation- awaiting wolf/guardian, insurance to apply to placement. No behavioral concerns. Pt denies physical concerns. Medication Compliance: Yes Review of Systems Review of Systems Yes all other systems are reviewed and are negative and Unobtainable due to mental status Constitutional: Denies chills and Denies fever(s) Cardiovascular: Denies chest pain, Denies dyspnea and Denies dyspnea on exertion Respiratory: Denies cough, Denies dyspnea and Denies dyspnea on exertion Gastrointestinal: Denies hematochezia and Denies change in bowel habits Genitourinary: Denies hematuria and Denies difficulty urinating Musculoskeletal: Denies back pain and Denies limited range of motion Denies focal weakness and Denies convulsions Psychiatric: Reports depression and Denies mood swings Mental Status Exam Mental Status Exam Narrative: Appearance: lying in bed, casual clothing, poor hygiene, in NAD Behavior: general PMR Speech: clear, normal rate/rhythm, non-spontaneous TP: poverty of thought TC: no over delusional content noted or reported Mood: okay Affect: constricted, but congruent SI: none HI: none AH/VH: none Delusions: none Insight/judgment: limited by memory/cog impairements Memory/cog: alert, not oriented to year, month, underlying cognitive impairments s/s to dementia. Diagnostics Vital Signs (24Hr): Vital Signs - 24 hr 12/03/21 20:00 12/04/21 06:00 Temperature 97.3 F 98.5 F Pulse Rate 68 69 Respiratory Rate 16 16 Blood Pressure 100/56 L 107/67 Pulse Oximetry 93 98 Oxygen Delivery Method Room Air Room Air BMI result Body Mass Index 18.3 Labs Results: 10/05/21 08:01 12/04/21 08:14 Labs: Laboratory Results - last 48 hr 12/04/21 08:14 Sodium 140 Potassium 5.1 Chloride 104 Carbon Dioxide 23 Anion Gap 18 BUN 21 H Creatinine 0.94 Estim Creat Clear Calc 61.5 Estimated GFR > 60 Random Glucose 85 Calcium 9.2 Total Bilirubin 0.8 AST 22 ALT 13 Alkaline Phosphatase 120 H Total Protein 7.0 Albumin 4.1 Imaging Radiology Impressions: ITS Impressions Head CT 10/04/21 15:04 IMPRESSION: 1. No acute intracranial pathology. 2. Right parietal meningioma without mass effect. 3. Generalized atrophy. Medications Medications Current Medications Acetaminophen (Acetaminophen 325 Mg Tablet) 650 mg PO Q6H PRN PRN Reason: Headache/Pain Mild Scale (1-3) Last Admin: 11/09/21 14:37 Dose: 650 mg Al Hydroxide/Mg Hydroxide (Magnesium Hydrox/Alum Hydrox 30 Ml Oral.Susp) 30 ml PO Q6H PRN PRN Reason: Heartburn/Nausea Last Admin: 11/16/21 08:11 Dose: 30 ml Brimonidine Tartrate (Brimonidine Tartrate 0.2% Oph 5 Ml Bottle) 1 drop EYE-BOTH TID [facility] Last Admin: 12/04/21 10:08 Dose: 1 drop Docusate Sodium (Docusate Sodium 100 Mg Capsule) 100 mg PO BID [facility] Last Admin: 12/04/21 10:07 Dose: 100 mg Gabapentin (Gabapentin 100 Mg Capsule) 100 mg PO TID [facility] Last Admin: 12/04/21 10:07 Dose: 100 mg Latanoprost (Latanoprost 0.005 % Ophth Jessie 2.5 Ml Drops) 1 drop EYE-BOTH BEDTIME [facility] Last Admin: 12/03/21 21:49 Dose: 1 drop Loperamide HCl (Loperamide Hcl 2 Mg Capsule) 2 mg PO Q4H PRN PRN Reason: Diarrhea Magnesium Hydroxide (Milk Of Magnesia 30 Ml Oral.Susp) 30 ml PO DAILY [facility] Last Admin: 12/04/21 10:07 Dose: 30 ml Melatonin (Melatonin 3 Mg Tablet) 3 mg PO BEDTIME PRN PRN Reason: Insomnia Last Admin: 11/27/21 20:28 Dose: 3 mg Mirtazapine (Mirtazapine 7.5 Mg Tablet) 7.5 mg PO BEDTIME [facility] Last Admin: 12/03/21 21:46 Dose: 7.5 mg Risperidone (Risperidone 0.25 Mg Tablet) 0.25 mg PO BEDTIME [facility] Last Admin: 12/03/21 21:46 Dose: 0.25 mg Senna (Sennosides 8.6 Mg Tablet) 8.6 mg PO DAILY [facility] Last Admin: 12/04/21 10:07 Dose: 8.6 mg Timolol Maleate (Timolol Maleate 0.5 % Oph Jessie 5 Ml Drbtl) 1 drop EYE-BOTH BID [facility] Last Admin: 12/04/21 10:08 Dose: 1 drop Allergies Allergies Allergy/AdvReac Type Severity Reaction Status Date / Time sulfamethoxazole Allergy Itching Verified 10/03/21 19:19 [From Bactrim] trimethoprim [From Bactrim] Allergy Itching Verified 10/03/21 19:19 Assessment & Plan Assessment & Plan (1) Mood disorder: Status: Acute Code(s): F39 - Unspecified mood [affective] disorder (2) Major neurocognitive disorder: Status: Acute Code(s): F03.90 - Unspecified dementia, unspecified severity, without behavioral disturbance, psychotic disturbance, mood disturbance, and anxiety Plan 11/30 continue current tx. order cmp, loperamide, covid for new onset loose stool. 12/01: no change in mgmt 12/02: swtable presentation. no change in mgmt 12/03 continue current tx. 12/04 continue current tx. I spent minutes with the patient and/or on the patient floor today, greater than?50% of which was spent counseling/coordinating care. Reason for contiued inpatient stay Substantial Risk for: inability to function
[2021-12-04 18:00] VITALS: BP 105/54; PULSE 64; RESP 16; TEMP 36.4; O2SAT 95
[2021-12-04] MEDS: Latanoprost 0.005 % Ophth Sol 2.5 ML DROPS 1 DROP EYE-BOTH (21:23)
[2021-12-04] MEDS: risperiDONE 0.25 MG TABLET PO (21:24)
[2021-12-04] MEDS: Mirtazapine 7.5 MG TABLET PO (21:24)
[2021-12-05 06:00] VITALS: BP 104/56; PULSE 60; TEMP 36.2; O2SAT 96
[2021-12-05] MEDS: Brimonidine Tartrate 0.2% Oph 5 ML BOTTLE 1 DROP EYE-BOTH ×3 (10:29→20:58)
[2021-12-05] MEDS: Sennosides 8.6 MG TABLET PO (10:30)
[2021-12-05] MEDS: Milk of Magnesia 30 ML ORAL.SUSP PO (10:30)
[2021-12-05] MEDS: Gabapentin 100 MG CAPSULE PO ×3 (10:30→20:54)
[2021-12-05] MEDS: Docusate Sodium 100 MG CAPSULE PO ×2 (10:30→20:54)
--- NOTE | 2021-12-05 11:11 | HO.PSYCHPN ---
Subjective Subjective Date of Service: 12/06/21 Reason For Visit: Unspecified Depressive Disorder Subjective Notes: Conditional Voluntary Interim History: Pt up. He reports I'm never getting out of here. Pt denies any specific concerns about unit or staff, mostly frustration about not being able to do things that he would do in community, such as going to [employer]. He denies SI/HI. Taking meds as prescribed. Medication Compliance: Yes Side effects from medications: No Attending Groups: No Review of Systems Review of Systems Yes all other systems are reviewed and are negative and Unobtainable due to mental status Constitutional: Denies chills and Denies fever(s) Cardiovascular: Denies chest pain, Denies dyspnea and Denies dyspnea on exertion Respiratory: Denies cough, Denies dyspnea and Denies dyspnea on exertion Gastrointestinal: Denies hematochezia and Denies change in bowel habits Genitourinary: Denies hematuria and Denies difficulty urinating Musculoskeletal: Denies back pain and Denies limited range of motion Denies focal weakness and Denies convulsions Psychiatric: Reports depression and Denies mood swings Mental Status Exam Mental Status Exam Narrative: Appearance: lying in bed, casual clothing, poor hygiene, in NAD Behavior: general PMR Speech: clear, normal rate/rhythm, non-spontaneous TP: poverty of thought TC: no over delusional content noted or reported Mood: okay Affect: constricted, but congruent SI: none HI: none AH/VH: none Delusions: none Insight/judgment: limited by memory/cog impairements Memory/cog: alert, not oriented to year, month, underlying cognitive impairments s/s to dementia. Diagnostics Vital Signs (24Hr): Vital Signs - 24 hr 12/05/21 18:00 12/06/21 06:00 Temperature 98.4 F 96.6 F L Pulse Rate 61 73 Respiratory Rate 17 18 Blood Pressure 104/59 L 114/59 L Pulse Oximetry 95 97 Oxygen Delivery Method Room Air Room Air BMI result Body Mass Index 18.3 Labs Results: 10/05/21 08:01 12/04/21 08:14 Imaging Radiology Impressions: [facility] Impressions Head CT 10/04/21 15:04 IMPRESSION: 1. No acute intracranial pathology. 2. Right parietal meningioma without mass effect. 3. Generalized atrophy. Medications Medications Current Medications Acetaminophen (Acetaminophen 325 Mg Tablet) 650 mg PO Q6H PRN PRN Reason: Headache/Pain Mild Scale (1-3) Last Admin: 11/09/21 14:37 Dose: 650 mg Al Hydroxide/Mg Hydroxide (Magnesium Hydrox/Alum Hydrox 30 Ml Oral.Susp) 30 ml PO Q6H PRN PRN Reason: Heartburn/Nausea Last Admin: 11/16/21 08:11 Dose: 30 ml Brimonidine Tartrate (Brimonidine Tartrate 0.2% Oph 5 Ml Bottle) 1 drop EYE-BOTH TID [facility] Last Admin: 12/06/21 14:51 Dose: 1 drop Docusate Sodium (Docusate Sodium 100 Mg Capsule) 100 mg PO BID [facility] Last Admin: 12/06/21 08:50 Dose: 100 mg Gabapentin (Gabapentin 100 Mg Capsule) 100 mg PO TID [facility] Last Admin: 12/06/21 14:51 Dose: 100 mg Latanoprost (Latanoprost 0.005 % Ophth Jessie 2.5 Ml Drops) 1 drop EYE-BOTH BEDTIME [facility] Last Admin: 12/05/21 20:57 Dose: 1 drop Loperamide HCl (Loperamide Hcl 2 Mg Capsule) 2 mg PO Q4H PRN PRN Reason: Diarrhea Magnesium Hydroxide (Milk Of Magnesia 30 Ml Oral.Susp) 30 ml PO DAILY [facility] Last Admin: 12/06/21 08:50 Dose: 30 ml Melatonin (Melatonin 3 Mg Tablet) 3 mg PO BEDTIME PRN PRN Reason: Insomnia Last Admin: 12/05/21 20:54 Dose: 3 mg Mirtazapine (Mirtazapine 7.5 Mg Tablet) 7.5 mg PO BEDTIME [facility] Last Admin: 12/05/21 20:54 Dose: 7.5 mg Risperidone (Risperidone 0.25 Mg Tablet) 0.25 mg PO BEDTIME [facility] Last Admin: 12/05/21 20:54 Dose: 0.25 mg Senna (Sennosides 8.6 Mg Tablet) 8.6 mg PO DAILY [facility] Last Admin: 12/06/21 08:50 Dose: 8.6 mg Timolol Maleate (Timolol Maleate 0.5 % Oph Jessie 5 Ml Drbtl) 1 drop EYE-BOTH BID [facility] Last Admin: 12/06/21 08:50 Dose: 1 drop Allergies Allergies Allergy/AdvReac Type Severity Reaction Status Date / Time sulfamethoxazole Allergy Itching Verified 10/03/21 19:19 [From Bactrim] trimethoprim [From Bactrim] Allergy Itching Verified 10/03/21 19:19 Assessment & Plan Assessment & Plan (1) Mood disorder: Status: Acute Code(s): F39 - Unspecified mood [affective] disorder (2) Major neurocognitive disorder: Status: Acute Code(s): F03.90 - Unspecified dementia, unspecified severity, without behavioral disturbance, psychotic disturbance, mood disturbance, and anxiety Plan 11/30 continue current tx. order cmp, loperamide, covid for new onset loose stool. 12/01: no change in mgmt 12/02: swtable presentation. no change in mgmt 12/03 continue current tx. 12/04 continue current tx. 12/05 continue current tx. I spent minutes with the patient and/or on the patient floor today, greater than?50% of which was spent counseling/coordinating care. Reason for contiued inpatient stay Substantial Risk for: inability to function
[2021-12-05 18:00] VITALS: BP 104/59; PULSE 61; RESP 17; TEMP 36.9; O2SAT 95
[2021-12-05] MEDS: Mirtazapine 7.5 MG TABLET PO (20:54)
[2021-12-05] MEDS: risperiDONE 0.25 MG TABLET PO (20:54)
[2021-12-05] MEDS: Melatonin 3 MG TABLET PO (20:54)
[2021-12-05] MEDS: Latanoprost 0.005 % Ophth Sol 2.5 ML DROPS 1 DROP EYE-BOTH (20:57)
[2021-12-05] MEDS: timoloL maleate 0.5 % Oph Sol 5 ML DRBTL 1 DROP EYE-BOTH (20:57)
[2021-12-06 06:00] VITALS: BP 114/59; PULSE 73; RESP 18; TEMP 35.9; O2SAT 97
[2021-12-06] MEDS: Brimonidine Tartrate 0.2% Oph 5 ML BOTTLE 1 DROP EYE-BOTH ×3 (08:50→20:12)
[2021-12-06] MEDS: Milk of Magnesia 30 ML ORAL.SUSP PO (08:50)
[2021-12-06] MEDS: Docusate Sodium 100 MG CAPSULE PO ×2 (08:50→20:12)
[2021-12-06] MEDS: timoloL maleate 0.5 % Oph Sol 5 ML DRBTL 1 DROP EYE-BOTH ×2 (08:50→20:12)
[2021-12-06] MEDS: Gabapentin 100 MG CAPSULE PO ×3 (08:50→20:11)
[2021-12-06] MEDS: Sennosides 8.6 MG TABLET PO (08:50)
--- NOTE | 2021-12-06 14:20 | P.PNPSI_ITS ---
Subjective Subjective Date of Service: 12/06/21 Reason For Visit: Unspecified Depressive Disorder Subjective Notes: Conditional Voluntary Interim History: Pt ambulating with walker. He denies any physical concerns. He reports he is waiting if he will get out of here. No SI/HI. No behavioral concerns. No overt psychosis or delusions. Medication Compliance: Yes Review of Systems Review of Systems Yes all other systems are reviewed and are negative and Unobtainable due to m ental status Constitutional: Denies chills and Denies fever(s) Cardiovascular: Denies chest pain, Denies dyspnea and Denies dyspnea on exertion Respiratory: Denies cough, Denies dyspnea and Denies dyspnea on exertion Gastrointestinal: Denies hematochezia and Denies change in bowel habits Genitourinary: Denies hematuria and Denies difficulty urinating Musculoskeletal: Denies back pain and Denies limited range of motion Denies focal weakness and Denies convulsions Psychiatric: Reports depression and Denies mood swings Mental Status Exam Mental Status Exam Narrative: Appearance: lying in bed, casual clothing, poor hygiene, in NAD Behavior: general PMR Speech: clear, normal rate/rhythm, non-spontaneous TP: poverty of thought TC: no over delusional content noted or reported Mood: okay Affect: constricted, but congruent SI: none HI: none AH/VH: none Delusions: none Insight/judgment: limited by memory/cog impairements Memory/cog: alert, not oriented to year, month, underlying cognitive impairments s/s to dementia. Diagnostics Vital Signs (24Hr): Vital Signs - 24 hr 12/05/21 18:00 12/06/21 06:00 Temperature 98.4 F 96.6 F L Pulse Rate 61 73 Respiratory Rate 17 18 Blood Pressure 104/59 L 114/59 L Pulse Oximetry 95 97 Oxygen Delivery Method Room Air Room Air BMI result Body Mass Index 18.3 Labs Results: 10/05/21 08:01 12/04/21 08:14 Imaging Radiology Impressions: [facility] Impressions Head CT 10/04/21 15:04 IMPRESSION: 1. No acute intracranial pathology. 2. Right parietal meningioma without mass effect. 3. Generalized atrophy. Medications Medications Current Medications Acetaminophen (Acetaminophen 325 Mg Tablet) 650 mg PO Q6H PRN PRN Reason: Headache/Pain Mild Scale (1-3) Last Admin: 11/09/21 14:37 Dose: 650 mg Al Hydroxide/Mg Hydroxide (Magnesium Hydrox/Alum Hydrox 30 Ml Oral.Susp) 30 ml PO Q6H PRN PRN Reason: Heartburn/Nausea Last Admin: 11/16/21 08:11 Dose: 30 ml Brimonidine Tartrate (Brimonidine Tartrate 0.2% Oph 5 Ml Bottle) 1 drop EYE- BOTH TID [facility] Last Admin: 12/06/21 14:51 Dose: 1 drop Docusate Sodium (Docusate Sodium 100 Mg Capsule) 100 mg PO BID [facility] Last Admin: 12/06/21 08:50 Dose: 100 mg Gabapentin (Gabapentin 100 Mg Capsule) 100 mg PO TID [facility] Last Admin: 12/06/21 14:51 Dose: 100 mg Latanoprost (Latanoprost 0.005 % Ophth Jessie 2.5 Ml Drops) 1 drop EYE-BOTH BEDTIME [facility] Last Admin: 12/05/21 20:57 Dose: 1 drop Loperamide HCl (Loperamide Hcl 2 Mg Capsule) 2 mg PO Q4H PRN PRN Reason: Diarrhea Magnesium Hydroxide (Milk Of Magnesia 30 Ml Oral.Susp) 30 ml PO DAILY [facility] Last Admin: 12/06/21 08:50 Dose: 30 ml Melatonin (Melatonin 3 Mg Tablet) 3 mg PO BEDTIME PRN PRN Reason: Insomnia Last Admin: 12/05/21 20:54 Dose: 3 mg Mirtazapine (Mirtazapine 7.5 Mg Tablet) 7.5 mg PO BEDTIME [facility] Last Admin: 12/05/21 20:54 Dose: 7.5 mg Risperidone (Risperidone 0.25 Mg Tablet) 0.25 mg PO BEDTIME [facility] Last Admin: 12/05/21 20:54 Dose: 0.25 mg Senna (Sennosides 8.6 Mg Tablet) 8.6 mg PO DAILY [facility] Last Admin: 12/06/21 08:50 Dose: 8.6 mg Timolol Maleate (Timolol Maleate 0.5 % Oph Jessie 5 Ml Drbtl) 1 drop EYE-BOTH BID [facility] Last Admin: 12/06/21 08:50 Dose: 1 drop Allergies Allergies Allergy/AdvReac Type Severity Reaction Status Date / Time sulfamethoxazole Allergy Itching Verified 10/03/21 19:19 [From Bactrim] trimethoprim [From Bactrim] Allergy Itching Verified 10/03/21 19:19 Assessment & Plan Assessment & Plan (1) Mood disorder: Status: Acute Code(s): F39 - Unspecified mood [affective] disorder (2) Major neurocognitive disorder: Status: Acute Code(s): F03.90 - Unspecified dementia, unspecified severity, without behavioral disturbance, psychotic disturbance, mood disturbance, and anxiety Plan 11/30 continue current tx. order cmp, loperamide, covid for new onset loose stool. 12/01: no change in mgmt 12/02: swtable presentation. no change in mgmt 12/03 continue current tx. 12/04 continue current tx. 12/05 continue current tx. 12/06 continue current tx. I spent minutes with the patient and/or on the patient floor today, greater than?50% of which was spent counseling/coordinating care. Reason for contiued inpatient stay Substantial Risk for: inability to function
[2021-12-06 18:00] VITALS: BP 99/63; PULSE 64; RESP 18; TEMP 37.1; O2SAT 95
[2021-12-06] MEDS: risperiDONE 0.25 MG TABLET PO (20:11)
[2021-12-06] MEDS: Latanoprost 0.005 % Ophth Sol 2.5 ML DROPS 1 DROP EYE-BOTH (20:12)
[2021-12-06] MEDS: Mirtazapine 7.5 MG TABLET PO (20:12)
[2021-12-07 06:00] VITALS: BP 99/64; PULSE 63; RESP 16; TEMP 36.8; O2SAT 95
[2021-12-07] MEDS: Brimonidine Tartrate 0.2% Oph 5 ML BOTTLE 1 DROP EYE-BOTH ×3 (09:22→20:07)
[2021-12-07] MEDS: Milk of Magnesia 30 ML ORAL.SUSP PO (09:22)
[2021-12-07] MEDS: Docusate Sodium 100 MG CAPSULE PO ×2 (09:23→20:07)
[2021-12-07] MEDS: Gabapentin 100 MG CAPSULE PO ×3 (09:23→20:07)
[2021-12-07] MEDS: Sennosides 8.6 MG TABLET PO (09:23)
[2021-12-07] MEDS: timoloL maleate 0.5 % Oph Sol 5 ML DRBTL 1 DROP EYE-BOTH ×2 (09:50→20:07)
--- NOTE | 2021-12-07 11:24 | HO.PSYCHPN ---
Subjective Subjective Date of Service: 12/07/21 Reason For Visit: Unspecified Depressive Disorder Subjective Notes: Conditional Voluntary Interim History: Pt in bed. He reports he is waiting. Pt talks about his life, work in the past, past relationships. Denies any physical concerns. No SI/HI. No behavioral concerns. No overt psychosis or delusions. Review of Systems Review of Systems Yes all other systems are reviewed and are negative and Unobtainable due to mental status Constitutional: Denies chills and Denies fever(s) Cardiovascular: Denies chest pain, Denies dyspnea and Denies dyspnea on exertion Respiratory: Denies cough, Denies dyspnea and Denies dyspnea on exertion Gastrointestinal: Denies hematochezia and Denies change in bowel habits Genitourinary: Denies hematuria and Denies difficulty urinating Musculoskeletal: Denies back pain and Denies limited range of motion Denies focal weakness and Denies convulsions Psychiatric: Reports depression and Denies mood swings Mental Status Exam Mental Status Exam Narrative: Appearance: lying in bed, casual clothing, poor hygiene, in NAD Behavior: general PMR Speech: clear, normal rate/rhythm, non-spontaneous TP: poverty of thought TC: no over delusional content noted or reported Mood: okay Affect: constricted, but congruent SI: none HI: none AH/VH: none Delusions: none Insight/judgment: limited by memory/cog impairements Memory/cog: alert, not oriented to year, month, underlying cognitive impairments s/s to dementia. Diagnostics Vital Signs (24Hr): Vital Signs - 24 hr 12/07/21 18:00 Temperature 97.9 F Pulse Rate 60 Respiratory Rate 18 Blood Pressure 112/58 L Pulse Oximetry 95 Oxygen Delivery Method Room Air BMI result Body Mass Index 18.3 Labs Results: 10/05/21 08:01 12/04/21 08:14 Imaging Radiology Impressions: [facility] Impressions Head CT 10/04/21 15:04 IMPRESSION: 1. No acute intracranial pathology. 2. Right parietal meningioma without mass effect. 3. Generalized atrophy. Medications Medications Current Medications Acetaminophen (Acetaminophen 325 Mg Tablet) 650 mg PO Q6H PRN PRN Reason: Headache/Pain Mild Scale (1-3) Last Admin: 11/09/21 14:37 Dose: 650 mg Al Hydroxide/Mg Hydroxide (Magnesium Hydrox/Alum Hydrox 30 Ml Oral.Susp) 30 ml PO Q6H PRN PRN Reason: Heartburn/Nausea Last Admin: 11/16/21 08:11 Dose: 30 ml Brimonidine Tartrate (Brimonidine Tartrate 0.2% Oph 5 Ml Bottle) 1 drop EYE-BOTH TID [facility] Last Admin: 12/07/21 20:07 Dose: 1 drop Docusate Sodium (Docusate Sodium 100 Mg Capsule) 100 mg PO BID [facility] Last Admin: 12/07/21 20:07 Dose: 100 mg Gabapentin (Gabapentin 100 Mg Capsule) 100 mg PO TID [facility] Last Admin: 12/07/21 20:07 Dose: 100 mg Latanoprost (Latanoprost 0.005 % Ophth Jessie 2.5 Ml Drops) 1 drop EYE-BOTH BEDTIME [facility] Last Admin: 12/07/21 20:07 Dose: 1 drop Loperamide HCl (Loperamide Hcl 2 Mg Capsule) 2 mg PO Q4H PRN PRN Reason: Diarrhea Magnesium Hydroxide (Milk Of Magnesia 30 Ml Oral.Susp) 30 ml PO DAILY [facility] Last Admin: 12/07/21 09:22 Dose: 30 ml Melatonin (Melatonin 3 Mg Tablet) 3 mg PO BEDTIME PRN PRN Reason: Insomnia Last Admin: 12/05/21 20:54 Dose: 3 mg Mirtazapine (Mirtazapine 7.5 Mg Tablet) 7.5 mg PO BEDTIME [facility] Last Admin: 12/07/21 20:07 Dose: 7.5 mg Risperidone (Risperidone 0.25 Mg Tablet) 0.25 mg PO BEDTIME [facility] Last Admin: 12/07/21 20:07 Dose: 0.25 mg Senna (Sennosides 8.6 Mg Tablet) 8.6 mg PO DAILY [facility] Last Admin: 12/07/21 09:23 Dose: 8.6 mg Timolol Maleate (Timolol Maleate 0.5 % Oph Jessie 5 Ml Drbtl) 1 drop EYE-BOTH BID [facility] Last Admin: 12/07/21 20:07 Dose: 1 drop Allergies Allergies Allergy/AdvReac Type Severity Reaction Status Date / Time sulfamethoxazole Allergy Itching Verified 10/03/21 19:19 [From Bactrim] trimethoprim [From Bactrim] Allergy Itching Verified 10/03/21 19:19 Assessment & Plan Assessment & Plan (1) Mood disorder: Status: Acute Code(s): F39 - Unspecified mood [affective] disorder (2) Major neurocognitive disorder: Status: Acute Code(s): F03.90 - Unspecified dementia, unspecified severity, without behavioral disturbance, psychotic disturbance, mood disturbance, and anxiety Plan 11/30 continue current tx. order cmp, loperamide, covid for new onset loose stool. 12/01: no change in mgmt 12/02: swtable presentation. no change in mgmt 12/03 continue current tx. 12/04 continue current tx. 12/05 continue current tx. 12/06 continue current tx. 12/07 continue tx. I spent minutes with the patient and/or on the patient floor today, greater than?50% of which was spent counseling/coordinating care. Reason for contiued inpatient stay Substantial Risk for: inability to function
[2021-12-07 18:00] VITALS: BP 112/58; PULSE 60; RESP 18; TEMP 36.6; O2SAT 95
[2021-12-07] MEDS: risperiDONE 0.25 MG TABLET PO (20:07)
[2021-12-07] MEDS: Latanoprost 0.005 % Ophth Sol 2.5 ML DROPS 1 DROP EYE-BOTH (20:07)
[2021-12-07] MEDS: Mirtazapine 7.5 MG TABLET PO (20:07)
[2021-12-08 08:40] VITALS: BP 122/68; PULSE 72; RESP 14; TEMP 36.9; O2SAT 95
[2021-12-08] MEDS: Milk of Magnesia 30 ML ORAL.SUSP PO (08:46)
[2021-12-08] MEDS: Docusate Sodium 100 MG CAPSULE PO ×2 (08:46→20:39)
[2021-12-08] MEDS: Sennosides 8.6 MG TABLET PO (08:47)
[2021-12-08] MEDS: Gabapentin 100 MG CAPSULE PO ×3 (08:47→20:39)
[2021-12-08] MEDS: timoloL maleate 0.5 % Oph Sol 5 ML DRBTL 1 DROP EYE-BOTH ×2 (08:47→20:40)
[2021-12-08] MEDS: Brimonidine Tartrate 0.2% Oph 5 ML BOTTLE 1 DROP EYE-BOTH ×3 (08:47→20:40)
--- NOTE | 2021-12-08 10:51 | P.PNPSI_ITS ---
Subjective Subjective Date of Service: 12/08/21 Reason For Visit: Unspecified Depressive Disorder Subjective Notes: Conditional Voluntary Interim History: Patient was seen and discussed in rounds today. He was in bed. He is pleasant and minimally interactive. He has no complaints. Eating and sleeping adequately. No changes were made today Diagnostics Vital Signs (24Hr): Vital Signs - 24 hr 12/07/21 18:00 12/08/21 08:40 Temperature 97.9 F 98.4 F Pulse Rate 60 72 Respiratory Rate 18 14 Blood Pressure 112/58 L 122/68 Pulse Oximetry 95 95 Oxygen Delivery Method Room Air Room Air BMI result Body Mass Index 18.3 Labs Results: 10/05/21 08:01 12/04/21 08:14 Imaging Radiology Impressions: [facility] Impressions Head CT 10/04/21 15:04 IMPRESSION: 1. No acute intracranial pathology. 2. Right parietal meningioma without mass effect. 3. Generalized atrophy. Medications Medications Current Medications Acetaminophen (Acetaminophen 325 Mg Tablet) 650 mg PO Q6H PRN PRN Reason: Headache/Pain Mild Scale (1-3) Last Admin: 11/09/21 14:37 Dose: 650 mg Al Hydroxide/Mg Hydroxide (Magnesium Hydrox/Alum Hydrox 30 Ml Oral.Susp) 30 ml PO Q6H PRN PRN Reason: Heartburn/Nausea Last Admin: 11/16/21 08:11 Dose: 30 ml Brimonidine Tartrate (Brimonidine Tartrate 0.2% Oph 5 Ml Bottle) 1 drop EYE- BOTH TID [facility] Last Admin: 12/08/21 08:47 Dose: 1 drop Docusate Sodium (Docusate Sodium 100 Mg Capsule) 100 mg PO BID [facility] Last Admin: 12/08/21 08:46 Dose: 100 mg Gabapentin (Gabapentin 100 Mg Capsule) 100 mg PO TID [facility] Last Admin: 12/08/21 08:47 Dose: 100 mg Latanoprost (Latanoprost 0.005 % Ophth Jessie 2.5 Ml Drops) 1 drop EYE-BOTH BEDTIME [facility] Last Admin: 12/07/21 20:07 Dose: 1 drop Loperamide HCl (Loperamide Hcl 2 Mg Capsule) 2 mg PO Q4H PRN PRN Reason: Diarrhea Magnesium Hydroxide (Milk Of Magnesia 30 Ml Oral.Susp) 30 ml PO DAILY [facility] Last Admin: 12/08/21 08:46 Dose: 30 ml Melatonin (Melatonin 3 Mg Tablet) 3 mg PO BEDTIME PRN PRN Reason: Insomnia Last Admin: 12/05/21 20:54 Dose: 3 mg Mirtazapine (Mirtazapine 7.5 Mg Tablet) 7.5 mg PO BEDTIME [facility] Last Admin: 12/07/21 20:07 Dose: 7.5 mg Risperidone (Risperidone 0.25 Mg Tablet) 0.25 mg PO BEDTIME [facility] Last Admin: 12/07/21 20:07 Dose: 0.25 mg Senna (Sennosides 8.6 Mg Tablet) 8.6 mg PO DAILY [facility] Last Admin: 12/08/21 08:47 Dose: 8.6 mg Timolol Maleate (Timolol Maleate 0.5 % Oph Jessie 5 Ml Drbtl) 1 drop EYE-BOTH BID [facility] Last Admin: 12/08/21 08:47 Dose: 1 drop Allergies Allergies Allergy/AdvReac Type Severity Reaction Status Date / Time sulfamethoxazole Allergy Itching Verified 10/03/21 19:19 [From Bactrim] trimethoprim [From Bactrim] Allergy Itching Verified 10/03/21 19:19 Assessment & Plan Assessment & Plan (1) Mood disorder: Status: Acute Code(s): F39 - Unspecified mood [affective] disorder (2) Major neurocognitive disorder: Status: Acute Code(s): F03.90 - Unspecified dementia, unspecified severity, without behavioral disturbance, psychotic disturbance, mood disturbance, and anxiety Plan 11/30 continue current tx. order cmp, loperamide, covid for new onset loose stool. 12/01: no change in mgmt 12/02: swtable presentation. no change in mgmt 12/03 continue current tx. 12/04 continue current tx. 12/05 continue current tx. 12/06 continue current tx. 12/07 continue tx. 12/08: Continue current regimen and plans. Awaiting placement I spent minutes with the patient and/or on the patient floor today, greater than?50% of which was spent counseling/coordinating care. Reason for contiued inpatient stay Substantial Risk for: inability to function
[2021-12-08 18:00] VITALS: BP 90/68; PULSE 68; RESP 18; TEMP 36.1; O2SAT 96
[2021-12-08] MEDS: risperiDONE 0.25 MG TABLET PO (20:39)
[2021-12-08] MEDS: Mirtazapine 7.5 MG TABLET PO (20:39)
[2021-12-08] MEDS: Latanoprost 0.005 % Ophth Sol 2.5 ML DROPS 1 DROP EYE-BOTH (20:40)
[2021-12-09 06:00] VITALS: BP 113/64; PULSE 71; RESP 16; TEMP 36.8; O2SAT 96
--- NOTE | 2021-12-09 08:16 | HO.PSYCHPN ---
Subjective Subjective Date of Service: 12/09/21 Reason For Visit: Unspecified Depressive Disorder Subjective Notes: Conditional Voluntary Interim History: Patient was seen and discussed in rounds today. He was in bed. He is doing fairly well and has been stable. He is med compliant. Eating and sleeping well. No complaints or side effects. No changes were made. He is awaiting placement Review of Systems Review of Systems Yes all other systems are reviewed and are negative and Unobtainable due to mental status Constitutional: Denies chills and Denies fever(s) Cardiovascular: Denies chest pain, Denies dyspnea and Denies dyspnea on exertion Respiratory: Denies cough, Denies dyspnea and Denies dyspnea on exertion Gastrointestinal: Denies hematochezia and Denies change in bowel habits Genitourinary: Denies hematuria and Denies difficulty urinating Musculoskeletal: Denies back pain and Denies limited range of motion Denies focal weakness and Denies convulsions Psychiatric: Reports depression and Denies mood swings Mental Status Exam Mental Status Exam Narrative: In today's visit he is alert, pleasant and minimally interactive. Normal speech. No eye contact. Affect is constricted. No signs of psychosis. No dangerous behaviors. No SI. Cognitively impaired. Judgment is marginal Diagnostics Vital Signs (24Hr): Vital Signs - 24 hr 12/08/21 08:40 12/08/21 18:00 Temperature 98.4 F 96.9 F Pulse Rate 72 68 Respiratory Rate 14 18 Blood Pressure 122/68 90/68 Pulse Oximetry 95 96 Oxygen Delivery Method Room Air Room Air BMI result Body Mass Index 18.3 Labs Results: 10/05/21 08:01 12/04/21 08:14 Imaging Radiology Impressions: [facility] Impressions Head CT 10/04/21 15:04 IMPRESSION: 1. No acute intracranial pathology. 2. Right parietal meningioma without mass effect. 3. Generalized atrophy. Medications Medications Current Medications Acetaminophen (Acetaminophen 325 Mg Tablet) 650 mg PO Q6H PRN PRN Reason: Headache/Pain Mild Scale (1-3) Last Admin: 11/09/21 14:37 Dose: 650 mg Al Hydroxide/Mg Hydroxide (Magnesium Hydrox/Alum Hydrox 30 Ml Oral.Susp) 30 ml PO Q6H PRN PRN Reason: Heartburn/Nausea Last Admin: 11/16/21 08:11 Dose: 30 ml Brimonidine Tartrate (Brimonidine Tartrate 0.2% Oph 5 Ml Bottle) 1 drop EYE-BOTH TID [facility] 234 BEDS AT [facility] Last Admin: 12/08/21 20:40 Dose: 1 drop Docusate Sodium (Docusate Sodium 100 Mg Capsule) 100 mg PO BID [facility] 234 BEDS AT [facility] Last Admin: 12/08/21 20:39 Dose: 100 mg Gabapentin (Gabapentin 100 Mg Capsule) 100 mg PO TID [facility] 234 BEDS AT [facility] Last Admin: 12/08/21 20:39 Dose: 100 mg Latanoprost (Latanoprost 0.005 % Ophth Jessie 2.5 Ml Drops) 1 drop EYE-BOTH BEDTIME [facility]CLUDE 234 BEDS AT [facility] Last Admin: 12/08/21 20:40 Dose: 1 drop Loperamide HCl (Loperamide Hcl 2 Mg Capsule) 2 mg PO Q4H PRN PRN Reason: Diarrhea Magnesium Hydroxide (Milk Of Magnesia 30 Ml Oral.Susp) 30 ml PO DAILY [facility] 234 BEDS AT [facility] Last Admin: 12/08/21 08:46 Dose: 30 ml Melatonin (Melatonin 3 Mg Tablet) 3 mg PO BEDTIME PRN PRN Reason: Insomnia Last Admin: 12/05/21 20:54 Dose: 3 mg Mirtazapine (Mirtazapine 7.5 Mg Tablet) 7.5 mg PO BEDTIME [facility] 234 BEDS AT [facility] Last Admin: 12/08/21 20:39 Dose: 7.5 mg Risperidone (Risperidone 0.25 Mg Tablet) 0.25 mg PO BEDTIME [facility]CLUDE 234 BEDS AT [facility] Last Admin: 12/08/21 20:39 Dose: 0.25 mg Senna (Sennosides 8.6 Mg Tablet) 8.6 mg PO DAILY [facility] 234 BEDS AT [facility] Last Admin: 12/08/21 08:47 Dose: 8.6 mg Timolol Maleate (Timolol Maleate 0.5 % Oph Jessie 5 Ml Drbtl) 1 drop EYE-BOTH BID [facility] 234 BEDS AT [facility] Last Admin: 12/08/21 20:40 Dose: 1 drop Allergies Allergies Allergy/AdvReac Type Severity Reaction Status Date / Time sulfamethoxazole Allergy Itching Verified 10/03/21 19:19 [From Bactrim] trimethoprim [From Bactrim] Allergy Itching Verified 10/03/21 19:19 Assessment & Plan Assessment & Plan (1) Mood disorder: Status: Acute Code(s): F39 - Unspecified mood [affective] disorder (2) Major neurocognitive disorder: Status: Acute Code(s): F03.90 - Unspecified dementia, unspecified severity, without behavioral disturbance, psychotic disturbance, mood disturbance, and anxiety Plan 11/30 continue current tx. order cmp, loperamide, covid for new onset loose stool. 12/01: no change in mgmt 12/02: swtable presentation. no change in mgmt 12/03 continue current tx. 12/04 continue current tx. 12/05 continue current tx. 12/06 continue current tx. 12/07 continue tx. 12/08: Continue current regimen and plans. Awaiting placement 12/09: Continue current plans and regimen. I spent minutes with the patient and/or on the patient floor today, greater than?50% of which was spent counseling/coordinating care. Reason for contiued inpatient stay Substantial Risk for: inability to function
[2021-12-09] MEDS: Gabapentin 100 MG CAPSULE PO ×3 (08:28→21:16)
[2021-12-09] MEDS: Sennosides 8.6 MG TABLET PO (08:28)
[2021-12-09] MEDS: Milk of Magnesia 30 ML ORAL.SUSP PO (08:28)
[2021-12-09] MEDS: Brimonidine Tartrate 0.2% Oph 5 ML BOTTLE 1 DROP EYE-BOTH ×3 (08:29→21:14)
[2021-12-09] MEDS: timoloL maleate 0.5 % Oph Sol 5 ML DRBTL 1 DROP EYE-BOTH ×2 (08:29→21:15)
[2021-12-09] MEDS: Docusate Sodium 100 MG CAPSULE PO ×2 (08:29→21:16)
[2021-12-09 18:00] VITALS: BP 94/55; PULSE 60; RESP 16; TEMP 36.6; O2SAT 95
[2021-12-09] MEDS: Latanoprost 0.005 % Ophth Sol 2.5 ML DROPS 1 DROP EYE-BOTH (21:13)
[2021-12-09] MEDS: Melatonin 3 MG TABLET PO (21:15)
[2021-12-09] MEDS: risperiDONE 0.25 MG TABLET PO (21:17)
[2021-12-09] MEDS: Mirtazapine 7.5 MG TABLET PO (21:17)
[2021-12-10 06:00] VITALS: BP 91/50; PULSE 70; RESP 17; TEMP 36.6; O2SAT 96
[2021-12-10] MEDS: Milk of Magnesia 30 ML ORAL.SUSP PO (09:58)
[2021-12-10] MEDS: Brimonidine Tartrate 0.2% Oph 5 ML BOTTLE 1 DROP EYE-BOTH ×3 (09:58→21:04)
[2021-12-10] MEDS: Docusate Sodium 100 MG CAPSULE PO ×2 (09:58→22:20)
[2021-12-10] MEDS: Sennosides 8.6 MG TABLET PO (09:58)
[2021-12-10] MEDS: timoloL maleate 0.5 % Oph Sol 5 ML DRBTL 1 DROP EYE-BOTH ×2 (09:58→21:04)
[2021-12-10] MEDS: Gabapentin 100 MG CAPSULE PO ×3 (09:58→21:01)
--- NOTE | 2021-12-10 12:16 | HO.PSYCHPN ---
Subjective Subjective Date of Service: 12/10/21 Reason For Visit: Unspecified Depressive Disorder Subjective Notes: Conditional Voluntary Interim History: Pt in bed. Pt reports eating and sleeping well. No SI/HI. Confused about why he is still here and under the impression that sister not aware that he is here. No behavioral concerns. dark humor as usual, pleasant on approach. Medication Compliance: Yes Review of Systems Review of Systems Yes all other systems are reviewed and are negative and Unobtainable due to mental status Constitutional: Denies chills and Denies fever(s) Cardiovascular: Denies chest pain, Denies dyspnea and Denies dyspnea on exertion Respiratory: Denies cough, Denies dyspnea and Denies dyspnea on exertion Gastrointestinal: Denies hematochezia and Denies change in bowel habits Genitourinary: Denies hematuria and Denies difficulty urinating Musculoskeletal: Denies back pain and Denies limited range of motion Denies focal weakness and Denies convulsions Psychiatric: Reports depression and Denies mood swings Diagnostics Vital Signs (24Hr): Vital Signs - 24 hr 12/10/21 18:00 Temperature 98.6 F Pulse Rate 62 Respiratory Rate 16 Blood Pressure 91/52 L Pulse Oximetry 96 Oxygen Delivery Method Room Air BMI result Body Mass Index 18.3 Labs Results: 10/05/21 08:01 12/04/21 08:14 Imaging Radiology Impressions: [facility] Impressions Head CT 10/04/21 15:04 IMPRESSION: 1. No acute intracranial pathology. 2. Right parietal meningioma without mass effect. 3. Generalized atrophy. Medications Medications Current Medications Acetaminophen (Acetaminophen 325 Mg Tablet) 650 mg PO Q6H PRN PRN Reason: Headache/Pain Mild Scale (1-3) Last Admin: 11/09/21 14:37 Dose: 650 mg Al Hydroxide/Mg Hydroxide (Magnesium Hydrox/Alum Hydrox 30 Ml Oral.Susp) 30 ml PO Q6H PRN PRN Reason: Heartburn/Nausea Last Admin: 11/16/21 08:11 Dose: 30 ml Brimonidine Tartrate (Brimonidine Tartrate 0.2% Oph 5 Ml Bottle) 1 drop EYE-BOTH TID [facility] Last Admin: 12/11/21 08:10 Dose: 1 drop Docusate Sodium (Docusate Sodium 100 Mg Capsule) 100 mg PO BID [facility] Last Admin: 12/11/21 08:08 Dose: 100 mg Gabapentin (Gabapentin 100 Mg Capsule) 100 mg PO TID [facility] Last Admin: 12/11/21 08:08 Dose: 100 mg Latanoprost (Latanoprost 0.005 % Ophth Jessie 2.5 Ml Drops) 1 drop EYE-BOTH BEDTIME [facility] Last Admin: 12/10/21 21:04 Dose: 1 drop Loperamide HCl (Loperamide Hcl 2 Mg Capsule) 2 mg PO Q4H PRN PRN Reason: Diarrhea Magnesium Hydroxide (Milk Of Magnesia 30 Ml Oral.Susp) 30 ml PO DAILY [facility] Last Admin: 12/10/21 09:58 Dose: 30 ml Melatonin (Melatonin 3 Mg Tablet) 3 mg PO BEDTIME PRN PRN Reason: Insomnia Last Admin: 12/10/21 21:01 Dose: 3 mg Mirtazapine (Mirtazapine 7.5 Mg Tablet) 7.5 mg PO BEDTIME [facility] Last Admin: 12/10/21 21:01 Dose: 7.5 mg Risperidone (Risperidone 0.25 Mg Tablet) 0.25 mg PO BEDTIME [facility] Last Admin: 12/10/21 21:01 Dose: 0.25 mg Senna (Sennosides 8.6 Mg Tablet) 8.6 mg PO DAILY [facility] Last Admin: 12/11/21 08:08 Dose: 8.6 mg Timolol Maleate (Timolol Maleate 0.5 % Oph Jessie 5 Ml Drbtl) 1 drop EYE-BOTH BID [facility] Last Admin: 12/11/21 08:10 Dose: 1 drop Allergies Allergies Allergy/AdvReac Type Severity Reaction Status Date / Time sulfamethoxazole Allergy Itching Verified 10/03/21 19:19 [From Bactrim] trimethoprim [From Bactrim] Allergy Itching Verified 10/03/21 19:19 Assessment & Plan Assessment & Plan (1) Mood disorder: Status: Acute Code(s): F39 - Unspecified mood [affective] disorder (2) Major neurocognitive disorder: Status: Acute Code(s): F03.90 - Unspecified dementia, unspecified severity, without behavioral disturbance, psychotic disturbance, mood disturbance, and anxiety Plan 11/30 continue current tx. order cmp, loperamide, covid for new onset loose stool. 12/01: no change in mgmt 12/02: swtable presentation. no change in mgmt 12/03 continue current tx. 12/04 continue current tx. 12/05 continue current tx. 12/06 continue current tx. 12/07 continue tx. 12/08: Continue current regimen and plans. Awaiting placement 12/09: Continue current plans and regimen. 12/10 continue tx. I spent minutes with the patient and/or on the patient floor today, greater than?50% of which was spent counseling/coordinating care. Reason for contiued inpatient stay Substantial Risk for: inability to function
[2021-12-10 18:00] VITALS: BP 91/52; PULSE 62; RESP 16; TEMP 37; O2SAT 96
[2021-12-10] MEDS: Mirtazapine 7.5 MG TABLET PO (21:01)
[2021-12-10] MEDS: risperiDONE 0.25 MG TABLET PO (21:01)
[2021-12-10] MEDS: Melatonin 3 MG TABLET PO (21:01)
[2021-12-10] MEDS: Latanoprost 0.005 % Ophth Sol 2.5 ML DROPS 1 DROP EYE-BOTH (21:04)
[2021-12-11 06:00] VITALS: BP 126/65; PULSE 73; RESP 16; TEMP 36.6; O2SAT 96
[2021-12-11] MEDS: Docusate Sodium 100 MG CAPSULE PO (08:08)
[2021-12-11] MEDS: Gabapentin 100 MG CAPSULE PO ×3 (08:08→21:29)
[2021-12-11] MEDS: Sennosides 8.6 MG TABLET PO (08:08)
[2021-12-11] MEDS: timoloL maleate 0.5 % Oph Sol 5 ML DRBTL 1 DROP EYE-BOTH ×2 (08:10→21:29)
[2021-12-11] MEDS: Brimonidine Tartrate 0.2% Oph 5 ML BOTTLE 1 DROP EYE-BOTH ×3 (08:10→21:29)
[2021-12-11] MEDS: Milk of Magnesia 30 ML ORAL.SUSP PO (09:37)
[2021-12-11] MEDS: Loperamide HCl 2 MG CAPSULE PO (13:32)
--- NOTE | 2021-12-11 15:13 | HO.PSYCHPN ---
Subjective Subjective Date of Service: 12/11/21 Reason For Visit: Unspecified Depressive Disorder Subjective Notes: Conditional Voluntary Interim History: Pt ambulating with walker. Pt denies any physical concerns. He denies SI/HI. Acceptance of fact that he has to wait for placement. Pt taking medications as prescribed. No behavioral concerns. VS wnl. Medication Compliance: Yes Side effects from medications: No Mental Status Exam Mental Status Exam Narrative: Appearance: lying in bed, casual clothing, poor hygiene, in NAD Behavior: general PMR Speech: clear, normal rate/rhythm, non-spontaneous TP: poverty of thought TC: no over delusional content noted or reported Mood: okay Affect: constricted, but congruent SI: none HI: none AH/VH: none Delusions: none Insight/judgment: limited by memory/cog impairements Memory/cog: alert, not oriented to year, month, underlying cognitive impairments s/s to dementia. Diagnostics Vital Signs (24Hr): Vital Signs - 24 hr 12/10/21 18:00 12/11/21 06:00 Temperature 98.6 F 97.9 F Pulse Rate 62 73 Respiratory Rate 16 16 Blood Pressure 91/52 L 126/65 Pulse Oximetry 96 96 Oxygen Delivery Method Room Air Room Air BMI result Body Mass Index 18.3 Labs Results: 10/05/21 08:01 12/04/21 08:14 Imaging Radiology Impressions: [facility] Impressions Head CT 10/04/21 15:04 IMPRESSION: 1. No acute intracranial pathology. 2. Right parietal meningioma without mass effect. 3. Generalized atrophy. Medications Medications Current Medications Acetaminophen (Acetaminophen 325 Mg Tablet) 650 mg PO Q6H PRN PRN Reason: Headache/Pain Mild Scale (1-3) Last Admin: 11/09/21 14:37 Dose: 650 mg Al Hydroxide/Mg Hydroxide (Magnesium Hydrox/Alum Hydrox 30 Ml Oral.Susp) 30 ml PO Q6H PRN PRN Reason: Heartburn/Nausea Last Admin: 11/16/21 08:11 Dose: 30 ml Brimonidine Tartrate (Brimonidine Tartrate 0.2% Oph 5 Ml Bottle) 1 drop EYE-BOTH TID [facility] Last Admin: 12/11/21 08:10 Dose: 1 drop Docusate Sodium (Docusate Sodium 100 Mg Capsule) 100 mg PO BID [facility] Last Admin: 12/11/21 08:08 Dose: 100 mg Gabapentin (Gabapentin 100 Mg Capsule) 100 mg PO TID [facility] Last Admin: 12/11/21 08:08 Dose: 100 mg Latanoprost (Latanoprost 0.005 % Ophth Jessie 2.5 Ml Drops) 1 drop EYE-BOTH BEDTIME [facility] Last Admin: 12/10/21 21:04 Dose: 1 drop Loperamide HCl (Loperamide Hcl 2 Mg Capsule) 2 mg PO Q4H PRN PRN Reason: Diarrhea Last Admin: 12/11/21 13:32 Dose: 2 mg Magnesium Hydroxide (Milk Of Magnesia 30 Ml Oral.Susp) 30 ml PO DAILY [facility] Last Admin: 12/11/21 09:37 Dose: 30 ml Melatonin (Melatonin 3 Mg Tablet) 3 mg PO BEDTIME PRN PRN Reason: Insomnia Last Admin: 12/10/21 21:01 Dose: 3 mg Mirtazapine (Mirtazapine 7.5 Mg Tablet) 7.5 mg PO BEDTIME [facility] Last Admin: 12/10/21 21:01 Dose: 7.5 mg Risperidone (Risperidone 0.25 Mg Tablet) 0.25 mg PO BEDTIME [facility] Last Admin: 12/10/21 21:01 Dose: 0.25 mg Senna (Sennosides 8.6 Mg Tablet) 8.6 mg PO DAILY [facility] Last Admin: 12/11/21 08:08 Dose: 8.6 mg Timolol Maleate (Timolol Maleate 0.5 % Oph Jessie 5 Ml Drbtl) 1 drop EYE-BOTH BID [facility] Last Admin: 12/11/21 08:10 Dose: 1 drop Allergies Allergies Allergy/AdvReac Type Severity Reaction Status Date / Time sulfamethoxazole Allergy Itching Verified 10/03/21 19:19 [From Bactrim] trimethoprim [From Bactrim] Allergy Itching Verified 10/03/21 19:19 Assessment & Plan Assessment & Plan (1) Mood disorder: Status: Acute Code(s): F39 - Unspecified mood [affective] disorder (2) Major neurocognitive disorder: Status: Acute Code(s): F03.90 - Unspecified dementia, unspecified severity, without behavioral disturbance, psychotic disturbance, mood disturbance, and anxiety Plan 11/30 continue current tx. order cmp, loperamide, covid for new onset loose stool. 12/01: no change in mgmt 12/02: swtable presentation. no change in mgmt 12/03 continue current tx. 12/04 continue current tx. 12/05 continue current tx. 12/06 continue current tx. 12/07 continue tx. 12/08: Continue current regimen and plans. Awaiting placement 12/09: Continue current plans and regimen. 12/10 continue tx. 12/11 continue current tx. I spent minutes with the patient and/or on the patient floor today, greater than?50% of which was spent counseling/coordinating care. Reason for contiued inpatient stay Substantial Risk for: inability to function
[2021-12-11 18:00] VITALS: BP 103/60; PULSE 68; RESP 18; TEMP 36.5; O2SAT 95
[2021-12-11] MEDS: Latanoprost 0.005 % Ophth Sol 2.5 ML DROPS 1 DROP EYE-BOTH (21:29)
[2021-12-11] MEDS: risperiDONE 0.25 MG TABLET PO (21:29)
[2021-12-11] MEDS: Mirtazapine 7.5 MG TABLET PO (21:29)
[2021-12-11] MEDS: Melatonin 3 MG TABLET PO (21:31)
[2021-12-12 06:00] VITALS: BP 106/59; PULSE 65; TEMP 36.8; O2SAT 96
[2021-12-12] MEDS: Sennosides 8.6 MG TABLET PO (09:44)
[2021-12-12] MEDS: timoloL maleate 0.5 % Oph Sol 5 ML DRBTL 1 DROP EYE-BOTH ×2 (09:44→20:13)
[2021-12-12] MEDS: Docusate Sodium 100 MG CAPSULE PO ×2 (09:44→20:13)
[2021-12-12] MEDS: Brimonidine Tartrate 0.2% Oph 5 ML BOTTLE 1 DROP EYE-BOTH ×3 (09:44→20:13)
[2021-12-12] MEDS: Gabapentin 100 MG CAPSULE PO ×3 (09:44→20:13)
[2021-12-12] MEDS: Milk of Magnesia 30 ML ORAL.SUSP PO (09:44)
--- NOTE | 2021-12-12 12:50 | HO.PSYCHPN ---
Subjective Subjective Date of Service: 12/12/21 Reason For Visit: Unspecified Depressive Disorder Subjective Notes: Conditional Voluntary Interim History: Pt denies any concerns, knows he is waiting for placement. He denies SI/HI. Visible at times on the unit. taking meds. no behavioral concerns. Per nursing, pt sleeping through the night. Medication Compliance: Yes Side effects from medications: No Review of Systems Review of Systems Yes all other systems are reviewed and are negative and Unobtainable due to mental status Constitutional: Denies chills and Denies fever(s) Cardiovascular: Denies chest pain, Denies dyspnea and Denies dyspnea on exertion Respiratory: Denies cough, Denies dyspnea and Denies dyspnea on exertion Gastrointestinal: Denies hematochezia and Denies change in bowel habits Genitourinary: Denies hematuria and Denies difficulty urinating Musculoskeletal: Denies back pain and Denies limited range of motion Denies focal weakness and Denies convulsions Psychiatric: Reports depression and Denies mood swings Mental Status Exam Mental Status Exam Narrative: Appearance: lying in bed, casual clothing, poor hygiene, in NAD Behavior: general PMR Speech: clear, normal rate/rhythm, non-spontaneous TP: poverty of thought TC: no over delusional content noted or reported Mood: okay Affect: constricted, but congruent SI: none HI: none AH/VH: none Delusions: none Insight/judgment: limited by memory/cog impairements Memory/cog: alert, not oriented to year, month, underlying cognitive impairments s/s to dementia. Diagnostics Vital Signs (24Hr): Vital Signs - 24 hr 12/13/21 18:00 12/14/21 06:00 Temperature 98.3 F 97.1 F Pulse Rate 63 65 Respiratory Rate 18 18 Blood Pressure 90/65 103/66 Pulse Oximetry 95 94 Oxygen Delivery Method Room Air Room Air BMI result Body Mass Index 18.4 Labs Results: 10/05/21 08:01 12/04/21 08:14 Imaging Radiology Impressions: [facility] Impressions Head CT 10/04/21 15:04 IMPRESSION: 1. No acute intracranial pathology. 2. Right parietal meningioma without mass effect. 3. Generalized atrophy. Medications Medications Current Medications Acetaminophen (Acetaminophen 325 Mg Tablet) 650 mg PO Q6H PRN PRN Reason: Headache/Pain Mild Scale (1-3) Last Admin: 11/09/21 14:37 Dose: 650 mg Al Hydroxide/Mg Hydroxide (Magnesium Hydrox/Alum Hydrox 30 Ml Oral.Susp) 30 ml PO Q6H PRN PRN Reason: Heartburn/Nausea Last Admin: 11/16/21 08:11 Dose: 30 ml Brimonidine Tartrate (Brimonidine Tartrate 0.2% Oph 5 Ml Bottle) 1 drop EYE-BOTH TID [facility] Last Admin: 12/14/21 08:34 Dose: 1 drop Docusate Sodium (Docusate Sodium 100 Mg Capsule) 100 mg PO BID [facility] Last Admin: 12/14/21 08:34 Dose: 100 mg Gabapentin (Gabapentin 100 Mg Capsule) 100 mg PO TID [facility] Last Admin: 12/14/21 08:34 Dose: 100 mg Latanoprost (Latanoprost 0.005 % Ophth Jessie 2.5 Ml Drops) 1 drop EYE-BOTH BEDTIME [facility] Last Admin: 12/13/21 20:31 Dose: 1 drop Loperamide HCl (Loperamide Hcl 2 Mg Capsule) 2 mg PO Q4H PRN PRN Reason: Diarrhea Last Admin: 12/11/21 13:32 Dose: 2 mg Magnesium Hydroxide (Milk Of Magnesia 30 Ml Oral.Susp) 30 ml PO DAILY [facility] Last Admin: 12/14/21 08:34 Dose: 30 ml Melatonin (Melatonin 3 Mg Tablet) 3 mg PO BEDTIME PRN PRN Reason: Insomnia Last Admin: 12/11/21 21:31 Dose: 3 mg Mirtazapine (Mirtazapine 7.5 Mg Tablet) 7.5 mg PO BEDTIME [facility] Last Admin: 12/13/21 20:31 Dose: 7.5 mg Risperidone (Risperidone 0.25 Mg Tablet) 0.25 mg PO BEDTIME [facility] Last Admin: 12/13/21 20:31 Dose: 0.25 mg Senna (Sennosides 8.6 Mg Tablet) 8.6 mg PO DAILY [facility] Last Admin: 12/14/21 08:34 Dose: 8.6 mg Timolol Maleate (Timolol Maleate 0.5 % Oph Jessie 5 Ml Drbtl) 1 drop EYE-BOTH BID [facility] Last Admin: 12/14/21 08:34 Dose: 1 drop Allergies Allergies Allergy/AdvReac Type Severity Reaction Status Date / Time sulfamethoxazole Allergy Itching Verified 10/03/21 19:19 [From Bactrim] trimethoprim [From Bactrim] Allergy Itching Verified 10/03/21 19:19 Assessment & Plan Assessment & Plan (1) Mood disorder: Status: Acute Code(s): F39 - Unspecified mood [affective] disorder (2) Major neurocognitive disorder: Status: Acute Code(s): F03.90 - Unspecified dementia, unspecified severity, without behavioral disturbance, psychotic disturbance, mood disturbance, and anxiety Plan 11/30 continue current tx. order cmp, loperamide, covid for new onset loose stool. 12/01: no change in mgmt 12/02: swtable presentation. no change in mgmt 12/03 continue current tx. 12/04 continue current tx. 12/05 continue current tx. 12/06 continue current tx. 12/07 continue tx. 12/08: Continue current regimen and plans. Awaiting placement 12/09: Continue current plans and regimen. 12/10 continue tx. 12/11 continue current tx. 12/12 continue tx. I spent minutes with the patient and/or on the patient floor today, greater than?50% of which was spent counseling/coordinating care. Reason for contiued inpatient stay Substantial Risk for: inability to function
[2021-12-12 18:00] VITALS: BP 97/65; PULSE 60; RESP 18; TEMP 36.7; O2SAT 95
[2021-12-12] MEDS: Latanoprost 0.005 % Ophth Sol 2.5 ML DROPS 1 DROP EYE-BOTH (20:13)
[2021-12-12] MEDS: Mirtazapine 7.5 MG TABLET PO (20:13)
[2021-12-12] MEDS: risperiDONE 0.25 MG TABLET PO (20:13)
[2021-12-13 06:00] VITALS: BP 123/67; PULSE 75; RESP 16; TEMP 36.7; O2SAT 95
[2021-12-13] MEDS: Milk of Magnesia 30 ML ORAL.SUSP PO (10:05)
[2021-12-13] MEDS: Brimonidine Tartrate 0.2% Oph 5 ML BOTTLE 1 DROP EYE-BOTH ×3 (10:05→20:31)
[2021-12-13] MEDS: timoloL maleate 0.5 % Oph Sol 5 ML DRBTL 1 DROP EYE-BOTH ×2 (10:05→20:31)
[2021-12-13] MEDS: Sennosides 8.6 MG TABLET PO (10:06)
[2021-12-13] MEDS: Gabapentin 100 MG CAPSULE PO ×3 (10:06→20:31)
[2021-12-13] MEDS: Docusate Sodium 100 MG CAPSULE PO ×2 (10:06→20:31)
[2021-12-13 11:22] VITALS: BMI 18.4
--- NOTE | 2021-12-13 12:51 | P.PNPSI_ITS ---
Subjective Subjective Date of Service: 12/13/21 Reason For Visit: Unspecified Depressive Disorder Interim History: Pt continues to denies any concerns, knows he is waiting for placement. He denies SI/HI. Visible at times on the unit. taking meds. no behavioral concerns. Per nursing, pt sleeping through the night. Review of Systems Review of Systems Yes all other systems are reviewed and are negative and Unobtainable due to mental status Constitutional: Denies chills and Denies fever(s) Cardiovascular: Denies chest pain, Denies dyspnea and Denies dyspnea on exertion Respiratory: Denies cough, Denies dyspnea and Denies dyspnea on exertion Gastrointestinal: Denies hematochezia and Denies change in bowel habits Genitourinary: Denies hematuria and Denies difficulty urinating Musculoskeletal: Denies back pain and Denies limited range of motion Denies focal weakness and Denies convulsions Psychiatric: Reports depression and Denies mood swings Mental Status Exam Mental Status Exam Narrative: Appearance: lying in bed, casual clothing, poor hygiene, in NAD Behavior: general PMR Speech: clear, normal rate/rhythm, non-spontaneous TP: poverty of thought TC: no over delusional content noted or reported Mood: okay Affect: constricted, but congruent SI: none HI: none AH/VH: none Delusions: none Insight/judgment: limited by memory/cog impairements Memory/cog: alert, not oriented to year, month, underlying cognitive impairments s/s to dementia. Diagnostics Vital Signs (24Hr): Vital Signs - 24 hr 12/13/21 18:00 12/14/21 06:00 Temperature 98.3 F 97.1 F Pulse Rate 63 65 Respiratory Rate 18 18 Blood Pressure 90/65 103/66 Pulse Oximetry 95 94 Oxygen Delivery Method Room Air Room Air BMI result Body Mass Index 18.4 Labs Results: 10/05/21 08:01 12/04/21 08:14 Imaging Radiology Impressions: ITS Impressions Head CT 10/04/21 15:04 IMPRESSION: 1. No acute intracranial pathology. 2. Right parietal meningioma without mass effect. 3. Generalized atrophy. Medications Medications Current Medications Acetaminophen (Acetaminophen 325 Mg Tablet) 650 mg PO Q6H PRN PRN Reason: Headache/Pain Mild Scale (1-3) Last Admin: 11/09/21 14:37 Dose: 650 mg Al Hydroxide/Mg Hydroxide (Magnesium Hydrox/Alum Hydrox 30 Ml Oral.Susp) 30 ml PO Q6H PRN PRN Reason: Heartburn/Nausea Last Admin: 11/16/21 08:11 Dose: 30 ml Brimonidine Tartrate (Brimonidine Tartrate 0.2% Oph 5 Ml Bottle) 1 drop EYE- BOTH TID [facility] Last Admin: 12/14/21 08:34 Dose: 1 drop Docusate Sodium (Docusate Sodium 100 Mg Capsule) 100 mg PO BID [facility] Last Admin: 12/14/21 08:34 Dose: 100 mg Gabapentin (Gabapentin 100 Mg Capsule) 100 mg PO TID [facility] Last Admin: 12/14/21 08:34 Dose: 100 mg Latanoprost (Latanoprost 0.005 % Ophth Jessie 2.5 Ml Drops) 1 drop EYE-BOTH BEDTIME [facility] Last Admin: 12/13/21 20:31 Dose: 1 drop Loperamide HCl (Loperamide Hcl 2 Mg Capsule) 2 mg PO Q4H PRN PRN Reason: Diarrhea Last Admin: 12/11/21 13:32 Dose: 2 mg Magnesium Hydroxide (Milk Of Magnesia 30 Ml Oral.Susp) 30 ml PO DAILY [facility] Last Admin: 12/14/21 08:34 Dose: 30 ml Melatonin (Melatonin 3 Mg Tablet) 3 mg PO BEDTIME PRN PRN Reason: Insomnia Last Admin: 12/11/21 21:31 Dose: 3 mg Mirtazapine (Mirtazapine 7.5 Mg Tablet) 7.5 mg PO BEDTIME [facility] Last Admin: 12/13/21 20:31 Dose: 7.5 mg Risperidone (Risperidone 0.25 Mg Tablet) 0.25 mg PO BEDTIME [facility] Last Admin: 12/13/21 20:31 Dose: 0.25 mg Senna (Sennosides 8.6 Mg Tablet) 8.6 mg PO DAILY [facility] Last Admin: 12/14/21 08:34 Dose: 8.6 mg Timolol Maleate (Timolol Maleate 0.5 % Oph Jessie 5 Ml Drbtl) 1 drop EYE-BOTH BID [facility] Last Admin: 12/14/21 08:34 Dose: 1 drop Allergies Allergies Allergy/AdvReac Type Severity Reaction Status Date / Time sulfamethoxazole Allergy Itching Verified 10/03/21 19:19 [From Bactrim] trimethoprim [From Bactrim] Allergy Itching Verified 10/03/21 19:19 Assessment & Plan Assessment & Plan (1) Mood disorder: Status: Acute Code(s): F39 - Unspecified mood [affective] disorder (2) Major neurocognitive disorder: Status: Acute Code(s): F03.90 - Unspecified dementia, unspecified severity, without behavioral disturbance, psychotic disturbance, mood disturbance, and anxiety Plan 11/30 continue current tx. order cmp, loperamide, covid for new onset loose st ool. 12/01: no change in mgmt 12/02: swtable presentation. no change in mgmt 12/03 continue current tx. 12/04 continue current tx. 12/05 continue current tx. 12/06 continue current tx. 12/07 continue tx. 12/08: Continue current regimen and plans. Awaiting placement 12/09: Continue current plans and regimen. 12/10 continue tx. 12/11 continue current tx. 12/12 continue tx. 12/13 continue tx. I spent minutes with the patient and/or on the patient floor today, greater than?50% of which was spent counseling/coordinating care. Reason for contiued inpatient stay Substantial Risk for: inability to function
[2021-12-13 18:00] VITALS: BP 90/65; PULSE 63; RESP 18; TEMP 36.8; O2SAT 95
[2021-12-13] MEDS: Latanoprost 0.005 % Ophth Sol 2.5 ML DROPS 1 DROP EYE-BOTH (20:31)
[2021-12-13] MEDS: risperiDONE 0.25 MG TABLET PO (20:31)
[2021-12-13] MEDS: Mirtazapine 7.5 MG TABLET PO (20:31)
[2021-12-14 06:00] VITALS: BP 103/66; PULSE 65; RESP 18; TEMP 36.2; O2SAT 94
[2021-12-14] MEDS: Sennosides 8.6 MG TABLET PO (08:34)
[2021-12-14] MEDS: Docusate Sodium 100 MG CAPSULE PO ×2 (08:34→21:12)
[2021-12-14] MEDS: timoloL maleate 0.5 % Oph Sol 5 ML DRBTL 1 DROP EYE-BOTH ×2 (08:34→22:34)
[2021-12-14] MEDS: Brimonidine Tartrate 0.2% Oph 5 ML BOTTLE 1 DROP EYE-BOTH ×3 (08:34→21:10)
[2021-12-14] MEDS: Gabapentin 100 MG CAPSULE PO ×3 (08:34→21:11)
[2021-12-14] MEDS: Milk of Magnesia 30 ML ORAL.SUSP PO (08:34)
--- NOTE | 2021-12-14 09:48 | MHC.CLN ---
F/U DIET=REGULAR, NDD3. NO NOTED CONCERNS WITH APPETITE OR INTAKE. REVIEW OF WEIGHT HX SHOWS WEIGHT WITH SMALL, FAVORABLE WEIGHT GAIN SINCE ADMISSION, +3.6%. CONTINUE CURRENT DIET. RD TO FOLLOW WEEKLY.
--- NOTE | 2021-12-14 12:46 | HO.PSYCHPN ---
Subjective Subjective Date of Service: 12/14/21 Reason For Visit: Unspecified Depressive Disorder Subjective Notes: Conditional Voluntary Interim History: Pt ambulating with walker. Pt denies any physical concerns, taking meds as prescribed. No behavioral concerns. VS wnl. awaiting placement. No SI/HI. No signs of psychosis. Medication Compliance: Yes Review of Systems Review of Systems Yes all other systems are reviewed and are negative and Unobtainable due to mental status Constitutional: Denies chills and Denies fever(s) Cardiovascular: Denies chest pain, Denies dyspnea and Denies dyspnea on exertion Respiratory: Denies cough, Denies dyspnea and Denies dyspnea on exertion Gastrointestinal: Denies hematochezia and Denies change in bowel habits Genitourinary: Denies hematuria and Denies difficulty urinating Musculoskeletal: Denies back pain and Denies limited range of motion Denies focal weakness and Denies convulsions Psychiatric: Reports depression and Denies mood swings Mental Status Exam Mental Status Exam Narrative: Appearance: lying in bed, casual clothing, poor hygiene, in NAD Behavior: general PMR Speech: clear, normal rate/rhythm, non-spontaneous TP: poverty of thought TC: no over delusional content noted or reported Mood: okay Affect: constricted, but congruent SI: none HI: none AH/VH: none Delusions: none Insight/judgment: limited by memory/cog impairements Memory/cog: alert, not oriented to year, month, underlying cognitive impairments s/s to dementia. Diagnostics Vital Signs (24Hr): Vital Signs - 24 hr 12/15/21 18:00 12/16/21 06:00 Temperature 97.2 F 98.1 F Pulse Rate 64 69 Respiratory Rate 16 16 Blood Pressure 106/55 L 117/76 Pulse Oximetry 94 98 Oxygen Delivery Method Room Air Room Air BMI result Body Mass Index 18.4 Labs Results: 10/05/21 08:01 12/04/21 08:14 Imaging Radiology Impressions: [facility] Impressions Head CT 10/04/21 15:04 IMPRESSION: 1. No acute intracranial pathology. 2. Right parietal meningioma without mass effect. 3. Generalized atrophy. Medications Medications Current Medications Acetaminophen (Acetaminophen 325 Mg Tablet) 650 mg PO Q6H PRN PRN Reason: Headache/Pain Mild Scale (1-3) Last Admin: 11/09/21 14:37 Dose: 650 mg Al Hydroxide/Mg Hydroxide (Magnesium Hydrox/Alum Hydrox 30 Ml Oral.Susp) 30 ml PO Q6H PRN PRN Reason: Heartburn/Nausea Last Admin: 11/16/21 08:11 Dose: 30 ml Brimonidine Tartrate (Brimonidine Tartrate 0.2% Oph 5 Ml Bottle) 1 drop EYE-BOTH TID [facility] Last Admin: 12/16/21 08:47 Dose: 1 drop Docusate Sodium (Docusate Sodium 100 Mg Capsule) 100 mg PO BID [facility] Last Admin: 12/16/21 08:47 Dose: 100 mg Gabapentin (Gabapentin 100 Mg Capsule) 100 mg PO TID [facility] Last Admin: 12/16/21 08:48 Dose: 100 mg Latanoprost (Latanoprost 0.005 % Ophth Jessie 2.5 Ml Drops) 1 drop EYE-BOTH BEDTIME [facility] Last Admin: 12/15/21 21:03 Dose: 1 drop Loperamide HCl (Loperamide Hcl 2 Mg Capsule) 2 mg PO Q4H PRN PRN Reason: Diarrhea Last Admin: 12/11/21 13:32 Dose: 2 mg Magnesium Hydroxide (Milk Of Magnesia 30 Ml Oral.Susp) 30 ml PO DAILY [facility] Last Admin: 12/16/21 08:47 Dose: 30 ml Melatonin (Melatonin 3 Mg Tablet) 3 mg PO BEDTIME PRN PRN Reason: Insomnia Last Admin: 12/15/21 21:05 Dose: 3 mg Mirtazapine (Mirtazapine 7.5 Mg Tablet) 7.5 mg PO BEDTIME [facility] Last Admin: 12/15/21 21:05 Dose: 7.5 mg Risperidone (Risperidone 0.25 Mg Tablet) 0.25 mg PO BEDTIME [facility] Last Admin: 12/15/21 21:05 Dose: 0.25 mg Senna (Sennosides 8.6 Mg Tablet) 8.6 mg PO DAILY [facility] Last Admin: 12/16/21 08:48 Dose: 8.6 mg Timolol Maleate (Timolol Maleate 0.5 % Oph Jessie 5 Ml Drbtl) 1 drop EYE-BOTH BID [facility] Last Admin: 12/16/21 08:47 Dose: 1 drop Allergies Allergies Allergy/AdvReac Type Severity Reaction Status Date / Time sulfamethoxazole Allergy Itching Verified 10/03/21 19:19 [From Bactrim] trimethoprim [From Bactrim] Allergy Itching Verified 10/03/21 19:19 Assessment & Plan Assessment & Plan (1) Mood disorder: Status: Acute Code(s): F39 - Unspecified mood [affective] disorder (2) Major neurocognitive disorder: Status: Acute Code(s): F03.90 - Unspecified dementia, unspecified severity, without behavioral disturbance, psychotic disturbance, mood disturbance, and anxiety Plan 11/30 continue current tx. order cmp, loperamide, covid for new onset loose stool. 12/01: no change in mgmt 12/02: swtable presentation. no change in mgmt 12/03 continue current tx. 12/04 continue current tx. 12/05 continue current tx. 12/06 continue current tx. 12/07 continue tx. 12/08: Continue current regimen and plans. Awaiting placement 12/09: Continue current plans and regimen. 12/10 continue tx. 12/11 continue current tx. 12/12 continue tx. 12/13 continue tx. 12/14 continue tx. I spent minutes with the patient and/or on the patient floor today, greater than?50% of which was spent counseling/coordinating care. Reason for contiued inpatient stay Substantial Risk for: inability to function
[2021-12-14 18:00] VITALS: BP 98/55; PULSE 65; RESP 14; TEMP 36.7; O2SAT 94
[2021-12-14] MEDS: Latanoprost 0.005 % Ophth Sol 2.5 ML DROPS 1 DROP EYE-BOTH (21:09)
[2021-12-14] MEDS: Melatonin 3 MG TABLET PO (21:12)
[2021-12-14] MEDS: Mirtazapine 7.5 MG TABLET PO (21:12)
[2021-12-14] MEDS: risperiDONE 0.25 MG TABLET PO (21:12)
[2021-12-15] MEDS: Sennosides 8.6 MG TABLET PO (08:30)
[2021-12-15] MEDS: Gabapentin 100 MG CAPSULE PO ×3 (08:30→21:06)
[2021-12-15] MEDS: Docusate Sodium 100 MG CAPSULE PO ×2 (08:30→21:04)
[2021-12-15] MEDS: Brimonidine Tartrate 0.2% Oph 5 ML BOTTLE 1 DROP EYE-BOTH ×3 (08:31→21:03)
[2021-12-15] MEDS: timoloL maleate 0.5 % Oph Sol 5 ML DRBTL 1 DROP EYE-BOTH ×2 (08:31→21:04)
[2021-12-15] MEDS: Milk of Magnesia 30 ML ORAL.SUSP PO (10:44)
--- NOTE | 2021-12-15 12:48 | HO.PSYCHPN ---
Subjective Subjective Date of Service: 12/15/21 Reason For Visit: Unspecified Depressive Disorder Subjective Notes: Conditional Voluntary Interim History: Pt again presents with no physical concerns, ambulating with walker. No SI/HI. No signs of psychosis. taking medications as prescribed. Per nursing, no behavioral concerns\ VS- wnl. Medication Compliance: Yes Review of Systems Review of Systems Yes all other systems are reviewed and are negative and Unobtainable due to mental status Constitutional: Denies chills and Denies fever(s) Cardiovascular: Denies chest pain, Denies dyspnea and Denies dyspnea on exertion Respiratory: Denies cough, Denies dyspnea and Denies dyspnea on exertion Gastrointestinal: Denies hematochezia and Denies change in bowel habits Genitourinary: Denies hematuria and Denies difficulty urinating Musculoskeletal: Denies back pain and Denies limited range of motion Denies focal weakness and Denies convulsions Psychiatric: Reports depression and Denies mood swings Mental Status Exam Mental Status Exam Narrative: Appearance: lying in bed, casual clothing, poor hygiene, in NAD Behavior: general PMR Speech: clear, normal rate/rhythm, non-spontaneous TP: poverty of thought TC: no over delusional content noted or reported Mood: okay Affect: constricted, but congruent SI: none HI: none AH/VH: none Delusions: none Insight/judgment: limited by memory/cog impairements Memory/cog: alert, not oriented to year, month, underlying cognitive impairments s/s to dementia. Diagnostics Vital Signs (24Hr): Vital Signs - 24 hr 12/15/21 18:00 12/16/21 06:00 Temperature 97.2 F 98.1 F Pulse Rate 64 69 Respiratory Rate 16 16 Blood Pressure 106/55 L 117/76 Pulse Oximetry 94 98 Oxygen Delivery Method Room Air Room Air BMI result Body Mass Index 18.4 Labs Results: 10/05/21 08:01 12/04/21 08:14 Imaging Radiology Impressions: [facility] Impressions Head CT 10/04/21 15:04 IMPRESSION: 1. No acute intracranial pathology. 2. Right parietal meningioma without mass effect. 3. Generalized atrophy. Medications Medications Current Medications Acetaminophen (Acetaminophen 325 Mg Tablet) 650 mg PO Q6H PRN PRN Reason: Headache/Pain Mild Scale (1-3) Last Admin: 11/09/21 14:37 Dose: 650 mg Al Hydroxide/Mg Hydroxide (Magnesium Hydrox/Alum Hydrox 30 Ml Oral.Susp) 30 ml PO Q6H PRN PRN Reason: Heartburn/Nausea Last Admin: 11/16/21 08:11 Dose: 30 ml Brimonidine Tartrate (Brimonidine Tartrate 0.2% Oph 5 Ml Bottle) 1 drop EYE-BOTH TID [facility] Last Admin: 12/16/21 08:47 Dose: 1 drop Docusate Sodium (Docusate Sodium 100 Mg Capsule) 100 mg PO BID [facility] Last Admin: 12/16/21 08:47 Dose: 100 mg Gabapentin (Gabapentin 100 Mg Capsule) 100 mg PO TID [facility] Last Admin: 12/16/21 08:48 Dose: 100 mg Latanoprost (Latanoprost 0.005 % Ophth Jessie 2.5 Ml Drops) 1 drop EYE-BOTH BEDTIME [facility] Last Admin: 12/15/21 21:03 Dose: 1 drop Loperamide HCl (Loperamide Hcl 2 Mg Capsule) 2 mg PO Q4H PRN PRN Reason: Diarrhea Last Admin: 12/11/21 13:32 Dose: 2 mg Magnesium Hydroxide (Milk Of Magnesia 30 Ml Oral.Susp) 30 ml PO DAILY [facility] Last Admin: 12/16/21 08:47 Dose: 30 ml Melatonin (Melatonin 3 Mg Tablet) 3 mg PO BEDTIME PRN PRN Reason: Insomnia Last Admin: 12/15/21 21:05 Dose: 3 mg Mirtazapine (Mirtazapine 7.5 Mg Tablet) 7.5 mg PO BEDTIME [facility] Last Admin: 12/15/21 21:05 Dose: 7.5 mg Risperidone (Risperidone 0.25 Mg Tablet) 0.25 mg PO BEDTIME [facility] Last Admin: 12/15/21 21:05 Dose: 0.25 mg Senna (Sennosides 8.6 Mg Tablet) 8.6 mg PO DAILY [facility] Last Admin: 12/16/21 08:48 Dose: 8.6 mg Timolol Maleate (Timolol Maleate 0.5 % Oph Jessie 5 Ml Drbtl) 1 drop EYE-BOTH BID [facility] Last Admin: 12/16/21 08:47 Dose: 1 drop Allergies Allergies Allergy/AdvReac Type Severity Reaction Status Date / Time sulfamethoxazole Allergy Itching Verified 10/03/21 19:19 [From Bactrim] trimethoprim [From Bactrim] Allergy Itching Verified 10/03/21 19:19 Assessment & Plan Assessment & Plan (1) Mood disorder: Status: Acute Code(s): F39 - Unspecified mood [affective] disorder (2) Major neurocognitive disorder: Status: Acute Code(s): F03.90 - Unspecified dementia, unspecified severity, without behavioral disturbance, psychotic disturbance, mood disturbance, and anxiety Plan 11/30 continue current tx. order cmp, loperamide, covid for new onset loose stool. 12/01: no change in mgmt 12/02: swtable presentation. no change in mgmt 12/03 continue current tx. 12/04 continue current tx. 12/05 continue current tx. 12/06 continue current tx. 12/07 continue tx. 12/08: Continue current regimen and plans. Awaiting placement 12/09: Continue current plans and regimen. 12/10 continue tx. 12/11 continue current tx. 12/12 continue tx. 12/13 continue tx. 12/14 continue tx. 12/15 continue tx. I spent minutes with the patient and/or on the patient floor today, greater than?50% of which was spent counseling/coordinating care. Reason for contiued inpatient stay Substantial Risk for: inability to function
[2021-12-15 18:00] VITALS: BP 106/55; PULSE 64; RESP 16; TEMP 36.2; O2SAT 94
[2021-12-15] MEDS: Latanoprost 0.005 % Ophth Sol 2.5 ML DROPS 1 DROP EYE-BOTH (21:03)
[2021-12-15] MEDS: risperiDONE 0.25 MG TABLET PO (21:05)
[2021-12-15] MEDS: Mirtazapine 7.5 MG TABLET PO (21:05)
[2021-12-15] MEDS: Melatonin 3 MG TABLET PO (21:05)
[2021-12-16] VITALS (10 sets, daily range): BP systolic 108–156; BP diastolic 66–91; PULSE 68–100; RESP 14–18; TEMP 36.2–36.7; O2SAT 75–100
[2021-12-16] MEDS: Docusate Sodium 100 MG CAPSULE PO (08:47)
[2021-12-16] MEDS: timoloL maleate 0.5 % Oph Sol 5 ML DRBTL 1 DROP EYE-BOTH ×2 (08:47→20:56)
[2021-12-16] MEDS: Brimonidine Tartrate 0.2% Oph 5 ML BOTTLE 1 DROP EYE-BOTH ×3 (08:47→20:56)
[2021-12-16] MEDS: Milk of Magnesia 30 ML ORAL.SUSP PO (08:47)
[2021-12-16] MEDS: Gabapentin 100 MG CAPSULE PO (08:48)
[2021-12-16] MEDS: Sennosides 8.6 MG TABLET PO (08:48)
--- NOTE | 2021-12-16 09:51 | HO.PSYCHPN ---
Subjective Subjective Date of Service: 12/16/21 Reason For Visit: Unspecified Depressive Disorder Subjective Notes: Conditional Voluntary Interim History: Pt again presents with no physical concerns, ambulating with walker. No SI/HI. No signs of psychosis. taking medications as prescribed. Per nursing, no behavioral concerns\ VS- wnl. Review of Systems Review of Systems Yes all other systems are reviewed and are negative and Unobtainable due to mental status Constitutional: Denies chills and Denies fever(s) Cardiovascular: Denies chest pain, Denies dyspnea and Denies dyspnea on exertion Respiratory: Denies cough, Denies dyspnea and Denies dyspnea on exertion Gastrointestinal: Denies hematochezia and Denies change in bowel habits Genitourinary: Denies hematuria and Denies difficulty urinating Musculoskeletal: Denies back pain and Denies limited range of motion Denies focal weakness and Denies convulsions Psychiatric: Reports depression and Denies mood swings Mental Status Exam Mental Status Exam Narrative: Appearance: lying in bed, casual clothing, poor hygiene, in NAD Behavior: general PMR Speech: clear, normal rate/rhythm, non-spontaneous TP: poverty of thought TC: no over delusional content noted or reported Mood: okay Affect: constricted, but congruent SI: none HI: none AH/VH: none Delusions: none Insight/judgment: limited by memory/cog impairements Memory/cog: alert, not oriented to year, month, underlying cognitive impairments s/s to dementia. Diagnostics Vital Signs (24Hr): Vital Signs - 24 hr 12/15/21 18:00 12/16/21 06:00 Temperature 97.2 F 98.1 F Pulse Rate 64 69 Respiratory Rate 16 16 Blood Pressure 106/55 L 117/76 Pulse Oximetry 94 98 Oxygen Delivery Method Room Air Room Air BMI result Body Mass Index 18.4 Labs Results: 10/05/21 08:01 12/04/21 08:14 Imaging Radiology Impressions: [facility] Impressions Head CT 10/04/21 15:04 IMPRESSION: 1. No acute intracranial pathology. 2. Right parietal meningioma without mass effect. 3. Generalized atrophy. Medications Medications Current Medications Acetaminophen (Acetaminophen 325 Mg Tablet) 650 mg PO Q6H PRN PRN Reason: Headache/Pain Mild Scale (1-3) Last Admin: 11/09/21 14:37 Dose: 650 mg Al Hydroxide/Mg Hydroxide (Magnesium Hydrox/Alum Hydrox 30 Ml Oral.Susp) 30 ml PO Q6H PRN PRN Reason: Heartburn/Nausea Last Admin: 11/16/21 08:11 Dose: 30 ml Brimonidine Tartrate (Brimonidine Tartrate 0.2% Oph 5 Ml Bottle) 1 drop EYE-BOTH TID [facility] Last Admin: 12/16/21 08:47 Dose: 1 drop Docusate Sodium (Docusate Sodium 100 Mg Capsule) 100 mg PO BID [facility] Last Admin: 12/16/21 08:47 Dose: 100 mg Gabapentin (Gabapentin 100 Mg Capsule) 100 mg PO TID [facility] Last Admin: 12/16/21 08:48 Dose: 100 mg Latanoprost (Latanoprost 0.005 % Ophth Jessie 2.5 Ml Drops) 1 drop EYE-BOTH BEDTIME [facility] Last Admin: 12/15/21 21:03 Dose: 1 drop Loperamide HCl (Loperamide Hcl 2 Mg Capsule) 2 mg PO Q4H PRN PRN Reason: Diarrhea Last Admin: 12/11/21 13:32 Dose: 2 mg Magnesium Hydroxide (Milk Of Magnesia 30 Ml Oral.Susp) 30 ml PO DAILY [facility] Last Admin: 12/16/21 08:47 Dose: 30 ml Melatonin (Melatonin 3 Mg Tablet) 3 mg PO BEDTIME PRN PRN Reason: Insomnia Last Admin: 12/15/21 21:05 Dose: 3 mg Mirtazapine (Mirtazapine 7.5 Mg Tablet) 7.5 mg PO BEDTIME [facility] Last Admin: 12/15/21 21:05 Dose: 7.5 mg Risperidone (Risperidone 0.25 Mg Tablet) 0.25 mg PO BEDTIME [facility] Last Admin: 12/15/21 21:05 Dose: 0.25 mg Senna (Sennosides 8.6 Mg Tablet) 8.6 mg PO DAILY [facility] Last Admin: 12/16/21 08:48 Dose: 8.6 mg Timolol Maleate (Timolol Maleate 0.5 % Oph Jessie 5 Ml Drbtl) 1 drop EYE-BOTH BID [facility] Last Admin: 12/16/21 08:47 Dose: 1 drop Allergies Allergies Allergy/AdvReac Type Severity Reaction Status Date / Time sulfamethoxazole Allergy Itching Verified 10/03/21 19:19 [From Bactrim] trimethoprim [From Bactrim] Allergy Itching Verified 10/03/21 19:19 Assessment & Plan Assessment & Plan (1) Mood disorder: Status: Acute Code(s): F39 - Unspecified mood [affective] disorder (2) Major neurocognitive disorder: Status: Acute Code(s): F03.90 - Unspecified dementia, unspecified severity, without behavioral disturbance, psychotic disturbance, mood disturbance, and anxiety Plan 11/30 continue current tx. order cmp, loperamide, covid for new onset loose stool. 12/01: no change in mgmt 12/02: swtable presentation. no change in mgmt 12/03 continue current tx. 12/04 continue current tx. 12/05 continue current tx. 12/06 continue current tx. 12/07 continue tx. 12/08: Continue current regimen and plans. Awaiting placement 12/09: Continue current plans and regimen. 12/10 continue tx. 12/11 continue current tx. 12/12 continue tx. 12/13 continue tx. 12/14 continue tx. 12/15 continue tx. 12/16 continue tx. I spent minutes with the patient and/or on the patient floor today, greater than?50% of which was spent counseling/coordinating care. Reason for contiued inpatient stay Substantial Risk for: inability to function
--- NOTE | 2021-12-16 14:01 | PM.EVENT ---
Event Note Date of Service: 12/16/21 Event Note: HE[employer] INSURANCE SALES AGENT called about 1pm, patient aspirated while eating lunch, became hypoxic to 70s. was placed on NRB 100% and saturation improved to 100%. lungs had bilateral rhonchi on auscultation. was suctioned by respiratory team and was able to maintain saturations off oxygen. lungs still with crackles but improved, patient mildly tachypneic. patient then reassessed at about 2pm, no longer tachypneic, lungs clear bilateral, saturation mid 90s on room air. recommend qshift vitals, npo until reevaluated by EMERGENCY MEDICAL TECHNICIAN/DRIVER.
--- NOTE | 2021-12-16 15:25 | PC.NURSE ---
REEXAMINER called on pt around 1255 as pt was observed to be choking, with weak cough, bringing up small amounts of clear mucus. VS at 1256: 135/91, O2 at 95% on non re-breather mask, pulse at 99. VS at 1259: 156/90; O2 at 100% on NRB mask; pulse at 100. Pt suctioned at 1300, NG suction at 1301 with deep suction. MD reported he was going to order an x-ray. Post suction O2 at 94%-96% on NRB mask. At 1303 the pt was 100% on NRB mask, NRB mask dc/d at this time, BP at 149/75, pulse at 84. 1315 VS: 120/76, pulse 85, O2 at 91% on room air. 1318 VS: 123/77, Pulse 90, O2 at 90% on room air. VS at 1324: 135/75, pulse 89, O2 at 93% on room air. VS at 1334: 110/77, pulse at 84, O2 at 93% on room air. Dr Calvo advised no transfer, pt safe on this unit at this time. Pt NPO at the moment pending swallow eval. Will continue to monitor.
[2021-12-16] MEDS: Latanoprost 0.005 % Ophth Sol 2.5 ML DROPS 1 DROP EYE-BOTH (20:56)
[2021-12-17] VITALS: BP 94/62; PULSE 86; RESP 16; TEMP 36.2; O2SAT 98
[2021-12-17 06:00] VITALS: BP 132/74; PULSE 62; RESP 14; TEMP 36.3
[2021-12-17 08:00] VITALS: BP 106/66; PULSE 62; RESP 16; TEMP 36.3; O2SAT 97
[2021-12-17 08:09] LABS: Hematocrit 40.7 % (42.0-52.0); Hemoglobin 13.2 g/dl (14.0-18.0); Mean Corpuscular HGB Conc 32.4 g/dl (31.0-36.0); Mean Corpuscular Hemoglobin 29.5 pg (27.0-33.0); Mean Corpuscular Volume 91.1 fL (80.0-98.0); Mean Platelet Volume 9.4 fL (9.4-12.4); Platelet Count 145 X10*3/uL (160-400); Red Blood Count 4.47 X10*6/uL (4.60-5.80); Red Cell Distribution Width 13.9 % (11.0-16.0); White Blood Count 6.3 X10*3/uL (4.8-10.8)
[2021-12-17 08:24] LABS: Anion Gap 12 (12-20); Blood Urea Nitrogen 20 mg/dL (9-16); Calcium 8.9 mg/dL (8.4-10.2); Carbon Dioxide 27 mmol/L (22-29); Chloride 106 mmol/L (96-108); Creatinine Clr Calc Pharmacy 71.2; Estimated Glomerular Filt Rate > 60; Glucose Fasting 91 mg/dL (60-99); Potassium 4.2 mmol/L (3.3-5.1); Sodium 141 mmol/L (135-145)
--- NOTE | 2021-12-17 09:08 | MHC.CLN ---
F/U NPO PENDING SWALLOW EVAL OF 12/16. NOTED THAT PATIENT ASPIRATED DURING LUNCH. 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
--- NOTE | 2021-12-17 11:46 | HO.PSYCHPN ---
Subjective Subjective Date of Service: 12/17/21 Reason For Visit: Unspecified Depressive Disorder Subjective Notes: Conditional Voluntary Interim History: Pt more visible, ambulating with walker. No further episodes of chocking. Pt taking medications as prescribed, blunted affect, just waiting to . No plan or intent to harm self. No behavioral concerns. Medication Compliance: Yes Side effects from medications: No Review of Systems Review of Systems Yes all other systems are reviewed and are negative and Unobtainable due to mental status Constitutional: Denies chills and Denies fever(s) Cardiovascular: Denies chest pain, Denies dyspnea and Denies dyspnea on exertion Respiratory: Denies cough, Denies dyspnea and Denies dyspnea on exertion Gastrointestinal: Denies hematochezia and Denies change in bowel habits Genitourinary: Denies hematuria and Denies difficulty urinating Musculoskeletal: Denies back pain and Denies limited range of motion Denies focal weakness and Denies convulsions Psychiatric: Reports depression and Denies mood swings Mental Status Exam Mental Status Exam Narrative: Appearance: lying in bed, casual clothing, poor hygiene, in NAD Behavior: general PMR Speech: clear, normal rate/rhythm, non-spontaneous TP: poverty of thought TC: no over delusional content noted or reported Mood: okay Affect: constricted, but congruent SI: none HI: none AH/VH: none Delusions: none Insight/judgment: limited by memory/cog impairements Memory/cog: alert, not oriented to year, month, underlying cognitive impairments s/s to dementia. Diagnostics Vital Signs (24Hr): Vital Signs - 24 hr 12/18/21 16:00 12/19/21 00:00 12/19/21 08:00 Temperature 97.4 F 98.3 F Pulse Rate 60 71 Respiratory Rate 14 16 14 Blood Pressure 94/52 L 108/57 L Pulse Oximetry 94 97 Oxygen Delivery Method Room Air Room Air BMI result Body Mass Index 18.4 Labs Results: 12/17/21 08:03 12/17/21 08:03 Imaging Radiology Impressions: [facility] Impressions Head CT 10/04/21 15:04 IMPRESSION: 1. No acute intracranial pathology. 2. Right parietal meningioma without mass effect. 3. Generalized atrophy. Chest X-Ray 12/16/21 13:40 IMPRESSION: No acute cardiopulmonary findings. Medications Medications Current Medications Acetaminophen (Acetaminophen 325 Mg Tablet) 650 mg PO Q6H PRN PRN Reason: Headache/Pain Mild Scale (1-3) Last Admin: 11/09/21 14:37 Dose: 650 mg Al Hydroxide/Mg Hydroxide (Magnesium Hydrox/Alum Hydrox 30 Ml Oral.Susp) 30 ml PO Q6H PRN PRN Reason: Heartburn/Nausea Last Admin: 11/16/21 08:11 Dose: 30 ml Brimonidine Tartrate (Brimonidine Tartrate 0.2% Oph 5 Ml Bottle) 1 drop EYE-BOTH TID [facility] Last Admin: 12/19/21 07:56 Dose: 1 drop Docusate Sodium (Docusate Sodium 100 Mg Capsule) 100 mg PO BID [facility] Last Admin: 12/19/21 07:55 Dose: 100 mg Gabapentin (Gabapentin 100 Mg Capsule) 100 mg PO TID [facility] Last Admin: 12/19/21 07:55 Dose: 100 mg Latanoprost (Latanoprost 0.005 % Ophth Jessie 2.5 Ml Drops) 1 drop EYE-BOTH BEDTIME [facility] Last Admin: 12/18/21 20:57 Dose: 1 drop Loperamide HCl (Loperamide Hcl 2 Mg Capsule) 2 mg PO Q4H PRN PRN Reason: Diarrhea Last Admin: 12/11/21 13:32 Dose: 2 mg Magnesium Hydroxide (Milk Of Magnesia 30 Ml Oral.Susp) 30 ml PO DAILY [facility] Last Admin: 12/19/21 07:55 Dose: 30 ml Melatonin (Melatonin 3 Mg Tablet) 3 mg PO BEDTIME PRN PRN Reason: Insomnia Last Admin: 12/18/21 20:56 Dose: 3 mg Mirtazapine (Mirtazapine 7.5 Mg Tablet) 7.5 mg PO BEDTIME [facility] Last Admin: 12/18/21 20:56 Dose: 7.5 mg Risperidone (Risperidone 0.25 Mg Tablet) 0.25 mg PO BEDTIME [facility] Last Admin: 12/18/21 20:56 Dose: 0.25 mg Senna (Sennosides 8.6 Mg Tablet) 8.6 mg PO DAILY [facility] Last Admin: 12/19/21 07:55 Dose: 8.6 mg Timolol Maleate (Timolol Maleate 0.5 % Oph Jessie 5 Ml Drbtl) 1 drop EYE-BOTH BID [facility] Last Admin: 12/18/21 20:57 Dose: 1 drop Allergies Allergies Allergy/AdvReac Type Severity Reaction Status Date / Time sulfamethoxazole Allergy Itching Verified 10/03/21 19:19 [From Bactrim] trimethoprim [From Bactrim] Allergy Itching Verified 10/03/21 19:19 Assessment & Plan Assessment & Plan (1) Mood disorder: Status: Acute Code(s): F39 - Unspecified mood [affective] disorder (2) Major neurocognitive disorder: Status: Acute Code(s): F03.90 - Unspecified dementia, unspecified severity, without behavioral disturbance, psychotic disturbance, mood disturbance, and anxiety Plan 11/30 continue current tx. order cmp, loperamide, covid for new onset loose stool. 12/01: no change in mgmt 12/02: swtable presentation. no change in mgmt 12/03 continue current tx. 12/04 continue current tx. 12/05 continue current tx. 12/06 continue current tx. 12/07 continue tx. 12/08: Continue current regimen and plans. Awaiting placement 12/09: Continue current plans and regimen. 12/10 continue tx. 12/11 continue current tx. 12/12 continue tx. 12/13 continue tx. 12/14 continue tx. 12/15 continue tx. 12/16 continue tx. 12/17 continue tx. I spent minutes with the patient and/or on the patient floor today, greater than?50% of which was spent counseling/coordinating care. Reason for contiued inpatient stay Substantial Risk for: inability to function
--- NOTE | 2021-12-17 12:22 | MHC.SL.SWA ---
Addendum entered and electronically signed by Wen Rosas MA, CCC-HEAT SET OPERATOR 12/17/21 12:50: D.S. Original Note: Risk of Aspiration Due to: Reduced Cognition Dysphasia Diet Status: Upgrade to chopped/advanced solids & thin liquids Liquid Consistency and Strategies for Safe Swallow: Liquid Intake Recommendation: Thin Liquid Intake Strategies: Small Sips No Straws Solid Food Consistency: Dietary Recommendations: Chopped/Advanced (NDD3) Oral Medication Intake: Whole with Liquid Please contact the pharmacy regarding appropriate crushable or liquid drug formulations that are available whenever modified delivery is recommended. Compensatory Strategies and Precautions to be Taken for Safe Swallow: Sitting Upright (90 deg) No Straw Liquids from Cup Small Bites and Sips Alternate Liquids/Solids Rate of Ingestion Change Supervision While Eating and Drinking for Safe Swallow: Total Supervision (1:1) Swallowing Recommended Treatments: Compens. Strategy Educat. Recommendation for Speech: Outpatient Speech Therapy Inpatient Speech Therapy Comment: Oral motor exam WFL. Pt tolerated thin liquids and all consistencies of solids including turkey sandwich, nancie cracker, & applesauce. Pt expressed awareness that he needs to slow down and take smaller bites and sips. However, pt required consistent and frequent cueing during PO trials. Pt requires consistent and frequent reminders to slow down, small bites and sips, finish chewing and swallow before introducing more food/liquid, take sips of liquid after 1-2 bites of food. Recommend chopped diet as opposed to regular solids because food is pre-cut, decreasing risk of aspiration. Safest and least restrictive diet recommended is CHOPPED/ADVANCED solids (NDD3) and THIN liquids. Recommend supervision during mealtimes to cue for safe eating strategies (slow down, small bites and sips, finish chewing and swallow before introducing more food/liquid, take sips of liquid after 1-2 bites of food). Checked in w/ RN upon departure to report findings of bedside swallow evaluation and cues for safe eating. Notified MD and RD via [place]. [employer] Executive Clinican/Clinical Fellow: Yes: Roseanne Jeff M.A., -HEAT SET OPERATOR Supervisory Statement: I have reviewed and agree with the student/clinical fellow's documentation: Yes Speech Language Pathologist: Wen Rosas M.A., CCC-HEAT SET OPERATOR
[2021-12-17] MEDS: timoloL maleate 0.5 % Oph Sol 5 ML DRBTL 1 DROP EYE-BOTH ×2 (12:37→20:42)
[2021-12-17] MEDS: Brimonidine Tartrate 0.2% Oph 5 ML BOTTLE 1 DROP EYE-BOTH ×3 (12:37→20:42)
[2021-12-17] MEDS: Gabapentin 100 MG CAPSULE PO ×2 (15:18→20:42)
[2021-12-17] MEDS: Mirtazapine 7.5 MG TABLET PO (20:42)
[2021-12-17] MEDS: risperiDONE 0.25 MG TABLET PO (20:42)
[2021-12-17] MEDS: Docusate Sodium 100 MG CAPSULE PO (20:42)
[2021-12-17] MEDS: Latanoprost 0.005 % Ophth Sol 2.5 ML DROPS 1 DROP EYE-BOTH (20:42)
[2021-12-18 08:00] VITALS: BP 126/81; PULSE 97; RESP 18; TEMP 36.6; O2SAT 96
[2021-12-18] MEDS: Docusate Sodium 100 MG CAPSULE PO ×2 (09:55→20:57)
[2021-12-18] MEDS: Milk of Magnesia 30 ML ORAL.SUSP PO (09:55)
[2021-12-18] MEDS: Sennosides 8.6 MG TABLET PO (09:55)
[2021-12-18] MEDS: Gabapentin 100 MG CAPSULE PO ×3 (09:55→20:56)
--- NOTE | 2021-12-18 13:51 | HO.PSYCHPN ---
Subjective Subjective Date of Service: 12/18/21 Reason For Visit: Unspecified Depressive Disorder Subjective Notes: Conditional Voluntary Interim History: Pt sitting in common area. Pt reports again just waiting to . No plan or intent. No VH/AH. No behavioral concerns. Per nursing, sleeping through the night. taking meds. Medication Compliance: Yes Side effects from medications: No Review of Systems Review of Systems Yes all other systems are reviewed and are negative and Unobtainable due to mental status Constitutional: Denies chills and Denies fever(s) Cardiovascular: Denies chest pain, Denies dyspnea and Denies dyspnea on exertion Respiratory: Denies cough, Denies dyspnea and Denies dyspnea on exertion Gastrointestinal: Denies hematochezia and Denies change in bowel habits Genitourinary: Denies hematuria and Denies difficulty urinating Musculoskeletal: Denies back pain and Denies limited range of motion Denies focal weakness and Denies convulsions Psychiatric: Reports depression and Denies mood swings Mental Status Exam Mental Status Exam Narrative: Appearance: lying in bed, casual clothing, poor hygiene, in NAD Behavior: general PMR Speech: clear, normal rate/rhythm, non-spontaneous TP: poverty of thought TC: no over delusional content noted or reported Mood: okay Affect: constricted, but congruent SI: none HI: none AH/VH: none Delusions: none Insight/judgment: limited by memory/cog impairements Memory/cog: alert, not oriented to year, month, underlying cognitive impairments s/s to dementia. Diagnostics Vital Signs (24Hr): Vital Signs - 24 hr 12/18/21 16:00 12/19/21 00:00 12/19/21 08:00 Temperature 97.4 F 98.3 F Pulse Rate 60 71 Respiratory Rate 14 16 14 Blood Pressure 94/52 L 108/57 L Pulse Oximetry 94 97 Oxygen Delivery Method Room Air Room Air BMI result Body Mass Index 18.4 Labs Results: 12/17/21 08:03 12/17/21 08:03 Imaging Radiology Impressions: ITS Impressions Head CT 10/04/21 15:04 IMPRESSION: 1. No acute intracranial pathology. 2. Right parietal meningioma without mass effect. 3. Generalized atrophy. Chest X-Ray 12/16/21 13:40 IMPRESSION: No acute cardiopulmonary findings. Medications Medications Current Medications Acetaminophen (Acetaminophen 325 Mg Tablet) 650 mg PO Q6H PRN PRN Reason: Headache/Pain Mild Scale (1-3) Last Admin: 11/09/21 14:37 Dose: 650 mg Al Hydroxide/Mg Hydroxide (Magnesium Hydrox/Alum Hydrox 30 Ml Oral.Susp) 30 ml PO Q6H PRN PRN Reason: Heartburn/Nausea Last Admin: 11/16/21 08:11 Dose: 30 ml Brimonidine Tartrate (Brimonidine Tartrate 0.2% Oph 5 Ml Bottle) 1 drop EYE-BOTH TID [facility] Last Admin: 12/19/21 07:56 Dose: 1 drop Docusate Sodium (Docusate Sodium 100 Mg Capsule) 100 mg PO BID [facility] Last Admin: 12/19/21 07:55 Dose: 100 mg Gabapentin (Gabapentin 100 Mg Capsule) 100 mg PO TID [facility] Last Admin: 12/19/21 07:55 Dose: 100 mg Latanoprost (Latanoprost 0.005 % Ophth Jessie 2.5 Ml Drops) 1 drop EYE-BOTH BEDTIME [facility] Last Admin: 12/18/21 20:57 Dose: 1 drop Loperamide HCl (Loperamide Hcl 2 Mg Capsule) 2 mg PO Q4H PRN PRN Reason: Diarrhea Last Admin: 12/11/21 13:32 Dose: 2 mg Magnesium Hydroxide (Milk Of Magnesia 30 Ml Oral.Susp) 30 ml PO DAILY [facility] Last Admin: 12/19/21 07:55 Dose: 30 ml Melatonin (Melatonin 3 Mg Tablet) 3 mg PO BEDTIME PRN PRN Reason: Insomnia Last Admin: 12/18/21 20:56 Dose: 3 mg Mirtazapine (Mirtazapine 7.5 Mg Tablet) 7.5 mg PO BEDTIME [facility] Last Admin: 12/18/21 20:56 Dose: 7.5 mg Risperidone (Risperidone 0.25 Mg Tablet) 0.25 mg PO BEDTIME [facility] Last Admin: 12/18/21 20:56 Dose: 0.25 mg Senna (Sennosides 8.6 Mg Tablet) 8.6 mg PO DAILY [facility] Last Admin: 12/19/21 07:55 Dose: 8.6 mg Timolol Maleate (Timolol Maleate 0.5 % Oph Jessie 5 Ml Drbtl) 1 drop EYE-BOTH BID [facility] Last Admin: 12/18/21 20:57 Dose: 1 drop Allergies Allergies Allergy/AdvReac Type Severity Reaction Status Date / Time sulfamethoxazole Allergy Itching Verified 10/03/21 19:19 [From Bactrim] trimethoprim [From Bactrim] Allergy Itching Verified 10/03/21 19:19 Assessment & Plan Assessment & Plan (1) Mood disorder: Status: Acute Code(s): F39 - Unspecified mood [affective] disorder (2) Major neurocognitive disorder: Status: Acute Code(s): F03.90 - Unspecified dementia, unspecified severity, without behavioral disturbance, psychotic disturbance, mood disturbance, and anxiety Plan 11/30 continue current tx. order cmp, loperamide, covid for new onset loose stool. 12/01: no change in mgmt 12/02: swtable presentation. no change in mgmt 12/03 continue current tx. 12/04 continue current tx. 12/05 continue current tx. 12/06 continue current tx. 12/07 continue tx. 12/08: Continue current regimen and plans. Awaiting placement 12/09: Continue current plans and regimen. 12/10 continue tx. 12/11 continue current tx. 12/12 continue tx. 12/13 continue tx. 12/14 continue tx. 12/15 continue tx. 12/16 continue tx. 12/17 continue tx. 12/18 continue tx. I spent minutes with the patient and/or on the patient floor today, greater than?50% of which was spent counseling/coordinating care. Reason for contiued inpatient stay Substantial Risk for: inability to function
[2021-12-18 16:00] VITALS: BP 94/52; PULSE 60; RESP 14; TEMP 36.3; O2SAT 94
[2021-12-18] MEDS: Brimonidine Tartrate 0.2% Oph 5 ML BOTTLE 1 DROP EYE-BOTH ×2 (16:21→20:57)
--- NOTE | 2021-12-18 19:22 | MHC.SL.SWA ---
Speech Pathologist Impression: Risk of Aspiration Due to: Reduced Cognition Weak Cough Dysphasia Diet Status: Chopped Advanced w/ Thin liquids Liquid Consistency and Strategies for Safe Swallow: Liquid Intake Recommendation: Thin Liquid Intake Strategies: Small Sips No Straws Solid Food Consistency: Dietary Recommendations: Chopped/Advanced (NDD3) Additional Modifications to Solid Foods: Oral Medication Intake: Whole with Liquid Please contact the pharmacy regarding appropriate crushable or liquid drug formulations that are available whenever modified delivery is recommended. Compensatory Strategies and Precautions to be Taken for Safe Swallow: Sitting Upright (90 deg) No Straw Liquids from Cup Small Bites and Sips Alternate Liquids/Solids Rate of Ingestion Change Supervision While Eating and Drinking for Safe Swallow: Total Supervision (1:1) Foods to Avoid: Swallowing Recommended Treatments: Compens. Strategy Educat. Recommendation for Speech: Outpatient Speech Therapy Inpatient Speech Therapy Comment: Pt seen during lunch to monitor toleration of diet, behavioral cuing/supervision during meal. Patient was already independently eating lunch, no nursing or buffing wheel operator supervision was present at table. After greeting patient stated I have to be careful with this rice, and I have to be careful when I eat so I don't choke and kill myself. Patient was generally taking small bites of food, chewing and swallowing without incident. Patient was periodically cued to take sips of liquid between bites of food. As meal progressed, patient noted to add food to mouth before swallowing previous bolus, and was cued to swallow before adding more, X3. Patient also noted to periodically cough while consuming food, patient stated I am just coughing, not coughing because it went down the wrong way. It was unclear from meal ticket if diet was Chopped Advanced (marked only regular ) however food consistencies on tray seemed appropriate. Recommend patient continue on current diet consistencies Chopped Advanced w/ Thin liquids. Patient would benefit from regular supervision during all meals due to impulsivity, history of packing mouth w/episodes of choking. Patient is responsive to cuing to avoid these behaviors. Frequency/Duration: Date Range for Service Req: Timeline to reassess: Cytology Teacher Clinican/Clinical Fellow: No Supervisory Statement: I have reviewed and agree with the student/clinical fellow's documentation: N/A Speech Language Pathologist: Ching Yang M.A., CCC-MANUFACTURING TECHNOLOGY ANALYST
[2021-12-18] MEDS: Mirtazapine 7.5 MG TABLET PO (20:56)
[2021-12-18] MEDS: risperiDONE 0.25 MG TABLET PO (20:56)
[2021-12-18] MEDS: Melatonin 3 MG TABLET PO (20:56)
[2021-12-18] MEDS: Latanoprost 0.005 % Ophth Sol 2.5 ML DROPS 1 DROP EYE-BOTH (20:57)
[2021-12-18] MEDS: timoloL maleate 0.5 % Oph Sol 5 ML DRBTL 1 DROP EYE-BOTH (20:57)
[2021-12-19] VITALS: RESP 16
[2021-12-19] MEDS: Docusate Sodium 100 MG CAPSULE PO ×2 (07:55→20:45)
[2021-12-19] MEDS: Sennosides 8.6 MG TABLET PO (07:55)
[2021-12-19] MEDS: Gabapentin 100 MG CAPSULE PO ×3 (07:55→20:46)
[2021-12-19] MEDS: Milk of Magnesia 30 ML ORAL.SUSP PO (07:55)
[2021-12-19] MEDS: Brimonidine Tartrate 0.2% Oph 5 ML BOTTLE 1 DROP EYE-BOTH ×3 (07:56→20:50)
[2021-12-19 08:00] VITALS: BP 108/57; PULSE 71; RESP 14; TEMP 36.8; O2SAT 97
[2021-12-19] MEDS: timoloL maleate 0.5 % Oph Sol 5 ML DRBTL 1 DROP EYE-BOTH ×2 (10:08→20:48)
--- NOTE | 2021-12-19 11:47 | HO.PSYCHPN ---
Subjective Subjective Date of Service: 12/19/21 Reason For Visit: Unspecified Depressive Disorder Subjective Notes: Conditional Voluntary Interim History: Pt sitting in common area, completing cross word, in no distress. Pt with some humor stating he does not know how he is no one has told me. No Si/HI. Per nursing, no behavioral concerns. VS wnl. No further episodes of choking, on same diet as before. Medication Compliance: Yes Side effects from medications: No Review of Systems Review of Systems Yes all other systems are reviewed and are negative and Unobtainable due to mental status Constitutional: Denies chills and Denies fever(s) Cardiovascular: Denies chest pain, Denies dyspnea and Denies dyspnea on exertion Respiratory: Denies cough, Denies dyspnea and Denies dyspnea on exertion Gastrointestinal: Denies hematochezia and Denies change in bowel habits Genitourinary: Denies hematuria and Denies difficulty urinating Musculoskeletal: Denies back pain and Denies limited range of motion Denies focal weakness and Denies convulsions Psychiatric: Reports depression and Denies mood swings Mental Status Exam Mental Status Exam Narrative: Appearance: lying in bed, casual clothing, poor hygiene, in NAD Behavior: general PMR Speech: clear, normal rate/rhythm, non-spontaneous TP: poverty of thought TC: no over delusional content noted or reported Mood: okay Affect: constricted, but congruent SI: none HI: none AH/VH: none Delusions: none Insight/judgment: limited by memory/cog impairements Memory/cog: alert, not oriented to year, month, underlying cognitive impairments s/s to dementia. Diagnostics Vital Signs (24Hr): Vital Signs - 24 hr 12/20/21 08:00 12/20/21 16:00 Temperature 97.8 F 98.3 F Pulse Rate 74 85 Respiratory Rate 15 16 Blood Pressure 153/77 H 126/70 Pulse Oximetry 95 95 Oxygen Delivery Method Room Air BMI result Body Mass Index 18.6 Labs Results: 12/17/21 08:03 12/17/21 08:03 Imaging Radiology Impressions: ITS Impressions Head CT 10/04/21 15:04 IMPRESSION: 1. No acute intracranial pathology. 2. Right parietal meningioma without mass effect. 3. Generalized atrophy. Chest X-Ray 12/16/21 13:40 IMPRESSION: No acute cardiopulmonary findings. Medications Medications Current Medications Acetaminophen (Acetaminophen 325 Mg Tablet) 650 mg PO Q6H PRN PRN Reason: Headache/Pain Mild Scale (1-3) Last Admin: 11/09/21 14:37 Dose: 650 mg Al Hydroxide/Mg Hydroxide (Magnesium Hydrox/Alum Hydrox 30 Ml Oral.Susp) 30 ml PO Q6H PRN PRN Reason: Heartburn/Nausea Last Admin: 11/16/21 08:11 Dose: 30 ml Brimonidine Tartrate (Brimonidine Tartrate 0.2% Oph 5 Ml Bottle) 1 drop EYE-BOTH TID [facility] Last Admin: 12/20/21 20:07 Dose: 1 drop Docusate Sodium (Docusate Sodium 100 Mg Capsule) 100 mg PO BID [facility] Last Admin: 12/20/21 20:07 Dose: 100 mg Gabapentin (Gabapentin 100 Mg Capsule) 100 mg PO TID [facility] Last Admin: 12/20/21 20:07 Dose: 100 mg Latanoprost (Latanoprost 0.005 % Ophth Jessie 2.5 Ml Drops) 1 drop EYE-BOTH BEDTIME [facility] Last Admin: 12/20/21 20:07 Dose: 1 drop Loperamide HCl (Loperamide Hcl 2 Mg Capsule) 2 mg PO Q4H PRN PRN Reason: Diarrhea Last Admin: 12/11/21 13:32 Dose: 2 mg Magnesium Hydroxide (Milk Of Magnesia 30 Ml Oral.Susp) 30 ml PO DAILY [facility] Last Admin: 12/20/21 08:11 Dose: 30 ml Melatonin (Melatonin 3 Mg Tablet) 3 mg PO BEDTIME PRN PRN Reason: Insomnia Last Admin: 12/19/21 20:46 Dose: 3 mg Mirtazapine (Mirtazapine 7.5 Mg Tablet) 7.5 mg PO BEDTIME [facility] Last Admin: 12/20/21 20:07 Dose: 7.5 mg Risperidone (Risperidone 0.25 Mg Tablet) 0.25 mg PO BEDTIME [facility] Last Admin: 12/20/21 20:07 Dose: 0.25 mg Senna (Sennosides 8.6 Mg Tablet) 8.6 mg PO DAILY [facility] Last Admin: 12/20/21 08:11 Dose: 8.6 mg Timolol Maleate (Timolol Maleate 0.5 % Oph Jessie 5 Ml Drbtl) 1 drop EYE-BOTH BID [facility] Last Admin: 12/20/21 20:07 Dose: 1 drop Allergies Allergies Allergy/AdvReac Type Severity Reaction Status Date / Time sulfamethoxazole Allergy Itching Verified 10/03/21 19:19 [From Bactrim] trimethoprim [From Bactrim] Allergy Itching Verified 10/03/21 19:19 Assessment & Plan Assessment & Plan (1) Mood disorder: Status: Acute Code(s): F39 - Unspecified mood [affective] disorder (2) Major neurocognitive disorder: Status: Acute Code(s): F03.90 - Unspecified dementia, unspecified severity, without behavioral disturbance, psychotic disturbance, mood disturbance, and anxiety Plan 11/30 continue current tx. order cmp, loperamide, covid for new onset loose stool. 12/01: no change in mgmt 12/02: swtable presentation. no change in mgmt 12/03 continue current tx. 12/04 continue current tx. 12/05 continue current tx. 12/06 continue current tx. 12/07 continue tx. 12/08: Continue current regimen and plans. Awaiting placement 12/09: Continue current plans and regimen. 12/10 continue tx. 12/11 continue current tx. 12/12 continue tx. 12/13 continue tx. 12/14 continue tx. 12/15 continue tx. 12/16 continue tx. 12/17 continue tx. 12/18 continue tx. 12/19 continue tx. I spent minutes with the patient and/or on the patient floor today, greater than?50% of which was spent counseling/coordinating care. Reason for contiued inpatient stay Substantial Risk for: inability to function
--- NOTE | 2021-12-19 13:46 | MHC.CLN ---
F/U PATIENT WITH CHEMICAL LABORATORY SCIENTIST EVAL AND FOLLOW UP. DIET=NDD3 ON 12/14. REQUIRES SUPERVISION AT MEALS TO MONITOR FOR TOO MUCH FOOD IN MOUTH. NO NOTED CONCERNS WITH APPETITE. RD TO FOLLOW WEEKLY.
--- NOTE | 2021-12-19 14:02 | MHC.SL.SWA ---
Addendum entered and electronically signed by Wen Rossa MA, CCC-[employer] ARCHITECT 12/21/21 17:05: D.S. Original Note: Risk of Aspiration Due to: Reduced Cognition Weak Cough Dysphasia Diet Status: Chopped Advanced w/ Thin liquids Liquid Consistency and Strategies for Safe Swallow: Liquid Intake Recommendation: Thin Liquid Intake Strategies: Small Sips No Straws Solid Food Consistency: Dietary Recommendations: Chopped/Advanced (NDD3) Additional Modifications to Solid Foods: Moisten with sauce/gravy Oral Medication Intake: Whole with Liquid Please contact the pharmacy regarding appropriate crushable or liquid drug formulations that are available whenever modified delivery is recommended. Compensatory Strategies and Precautions to be Taken for Safe Swallow: Sitting Upright (90 deg) No Straw Liquids from Cup Small Bites and Sips Alternate Liquids/Solids Rate of Ingestion Change Supervision While Eating and Drinking for Safe Swallow: Total Supervision (1:1) Foods to Avoid: Sticky, tough to chew foods Swallowing Recommended Treatments: Compens. Strategy Educat. Recommendation for Speech: Outpatient Speech Therapy Inpatient Speech Therapy Comment: [employer] ARCHITECT attempted to see pt during lunch today to monitor toleration of diet and eating behaviors. VERTICA ARCHITECT arrived once pt had finished the majority of meal (chopped carrots, ground meat, puree potatoes, pudding). No supervision present at table. Upon greeting, pt stated I gotta before the end of the month further expanding with [birth year] my birthday and too old. Pt presented with residue of chopped carrots on tongue and bottom front dentition as well as fingers. Straw present on tray. Upon arrival pt presented with wet vocal quality after first sip of thin liquid via straw. Pt was then observed to take small sips via straw with intermittent cueing for small sips. Pt intermittently pt presented with mildly wet vocal quality after sip which pt cleared independently with throat clear or subsequent swallow. No coughing observed. When cued to take small sips, pt responded it's liquid, I'm not gonna choke in liquid. VERTICA ARCHITECT provided pt education RE: the importance of taking small sips to prevent aspiration on liquids. Pt took one bite of chopped carrot with VERTICA ARCHITECT present. Observed moderately prolonged mastication and mild lingual residue. Pt was cued to take sip of liquid to clear residue. Residue no longer visible to VERTICA ARCHITECT following sip of liquid, however pt refused to open mouth. VERTICA ARCHITECT observed some possible involuntary jerky lateral lingual movement throughout visit. Possibly d/t lingual residue? Pt also presents with teeth clicking tendency between words and bites. Pt reported to VERTICA ARCHITECT I am not eating as fast as I was. Unable to probe clarity on this statement: unclear if pt meaning that he is generally eating slower than before choking incident or that pt began eating slower once VERTICA ARCHITECT arrived. VERTICA ARCHITECT offered the idea of visual or written reminders for safe eating strategies during mealtimes. Pt refused. Recommend patient continue on current diet consistencies CHOPPED/ADVANCED solids (NDD3) and THIN liquids. Patient would benefit from regular supervision during all meals due to impulsivity, history of packing mouth w/episodes of choking. Patient is responsive to cuing (i.e. slow down, small bites and sips, finish chewing and swallow before introducing more food/liquid, take sips of liquid after 1-2 bites of food) to avoid these behaviors. Recommend 1 VERTICA ARCHITECT f/u during mealtime d/t lack of solid PO trials during today's visit. Cmm Technician Clinican/Clinical Fellow: Yes: Roseanne Jeff M.A., CF-[employer] ARCHITECT Supervisory Statement: I have reviewed and agree with the student/clinical fellow's documentation: N/A Speech Language Pathologist: Ching Yang M.A., [facility]-[employer] ARCHITECT
[2021-12-19 18:00] VITALS: BP 96/55; PULSE 95; RESP 16; TEMP 36.7; O2SAT 95
[2021-12-19] MEDS: Mirtazapine 7.5 MG TABLET PO (20:45)
[2021-12-19] MEDS: risperiDONE 0.25 MG TABLET PO (20:45)
[2021-12-19] MEDS: Melatonin 3 MG TABLET PO (20:46)
[2021-12-19] MEDS: Latanoprost 0.005 % Ophth Sol 2.5 ML DROPS 1 DROP EYE-BOTH (20:49)
[2021-12-20] VITALS: RESP 14
[2021-12-20 08:00] VITALS: BP 153/77; PULSE 74; RESP 15; TEMP 36.6; O2SAT 95
[2021-12-20] MEDS: Milk of Magnesia 30 ML ORAL.SUSP PO (08:11)
[2021-12-20] MEDS: Gabapentin 100 MG CAPSULE PO ×3 (08:11→20:07)
[2021-12-20] MEDS: Sennosides 8.6 MG TABLET PO (08:11)
[2021-12-20] MEDS: Docusate Sodium 100 MG CAPSULE PO ×2 (08:11→20:07)
[2021-12-20] MEDS: Brimonidine Tartrate 0.2% Oph 5 ML BOTTLE 1 DROP EYE-BOTH ×3 (08:14→20:07)
[2021-12-20] MEDS: timoloL maleate 0.5 % Oph Sol 5 ML DRBTL 1 DROP EYE-BOTH ×2 (08:14→20:07)
--- NOTE | 2021-12-20 10:19 | P.PNPSI_ITS ---
Subjective Subjective Date of Service: 12/20/21 Reason For Visit: Unspecified Depressive Disorder Subjective Notes: Conditional Voluntary Interim History: Pt sitting in common area, omre visible, lately, enjoys cross word, in no distress. Pt with some humor stating he does not know how he is no one has told me. No Si/HI. Per nursing, no behavioral concerns. VS wnl. No further episodes of choking, on same diet as before. Review of Systems Review of Systems Yes all other systems are reviewed and are negative and Unobtainable due to mental status Constitutional: Denies chills and Denies fever(s) Cardiovascular: Denies chest pain, Denies dyspnea and Denies dyspnea on exertion Respiratory: Denies cough, Denies dyspnea and Denies dyspnea on exertion Gastrointestinal: Denies hematochezia and Denies change in bowel habits Genitourinary: Denies hematuria and Denies difficulty urinating Musculoskeletal: Denies back pain and Denies limited range of motion Denies focal weakness and Denies convulsions Psychiatric: Reports depression and Denies mood swings Mental Status Exam Mental Status Exam Narrative: Appearance: lying in bed, casual clothing, poor hygiene, in NAD Behavior: general PMR Speech: clear, normal rate/rhythm, non-spontaneous TP: poverty of thought TC: no over delusional content noted or reported Mood: okay Affect: constricted, but congruent SI: none HI: none AH/VH: none Delusions: none Insight/judgment: limited by memory/cog impairements Memory/cog: alert, not oriented to year, month, underlying cognitive impairments s/s to dementia. Diagnostics Vital Signs (24Hr): Vital Signs - 24 hr 12/20/21 08:00 12/20/21 16:00 Temperature 97.8 F 98.3 F Pulse Rate 74 85 Respiratory Rate 15 16 Blood Pressure 153/77 H 126/70 Pulse Oximetry 95 95 Oxygen Delivery Method Room Air BMI result Body Mass Index 18.6 Labs Results: 12/17/21 08:03 12/17/21 08:03 Imaging Radiology Impressions: ITS Impressions Head CT 10/04/21 15:04 IMPRESSION: 1. No acute intracranial pathology. 2. Right parietal meningioma without mass effect. 3. Generalized atrophy. Chest X-Ray 12/16/21 13:40 IMPRESSION: No acute cardiopulmonary findings. Medications Medications Current Medications Acetaminophen (Acetaminophen 325 Mg Tablet) 650 mg PO Q6H PRN PRN Reason: Headache/Pain Mild Scale (1-3) Last Admin: 11/09/21 14:37 Dose: 650 mg Al Hydroxide/Mg Hydroxide (Magnesium Hydrox/Alum Hydrox 30 Ml Oral.Susp) 30 ml PO Q6H PRN PRN Reason: Heartburn/Nausea Last Admin: 11/16/21 08:11 Dose: 30 ml Brimonidine Tartrate (Brimonidine Tartrate 0.2% Oph 5 Ml Bottle) 1 drop EYE- BOTH TID [facility] Last Admin: 12/20/21 20:07 Dose: 1 drop Docusate Sodium (Docusate Sodium 100 Mg Capsule) 100 mg PO BID [facility] Last Admin: 12/20/21 20:07 Dose: 100 mg Gabapentin (Gabapentin 100 Mg Capsule) 100 mg PO TID [facility] Last Admin: 12/20/21 20:07 Dose: 100 mg Latanoprost (Latanoprost 0.005 % Ophth Jessie 2.5 Ml Drops) 1 drop EYE-BOTH BEDTIME [facility] Last Admin: 12/20/21 20:07 Dose: 1 drop Loperamide HCl (Loperamide Hcl 2 Mg Capsule) 2 mg PO Q4H PRN PRN Reason: Diarrhea Last Admin: 12/11/21 13:32 Dose: 2 mg Magnesium Hydroxide (Milk Of Magnesia 30 Ml Oral.Susp) 30 ml PO DAILY [facility] Last Admin: 12/20/21 08:11 Dose: 30 ml Melatonin (Melatonin 3 Mg Tablet) 3 mg PO BEDTIME PRN PRN Reason: Insomnia Last Admin: 12/19/21 20:46 Dose: 3 mg Mirtazapine (Mirtazapine 7.5 Mg Tablet) 7.5 mg PO BEDTIME [facility] Last Admin: 12/20/21 20:07 Dose: 7.5 mg Risperidone (Risperidone 0.25 Mg Tablet) 0.25 mg PO BEDTIME [facility] Last Admin: 12/20/21 20:07 Dose: 0.25 mg Senna (Sennosides 8.6 Mg Tablet) 8.6 mg PO DAILY [facility] Last Admin: 12/20/21 08:11 Dose: 8.6 mg Timolol Maleate (Timolol Maleate 0.5 % Oph Jessie 5 Ml Drbtl) 1 drop EYE-BOTH BID [facility] Last Admin: 12/20/21 20:07 Dose: 1 drop Allergies Allergies Allergy/AdvReac Type Severity Reaction Status Date / Time sulfamethoxazole Allergy Itching Verified 10/03/21 19:19 [From Bactrim] trimethoprim [From Bactrim] Allergy Itching Verified 10/03/21 19:19 Assessment & Plan Assessment & Plan (1) Mood disorder: Status: Acute Code(s): F39 - Unspecified mood [affective] disorder (2) Major neurocognitive disorder: Status: Acute Code(s): F03.90 - Unspecified dementia, unspecified severity, without behavioral disturbance, psychotic disturbance, mood disturbance, and anxiety Plan 11/30 continue current tx. order cmp, loperamide, covid for new onset loose stool. 12/01: no change in mgmt 12/02: swtable presentation. no change in mgmt 12/03 continue current tx. 12/04 continue current tx. 12/05 continue current tx. 12/06 continue current tx. 12/07 continue tx. 12/08: Continue current regimen and plans. Awaiting placement 12/09: Continue current plans and regimen. 12/10 continue tx. 12/11 continue current tx. 12/12 continue tx. 12/13 continue tx. 12/14 continue tx. 12/15 continue tx. 12/16 continue tx. 12/17 continue tx. 12/18 continue tx. 12/19 continue tx. 12/20 continue tx. I spent minutes with the patient and/or on the patient floor today, greater than?50% of which was spent counseling/coordinating care. Reason for contiued inpatient stay Substantial Risk for: inability to function
[2021-12-20 16:00] VITALS: BP 126/70; PULSE 85; RESP 16; TEMP 36.8; O2SAT 95
[2021-12-20 16:37] VITALS: BMI 18.6
--- NOTE | 2021-12-20 17:11 | MHC.SLORD ---
Speech Language Pathology Order Status: Attempted to see patient during lunch, arrived at 12:08 however nursing reported lunch was over and Sanchez was done. Will continue to attempt observation X1 during meal.
[2021-12-20] MEDS: Latanoprost 0.005 % Ophth Sol 2.5 ML DROPS 1 DROP EYE-BOTH (20:07)
[2021-12-20] MEDS: Mirtazapine 7.5 MG TABLET PO (20:07)
[2021-12-20] MEDS: risperiDONE 0.25 MG TABLET PO (20:07)
[2021-12-21] MEDS: Milk of Magnesia 30 ML ORAL.SUSP PO (07:47)
[2021-12-21] MEDS: Docusate Sodium 100 MG CAPSULE PO ×2 (07:47→20:19)
[2021-12-21] MEDS: Sennosides 8.6 MG TABLET PO (07:47)
[2021-12-21] MEDS: Gabapentin 100 MG CAPSULE PO ×3 (07:48→20:19)
[2021-12-21] MEDS: Brimonidine Tartrate 0.2% Oph 5 ML BOTTLE 1 DROP EYE-BOTH ×3 (07:49→20:19)
[2021-12-21] MEDS: timoloL maleate 0.5 % Oph Sol 5 ML DRBTL 1 DROP EYE-BOTH ×2 (07:52→20:19)
[2021-12-21 08:00] VITALS: BP 121/76; PULSE 69; RESP 16; O2SAT 97
--- NOTE | 2021-12-21 12:47 | MHC.SL.SWA ---
Addendum entered and electronically signed by Wen Rosas MA, CCC-[employer] 12/21/21 17:05: D.S. Original Note: Risk of Aspiration Due to: Reduced Cognition Weak Cough Dysphasia Diet Status: Chopped Advanced w/ Thin liquids Liquid Consistency and Strategies for Safe Swallow: Liquid Intake Recommendation: Thin Liquid Intake Strategies: Small Sips No Straws Solid Food Consistency: Dietary Recommendations: Chopped/Advanced (NDD3) Additional Modifications to Solid Foods: Oral Medication Intake: Whole with Liquid Please contact the pharmacy regarding appropriate crushable or liquid drug formulations that are available whenever modified delivery is recommended. Compensatory Strategies and Precautions to be Taken for Safe Swallow: Sitting Upright (90 deg) No Straw Liquids from Cup Small Bites and Sips Alternate Liquids/Solids Rate of Ingestion Change Supervision While Eating and Drinking for Safe Swallow: Total Supervision (1:1) Foods to Avoid: Sticky, tough to chew foods Swallowing Recommended Treatments: Compens. Strategy Educat. Recommendation for Speech: Outpatient Speech Therapy Inpatient Speech Therapy Pt seen for dysphagia tx during lunchtime. Pt less receptive to [employer]'s presence today. Pt is typically conversational, however only provided short responses to [employer] intermittently today. Pt's lunch tray was chopped with chopped turkey meatloaf, chopped carrots, mashed potatoes, marisela lorna, ice cream. [employer] INS[employer]OR [employer] observed pt consume approximately 50% of lunch tray. Pt benefitted from cueing, particularly to wait to introduce new bites until after current bite is swallowed and gone and to alternate between solids and liquids. Pt receptive to both these cues. Pt refused to open mouth when asked. Some mild residue was still visible on tongue and teeth, specifically chopped carrots. Meatloaf and potato residue cleared w/ 1 sip of liquids. Carrot residue did not clear w/ 1 sip of liquids. Pt observed to eat at slow rate, RN reports pt typically eats slow. Pt observed to have some intermittent difficulty getting bites of meatloaf onto fork. Pt did not present with any overt clinical s/s of aspiration throughout meal observation. No change in vocal quality observed, however pt was less talkative today. Recommend pt continue with CHOPPED/ADVANCED solids (NDD3), THIN liquids, pills WHOLE w/ liquid or puree depending on pt preference. Patient would benefit from regular supervision during all meals due to impulsivity, history of packing mouth w/episodes of choking. Patient is responsive to cuing (wait to introduce new bites until initial bite is gone, alternate between solids and liquids, and take small bites and sips) to avoid these behaviors. Talked to RN upon departure regarding d/c from speech at this time, safe eating recommendations, left physical paper w/ written cues, SI related commentary. Updated MD via [facility]. Pt to be discharged from dysphagia treatment at this time. Please refer back to [employer] if needed in the future. Branch Director Clinican/Clinical Fellow: Yes: Roseanne Jeff M.A., CF-[employer] Supervisory Statement: I have reviewed and agree with the student/clinical fellow's documentation: N/A Speech Language Pathologist: Ching Yang M.A., CCC-[employer]
--- NOTE | 2021-12-21 14:31 | P.PNPSI_ITS ---
Subjective Subjective Date of Service: 12/21/21 Reason For Visit: Unspecified Depressive Disorder Subjective Notes: Conditional Voluntary Interim History: The nursing staff reported the patient has been mostly in his room, minimal participation, sarcastic at times no changes in his mental status. The socially responsible investment adviser reported that he has been denied for several nursing homes. On interview the patient denies new symptoms, pleasant. I encouraged to write down his thoughts and he stated that younger, he used to write poetry. Mental Status Exam Mental Status Exam Patient Appearance: Appropriate Patient Orientation: Person and Situation Level of Consciousness: Awake Patient Behavior: Cooperative Mood Description: Relaxed Affect Description: Calm Patient Cognition Impaired: Yes Ability to Follow Directions: Good Speech Pattern: Clear Hallucinations: None Delusions: Not Present Thought Process: Distracted Thought Content: positive for [place], positive for Circumstantial and positive for Poverty of Content Judgement: Fair Diagnostics Vital Signs (24Hr): Vital Signs - 24 hr 12/20/21 16:00 12/21/21 08:00 Temperature 98.3 F Pulse Rate 85 69 Respiratory Rate 16 16 Blood Pressure 126/70 121/76 Pulse Oximetry 95 97 Oxygen Delivery Method Room Air BMI result Body Mass Index 18.6 Labs Results: 12/17/21 08:03 12/17/21 08:03 Imaging Radiology Impressions: ITS Impressions Head CT 10/04/21 15:04 IMPRESSION: 1. No acute intracranial pathology. 2. Right parietal meningioma without mass effect. 3. Generalized atrophy. Chest X-Ray 12/16/21 13:40 IMPRESSION: No acute cardiopulmonary findings. Medications Medications Current Medications Acetaminophen (Acetaminophen 325 Mg Tablet) 650 mg PO Q6H PRN PRN Reason: Headache/Pain Mild Scale (1-3) Last Admin: 11/09/21 14:37 Dose: 650 mg Al Hydroxide/Mg Hydroxide (Magnesium Hydrox/Alum Hydrox 30 Ml Oral.Susp) 30 ml PO Q6H PRN PRN Reason: Heartburn/Nausea Last Admin: 11/16/21 08:11 Dose: 30 ml Brimonidine Tartrate (Brimonidine Tartrate 0.2% Oph 5 Ml Bottle) 1 drop EYE- BOTH TID [facility] Last Admin: 12/21/21 07:49 Dose: 1 drop Docusate Sodium (Docusate Sodium 100 Mg Capsule) 100 mg PO BID [facility] Last Admin: 12/21/21 07:47 Dose: 100 mg Gabapentin (Gabapentin 100 Mg Capsule) 100 mg PO TID [facility] Last Admin: 12/21/21 07:48 Dose: 100 mg Latanoprost (Latanoprost 0.005 % Ophth Jessie 2.5 Ml Drops) 1 drop EYE-BOTH BEDTIME [facility] Last Admin: 12/20/21 20:07 Dose: 1 drop Loperamide HCl (Loperamide Hcl 2 Mg Capsule) 2 mg PO Q4H PRN PRN Reason: Diarrhea Last Admin: 12/11/21 13:32 Dose: 2 mg Magnesium Hydroxide (Milk Of Magnesia 30 Ml Oral.Susp) 30 ml PO DAILY [facility] Last Admin: 12/21/21 07:47 Dose: 30 ml Melatonin (Melatonin 3 Mg Tablet) 3 mg PO BEDTIME PRN PRN Reason: Insomnia Last Admin: 12/19/21 20:46 Dose: 3 mg Mirtazapine (Mirtazapine 7.5 Mg Tablet) 7.5 mg PO BEDTIME [facility] Last Admin: 12/20/21 20:07 Dose: 7.5 mg Risperidone (Risperidone 0.25 Mg Tablet) 0.25 mg PO BEDTIME [facility] Last Admin: 12/20/21 20:07 Dose: 0.25 mg Senna (Sennosides 8.6 Mg Tablet) 8.6 mg PO DAILY [facility] Last Admin: 12/21/21 07:47 Dose: 8.6 mg Timolol Maleate (Timolol Maleate 0.5 % Oph Jessie 5 Ml Drbtl) 1 drop EYE-BOTH BID [facility] Last Admin: 12/21/21 07:52 Dose: 1 drop Allergies Allergies Allergy/AdvReac Type Severity Reaction Status Date / Time sulfamethoxazole Allergy Itching Verified 10/03/21 19:19 [From Bactrim] trimethoprim [From Bactrim] Allergy Itching Verified 10/03/21 19:19 Assessment & Plan Assessment & Plan (1) Mood disorder: Status: Acute Code(s): F39 - Unspecified mood [affective] disorder (2) Major neurocognitive disorder: Status: Acute Code(s): F03.90 - Unspecified dementia, unspecified severity, without behavioral disturbance, psychotic disturbance, mood disturbance, and anxiety Plan 11/30 continue current tx. order cmp, loperamide, covid for new onset loose sto ol. 12/01: no change in mgmt 12/02: swtable presentation. no change in mgmt 12/03 continue current tx. 12/04 continue current tx. 12/05 continue current tx. 12/06 continue current tx. 12/07 continue tx. 12/08: Continue current regimen and plans. Awaiting placement 12/09: Continue current plans and regimen. 12/10 continue tx. 12/11 continue current tx. 12/12 continue tx. 12/13 continue tx. 12/14 continue tx. 12/15 continue tx. 12/16 continue tx. 12/17 continue tx. 12/18 continue tx. 12/19 continue tx. 12/20 continue tx. 12/21 continue with same treatment, waiting for placement I spent ___20___ minutes with the patient and/or on the patient floor today, greater than?50% of which was spent counseling/coordinating care. Reason for contiued inpatient stay Substantial Risk for: inability to function, rapid decompensation and med/psych decompensation
[2021-12-21 16:00] VITALS: BP 109/75; PULSE 73; RESP 18; TEMP 36.4; O2SAT 97
[2021-12-21] MEDS: Mirtazapine 7.5 MG TABLET PO (20:19)
[2021-12-21] MEDS: Latanoprost 0.005 % Ophth Sol 2.5 ML DROPS 1 DROP EYE-BOTH (20:19)
[2021-12-21] MEDS: risperiDONE 0.25 MG TABLET PO (20:19)
[2021-12-22 07:45] VITALS: BP 114/73; PULSE 66; RESP 16; TEMP 36.2; O2SAT 96
[2021-12-22] MEDS: Sennosides 8.6 MG TABLET PO (08:43)
[2021-12-22] MEDS: Docusate Sodium 100 MG CAPSULE PO ×2 (08:43→19:54)
[2021-12-22] MEDS: Gabapentin 100 MG CAPSULE PO ×3 (08:43→19:54)
[2021-12-22] MEDS: timoloL maleate 0.5 % Oph Sol 5 ML DRBTL 1 DROP EYE-BOTH ×2 (08:44→19:54)
[2021-12-22] MEDS: Milk of Magnesia 30 ML ORAL.SUSP PO (08:44)
[2021-12-22] MEDS: Brimonidine Tartrate 0.2% Oph 5 ML BOTTLE 1 DROP EYE-BOTH ×3 (08:44→19:54)
--- NOTE | 2021-12-22 15:25 | P.PNPSI_ITS ---
Subjective Subjective Date of Service: 12/22/21 Reason For Visit: Unspecified Depressive Disorder Interim History: Staff reports patient at baseline. No issues. Patient has no complaints or requests. Sitting comfortably outside and casually joking with automobile service writer. Mental Status Exam Mental Status Exam Patient Appearance: Appropriate Patient Orientation: Person and Situation Level of Consciousness: Awake Patient Behavior: Cooperative Mood Description: Relaxed Affect Description: Calm Patient Cognition Impaired: Yes Ability to Follow Directions: Good Speech Pattern: Clear Hallucinations: None Delusions: Not Present Thought Process: Distracted Thought Content: positive for [place], positive for Circumstantial and positive for Poverty of Content Judgement: Fair Diagnostics Vital Signs (24Hr): Vital Signs - 24 hr 12/21/21 16:00 12/22/21 07:45 Temperature 97.5 F 97.2 F Pulse Rate 73 66 Respiratory Rate 18 16 Blood Pressure 109/75 114/73 Pulse Oximetry 97 96 Oxygen Delivery Method Room Air Room Air BMI result Body Mass Index 18.6 Labs Results: 12/17/21 08:03 12/17/21 08:03 Imaging Radiology Impressions: ITS Impressions Head CT 10/04/21 15:04 IMPRESSION: 1. No acute intracranial pathology. 2. Right parietal meningioma without mass effect. 3. Generalized atrophy. Chest X-Ray 12/16/21 13:40 IMPRESSION: No acute cardiopulmonary findings. Medications Medications Current Medications Acetaminophen (Acetaminophen 325 Mg Tablet) 650 mg PO Q6H PRN PRN Reason: Headache/Pain Mild Scale (1-3) Last Admin: 11/09/21 14:37 Dose: 650 mg Al Hydroxide/Mg Hydroxide (Magnesium Hydrox/Alum Hydrox 30 Ml Oral.Susp) 30 ml PO Q6H PRN PRN Reason: Heartburn/Nausea Last Admin: 11/16/21 08:11 Dose: 30 ml Brimonidine Tartrate (Brimonidine Tartrate 0.2% Oph 5 Ml Bottle) 1 drop E[facility]- BOTH TID [facility] Last Admin: 12/22/21 14:58 Dose: 1 drop Docusate Sodium (Docusate Sodium 100 Mg Capsule) 100 mg PO BID [facility] Last Admin: 12/22/21 08:43 Dose: 100 mg Gabapentin (Gabapentin 100 Mg Capsule) 100 mg PO TID [facility] Last Admin: 12/22/21 14:58 Dose: 100 mg Latanoprost (Latanoprost 0.005 % Ophth Jessie 2.5 Ml Drops) 1 drop EYE-BOTH BEDTIME [facility] Last Admin: 12/21/21 20:19 Dose: 1 drop Loperamide HCl (Loperamide Hcl 2 Mg Capsule) 2 mg PO Q4H PRN PRN Reason: Diarrhea Last Admin: 12/11/21 13:32 Dose: 2 mg Magnesium Hydroxide (Milk Of Magnesia 30 Ml Oral.Susp) 30 ml PO DAILY [facility] Last Admin: 12/22/21 08:44 Dose: 30 ml Melatonin (Melatonin 3 Mg Tablet) 3 mg PO BEDTIME PRN PRN Reason: Insomnia Last Admin: 12/19/21 20:46 Dose: 3 mg Mirtazapine (Mirtazapine 7.5 Mg Tablet) 7.5 mg PO BEDTIME [facility] Last Admin: 12/21/21 20:19 Dose: 7.5 mg Risperidone (Risperidone 0.25 Mg Tablet) 0.25 mg PO BEDTIME [facility] Last Admin: 12/21/21 20:19 Dose: 0.25 mg Senna (Sennosides 8.6 Mg Tablet) 8.6 mg PO DAILY [facility] Last Admin: 12/22/21 08:43 Dose: 8.6 mg Timolol Maleate (Timolol Maleate 0.5 % Oph Jessie 5 Ml Drbtl) 1 drop EYE-BOTH BID [facility] Last Admin: 12/22/21 08:44 Dose: 1 drop Allergies Allergies Allergy/AdvReac Type Severity Reaction Status Date / Time sulfamethoxazole Allergy Itching Verified 10/03/21 19:19 [From Bactrim] trimethoprim [From Bactrim] Allergy Itching Verified 10/03/21 19:19 Assessment & Plan Assessment & Plan (1) Mood disorder: Status: Acute Code(s): F39 - Unspecified mood [affective] disorder (2) Major neurocognitive disorder: Status: Acute Code(s): F03.90 - Unspecified dementia, unspecified severity, without behavioral disturbance, psychotic disturbance, mood disturbance, and anxiety Plan 11/30 continue current tx. order cmp, loperamide, covid for new onset loose stool. 12/01: no change in mgmt 12/02: swtable presentation. no change in mgmt 12/03 continue current tx. 12/04 continue current tx. 12/05 continue current tx. 12/06 continue current tx. 12/07 continue tx. 12/08: Continue current regimen and plans. Awaiting placement 12/09: Continue current plans and regimen. 12/10 continue tx. 12/11 continue current tx. 12/12 continue tx. 12/13 continue tx. 12/14 continue tx. 12/15 continue tx. 12/16 continue tx. 12/17 continue tx. 12/18 continue tx. 12/19 continue tx. 12/20 continue tx. 12/21 continue with same treatment, waiting for placement 12/22 continue with same treatment, waiting for placement I spent minutes with the patient and/or on the patient floor today, greater than?50% of which was spent counseling/coordinating care. Patient educated on: diagnosis Informed Consent: understands Reason for contiued inpatient stay Substantial Risk for: stable for discharge
[2021-12-22] MEDS: Melatonin 3 MG TABLET PO (19:54)
[2021-12-22] MEDS: risperiDONE 0.25 MG TABLET PO (19:54)
[2021-12-22] MEDS: Latanoprost 0.005 % Ophth Sol 2.5 ML DROPS 1 DROP EYE-BOTH (19:54)
[2021-12-22] MEDS: Mirtazapine 7.5 MG TABLET PO (19:55)
[2021-12-22 20:45] VITALS: BP 92/60; PULSE 74; RESP 18; TEMP 36.9; O2SAT 95
[2021-12-23 06:00] VITALS: BP 117/62; PULSE 74; RESP 16; TEMP 36.9; O2SAT 96
[2021-12-23] MEDS: Gabapentin 100 MG CAPSULE PO ×3 (08:43→20:34)
[2021-12-23] MEDS: Docusate Sodium 100 MG CAPSULE PO ×2 (08:43→20:34)
[2021-12-23] MEDS: Brimonidine Tartrate 0.2% Oph 5 ML BOTTLE 1 DROP EYE-BOTH ×3 (08:43→20:34)
[2021-12-23] MEDS: Sennosides 8.6 MG TABLET PO (08:43)
[2021-12-23] MEDS: timoloL maleate 0.5 % Oph Sol 5 ML DRBTL 1 DROP EYE-BOTH ×2 (08:43→20:34)
[2021-12-23] MEDS: Milk of Magnesia 30 ML ORAL.SUSP PO (08:43)
--- NOTE | 2021-12-23 18:40 | HO.PSYCHPN ---
Subjective Subjective Date of Service: 12/23/21 Reason For Visit: Unspecified Depressive Disorder Interim History: Late entry note for patient seen 12/23 Patient seen and case discussed with nursing staff. No change Mental Status Exam Mental Status Exam Patient Appearance: Appropriate Patient Orientation: Person and Situation Level of Consciousness: Awake Patient Behavior: Cooperative Mood Description: Relaxed Affect Description: Calm Patient Cognition Impaired: Yes Ability to Follow Directions: Good Speech Pattern: Clear Hallucinations: None Delusions: Not Present Thought Process: Distracted Thought Content: positive for [place], positive for Circumstantial and positive for Poverty of Content Judgement: Fair Diagnostics Vital Signs (24Hr): Vital Signs - 24 hr 12/23/21 19:30 Temperature 97.4 F Pulse Rate 65 Respiratory Rate 18 Blood Pressure 99/57 L Pulse Oximetry 96 Oxygen Delivery Method Room Air BMI result Body Mass Index 18.6 Labs Results: 12/17/21 08:03 12/17/21 08:03 Imaging Radiology Impressions: ITS Impressions Head CT 10/04/21 15:04 IMPRESSION: 1. No acute intracranial pathology. 2. Right parietal meningioma without mass effect. 3. Generalized atrophy. Chest X-Ray 12/16/21 13:40 IMPRESSION: No acute cardiopulmonary findings. Medications Medications Current Medications Acetaminophen (Acetaminophen 325 Mg Tablet) 650 mg PO Q6H PRN PRN Reason: Headache/Pain Mild Scale (1-3) Last Admin: 11/09/21 14:37 Dose: 650 mg Al Hydroxide/Mg Hydroxide (Magnesium Hydrox/Alum Hydrox 30 Ml Oral.Susp) 30 ml PO Q6H PRN PRN Reason: Heartburn/Nausea Last Admin: 11/16/21 08:11 Dose: 30 ml Brimonidine Tartrate (Brimonidine Tartrate 0.2% Oph 5 Ml Bottle) 1 drop EYE-BOTH TID [facility] Last Admin: 12/24/21 08:26 Dose: 1 drop Docusate Sodium (Docusate Sodium 100 Mg Capsule) 100 mg PO BID [facility] Last Admin: 12/24/21 08:26 Dose: 100 mg Gabapentin (Gabapentin 100 Mg Capsule) 100 mg PO TID [facility] Last Admin: 12/24/21 08:26 Dose: 100 mg Latanoprost (Latanoprost 0.005 % Ophth Jessie 2.5 Ml Drops) 1 drop EYE-BOTH BEDTIME [facility] Last Admin: 12/23/21 20:34 Dose: 1 drop Loperamide HCl (Loperamide Hcl 2 Mg Capsule) 2 mg PO Q4H PRN PRN Reason: Diarrhea Last Admin: 12/11/21 13:32 Dose: 2 mg Magnesium Hydroxide (Milk Of Magnesia 30 Ml Oral.Susp) 30 ml PO DAILY [facility] Last Admin: 12/24/21 08:26 Dose: 30 ml Melatonin (Melatonin 3 Mg Tablet) 3 mg PO BEDTIME PRN PRN Reason: Insomnia Last Admin: 12/22/21 19:54 Dose: 3 mg Mirtazapine (Mirtazapine 7.5 Mg Tablet) 7.5 mg PO BEDTIME [facility] Last Admin: 12/23/21 20:34 Dose: 7.5 mg Risperidone (Risperidone 0.25 Mg Tablet) 0.25 mg PO BEDTIME [facility] Last Admin: 12/23/21 20:34 Dose: 0.25 mg Senna (Sennosides 8.6 Mg Tablet) 8.6 mg PO DAILY [facility] Last Admin: 12/24/21 08:26 Dose: 8.6 mg Timolol Maleate (Timolol Maleate 0.5 % Oph Jessie 5 Ml Drbtl) 1 drop EYE-BOTH BID [facility] Last Admin: 12/24/21 08:26 Dose: 1 drop Allergies Allergies Allergy/AdvReac Type Severity Reaction Status Date / Time sulfamethoxazole Allergy Itching Verified 10/03/21 19:19 [From Bactrim] trimethoprim [From Bactrim] Allergy Itching Verified 10/03/21 19:19 Assessment & Plan Assessment & Plan (1) Mood disorder: Status: Acute Code(s): F39 - Unspecified mood [affective] disorder (2) Major neurocognitive disorder: Status: Acute Code(s): F03.90 - Unspecified dementia, unspecified severity, without behavioral disturbance, psychotic disturbance, mood disturbance, and anxiety Plan 11/30 continue current tx. order cmp, loperamide, covid for new onset loose stool. 12/01: no change in mgmt 12/02: swtable presentation. no change in mgmt 12/03 continue current tx. 12/04 continue current tx. 12/05 continue current tx. 12/06 continue current tx. 12/07 continue tx. 12/08: Continue current regimen and plans. Awaiting placement 12/09: Continue current plans and regimen. 12/10 continue tx. 12/11 continue current tx. 12/12 continue tx. 12/13 continue tx. 12/14 continue tx. 12/15 continue tx. 12/16 continue tx. 12/17 continue tx. 12/18 continue tx. 12/19 continue tx. 12/20 continue tx. 12/21 continue with same treatment, waiting for placement 12/22 continue with same treatment, waiting for placement 12/23 continue with same treatment, waiting for placement I spent minutes with the patient and/or on the patient floor today, greater than?50% of which was spent counseling/coordinating care. Reason for contiued inpatient stay Substantial Risk for: other (dispo)
[2021-12-23 19:30] VITALS: BP 99/57; PULSE 65; RESP 18; TEMP 36.3; O2SAT 96
[2021-12-23] MEDS: Mirtazapine 7.5 MG TABLET PO (20:34)
[2021-12-23] MEDS: risperiDONE 0.25 MG TABLET PO (20:34)
[2021-12-23] MEDS: Latanoprost 0.005 % Ophth Sol 2.5 ML DROPS 1 DROP EYE-BOTH (20:34)
[2021-12-24 06:00] VITALS: BP 112/68; PULSE 69; RESP 16; TEMP 36.6; O2SAT 96
[2021-12-24] MEDS: Docusate Sodium 100 MG CAPSULE PO ×2 (08:26→20:45)
[2021-12-24] MEDS: Brimonidine Tartrate 0.2% Oph 5 ML BOTTLE 1 DROP EYE-BOTH ×3 (08:26→20:47)
[2021-12-24] MEDS: Gabapentin 100 MG CAPSULE PO ×3 (08:26→20:45)
[2021-12-24] MEDS: timoloL maleate 0.5 % Oph Sol 5 ML DRBTL 1 DROP EYE-BOTH (08:26)
[2021-12-24] MEDS: Sennosides 8.6 MG TABLET PO (08:26)
[2021-12-24] MEDS: Milk of Magnesia 30 ML ORAL.SUSP PO (08:26)
--- NOTE | 2021-12-24 11:50 | HO.PSYCHPN ---
Subjective Subjective Date of Service: 12/24/21 Reason For Visit: Unspecified Depressive Disorder Subjective Notes: Conditional Voluntary Interim History: The nursing staff reported the patient had been pleasant and cooperative, eating the common areas, very polite and quiet. He slept very well. No evidence of psychotic behavior. The occupational therapist reported that he had been more withdrawn since he feels bored here. The social work lecturer reported that he has been denied from 5 different facilities even though the patient is very easy to be redirected and managed. On interview, the patient denies new symptoms he is pleasant and cooperative no evidence of psychosis. Mental Status Exam Mental Status Exam Patient Appearance: Well Grooomed Patient Orientation: Person and Situation Level of Consciousness: Awake Patient Behavior: Cooperative Mood Description: Withdrawn Affect Description: Constricted Patient Cognition Impaired: Yes Ability to Follow Directions: Good Speech Pattern: Clear Hallucinations: None Delusions: Not Present Thought Process: Distracted Thought Content: positive for [place] and positive for Circumstantial Judgement: Fair Diagnostics Vital Signs (24Hr): Vital Signs - 24 hr 12/23/21 19:30 12/24/21 06:00 Temperature 97.4 F 97.9 F Pulse Rate 65 69 Respiratory Rate 18 16 Blood Pressure 99/57 L 112/68 Pulse Oximetry 96 96 Oxygen Delivery Method Room Air BMI result Body Mass Index 18.6 Labs Results: 12/17/21 08:03 12/17/21 08:03 Imaging Radiology Impressions: ITS Impressions Head CT 10/04/21 15:04 IMPRESSION: 1. No acute intracranial pathology. 2. Right parietal meningioma without mass effect. 3. Generalized atrophy. Chest X-Ray 12/16/21 13:40 IMPRESSION: No acute cardiopulmonary findings. Medications Medications Current Medications Acetaminophen (Acetaminophen 325 Mg Tablet) 650 mg PO Q6H PRN PRN Reason: Headache/Pain Mild Scale (1-3) Last Admin: 11/09/21 14:37 Dose: 650 mg Al Hydroxide/Mg Hydroxide (Magnesium Hydrox/Alum Hydrox 30 Ml Oral.Susp) 30 ml PO Q6H PRN PRN Reason: Heartburn/Nausea Last Admin: 11/16/21 08:11 Dose: 30 ml Brimonidine Tartrate (Brimonidine Tartrate 0.2% Oph 5 Ml Bottle) 1 drop EYE-BOTH TID [facility] Last Admin: 12/24/21 08:26 Dose: 1 drop Docusate Sodium (Docusate Sodium 100 Mg Capsule) 100 mg PO BID [facility] Last Admin: 12/24/21 08:26 Dose: 100 mg Gabapentin (Gabapentin 100 Mg Capsule) 100 mg PO TID [facility] Last Admin: 12/24/21 08:26 Dose: 100 mg Latanoprost (Latanoprost 0.005 % Ophth Jessie 2.5 Ml Drops) 1 drop EYE-BOTH BEDTIME [facility] Last Admin: 12/23/21 20:34 Dose: 1 drop Loperamide HCl (Loperamide Hcl 2 Mg Capsule) 2 mg PO Q4H PRN PRN Reason: Diarrhea Last Admin: 12/11/21 13:32 Dose: 2 mg Magnesium Hydroxide (Milk Of Magnesia 30 Ml Oral.Susp) 30 ml PO DAILY [facility] Last Admin: 12/24/21 08:26 Dose: 30 ml Melatonin (Melatonin 3 Mg Tablet) 3 mg PO BEDTIME PRN PRN Reason: Insomnia Last Admin: 12/22/21 19:54 Dose: 3 mg Mirtazapine (Mirtazapine 7.5 Mg Tablet) 7.5 mg PO BEDTIME [facility] Last Admin: 12/23/21 20:34 Dose: 7.5 mg Risperidone (Risperidone 0.25 Mg Tablet) 0.25 mg PO BEDTIME [facility] Last Admin: 12/23/21 20:34 Dose: 0.25 mg Senna (Sennosides 8.6 Mg Tablet) 8.6 mg PO DAILY [facility] Last Admin: 12/24/21 08:26 Dose: 8.6 mg Timolol Maleate (Timolol Maleate 0.5 % Oph Jessie 5 Ml Drbtl) 1 drop EYE-BOTH BID [facility] Last Admin: 12/24/21 08:26 Dose: 1 drop Allergies Allergies Allergy/AdvReac Type Severity Reaction Status Date / Time sulfamethoxazole Allergy Itching Verified 10/03/21 19:19 [From Bactrim] trimethoprim [From Bactrim] Allergy Itching Verified 10/03/21 19:19 Assessment & Plan Assessment & Plan (1) Mood disorder: Status: Acute Code(s): F39 - Unspecified mood [affective] disorder (2) Major neurocognitive disorder: Status: Acute Code(s): F03.90 - Unspecified dementia, unspecified severity, without behavioral disturbance, psychotic disturbance, mood disturbance, and anxiety Plan Adult male, admitted for altered mental status and psychotic symptoms that were resolved after he was treated with a very low dose of medications. Plan 1. Continue same treatment. 2. Waiting for placement. I spent __20____ minutes with the patient and/or on the patient floor today, greater than?50% of which was spent counseling/coordinating care. Reason for contiued inpatient stay Substantial Risk for: inability to function, rapid decompensation and med/psych decompensation
[2021-12-24 20:24] VITALS: BP 107/65; PULSE 59; TEMP 36.6; O2SAT 94
[2021-12-24] MEDS: risperiDONE 0.25 MG TABLET PO (20:45)
[2021-12-24] MEDS: Mirtazapine 7.5 MG TABLET PO (20:45)
[2021-12-24] MEDS: Latanoprost 0.005 % Ophth Sol 2.5 ML DROPS 1 DROP EYE-BOTH (20:47)
[2021-12-25 06:00] VITALS: BP 115/70; PULSE 70; RESP 16; TEMP 36.7; O2SAT 96
[2021-12-25] MEDS: Gabapentin 100 MG CAPSULE PO ×3 (08:56→20:18)
[2021-12-25] MEDS: Docusate Sodium 100 MG CAPSULE PO ×2 (08:56→20:18)
[2021-12-25] MEDS: Sennosides 8.6 MG TABLET PO (08:56)
[2021-12-25] MEDS: Milk of Magnesia 30 ML ORAL.SUSP PO (08:56)
[2021-12-25] MEDS: Brimonidine Tartrate 0.2% Oph 5 ML BOTTLE 1 DROP EYE-BOTH ×3 (10:00→20:18)
[2021-12-25] MEDS: timoloL maleate 0.5 % Oph Sol 5 ML DRBTL 1 DROP EYE-BOTH ×2 (10:03→20:18)
--- NOTE | 2021-12-25 16:24 | HO.PSYCHPN ---
Subjective Subjective Date of Service: 12/25/21 Reason For Visit: Unspecified Depressive Disorder Subjective Notes: Conditional Voluntary Interim History: The nursing staff reported the patient has been compliant with treatment, no change in mental status. The social worker palliative care reported that he was refused for another [facility] facility, she still working on different other facilities. On interview the patient denies new symptoms Mental Status Exam Mental Status Exam Patient Appearance: Well Grooomed Patient Orientation: Person and Situation Level of Consciousness: Awake Patient Behavior: Cooperative Mood Description: Constricted Affect Description: Calm Patient Cognition Impaired: Yes Ability to Follow Directions: Good Speech Pattern: Clear Hallucinations: None Delusions: Not Present Thought Process: Distracted Thought Content: positive for [place] and positive for Circumstantial Judgement: Fair Diagnostics Vital Signs (24Hr): Vital Signs - 24 hr 12/24/21 20:24 12/25/21 06:00 Temperature 97.9 F 98.1 F Pulse Rate 59 70 Respiratory Rate 16 Blood Pressure 107/65 115/70 Pulse Oximetry 94 96 Oxygen Delivery Method Room Air Room Air BMI result Body Mass Index 18.6 Labs Results: 12/17/21 08:03 12/17/21 08:03 Imaging Radiology Impressions: ITS Impressions Head CT 10/04/21 15:04 IMPRESSION: 1. No acute intracranial pathology. 2. Right parietal meningioma without mass effect. 3. Generalized atrophy. Chest X-Ray 12/16/21 13:40 IMPRESSION: No acute cardiopulmonary findings. Medications Medications Current Medications Acetaminophen (Acetaminophen 325 Mg Tablet) 650 mg PO Q6H PRN PRN Reason: Headache/Pain Mild Scale (1-3) Last Admin: 11/09/21 14:37 Dose: 650 mg Al Hydroxide/Mg Hydroxide (Magnesium Hydrox/Alum Hydrox 30 Ml Oral.Susp) 30 ml PO Q6H PRN PRN Reason: Heartburn/Nausea Last Admin: 11/16/21 08:11 Dose: 30 ml Brimonidine Tartrate (Brimonidine Tartrate 0.2% Oph 5 Ml Bottle) 1 drop EYE-BOTH TID [facility] Last Admin: 12/25/21 14:16 Dose: 1 drop Docusate Sodium (Docusate Sodium 100 Mg Capsule) 100 mg PO BID [facility] Last Admin: 12/25/21 08:56 Dose: 100 mg Gabapentin (Gabapentin 100 Mg Capsule) 100 mg PO TID [facility] Last Admin: 12/25/21 14:16 Dose: 100 mg Latanoprost (Latanoprost 0.005 % Ophth Jessie 2.5 Ml Drops) 1 drop EYE-BOTH BEDTIME [facility] Last Admin: 12/24/21 20:47 Dose: 1 drop Loperamide HCl (Loperamide Hcl 2 Mg Capsule) 2 mg PO Q4H PRN PRN Reason: Diarrhea Last Admin: 12/11/21 13:32 Dose: 2 mg Magnesium Hydroxide (Milk Of Magnesia 30 Ml Oral.Susp) 30 ml PO DAILY [facility] Last Admin: 12/25/21 08:56 Dose: 30 ml Melatonin (Melatonin 3 Mg Tablet) 3 mg PO BEDTIME PRN PRN Reason: Insomnia Last Admin: 12/22/21 19:54 Dose: 3 mg Mirtazapine (Mirtazapine 7.5 Mg Tablet) 7.5 mg PO BEDTIME [facility] Last Admin: 12/24/21 20:45 Dose: 7.5 mg Risperidone (Risperidone 0.25 Mg Tablet) 0.25 mg PO BEDTIME [facility] Last Admin: 12/24/21 20:45 Dose: 0.25 mg Senna (Sennosides 8.6 Mg Tablet) 8.6 mg PO DAILY [facility] Last Admin: 12/25/21 08:56 Dose: 8.6 mg Timolol Maleate (Timolol Maleate 0.5 % Oph Jessie 5 Ml Drbtl) 1 drop EYE-BOTH BID [facility] Last Admin: 12/25/21 10:03 Dose: 1 drop Allergies Allergies Allergy/AdvReac Type Severity Reaction Status Date / Time sulfamethoxazole Allergy Itching Verified 10/03/21 19:19 [From Bactrim] trimethoprim [From Bactrim] Allergy Itching Verified 10/03/21 19:19 Assessment & Plan Assessment & Plan (1) Mood disorder: Status: Acute Code(s): F39 - Unspecified mood [affective] disorder (2) Major neurocognitive disorder: Status: Acute Code(s): F03.90 - Unspecified dementia, unspecified severity, without behavioral disturbance, psychotic disturbance, mood disturbance, and anxiety Plan Adult male, admitted for altered mental status and psychotic symptoms that were resolved after he was treated with a very low dose of medications. Plan 1. Continue same treatment. 2. Waiting for placement. I spent ___20___ minutes with the patient and/or on the patient floor today, greater than?50% of which was spent counseling/coordinating care. Reason for contiued inpatient stay Substantial Risk for: inability to function, rapid decompensation and med/psych decompensation
[2021-12-25 18:00] VITALS: BP 90/70; PULSE 63; RESP 18; TEMP 36.6; O2SAT 96
[2021-12-25] MEDS: Latanoprost 0.005 % Ophth Sol 2.5 ML DROPS 1 DROP EYE-BOTH (20:18)
[2021-12-25] MEDS: risperiDONE 0.25 MG TABLET PO (20:18)
[2021-12-25] MEDS: Mirtazapine 7.5 MG TABLET PO (20:18)
[2021-12-26 07:50] VITALS: BP 112/68; PULSE 65; RESP 16; TEMP 36.7; O2SAT 96
[2021-12-26] MEDS: Docusate Sodium 100 MG CAPSULE PO ×2 (08:05→21:02)
[2021-12-26] MEDS: Sennosides 8.6 MG TABLET PO (08:05)
[2021-12-26] MEDS: Gabapentin 100 MG CAPSULE PO ×3 (08:06→21:02)
[2021-12-26] MEDS: Milk of Magnesia 30 ML ORAL.SUSP PO (08:06)
[2021-12-26] MEDS: Brimonidine Tartrate 0.2% Oph 5 ML BOTTLE 1 DROP EYE-BOTH ×3 (08:08→21:02)
[2021-12-26] MEDS: timoloL maleate 0.5 % Oph Sol 5 ML DRBTL 1 DROP EYE-BOTH ×2 (08:16→21:02)
--- NOTE | 2021-12-26 10:03 | MHC.CLN ---
F/U DIET=NDD3, THIN LIQUIDS. SEEN BY FURNACE COMBINATION ANALYST 12/21. CONTINUE SUPERVISION AT MEALS. NO NOTED CONCERNS WITH APPETITE OR INTAKE. FAVORABLE 5% WEIGHT GAIN SINCE ADMISSION. NO NEW NUTRITION INTERVENTIONS. RD TO FOLLOW WEEKLY.
--- NOTE | 2021-12-26 13:59 | P.PNPSI_ITS ---
Subjective Subjective Date of Service: 12/26/21 Reason For Visit: Unspecified Depressive Disorder Subjective Notes: Conditional Voluntary Interim History: The nursing staff reported the patient had been compliant with treatment, he has it all his meals and he slept well last night. Yesterday the staff reported that she had rectal bleeding and apparently he has old MRIs that had not been treated. The director of social media marketing reported that he will [facility] was reviewing [facility] and possible he could be accepted over there. On interview the patient denies new symptoms he feels okay. Mental Status Exam Mental Status Exam Patient Appearance: Well Grooomed Patient Orientation: Person and Situation Level of Consciousness: Awake Patient Behavior: Guarded and Passive Mood Description: Withdrawn Affect Description: Constricted Patient Cognition Impaired: Yes Ability to Follow Directions: Good Speech Pattern: Clear Hallucinations: None Delusions: Not Present Thought Process: Distracted Thought Content: positive for Circumstantial Judgement: Fair Diagnostics Vital Signs (24Hr): Vital Signs - 24 hr 12/25/21 18:00 12/26/21 07:50 Temperature 97.8 F 98.1 F Pulse Rate 63 65 Respiratory Rate 18 16 Blood Pressure 90/70 112/68 Pulse Oximetry 96 96 Oxygen Delivery Method Room Air Room Air BMI result Body Mass Index 18.6 Labs Results: 12/17/21 08:03 12/17/21 08:03 Imaging Radiology Impressions: ITS Impressions Head CT 10/04/21 15:04 IMPRESSION: 1. No acute intracranial pathology. 2. Right parietal meningioma without mass effect. 3. Generalized atrophy. Chest X-Ray 12/16/21 13:40 IMPRESSION: No acute cardiopulmonary findings. Medications Medications Current Medications Acetaminophen (Acetaminophen 325 Mg Tablet) 650 mg PO Q6H PRN PRN Reason: Headache/Pain Mild Scale (1-3) Last Admin: 11/09/21 14:37 Dose: 650 mg Al Hydroxide/Mg Hydroxide (Magnesium Hydrox/Alum Hydrox 30 Ml Oral.Susp) 30 ml PO Q6H PRN PRN Reason: Heartburn/Nausea Last Admin: 11/16/21 08:11 Dose: 30 ml Brimonidine Tartrate (Brimonidine Tartrate 0.2% Oph 5 Ml Bottle) 1 drop EYE- BOTH TID [facility] Last Admin: 12/26/21 08:08 Dose: 1 drop Docusate Sodium (Docusate Sodium 100 Mg Capsule) 100 mg PO BID [facility] Last Admin: 12/26/21 08:05 Dose: 100 mg Gabapentin (Gabapentin 100 Mg Capsule) 100 mg PO TID [facility] Last Admin: 12/26/21 08:06 Dose: 100 mg Latanoprost (Latanoprost 0.005 % Ophth Jessie 2.5 Ml Drops) 1 drop EYE-BOTH BEDTIME [facility] Last Admin: 12/25/21 20:18 Dose: 1 drop Loperamide HCl (Loperamide Hcl 2 Mg Capsule) 2 mg PO Q4H PRN PRN Reason: Diarrhea Last Admin: 12/11/21 13:32 Dose: 2 mg Magnesium Hydroxide (Milk Of Magnesia 30 Ml Oral.Susp) 30 ml PO DAILY [facility] Last Admin: 12/26/21 08:06 Dose: 30 ml Melatonin (Melatonin 3 Mg Tablet) 3 mg PO BEDTIME PRN PRN Reason: Insomnia Last Admin: 12/22/21 19:54 Dose: 3 mg Mirtazapine (Mirtazapine 7.5 Mg Tablet) 7.5 mg PO BEDTIME [facility] Last Admin: 12/25/21 20:18 Dose: 7.5 mg Risperidone (Risperidone 0.25 Mg Tablet) 0.25 mg PO BEDTIME [facility] Last Admin: 12/25/21 20:18 Dose: 0.25 mg Senna (Sennosides 8.6 Mg Tablet) 8.6 mg PO DAILY [facility] Last Admin: 12/26/21 08:05 Dose: 8.6 mg Timolol Maleate (Timolol Maleate 0.5 % Oph Jessie 5 Ml Drbtl) 1 drop EYE-BOTH BID [facility] Last Admin: 12/26/21 08:16 Dose: 1 drop Allergies Allergies Allergy/AdvReac Type Severity Reaction Status Date / Time sulfamethoxazole Allergy Itching Verified 10/03/21 19:19 [From Bactrim] trimethoprim [From Bactrim] Allergy Itching Verified 10/03/21 19:19 Assessment & Plan Assessment & Plan (1) Mood disorder: Status: Acute Code(s): F39 - Unspecified mood [affective] disorder (2) Major neurocognitive disorder: Status: Acute Code(s): F03.90 - Unspecified dementia, unspecified severity, without behavioral disturbance, psychotic disturbance, mood disturbance, and anxiety Plan Adult male, admitted for altered mental status and psychotic symptoms that were resolved after he was treated with a very low dose of medications. Plan 1. Continue same treatment. 2. Waiting for placement. I spent __20____ minutes with the patient and/or on the patient floor today, greater than?50% of which was spent counseling/coordinating care. Reason for contiued inpatient stay Substantial Risk for: inability to function, rapid decompensation and med/psych decompensation
[2021-12-26 18:00] VITALS: BP 99/56; PULSE 62; RESP 15; TEMP 36.8; O2SAT 98
[2021-12-26] MEDS: Latanoprost 0.005 % Ophth Sol 2.5 ML DROPS 1 DROP EYE-BOTH (21:02)
[2021-12-26] MEDS: risperiDONE 0.25 MG TABLET PO (21:02)
[2021-12-26] MEDS: Mirtazapine 7.5 MG TABLET PO (21:02)
[2021-12-27 06:00] VITALS: BP 111/79; PULSE 64; RESP 15; TEMP 36.6; O2SAT 99
[2021-12-27] MEDS: Sennosides 8.6 MG TABLET PO (08:36)
[2021-12-27] MEDS: Docusate Sodium 100 MG CAPSULE PO ×2 (08:36→20:28)
[2021-12-27] MEDS: Gabapentin 100 MG CAPSULE PO ×3 (08:36→20:28)
[2021-12-27] MEDS: Milk of Magnesia 30 ML ORAL.SUSP PO (08:36)
[2021-12-27] MEDS: Brimonidine Tartrate 0.2% Oph 5 ML BOTTLE 1 DROP EYE-BOTH ×3 (08:37→20:28)
[2021-12-27] MEDS: timoloL maleate 0.5 % Oph Sol 5 ML DRBTL 1 DROP EYE-BOTH ×2 (08:37→20:27)
--- NOTE | 2021-12-27 10:48 | HO.PSYCHPN ---
Subjective Subjective Date of Service: 12/27/21 Reason For Visit: Unspecified Depressive Disorder Subjective Notes: Conditional Voluntary Interim History: The nursing staff reported the patient has been compliant with treatment, he had been isolative as usual. No changes in his mental status. The medical social worker reported he had been denied from several [facility] facilities, applying for others. On interview the patient denies new symptoms he is sarcastic at times, showing good humor. Mental Status Exam Mental Status Exam Patient Appearance: Well Grooomed Patient Orientation: Person and Situation Level of Consciousness: Awake Patient Behavior: Cooperative Mood Description: Calm and Relaxed Affect Description: Constricted Patient Cognition Impaired: Yes Ability to Follow Directions: Good Speech Pattern: Clear Hallucinations: None Delusions: Not Present Thought Process: Distracted Thought Content: positive for Circumstantial Judgement: Fair Diagnostics Vital Signs (24Hr): Vital Signs - 24 hr 12/26/21 18:00 12/27/21 06:00 Temperature 98.2 F 97.9 F Pulse Rate 62 64 Respiratory Rate 15 15 Blood Pressure 99/56 L 111/79 Pulse Oximetry 98 99 Oxygen Delivery Method Room Air Room Air BMI result Body Mass Index 18.6 Labs Results: 12/17/21 08:03 12/17/21 08:03 Imaging Radiology Impressions: ITS Impressions Head CT 10/04/21 15:04 IMPRESSION: 1. No acute intracranial pathology. 2. Right parietal meningioma without mass effect. 3. Generalized atrophy. Chest X-Ray 12/16/21 13:40 IMPRESSION: No acute cardiopulmonary findings. Medications Medications Current Medications Acetaminophen (Acetaminophen 325 Mg Tablet) 650 mg PO Q6H PRN PRN Reason: Headache/Pain Mild Scale (1-3) Last Admin: 11/09/21 14:37 Dose: 650 mg Al Hydroxide/Mg Hydroxide (Magnesium Hydrox/Alum Hydrox 30 Ml Oral.Susp) 30 ml PO Q6H PRN PRN Reason: Heartburn/Nausea Last Admin: 11/16/21 08:11 Dose: 30 ml Brimonidine Tartrate (Brimonidine Tartrate 0.2% Oph 5 Ml Bottle) 1 drop EYE-BOTH TID [facility] Last Admin: 12/27/21 08:37 Dose: 1 drop Docusate Sodium (Docusate Sodium 100 Mg Capsule) 100 mg PO BID [facility] Last Admin: 12/27/21 08:36 Dose: 100 mg Gabapentin (Gabapentin 100 Mg Capsule) 100 mg PO TID [facility] Last Admin: 12/27/21 08:36 Dose: 100 mg Latanoprost (Latanoprost 0.005 % Ophth Jessie 2.5 Ml Drops) 1 drop EYE-BOTH BEDTIME [facility] Last Admin: 12/26/21 21:02 Dose: 1 drop Loperamide HCl (Loperamide Hcl 2 Mg Capsule) 2 mg PO Q4H PRN PRN Reason: Diarrhea Last Admin: 12/11/21 13:32 Dose: 2 mg Magnesium Hydroxide (Milk Of Magnesia 30 Ml Oral.Susp) 30 ml PO DAILY [facility] Last Admin: 12/27/21 08:36 Dose: 30 ml Melatonin (Melatonin 3 Mg Tablet) 3 mg PO BEDTIME PRN PRN Reason: Insomnia Last Admin: 12/22/21 19:54 Dose: 3 mg Mirtazapine (Mirtazapine 7.5 Mg Tablet) 7.5 mg PO BEDTIME [facility] Last Admin: 12/26/21 21:02 Dose: 7.5 mg Risperidone (Risperidone 0.25 Mg Tablet) 0.25 mg PO BEDTIME [facility] Last Admin: 12/26/21 21:02 Dose: 0.25 mg Senna (Sennosides 8.6 Mg Tablet) 8.6 mg PO DAILY [facility] Last Admin: 12/27/21 08:36 Dose: 8.6 mg Timolol Maleate (Timolol Maleate 0.5 % Oph Jessie 5 Ml Drbtl) 1 drop EYE-BOTH BID [facility] Last Admin: 12/27/21 08:37 Dose: 1 drop Allergies Allergies Allergy/AdvReac Type Severity Reaction Status Date / Time sulfamethoxazole Allergy Itching Verified 10/03/21 19:19 [From Bactrim] trimethoprim [From Bactrim] Allergy Itching Verified 10/03/21 19:19 Assessment & Plan Assessment & Plan (1) Mood disorder: Status: Acute Code(s): F39 - Unspecified mood [affective] disorder (2) Major neurocognitive disorder: Status: Acute Code(s): F03.90 - Unspecified dementia, unspecified severity, without behavioral disturbance, psychotic disturbance, mood disturbance, and anxiety Plan Adult male, admitted for altered mental status and psychotic symptoms that were resolved after he was treated with a very low dose of medications. Plan 1. Continue same treatment. 2. Waiting for placement. I spent ___20___ minutes with the patient and/or on the patient floor today, greater than?50% of which was spent counseling/coordinating care. Reason for contiued inpatient stay Substantial Risk for: inability to function, rapid decompensation and med/psych decompensation
[2021-12-27 12:01] VITALS: BMI 18.4
[2021-12-27 18:00] VITALS: BP 105/58; PULSE 60; RESP 18; TEMP 37; O2SAT 95
[2021-12-27] MEDS: Latanoprost 0.005 % Ophth Sol 2.5 ML DROPS 1 DROP EYE-BOTH (20:27)
[2021-12-27] MEDS: risperiDONE 0.25 MG TABLET PO (20:28)
[2021-12-27] MEDS: Mirtazapine 7.5 MG TABLET PO (20:28)
[2021-12-28 06:00] VITALS: BP 117/71; PULSE 72; RESP 20; TEMP 36.4; O2SAT 97
[2021-12-28] MEDS: Milk of Magnesia 30 ML ORAL.SUSP PO (07:36)
[2021-12-28] MEDS: Sennosides 8.6 MG TABLET PO (07:36)
[2021-12-28] MEDS: Gabapentin 100 MG CAPSULE PO ×3 (07:36→20:30)
[2021-12-28] MEDS: Brimonidine Tartrate 0.2% Oph 5 ML BOTTLE 1 DROP EYE-BOTH ×3 (07:56→20:30)
[2021-12-28] MEDS: timoloL maleate 0.5 % Oph Sol 5 ML DRBTL 1 DROP EYE-BOTH ×2 (07:57→20:30)
[2021-12-28] MEDS: Docusate Sodium 100 MG CAPSULE PO ×2 (07:59→20:30)
--- NOTE | 2021-12-28 14:47 | HO.PSYCHPN ---
Subjective Subjective Date of Service: 12/28/21 Reason For Visit: Unspecified Depressive Disorder Subjective Notes: Conditional Voluntary Interim History: The nursing staff reported the patient had been cooperative, pleasant compliant with treatment. He slept well last night. The director social reported that several attempts to different half-way facilities were done, there is a facility that we take him but there is no bed available at this moment. On interview the patient denies new symptoms, pleasant and cooperative Mental Status Exam Mental Status Exam Patient Appearance: Well Grooomed Patient Orientation: Person and Situation Level of Consciousness: Awake Patient Behavior: Cooperative and Passive Mood Description: Withdrawn Affect Description: Constricted Patient Cognition Impaired: Yes Ability to Follow Directions: Good Speech Pattern: Clear Hallucinations: None Delusions: Not Present Thought Process: Distracted Thought Content: positive for [place] and positive for Circumstantial Judgement: Fair Diagnostics Vital Signs (24Hr): Vital Signs - 24 hr 12/27/21 18:00 12/28/21 06:00 Temperature 98.6 F 97.6 F Pulse Rate 60 72 Respiratory Rate 18 20 Blood Pressure 105/58 L 117/71 Pulse Oximetry 95 97 Oxygen Delivery Method Room Air Room Air BMI result Body Mass Index 18.4 Labs Results: 12/17/21 08:03 12/17/21 08:03 Imaging Radiology Impressions: ITS Impressions Head CT 10/04/21 15:04 IMPRESSION: 1. No acute intracranial pathology. 2. Right parietal meningioma without mass effect. 3. Generalized atrophy. Chest X-Ray 12/16/21 13:40 IMPRESSION: No acute cardiopulmonary findings. Medications Medications Current Medications Acetaminophen (Acetaminophen 325 Mg Tablet) 650 mg PO Q6H PRN PRN Reason: Headache/Pain Mild Scale (1-3) Last Admin: 11/09/21 14:37 Dose: 650 mg Al Hydroxide/Mg Hydroxide (Magnesium Hydrox/Alum Hydrox 30 Ml Oral.Susp) 30 ml PO Q6H PRN PRN Reason: Heartburn/Nausea Last Admin: 11/16/21 08:11 Dose: 30 ml Brimonidine Tartrate (Brimonidine Tartrate 0.2% Oph 5 Ml Bottle) 1 drop EYE-BOTH TID [facility] Last Admin: 12/28/21 07:56 Dose: 1 drop Docusate Sodium (Docusate Sodium 100 Mg Capsule) 100 mg PO BID [facility] Last Admin: 12/28/21 07:59 Dose: 100 mg Gabapentin (Gabapentin 100 Mg Capsule) 100 mg PO TID [facility] Last Admin: 12/28/21 07:36 Dose: 100 mg Latanoprost (Latanoprost 0.005 % Ophth Jessie 2.5 Ml Drops) 1 drop EYE-BOTH BEDTIME [facility] Last Admin: 12/27/21 20:27 Dose: 1 drop Loperamide HCl (Loperamide Hcl 2 Mg Capsule) 2 mg PO Q4H PRN PRN Reason: Diarrhea Last Admin: 12/11/21 13:32 Dose: 2 mg Magnesium Hydroxide (Milk Of Magnesia 30 Ml Oral.Susp) 30 ml PO DAILY [facility] Last Admin: 12/28/21 07:36 Dose: 30 ml Melatonin (Melatonin 3 Mg Tablet) 3 mg PO BEDTIME PRN PRN Reason: Insomnia Last Admin: 12/22/21 19:54 Dose: 3 mg Mirtazapine (Mirtazapine 7.5 Mg Tablet) 7.5 mg PO BEDTIME [facility] Last Admin: 12/27/21 20:28 Dose: 7.5 mg Risperidone (Risperidone 0.25 Mg Tablet) 0.25 mg PO BEDTIME [facility] Last Admin: 12/27/21 20:28 Dose: 0.25 mg Senna (Sennosides 8.6 Mg Tablet) 8.6 mg PO DAILY [facility] Last Admin: 12/28/21 07:36 Dose: 8.6 mg Timolol Maleate (Timolol Maleate 0.5 % Oph Jessie 5 Ml Drbtl) 1 drop EYE-BOTH BID [facility] Last Admin: 12/28/21 07:57 Dose: 1 drop Allergies Allergies Allergy/AdvReac Type Severity Reaction Status Date / Time sulfamethoxazole Allergy Itching Verified 10/03/21 19:19 [From Bactrim] trimethoprim [From Bactrim] Allergy Itching Verified 10/03/21 19:19 Assessment & Plan Assessment & Plan (1) Mood disorder: Status: Acute Code(s): F39 - Unspecified mood [affective] disorder (2) Major neurocognitive disorder: Status: Acute Code(s): F03.90 - Unspecified dementia, unspecified severity, without behavioral disturbance, psychotic disturbance, mood disturbance, and anxiety Plan Adult male, admitted for altered mental status and psychotic symptoms that were resolved after he was treated with a very low dose of medications. Plan 1. Continue same treatment. 2. Waiting for placement. I spent __20____ minutes with the patient and/or on the patient floor today, greater than?50% of which was spent counseling/coordinating care. Reason for contiued inpatient stay Substantial Risk for: inability to function, rapid decompensation and med/psych decompensation
[2021-12-28 18:00] VITALS: BP 83/53; PULSE 62; RESP 18; TEMP 36.8; O2SAT 95
[2021-12-28] MEDS: Mirtazapine 7.5 MG TABLET PO (20:30)
[2021-12-28] MEDS: risperiDONE 0.25 MG TABLET PO (20:30)
[2021-12-28] MEDS: Latanoprost 0.005 % Ophth Sol 2.5 ML DROPS 1 DROP EYE-BOTH (20:31)
[2021-12-29 00:07] VITALS: BP 109/55; PULSE 59; RESP 15; TEMP 36.2
[2021-12-29 06:00] VITALS: BP 121/69; PULSE 82; RESP 16; TEMP 36.9; O2SAT 93
--- NOTE | 2021-12-29 08:22 | HO.PSYCHPN ---
Subjective Subjective Date of Service: 12/29/21 Reason For Visit: Unspecified Depressive Disorder Subjective Notes: Section 8 Interim History: Patient was seen and discussed in rounds today. Records and plans were reviewed. He has been pleasant, confused. Thought processes are incoherent. Eating and sleeping adequately. No complaints or side effects reported. Eating and sleeping adequately. No changes were made today Review of Systems Review of Systems Yes all other systems are reviewed and are negative and Unobtainable due to mental status Constitutional: Denies chills and Denies fever(s) Cardiovascular: Denies chest pain, Denies dyspnea and Denies dyspnea on exertion Respiratory: Denies cough, Denies dyspnea and Denies dyspnea on exertion Gastrointestinal: Denies hematochezia and Denies change in bowel habits Genitourinary: Denies hematuria and Denies difficulty urinating Musculoskeletal: Denies back pain and Denies limited range of motion Denies focal weakness and Denies convulsions Psychiatric: Reports depression and Denies mood swings Mental Status Exam Mental Status Exam Patient Appearance: Well Grooomed Patient Orientation: Person and Situation Level of Consciousness: Awake Patient Behavior: Cooperative and Passive Mood Description: Withdrawn Affect Description: Constricted Patient Cognition Impaired: Yes Ability to Follow Directions: Good Speech Pattern: Clear Hallucinations: None Delusions: Not Present Thought Process: Distracted Thought Content: positive for [place] and positive for Circumstantial Judgement: Fair Diagnostics Vital Signs (24Hr): Vital Signs - 24 hr 12/28/21 18:00 12/29/21 00:07 Temperature 98.3 F 97.2 F Pulse Rate 62 59 Respiratory Rate 18 15 Blood Pressure 83/53 L 109/55 L Pulse Oximetry 95 BMI result Body Mass Index 18.4 Labs Results: 12/17/21 08:03 12/17/21 08:03 Imaging Radiology Impressions: [facility] Impressions Head CT 10/04/21 15:04 IMPRESSION: 1. No acute intracranial pathology. 2. Right parietal meningioma without mass effect. 3. Generalized atrophy. Chest X-Ray 12/16/21 13:40 IMPRESSION: No acute cardiopulmonary findings. Medications Medications Current Medications Acetaminophen (Acetaminophen 325 Mg Tablet) 650 mg PO Q6H PRN PRN Reason: Headache/Pain Mild Scale (1-3) Last Admin: 11/09/21 14:37 Dose: 650 mg Al Hydroxide/Mg Hydroxide (Magnesium Hydrox/Alum Hydrox 30 Ml Oral.Susp) 30 ml PO Q6H PRN PRN Reason: Heartburn/Nausea Last Admin: 11/16/21 08:11 Dose: 30 ml Brimonidine Tartrate (Brimonidine Tartrate 0.2% Oph 5 Ml Bottle) 1 drop EYE-BOTH TID [facility] Last Admin: 12/28/21 20:30 Dose: 1 drop Docusate Sodium (Docusate Sodium 100 Mg Capsule) 100 mg PO BID [facility] Last Admin: 12/28/21 20:30 Dose: 100 mg Gabapentin (Gabapentin 100 Mg Capsule) 100 mg PO TID [facility] Last Admin: 12/28/21 20:30 Dose: 100 mg Latanoprost (Latanoprost 0.005 % Ophth Jessie 2.5 Ml Drops) 1 drop EYE-BOTH BEDTIME [facility] Last Admin: 12/28/21 20:31 Dose: 1 drop Loperamide HCl (Loperamide Hcl 2 Mg Capsule) 2 mg PO Q4H PRN PRN Reason: Diarrhea Last Admin: 12/11/21 13:32 Dose: 2 mg Magnesium Hydroxide (Milk Of Magnesia 30 Ml Oral.Susp) 30 ml PO DAILY [facility] Last Admin: 12/28/21 07:36 Dose: 30 ml Melatonin (Melatonin 3 Mg Tablet) 3 mg PO BEDTIME PRN PRN Reason: Insomnia Last Admin: 12/22/21 19:54 Dose: 3 mg Mirtazapine (Mirtazapine 7.5 Mg Tablet) 7.5 mg PO BEDTIME [facility] Last Admin: 12/28/21 20:30 Dose: 7.5 mg Risperidone (Risperidone 0.25 Mg Tablet) 0.25 mg PO BEDTIME [facility] Last Admin: 12/28/21 20:30 Dose: 0.25 mg Senna (Sennosides 8.6 Mg Tablet) 8.6 mg PO DAILY [facility] Last Admin: 12/28/21 07:36 Dose: 8.6 mg Timolol Maleate (Timolol Maleate 0.5 % Oph Jessie 5 Ml Drbtl) 1 drop EYE-BOTH BID [facility] Last Admin: 12/28/21 20:30 Dose: 1 drop Allergies Allergies Allergy/AdvReac Type Severity Reaction Status Date / Time sulfamethoxazole Allergy Itching Verified 10/03/21 19:19 [From Bactrim] trimethoprim [From Bactrim] Allergy Itching Verified 10/03/21 19:19 Assessment & Plan Assessment & Plan (1) Mood disorder: Status: Acute Code(s): F39 - Unspecified mood [affective] disorder (2) Major neurocognitive disorder: Status: Acute Code(s): F03.90 - Unspecified dementia, unspecified severity, without behavioral disturbance, psychotic disturbance, mood disturbance, and anxiety Plan Adult male, admitted for altered mental status and psychotic symptoms that were resolved after he was treated with a very low dose of medications. Plan 1. Continue same treatment. 2. Waiting for placement. I spent minutes with the patient and/or on the patient floor today, greater than?50% of which was spent counseling/coordinating care. Reason for contiued inpatient stay Substantial Risk for: inability to function
[2021-12-29] MEDS: Docusate Sodium 100 MG CAPSULE PO ×2 (09:17→21:00)
[2021-12-29] MEDS: Sennosides 8.6 MG TABLET PO (09:17)
[2021-12-29] MEDS: Gabapentin 100 MG CAPSULE PO ×3 (09:17→21:01)
[2021-12-29] MEDS: Milk of Magnesia 30 ML ORAL.SUSP PO (09:17)
[2021-12-29] MEDS: timoloL maleate 0.5 % Oph Sol 5 ML DRBTL 1 DROP EYE-BOTH ×2 (09:18→20:59)
[2021-12-29] MEDS: Brimonidine Tartrate 0.2% Oph 5 ML BOTTLE 1 DROP EYE-BOTH ×3 (09:18→20:58)
[2021-12-29] MEDS: Latanoprost 0.005 % Ophth Sol 2.5 ML DROPS 1 DROP EYE-BOTH (20:59)
[2021-12-29] MEDS: Mirtazapine 7.5 MG TABLET PO (21:01)
[2021-12-29] MEDS: risperiDONE 0.25 MG TABLET PO (21:01)
[2021-12-29 23:13] VITALS: BP 92/50; PULSE 60; RESP 16; TEMP 36.1; O2SAT 94
[2021-12-30 06:00] VITALS: BP 109/60; PULSE 71; RESP 16; TEMP 35.7; O2SAT 98
--- NOTE | 2021-12-30 08:42 | P.PNPSI_ITS ---
Subjective Subjective Date of Service: 12/30/21 Reason For Visit: Unspecified Depressive Disorder Subjective Notes: Section 8 Interim History: Patient was seen and discussed in rounds today. Records and plans were reviewed. He has been stable with no behavioral problems or issues. He has been medication compliant. He is cooperative. No complaints or side effects. Eating and sleeping adequately. No changes were made today Review of Systems Review of Systems Yes all other systems are reviewed and are negative and Unobtainable due to mental status Constitutional: Denies chills and Denies fever(s) Cardiovascular: Denies chest pain, Denies dyspnea and Denies dyspnea on exertion Respiratory: Denies cough, Denies dyspnea and Denies dyspnea on exertion Gastrointestinal: Denies hematochezia and Denies change in bowel habits Genitourinary: Denies hematuria and Denies difficulty urinating Musculoskeletal: Denies back pain and Denies limited range of motion Denies focal weakness and Denies convulsions Psychiatric: Reports depression and Denies mood swings Mental Status Exam Mental Status Exam Patient Appearance: Well Grooomed Patient Orientation: Person and Situation Level of Consciousness: Awake Patient Behavior: Cooperative and Passive Mood Description: Withdrawn Affect Description: Constricted Patient Cognition Impaired: Yes Ability to Follow Directions: Good Speech Pattern: Clear Hallucinations: None Delusions: Not Present Thought Process: Distracted Thought Content: positive for [place] and positive for Circumstantial Judgement: Fair Diagnostics Vital Signs (24Hr): Vital Signs - 24 hr 12/29/21 23:13 Temperature 97 F Pulse Rate 60 Respiratory Rate 16 Blood Pressure 92/50 L Pulse Oximetry 94 Oxygen Delivery Method Room Air BMI result Body Mass Index 18.4 Labs Results: 12/17/21 08:03 12/17/21 08:03 Imaging Radiology Impressions: [facility] Impressions Head CT 10/04/21 15:04 IMPRESSION: 1. No acute intracranial pathology. 2. Right parietal meningioma without mass effect. 3. Generalized atrophy. Chest X-Ray 12/16/21 13:40 IMPRESSION: No acute cardiopulmonary findings. Medications Medications Current Medications Acetaminophen (Acetaminophen 325 Mg Tablet) 650 mg PO Q6H PRN PRN Reason: Headache/Pain Mild Scale (1-3) Last Admin: 11/09/21 14:37 Dose: 650 mg Al Hydroxide/Mg Hydroxide (Magnesium Hydrox/Alum Hydrox 30 Ml Oral.Susp) 30 ml PO Q6H PRN PRN Reason: Heartburn/Nausea Last Admin: 11/16/21 08:11 Dose: 30 ml Brimonidine Tartrate (Brimonidine Tartrate 0.2% Oph 5 Ml Bottle) 1 drop EYE- BOTH TID [facility] Last Admin: 12/29/21 20:58 Dose: 1 drop Docusate Sodium (Docusate Sodium 100 Mg Capsule) 100 mg PO BID [facility] Last Admin: 12/29/21 21:00 Dose: 100 mg Gabapentin (Gabapentin 100 Mg Capsule) 100 mg PO TID [facility] Last Admin: 12/29/21 21:01 Dose: 100 mg Latanoprost (Latanoprost 0.005 % Ophth Jessie 2.5 Ml Drops) 1 drop EYE-BOTH BE DTIME [facility] Last Admin: 12/29/21 20:59 Dose: 1 drop Loperamide HCl (Loperamide Hcl 2 Mg Capsule) 2 mg PO Q4H PRN PRN Reason: Diarrhea Last Admin: 12/11/21 13:32 Dose: 2 mg Magnesium Hydroxide (Milk Of Magnesia 30 Ml Oral.Susp) 30 ml PO DAILY [facility] Last Admin: 12/29/21 09:17 Dose: 30 ml Melatonin (Melatonin 3 Mg Tablet) 3 mg PO BEDTIME PRN PRN Reason: Insomnia Last Admin: 12/22/21 19:54 Dose: 3 mg Mirtazapine (Mirtazapine 7.5 Mg Tablet) 7.5 mg PO BEDTIME [facility] Last Admin: 12/29/21 21:01 Dose: 7.5 mg Risperidone (Risperidone 0.25 Mg Tablet) 0.25 mg PO BEDTIME [facility] Last Admin: 12/29/21 21:01 Dose: 0.25 mg Senna (Sennosides 8.6 Mg Tablet) 8.6 mg PO DAILY [facility] Last Admin: 12/29/21 09:17 Dose: 8.6 mg Timolol Maleate (Timolol Maleate 0.5 % Oph Jessie 5 Ml Drbtl) 1 drop EYE-BOTH BID [facility] Last Admin: 12/29/21 20:59 Dose: 1 drop Allergies Allergies Allergy/AdvReac Type Severity Reaction Status Date / Time sulfamethoxazole Allergy Itching Verified 10/03/21 19:19 [From Bactrim] trimethoprim [From Bactrim] Allergy Itching Verified 10/03/21 19:19 Assessment & Plan Assessment & Plan (1) Mood disorder: Status: Acute Code(s): F39 - Unspecified mood [affective] disorder (2) Major neurocognitive disorder: Status: Acute Code(s): F03.90 - Unspecified dementia, unspecified severity, without behavioral disturbance, psychotic disturbance, mood disturbance, and anxiety Plan Adult male, admitted for altered mental status and psychotic symptoms that were resolved after he was treated with a very low dose of medications. Plan 1. Continue same treatment. 2. Waiting for placement. 12/29: Continue current plans and regimen 12/30: Continue current plans and regimen I spent minutes with the patient and/or on the patient floor today, greater than?50% of which was spent counseling/coordinating care. Reason for contiued inpatient stay Substantial Risk for: inability to function
[2021-12-30] MEDS: Gabapentin 100 MG CAPSULE PO ×3 (08:53→21:34)
[2021-12-30] MEDS: Docusate Sodium 100 MG CAPSULE PO ×2 (08:53→21:34)
[2021-12-30] MEDS: Milk of Magnesia 30 ML ORAL.SUSP PO (08:53)
[2021-12-30] MEDS: Sennosides 8.6 MG TABLET PO (08:53)
[2021-12-30] MEDS: Brimonidine Tartrate 0.2% Oph 5 ML BOTTLE 1 DROP EYE-BOTH ×2 (15:01→21:31)
[2021-12-30] MEDS: timoloL maleate 0.5 % Oph Sol 5 ML DRBTL 1 DROP EYE-BOTH ×2 (15:01→21:33)
[2021-12-30 18:00] VITALS: BP 105/59; PULSE 67; RESP 18; TEMP 36.8; O2SAT 94
[2021-12-30] MEDS: Latanoprost 0.005 % Ophth Sol 2.5 ML DROPS 1 DROP EYE-BOTH (21:31)
[2021-12-30] MEDS: risperiDONE 0.25 MG TABLET PO (21:34)
[2021-12-30] MEDS: Mirtazapine 7.5 MG TABLET PO (21:34)
[2021-12-31 06:00] VITALS: BP 135/76; PULSE 64; RESP 16; TEMP 36; O2SAT 94
[2021-12-31] MEDS: Sennosides 8.6 MG TABLET PO (08:11)
[2021-12-31] MEDS: Docusate Sodium 100 MG CAPSULE PO ×2 (08:11→21:25)
[2021-12-31] MEDS: Brimonidine Tartrate 0.2% Oph 5 ML BOTTLE 1 DROP EYE-BOTH ×3 (08:11→21:26)
[2021-12-31] MEDS: Milk of Magnesia 30 ML ORAL.SUSP PO (08:11)
[2021-12-31] MEDS: Gabapentin 100 MG CAPSULE PO ×3 (08:11→21:25)
[2021-12-31] MEDS: timoloL maleate 0.5 % Oph Sol 5 ML DRBTL 1 DROP EYE-BOTH ×2 (08:11→21:26)
--- NOTE | 2021-12-31 15:13 | HO.PSYCHPN ---
Subjective Subjective Date of Service: 12/31/21 Reason For Visit: Unspecified Depressive Disorder Subjective Notes: Conditional Voluntary Interim History: The nursing staff reported no changes in his behavior, he has been fully compliant with treatment and he goes out for meals. Occupational therapy reported that he has been working on Behavio search activities. The nursing home social worker reported that he rest is going to visit him today in the afternoon assess him he would be suitable. On interview the patient denies new symptoms, with good and cheerful mood. Mental Status Exam Mental Status Exam Patient Appearance: Appropriate Patient Orientation: Person and Situation Level of Consciousness: Awake Patient Behavior: Guarded and Passive Mood Description: Withdrawn Affect Description: Constricted Patient Cognition Impaired: Yes Ability to Follow Directions: Fair Speech Pattern: Clear Hallucinations: None Delusions: Not Present Thought Process: Distracted Thought Content: positive for [place] Judgement: Fair Diagnostics Vital Signs (24Hr): Vital Signs - 24 hr 12/30/21 18:00 12/31/21 06:00 Temperature 98.2 F 96.8 F Pulse Rate 67 64 Respiratory Rate 18 16 Blood Pressure 105/59 L 135/76 Pulse Oximetry 94 94 Oxygen Delivery Method Room Air Room Air BMI result Body Mass Index 18.4 Labs Results: 12/17/21 08:03 12/17/21 08:03 Imaging Radiology Impressions: [facility] Impressions Head CT 10/04/21 15:04 IMPRESSION: 1. No acute intracranial pathology. 2. Right parietal meningioma without mass effect. 3. Generalized atrophy. Chest X-Ray 12/16/21 13:40 IMPRESSION: No acute cardiopulmonary findings. Medications Medications Current Medications Acetaminophen (Acetaminophen 325 Mg Tablet) 650 mg PO Q6H PRN PRN Reason: Headache/Pain Mild Scale (1-3) Last Admin: 11/09/21 14:37 Dose: 650 mg Al Hydroxide/Mg Hydroxide (Magnesium Hydrox/Alum Hydrox 30 Ml Oral.Susp) 30 ml PO Q6H PRN PRN Reason: Heartburn/Nausea Last Admin: 11/16/21 08:11 Dose: 30 ml Brimonidine Tartrate (Brimonidine Tartrate 0.2% Oph 5 Ml Bottle) 1 drop EYE-BOTH TID [facility] Last Admin: 12/31/21 14:58 Dose: 1 drop Docusate Sodium (Docusate Sodium 100 Mg Capsule) 100 mg PO BID [facility] Last Admin: 12/31/21 08:11 Dose: 100 mg Gabapentin (Gabapentin 100 Mg Capsule) 100 mg PO TID [facility] Last Admin: 12/31/21 08:11 Dose: 100 mg Latanoprost (Latanoprost 0.005 % Ophth Jessie 2.5 Ml Drops) 1 drop EYE-BOTH BEDTIME [facility] Last Admin: 12/30/21 21:31 Dose: 1 drop Loperamide HCl (Loperamide Hcl 2 Mg Capsule) 2 mg PO Q4H PRN PRN Reason: Diarrhea Last Admin: 12/11/21 13:32 Dose: 2 mg Magnesium Hydroxide (Milk Of Magnesia 30 Ml Oral.Susp) 30 ml PO DAILY [facility] Last Admin: 12/31/21 08:11 Dose: 30 ml Melatonin (Melatonin 3 Mg Tablet) 3 mg PO BEDTIME PRN PRN Reason: Insomnia Last Admin: 12/22/21 19:54 Dose: 3 mg Mirtazapine (Mirtazapine 7.5 Mg Tablet) 7.5 mg PO BEDTIME [facility] Last Admin: 12/30/21 21:34 Dose: 7.5 mg Risperidone (Risperidone 0.25 Mg Tablet) 0.25 mg PO BEDTIME [facility] Last Admin: 12/30/21 21:34 Dose: 0.25 mg Senna (Sennosides 8.6 Mg Tablet) 8.6 mg PO DAILY [facility] Last Admin: 12/31/21 08:11 Dose: 8.6 mg Timolol Maleate (Timolol Maleate 0.5 % Oph Jessie 5 Ml Drbtl) 1 drop EYE-BOTH BID [facility] Last Admin: 12/31/21 08:11 Dose: 1 drop Allergies Allergies Allergy/AdvReac Type Severity Reaction Status Date / Time sulfamethoxazole Allergy Itching Verified 10/03/21 19:19 [From Bactrim] trimethoprim [From Bactrim] Allergy Itching Verified 10/03/21 19:19 Assessment & Plan Assessment & Plan (1) Mood disorder: Status: Acute Code(s): F39 - Unspecified mood [affective] disorder (2) Major neurocognitive disorder: Status: Acute Code(s): F03.90 - Unspecified dementia, unspecified severity, without behavioral disturbance, psychotic disturbance, mood disturbance, and anxiety Plan Adult male, admitted for altered mental status and psychotic symptoms that were resolved after he was treated with a very low dose of medications. Plan 1. Continue same treatment. 2. Waiting for placement. I spent __20____ minutes with the patient and/or on the patient floor today, greater than?50% of which was spent counseling/coordinating care. Reason for contiued inpatient stay Substantial Risk for: inability to function, rapid decompensation and med/psych decompensation
[2021-12-31 18:00] VITALS: BP 103/64; PULSE 66; RESP 16; TEMP 36.4; O2SAT 96
[2021-12-31] MEDS: Mirtazapine 7.5 MG TABLET PO (21:25)
[2021-12-31] MEDS: risperiDONE 0.25 MG TABLET PO (21:25)
[2021-12-31] MEDS: Latanoprost 0.005 % Ophth Sol 2.5 ML DROPS 1 DROP EYE-BOTH (21:26)
[2022-01-01 07:40] VITALS: BP 115/83; PULSE 66; RESP 14; TEMP 36.5; O2SAT 98
[2022-01-01] MEDS: Brimonidine Tartrate 0.2% Oph 5 ML BOTTLE 1 DROP EYE-BOTH ×3 (08:04→20:19)
[2022-01-01] MEDS: Gabapentin 100 MG CAPSULE PO ×3 (08:05→20:21)
[2022-01-01] MEDS: Docusate Sodium 100 MG CAPSULE PO ×2 (08:05→20:21)
[2022-01-01] MEDS: Milk of Magnesia 30 ML ORAL.SUSP PO (08:06)
[2022-01-01] MEDS: Sennosides 8.6 MG TABLET PO (08:06)
[2022-01-01] MEDS: timoloL maleate 0.5 % Oph Sol 5 ML DRBTL 1 DROP EYE-BOTH ×2 (08:08→20:19)
--- NOTE | 2022-01-01 13:53 | P.PNPSI_ITS ---
Subjective Subjective Date of Service: 01/01/22 Reason For Visit: Unspecified Depressive Disorder Subjective Notes: Conditional Voluntary Interim History: The nursing staff reported the patient had been compliant with treatment, he slept well, no changes in his mental status. Yesterday he was visited by the staff at the long term facility and today the social insurance specialist will call the facility to see if he has a septate or not. On interview the patient denies new symptoms, waiting for placement. Mental Status Exam Mental Status Exam Patient Appearance: Well Grooomed Patient Orientation: Person and Situation Level of Consciousness: Awake Patient Behavior: Guarded and Passive Mood Description: Withdrawn Affect Description: Constricted Patient Cognition Impaired: Yes Ability to Follow Directions: Good Speech Pattern: Clear Hallucinations: None Delusions: Not Present Thought Process: Distracted Thought Content: positive for [place] Judgement: Fair Diagnostics Vital Signs (24Hr): Vital Signs - 24 hr 12/31/21 18:00 01/01/22 07:40 Temperature 97.6 F 97.7 F Pulse Rate 66 66 Respiratory Rate 16 14 Blood Pressure 103/64 115/83 Pulse Oximetry 96 98 Oxygen Delivery Method Room Air Room Air BMI result Body Mass Index 18.4 Labs Results: 12/17/21 08:03 12/17/21 08:03 Imaging Radiology Impressions: [facility] Impressions Head CT 10/04/21 15:04 IMPRESSION: 1. No acute intracranial pathology. 2. Right parietal meningioma without mass effect. 3. Generalized atrophy. Chest X-Ray 12/16/21 13:40 IMPRESSION: No acute cardiopulmonary findings. Medications Medications Current Medications Acetaminophen (Acetaminophen 325 Mg Tablet) 650 mg PO Q6H PRN PRN Reason: Headache/Pain Mild Scale (1-3) Last Admin: 11/09/21 14:37 Dose: 650 mg Al Hydroxide/Mg Hydroxide (Magnesium Hydrox/Alum Hydrox 30 Ml Oral.Susp) 30 ml PO Q6H PRN PRN Reason: Heartburn/Nausea Last Admin: 11/16/21 08:11 Dose: 30 ml Brimonidine Tartrate (Brimonidine Tartrate 0.2% Oph 5 Ml Bottle) 1 drop EYE- BOTH TID [facility] Last Admin: 01/01/22 08:04 Dose: 1 drop Docusate Sodium (Docusate Sodium 100 Mg Capsule) 100 mg PO BID [facility] Last Admin: 01/01/22 08:05 Dose: 100 mg Gabapentin (Gabapentin 100 Mg Capsule) 100 mg PO TID [facility] Last Admin: 01/01/22 08:05 Dose: 100 mg Latanoprost (Latanoprost 0.005 % Ophth Jessie 2.5 Ml Drops) 1 drop EYE-BOTH BEDTIME [facility] Last Admin: 12/31/21 21:26 Dose: 1 drop Loperamide HCl (Loperamide Hcl 2 Mg Capsule) 2 mg PO Q4H PRN PRN Reason: Diarrhea Last Admin: 12/11/21 13:32 Dose: 2 mg Magnesium Hydroxide (Milk Of Magnesia 30 Ml Oral.Susp) 30 ml PO DAILY [facility] Last Admin: 01/01/22 08:06 Dose: 30 ml Melatonin (Melatonin 3 Mg Tablet) 3 mg PO BEDTIME PRN PRN Reason: Insomnia Last Admin: 12/22/21 19:54 Dose: 3 mg Mirtazapine (Mirtazapine 7.5 Mg Tablet) 7.5 mg PO BEDTIME [facility] Last Admin: 12/31/21 21:25 Dose: 7.5 mg Risperidone (Risperidone 0.25 Mg Tablet) 0.25 mg PO BEDTIME [facility] Last Admin: 12/31/21 21:25 Dose: 0.25 mg Senna (Sennosides 8.6 Mg Tablet) 8.6 mg PO DAILY [facility] Last Admin: 01/01/22 08:06 Dose: 8.6 mg Timolol Maleate (Timolol Maleate 0.5 % Oph Jessie 5 Ml Drbtl) 1 drop EYE-BOTH BID [facility] Last Admin: 01/01/22 08:08 Dose: 1 drop Allergies Allergies Allergy/AdvReac Type Severity Reaction Status Date / Time sulfamethoxazole Allergy Itching Verified 10/03/21 19:19 [From Bactrim] trimethoprim [From Bactrim] Allergy Itching Verified 10/03/21 19:19 Assessment & Plan Assessment & Plan (1) Mood disorder: Status: Acute Code(s): F39 - Unspecified mood [affective] disorder (2) Major neurocognitive disorder: Status: Acute Code(s): F03.90 - Unspecified dementia, unspecified severity, without behavioral disturbance, psychotic disturbance, mood disturbance, and anxiety Plan Adult male, admitted for altered mental status and psychotic symptoms that were resolved after he was treated with a very low dose of medications. Plan 1. Continue same treatment. 2. Waiting for placement. I spent ___20___ minutes with the patient and/or on the patient floor today, greater than?50% of which was spent counseling/coordinating care. Reason for contiued inpatient stay Substantial Risk for: inability to function, rapid decompensation and med/psych decompensation
[2022-01-01 18:00] VITALS: BP 92/50; PULSE 65; RESP 15; TEMP 36.8; O2SAT 95
[2022-01-01] MEDS: Latanoprost 0.005 % Ophth Sol 2.5 ML DROPS 1 DROP EYE-BOTH (20:19)
[2022-01-01] MEDS: risperiDONE 0.25 MG TABLET PO (20:21)
[2022-01-01] MEDS: Mirtazapine 7.5 MG TABLET PO (20:21)
[2022-01-02 08:00] VITALS: BP 121/83; PULSE 69; RESP 16; TEMP 36.4; O2SAT 96
[2022-01-02] MEDS: Sennosides 8.6 MG TABLET PO (08:08)
[2022-01-02] MEDS: Milk of Magnesia 30 ML ORAL.SUSP PO (08:09)
[2022-01-02] MEDS: Brimonidine Tartrate 0.2% Oph 5 ML BOTTLE 1 DROP EYE-BOTH ×3 (08:10→20:27)
[2022-01-02] MEDS: timoloL maleate 0.5 % Oph Sol 5 ML DRBTL 1 DROP EYE-BOTH ×2 (08:20→20:27)
--- NOTE | 2022-01-02 13:17 | MHC.CLN ---
F/U DIET=NDD3, THIN LIQUIDS. INTAKE APPEARS VERY GOOD. NO NOTED CONCERNS WITH APPETITE OR INTAKE. OVERALL FAVORABLE WEIGHT GAIN SINCE ADMISSION. NO NEW NUTRITION INTERVENTIONS. RD TO FOLLOW WEEKLY.
--- NOTE | 2022-01-02 16:22 | HO.PSYCHPN ---
Subjective Subjective Date of Service: 01/02/22 Reason For Visit: Unspecified Depressive Disorder Subjective Notes: Conditional Voluntary Interim History: The nursing staff reported that he is at baseline, compliant with treatment cooperative and pleasant. The social science instructor reported that the senior care facility or reassess him but they will need the guardian she paperwork so we are waiting on the court to give was the transcripts. On interview the patient denies new symptoms pleasant and cooperative Mental Status Exam Mental Status Exam Patient Appearance: Well Grooomed Patient Orientation: Person and Situation Level of Consciousness: Awake Patient Behavior: Cooperative Mood Description: Constricted Affect Description: Withdrawn Patient Cognition Impaired: Yes Ability to Follow Directions: Good Speech Pattern: Clear Hallucinations: None Delusions: Not Present Thought Process: Distracted and Slowed Thinking Thought Content: positive for [place] and positive for Circumstantial Judgement: Fair Diagnostics Vital Signs (24Hr): Vital Signs - 24 hr 01/01/22 18:00 01/02/22 08:00 Temperature 98.2 F 97.6 F Pulse Rate 65 69 Respiratory Rate 15 16 Blood Pressure 92/50 L 121/83 Pulse Oximetry 95 96 Oxygen Delivery Method Room Air Room Air BMI result Body Mass Index 18.4 Labs Results: 12/17/21 08:03 12/17/21 08:03 Imaging Radiology Impressions: [facility] Impressions Head CT 10/04/21 15:04 IMPRESSION: 1. No acute intracranial pathology. 2. Right parietal meningioma without mass effect. 3. Generalized atrophy. Chest X-Ray 12/16/21 13:40 IMPRESSION: No acute cardiopulmonary findings. Medications Medications Current Medications Brimonidine Tartrate (Brimonidine Tartrate 0.2% Oph 5 Ml Bottle) 1 drop EYE-BOTH TID [facility] Last Admin: 01/02/22 16:14 Dose: 1 drop Latanoprost (Latanoprost 0.005 % Ophth Jessie 2.5 Ml Drops) 1 drop EYE-BOTH BEDTIME [facility] Last Admin: 01/01/22 20:19 Dose: 1 drop Loperamide HCl (Loperamide Hcl 2 Mg Capsule) 2 mg PO Q4H PRN PRN Reason: Diarrhea Last Admin: 12/11/21 13:32 Dose: 2 mg Mirtazapine (Mirtazapine 7.5 Mg Tablet) 7.5 mg PO BEDTIME [facility] Last Admin: 01/01/22 20:21 Dose: 7.5 mg Risperidone (Risperidone 0.25 Mg Tablet) 0.25 mg PO BEDTIME [facility] Last Admin: 01/01/22 20:21 Dose: 0.25 mg Timolol Maleate (Timolol Maleate 0.5 % Oph Jessie 5 Ml Drbtl) 1 drop EYE-BOTH BID [facility] Last Admin: 01/02/22 08:20 Dose: 1 drop Allergies Allergies Allergy/AdvReac Type Severity Reaction Status Date / Time sulfamethoxazole Allergy Itching Verified 10/03/21 19:19 [From Bactrim] trimethoprim [From Bactrim] Allergy Itching Verified 10/03/21 19:19 Assessment & Plan Assessment & Plan (1) Mood disorder: Status: Acute Code(s): F39 - Unspecified mood [affective] disorder (2) Major neurocognitive disorder: Status: Acute Code(s): F03.90 - Unspecified dementia, unspecified severity, without behavioral disturbance, psychotic disturbance, mood disturbance, and anxiety Plan Adult male, admitted for altered mental status and psychotic symptoms that were resolved after he was treated with a very low dose of medications. Plan 1. Continue same treatment. 2. Waiting for placement. I spent ___20___ minutes with the patient and/or on the patient floor today, greater than?50% of which was spent counseling/coordinating care. Reason for contiued inpatient stay Substantial Risk for: inability to function, rapid decompensation and med/psych decompensation
[2022-01-02 18:00] VITALS: BP 99/55; PULSE 74; RESP 14; TEMP 36.4; O2SAT 97
[2022-01-02] MEDS: Latanoprost 0.005 % Ophth Sol 2.5 ML DROPS 1 DROP EYE-BOTH (20:27)
[2022-01-02] MEDS: risperiDONE 0.25 MG TABLET PO (20:27)
[2022-01-02] MEDS: Mirtazapine 7.5 MG TABLET PO (20:27)
[2022-01-03 06:00] VITALS: BP 117/67; PULSE 66; RESP 16; TEMP 36.5; O2SAT 96
[2022-01-03 11:57] VITALS: BMI 18.4
--- NOTE | 2022-01-03 14:32 | P.PNPSI_ITS ---
Subjective Subjective Date of Service: 01/03/22 Reason For Visit: Unspecified Depressive Disorder Subjective Notes: Conditional Voluntary Interim History: On interview the patient denies new symptoms pleasant and cooperative not aggressive excepting treatment Medication Compliance: Yes Mental Status Exam Mental Status Exam Patient Appearance: Well Grooomed Patient Orientation: Person and Situation Level of Consciousness: Awake Patient Behavior: Cooperative Mood Description: Constricted Affect Description: Withdrawn Patient Cognition Impaired: Yes Ability to Follow Directions: Good Speech Pattern: Clear Hallucinations: None Delusions: Not Present Thought Process: Distracted and Slowed Thinking Thought Content: positive for [place] and positive for Circumstantial Judgement: Fair Diagnostics Vital Signs (24Hr): Vital Signs - 24 hr 01/02/22 18:00 01/03/22 06:00 Temperature 97.6 F 97.7 F Pulse Rate 74 66 Respiratory Rate 14 16 Blood Pressure 99/55 L 117/67 Pulse Oximetry 97 96 Oxygen Delivery Method Room Air Room Air BMI result Body Mass Index 18.4 Labs Results: 12/17/21 08:03 12/17/21 08:03 Imaging Radiology Impressions: ITS Impressions Head CT 10/04/21 15:04 IMPRESSION: 1. No acute intracranial pathology. 2. Right parietal meningioma without mass effect. 3. Generalized atrophy. Chest X-Ray 12/16/21 13:40 IMPRESSION: No acute cardiopulmonary findings. Medications Medications Current Medications Brimonidine Tartrate (Brimonidine Tartrate 0.2% Oph 5 Ml Bottle) 1 drop EYE- BOTH TID [facility] Last Admin: 01/03/22 11:52 Dose: Not Given Latanoprost (Latanoprost 0.005 % Ophth Jessie 2.5 Ml Drops) 1 drop EYE-BOTH BEDTIME [facility] Last Admin: 01/02/22 20:27 Dose: 1 drop Loperamide HCl (Loperamide Hcl 2 Mg Capsule) 2 mg PO Q4H PRN PRN Reason: Diarrhea Last Admin: 12/11/21 13:32 Dose: 2 mg Timolol Maleate (Timolol Maleate 0.5 % Oph Jessie 5 Ml Drbtl) 1 drop EYE-BOTH BID [facility] Last Admin: 01/03/22 11:52 Dose: Not Given Allergies Allergies Allergy/AdvReac Type Severity Reaction Status Date / Time sulfamethoxazole Allergy Itching Verified 10/03/21 19:19 [From Bactrim] trimethoprim [From Bactrim] Allergy Itching Verified 10/03/21 19:19 Assessment & Plan Assessment & Plan (1) Mood disorder: Status: Acute Code(s): F39 - Unspecified mood [affective] disorder (2) Major neurocognitive disorder: Status: Acute Code(s): F03.90 - Unspecified dementia, unspecified severity, without behavioral disturbance, psychotic disturbance, mood disturbance, and anxiety Plan Adult male, admitted for altered mental status and psychotic symptoms that were resolved after he was treated with a very low dose of medications. Plan 1. Continue same treatment. 01/03/2022 Continue antidepressant and Risperdal I spent minutes with the patient and/or on the patient floor today, greater than?50% of which was spent counseling/coordinating care. Reason for contiued inpatient stay Substantial Risk for: rapid decompensation
[2022-01-03 18:00] VITALS: BP 113/58; PULSE 81; RESP 16; TEMP 37.2; O2SAT 94
[2022-01-03] MEDS: Brimonidine Tartrate 0.2% Oph 5 ML BOTTLE 1 DROP EYE-BOTH (20:11)
[2022-01-03] MEDS: timoloL maleate 0.5 % Oph Sol 5 ML DRBTL 1 DROP EYE-BOTH (20:11)
[2022-01-03] MEDS: Latanoprost 0.005 % Ophth Sol 2.5 ML DROPS 1 DROP EYE-BOTH (20:11)
[2022-01-04 06:00] VITALS: BP 121/67; PULSE 72; RESP 16; TEMP 36.4; O2SAT 96
--- NOTE | 2022-01-04 15:59 | HO.PSYCHPN ---
Subjective Subjective Date of Service: 01/04/22 Reason For Visit: Unspecified Depressive Disorder Subjective Notes: Conditional Voluntary Interim History: The nursing staff reported the patient has been compliant with treatment, no new symptoms. On interview the patient remains as usual, waiting for placement Mental Status Exam Mental Status Exam Patient Appearance: Well Grooomed Patient Orientation: Person and Situation Level of Consciousness: Awake Patient Behavior: Cooperative Mood Description: Withdrawn Affect Description: Constricted Patient Cognition Impaired: Yes Ability to Follow Directions: Good Speech Pattern: Clear Hallucinations: None Delusions: Not Present Thought Process: Distracted Thought Content: positive for Circumstantial Judgement: Fair Diagnostics Vital Signs (24Hr): Vital Signs - 24 hr 01/03/22 18:00 01/04/22 06:00 Temperature 98.9 F 97.6 F Pulse Rate 81 72 Respiratory Rate 16 16 Blood Pressure 113/58 L 121/67 Pulse Oximetry 94 96 Oxygen Delivery Method Room Air Room Air BMI result Body Mass Index 18.4 Labs Results: 12/17/21 08:03 12/17/21 08:03 Imaging Radiology Impressions: ITS Impressions Head CT 10/04/21 15:04 IMPRESSION: 1. No acute intracranial pathology. 2. Right parietal meningioma without mass effect. 3. Generalized atrophy. Chest X-Ray 12/16/21 13:40 IMPRESSION: No acute cardiopulmonary findings. Medications Medications Current Medications Brimonidine Tartrate (Brimonidine Tartrate 0.2% Oph 5 Ml Bottle) 1 drop EYE-BOTH TID [facility] Last Admin: 01/04/22 15:40 Dose: Not Given Gabapentin (Gabapentin 100 Mg Capsule) 100 mg PO BID [facility] Latanoprost (Latanoprost 0.005 % Ophth Jessie 2.5 Ml Drops) 1 drop EYE-BOTH BEDTIME [facility] Last Admin: 01/03/22 20:11 Dose: 1 drop Loperamide HCl (Loperamide Hcl 2 Mg Capsule) 2 mg PO Q4H PRN PRN Reason: Diarrhea Last Admin: 12/11/21 13:32 Dose: 2 mg Mirtazapine (Mirtazapine 7.5 Mg Tablet) 7.5 mg PO BEDTIME [facility] Risperidone (Risperidone 0.5 Mg Tablet) 0.5 mg PO BEDTIME [facility] Timolol Maleate (Timolol Maleate 0.5 % Oph Jessie 5 Ml Drbtl) 1 drop EYE-BOTH BID [facility] Last Admin: 01/04/22 10:14 Dose: Not Given Allergies Allergies Allergy/AdvReac Type Severity Reaction Status Date / Time sulfamethoxazole Allergy Itching Verified 10/03/21 19:19 [From Bactrim] trimethoprim [From Bactrim] Allergy Itching Verified 10/03/21 19:19 Assessment & Plan Assessment & Plan (1) Mood disorder: Status: Acute Code(s): F39 - Unspecified mood [affective] disorder (2) Major neurocognitive disorder: Status: Acute Code(s): F03.90 - Unspecified dementia, unspecified severity, without behavioral disturbance, psychotic disturbance, mood disturbance, and anxiety Plan Adult male, admitted for altered mental status and psychotic symptoms that were resolved after he was treated with a very low dose of medications. Plan 1. Continue same treatment. 2. Waiting for placement I spent __20____ minutes with the patient and/or on the patient floor today, greater than?50% of which was spent counseling/coordinating care. Reason for contiued inpatient stay Substantial Risk for: inability to function, rapid decompensation and med/psych decompensation
[2022-01-04 18:00] VITALS: BP 137/70; PULSE 68; RESP 18; TEMP 36.1; O2SAT 95
[2022-01-04] MEDS: Gabapentin 100 MG CAPSULE PO (20:14)
[2022-01-04] MEDS: risperiDONE 0.5 MG TABLET PO (20:14)
[2022-01-04] MEDS: Latanoprost 0.005 % Ophth Sol 2.5 ML DROPS 1 DROP EYE-BOTH (20:14)
[2022-01-04] MEDS: timoloL maleate 0.5 % Oph Sol 5 ML DRBTL 1 DROP EYE-BOTH (20:14)
[2022-01-04] MEDS: Brimonidine Tartrate 0.2% Oph 5 ML BOTTLE 1 DROP EYE-BOTH (20:14)
[2022-01-04] MEDS: Mirtazapine 7.5 MG TABLET PO (20:14)
--- NOTE | 2022-01-05 00:45 | HO.PSYCHPN ---
Subjective Subjective Date of Service: 01/05/22 Reason For Visit: Unspecified Depressive Disorder Interim History: Discussed with team, Has [facility] meeting Friday. Spoke with pt, says his day started off okay, but then he went in the bathroom and says there was feces on the toilet seat, my roommate is not potty trained. When asked about mood, pt says I have a pulse. Feels he is physically doing well. Medication Compliance: Yes Side effects from medications: No Attending Groups: Intermittent Review of Systems Acute medical concerns: No Medical Review of Systems: unchanged Mental Status Exam Mental Status Exam Narrative: Patient Appearance: Well Grooomed Patient Orientation: Person and Situation Level of Consciousness: Awake Patient Behavior: Cooperative Mood Description: Withdrawn Affect Description: Constricted Patient Cognition Impaired: Yes Ability to Follow Directions: Good Speech Pattern: Clear Hallucinations: None Delusions: Not Present Thought Process: Distracted Thought Content: positive for Circumstantial Judgement: Fair Diagnostics Vital Signs (24Hr): Vital Signs - 24 hr 01/04/22 06:00 Temperature 97.6 F Pulse Rate 72 Respiratory Rate 16 Blood Pressure 121/67 Pulse Oximetry 96 Oxygen Delivery Method Room Air BMI result Body Mass Index 18.4 Labs Results: 12/17/21 08:03 12/17/21 08:03 Imaging Radiology Impressions: ITS Impressions Head CT 10/04/21 15:04 IMPRESSION: 1. No acute intracranial pathology. 2. Right parietal meningioma without mass effect. 3. Generalized atrophy. Chest X-Ray 12/16/21 13:40 IMPRESSION: No acute cardiopulmonary findings. Medications Medications Current Medications Brimonidine Tartrate (Brimonidine Tartrate 0.2% Oph 5 Ml Bottle) 1 drop EYE-BOTH TID [facility] Last Admin: 01/04/22 20:14 Dose: 1 drop Gabapentin (Gabapentin 100 Mg Capsule) 100 mg PO BID [facility] Last Admin: 01/04/22 20:14 Dose: 100 mg Latanoprost (Latanoprost 0.005 % Ophth Jessie 2.5 Ml Drops) 1 drop EYE-BOTH BEDTIME [facility] Last Admin: 01/04/22 20:14 Dose: 1 drop Loperamide HCl (Loperamide Hcl 2 Mg Capsule) 2 mg PO Q4H PRN PRN Reason: Diarrhea Last Admin: 12/11/21 13:32 Dose: 2 mg Mirtazapine (Mirtazapine 7.5 Mg Tablet) 7.5 mg PO BEDTIME [facility] Last Admin: 01/04/22 20:14 Dose: 7.5 mg Risperidone (Risperidone 0.5 Mg Tablet) 0.5 mg PO BEDTIME [facility] Last Admin: 01/04/22 20:14 Dose: 0.5 mg Timolol Maleate (Timolol Maleate 0.5 % Oph Jessie 5 Ml Drbtl) 1 drop EYE-BOTH BID [facility] Last Admin: 01/04/22 20:14 Dose: 1 drop Allergies Allergies Allergy/AdvReac Type Severity Reaction Status Date / Time sulfamethoxazole Allergy Itching Verified 10/03/21 19:19 [From Bactrim] trimethoprim [From Bactrim] Allergy Itching Verified 10/03/21 19:19 Assessment & Plan Assessment & Plan (1) Mood disorder: Status: Acute Code(s): F39 - Unspecified mood [affective] disorder (2) Major neurocognitive disorder: Status: Acute Code(s): F03.90 - Unspecified dementia, unspecified severity, without behavioral disturbance, psychotic disturbance, mood disturbance, and anxiety Plan Adult male, admitted for altered mental status and psychotic symptoms that were resolved after he was treated with a very low dose of medications. Plan 1. Continue same treatment. 2. Waiting for placement I spent minutes with the patient and/or on the patient floor today, greater than?50% of which was spent counseling/coordinating care. Patient educated on: other Reason for contiued inpatient stay Substantial Risk for: inability to function, rapid decompensation and med/psych decompensation
[2022-01-05 06:00] VITALS: PULSE 67; RESP 16; TEMP 36.1; O2SAT 98
[2022-01-05] MEDS: timoloL maleate 0.5 % Oph Sol 5 ML DRBTL 1 DROP EYE-BOTH ×2 (09:27→21:33)
[2022-01-05] MEDS: Brimonidine Tartrate 0.2% Oph 5 ML BOTTLE 1 DROP EYE-BOTH ×3 (09:27→21:33)
[2022-01-05] MEDS: Gabapentin 100 MG CAPSULE PO ×2 (09:27→21:34)
[2022-01-05 18:00] VITALS: BP 95/67; PULSE 64; RESP 18; TEMP 36.5; O2SAT 95
[2022-01-05] MEDS: Latanoprost 0.005 % Ophth Sol 2.5 ML DROPS 1 DROP EYE-BOTH (21:33)
[2022-01-05] MEDS: Mirtazapine 7.5 MG TABLET PO (21:34)
[2022-01-05] MEDS: risperiDONE 0.5 MG TABLET PO (21:34)
--- NOTE | 2022-01-06 01:43 | P.PNPSI_ITS ---
Subjective Subjective Date of Service: 01/06/22 Reason For Visit: Unspecified Depressive Disorder Interim History: Discussed with team, no changes. Spoke with pt, says I still have a pulse and Im still upright but it might take the cyanide a while to work. Silly, has sense of humor. No med changes. Mental Status Exam Mental Status Exam Narrative: Patient Appearance: Well Grooomed Patient Orientation: Person and Situation Level of Consciousness: Awake Patient Behavior: Cooperative Mood Description: Withdrawn Affect Description: Constricted Patient Cognition Impaired: Yes Ability to Follow Directions: Good Speech Pattern: Clear Hallucinations: None Delusions: Not Present Thought Process: Distracted Thought Content: positive for Circumstantial Judgement: Fair Diagnostics Vital Signs (24Hr): Vital Signs - 24 hr 01/05/22 06:00 01/05/22 18:00 Temperature 96.9 F 97.7 F Pulse Rate 67 64 Respiratory Rate 16 18 Blood Pressure 95/67 Pulse Oximetry 98 95 Oxygen Delivery Method Room Air Room Air BMI result Body Mass Index 18.4 Labs Results: 12/17/21 08:03 12/17/21 08:03 Imaging Radiology Impressions: ITS Impressions Head CT 10/04/21 15:04 IMPRESSION: 1. No acute intracranial pathology. 2. Right parietal meningioma without mass effect. 3. Generalized atrophy. Chest X-Ray 12/16/21 13:40 IMPRESSION: No acute cardiopulmonary findings. Medications Medications Current Medications Brimonidine Tartrate (Brimonidine Tartrate 0.2% Oph 5 Ml Bottle) 1 drop EYE- BOTH TID [facility] Last Admin: 01/05/22 21:33 Dose: 1 drop Gabapentin (Gabapentin 100 Mg Capsule) 100 mg PO BID [facility] Last Admin: 01/05/22 21:34 Dose: 100 mg Latanoprost (Latanoprost 0.005 % Ophth Jessie 2.5 Ml Drops) 1 drop EYE-BOTH BEDTIME [facility] Last Admin: 01/05/22 21:33 Dose: 1 drop Loperamide HCl (Loperamide Hcl 2 Mg Capsule) 2 mg PO Q4H PRN PRN Reason: Diarrhea Last Admin: 12/11/21 13:32 Dose: 2 mg Mirtazapine (Mirtazapine 7.5 Mg Tablet) 7.5 mg PO BEDTIME [facility] Last Admin: 01/05/22 21:34 Dose: 7.5 mg Risperidone (Risperidone 0.5 Mg Tablet) 0.5 mg PO BEDTIME [facility] Last Admin: 01/05/22 21:34 Dose: 0.5 mg Timolol Maleate (Timolol Maleate 0.5 % Oph Jessie 5 Ml Drbtl) 1 drop EYE-BOTH BID [facility] Last Admin: 01/05/22 21:33 Dose: 1 drop Allergies Allergies Allergy/AdvReac Type Severity Reaction Status Date / Time sulfamethoxazole Allergy Itching Verified 10/03/21 19:19 [From Bactrim] trimethoprim [From Bactrim] Allergy Itching Verified 10/03/21 19:19 Assessment & Plan Assessment & Plan (1) Mood disorder: Status: Acute Code(s): F39 - Unspecified mood [affective] disorder (2) Major neurocognitive disorder: Status: Acute Code(s): F03.90 - Unspecified dementia, unspecified severity, without behavioral disturbance, psychotic disturbance, mood disturbance, and anxiety Plan Adult male, admitted for altered mental status and psychotic symptoms that were resolved after he was treated with a very low dose of medications. Plan 1. Continue same treatment. 2. Waiting for placement I spent minutes with the patient and/or on the patient floor today, greater than?50% of which was spent counseling/coordinating care. Patient educated on: other Reason for contiued inpatient stay Substantial Risk for: inability to function, rapid decompensation and med/psych decompensation
[2022-01-06 06:00] VITALS: BP 107/67; PULSE 72; RESP 16; TEMP 36.8; O2SAT 97
[2022-01-06] MEDS: Brimonidine Tartrate 0.2% Oph 5 ML BOTTLE 1 DROP EYE-BOTH ×3 (08:53→21:33)
[2022-01-06] MEDS: timoloL maleate 0.5 % Oph Sol 5 ML DRBTL 1 DROP EYE-BOTH ×2 (08:53→21:33)
[2022-01-06] MEDS: Gabapentin 100 MG CAPSULE PO ×2 (08:53→21:33)
[2022-01-06 18:00] VITALS: BP 97/55; PULSE 58; RESP 16; TEMP 36.5
[2022-01-06] MEDS: Latanoprost 0.005 % Ophth Sol 2.5 ML DROPS 1 DROP EYE-BOTH (21:33)
[2022-01-06] MEDS: Mirtazapine 7.5 MG TABLET PO (21:33)
[2022-01-06] MEDS: risperiDONE 0.5 MG TABLET PO (21:33)
[2022-01-07] MEDS: Gabapentin 100 MG CAPSULE PO ×2 (08:07→20:18)
[2022-01-07] MEDS: Brimonidine Tartrate 0.2% Oph 5 ML BOTTLE 1 DROP EYE-BOTH ×3 (08:08→20:23)
[2022-01-07] MEDS: timoloL maleate 0.5 % Oph Sol 5 ML DRBTL 1 DROP EYE-BOTH ×2 (08:13→20:28)
--- NOTE | 2022-01-07 11:52 | P.PNPSI_ITS ---
Subjective Subjective Date of Service: 01/07/22 Reason For Visit: Unspecified Depressive Disorder Subjective Notes: Conditional Voluntary Interim History: The nursing staff reported the patient has been pleasant and cooperative, fully compliant with treatment, he is eating all his meals and he slept well. The social work supervisor reported that [facility] will come today for longer-term placement. Later, she reported that his transfer was approved. On interview the patient denies new symptoms he is pleasant and cooperative, usually seclusive in his room and easily redirectable. I explained him that he will be discharge tomorrow and he was happy. Mental Status Exam Mental Status Exam Patient Appearance: Well Grooomed and Appropriate Patient Orientation: Person and Situation Level of Consciousness: Awake Patient Behavior: Guarded, Cooperative and Passive Mood Description: Withdrawn Affect Description: Constricted Patient Cognition Impaired: Yes Ability to Follow Directions: Good Speech Pattern: Clear Hallucinations: None Delusions: Not Present Thought Process: Distracted Thought Content: positive for [place] and positive for Circumstantial Judgement: Fair Diagnostics Vital Signs (24Hr): Vital Signs - 24 hr 01/06/22 18:00 Temperature 97.7 F Pulse Rate 58 Respiratory Rate 16 Blood Pressure 97/55 L BMI result Body Mass Index 18.4 Labs Results: 12/17/21 08:03 12/17/21 08:03 Imaging Radiology Impressions: ITS Impressions Head CT 10/04/21 15:04 IMPRESSION: 1. No acute intracranial pathology. 2. Right parietal meningioma without mass effect. 3. Generalized atrophy. Chest X-Ray 12/16/21 13:40 IMPRESSION: No acute cardiopulmonary findings. Medications Medications Current Medications Brimonidine Tartrate (Brimonidine Tartrate 0.2% Oph 5 Ml Bottle) 1 drop EYE- BOTH TID [facility] Last Admin: 01/07/22 08:08 Dose: 1 drop Gabapentin (Gabapentin 100 Mg Capsule) 100 mg PO BID [facility] Last Admin: 01/07/22 08:07 Dose: 100 mg Latanoprost (Latanoprost 0.005 % Ophth Jessie 2.5 Ml Drops) 1 drop EYE-BOTH BEDTIME [facility] Last Admin: 01/06/22 21:33 Dose: 1 drop Loperamide HCl (Loperamide Hcl 2 Mg Capsule) 2 mg PO Q4H PRN PRN Reason: Diarrhea Last Admin: 12/11/21 13:32 Dose: 2 mg Mirtazapine (Mirtazapine 7.5 Mg Tablet) 7.5 mg PO BEDTIME [facility] Last Admin: 01/06/22 21:33 Dose: 7.5 mg Risperidone (Risperidone 0.5 Mg Tablet) 0.5 mg PO BEDTIME [facility] Last Admin: 01/06/22 21:33 Dose: 0.5 mg Timolol Maleate (Timolol Maleate 0.5 % Oph Jessie 5 Ml Drbtl) 1 drop EYE-BOTH BID [facility] Last Admin: 01/07/22 08:13 Dose: 1 drop Allergies Allergies Allergy/AdvReac Type Severity Reaction Status Date / Time sulfamethoxazole Allergy Itching Verified 10/03/21 19:19 [From Bactrim] trimethoprim [From Bactrim] Allergy Itching Verified 10/03/21 19:19 Assessment & Plan Assessment & Plan (1) Mood disorder: Status: Acute Code(s): F39 - Unspecified mood [affective] disorder (2) Major neurocognitive disorder: Status: Acute Code(s): F03.90 - Unspecified dementia, unspecified severity, without behavioral disturbance, psychotic disturbance, mood disturbance, and anxiety Plan Adult male, admitted for altered mental status and psychotic symptoms that were resolved after he was treated with a very low dose of medications. Plan 1. Continue same treatment. 2. Waiting for placement, discharge tomorrow. I spent ___20___ minutes with the patient and/or on the patient floor today, greater than?50% of which was spent counseling/coordinating care. Reason for contiued inpatient stay Substantial Risk for: inability to function, rapid decompensation and med/psych decompensation
[2022-01-07 11:54] LABS: COVID-19 Test Negative (Negative); IDNOW Serial# BCCEAD1C
[2022-01-07 19:00] VITALS: BP 109/63; PULSE 63; RESP 16; TEMP 36.4; O2SAT 97
[2022-01-07] MEDS: Latanoprost 0.005 % Ophth Sol 2.5 ML DROPS 1 DROP EYE-BOTH (20:18)
[2022-01-07] MEDS: risperiDONE 0.5 MG TABLET PO (20:18)
[2022-01-07] MEDS: Mirtazapine 7.5 MG TABLET PO (20:18)
--- NOTE | 2022-01-08 07:51 | P.DS_ITS ---
DS: Providers Provider Date of Service: 01/08/22 Date of admission: 10/03/21 18:46 Date of discharge: 01/08/22 Primary care physician: Unknown Physician Attending physician on admission: Andrew Recio Consults: 10/05/21 10:58 Consult to Hospitalist Routine Consulting Provider: Hospitalist Reason For Exam: Direct admission from [facility] 10/10/21 10:58 Consult to Hospitalist Routine Consulting Provider: Hospitalist Reason For Exam: R/O skin cancer and contact to [facility] 10/15/21 17:52 Consult to Hospitalist Stat Consulting Provider: Hospitalist Reason For Exam: worsening neck lesion weeping/nasal lesion? biopsy 10/16/21 21:56 Consult to General Surgery Routine Consulting Provider: Sushil Henderson Reason for consultation: needs evaluation ? biopsy nose /neck lesion see hosp note Has provider been notified: No 10/23/21 10:58 Consult to Hospitalist Routine Consulting Provider: Hospitalist Reason For Exam: infected surgical wound 11/08/21 13:40 Consult to General Surgery Routine Consulting Provider: Sushil Henderson Reason for consultation: Reassesment of skin cancer (nose) Has provider been notified: Yes Attending physician on discharge: Andrew Recio DS: Diagnosis Discharge Diagnosis (1) Mood disorder: Status: Acute (2) Major neurocognitive disorder: Status: Acute DS: Medications Discharge Medications Home Medications: Home Medications Medication Instructions Recorded Confirmed Milk of Magnesia 30 ml PO DAILY 10/03/21 10/03/21 acetaminophen 650 mg tablet 650 mg PO Q6H PRN Pain 10/03/21 10/03/21 albuterol 90 mcg/actuation aerosol 90 mcg inhalation QID 10/03/21 10/03/21 inhaler brimonidine 0.2 % ophthalmic (eye) TID 10/03/21 10/03/21 docusate sodium 100 mg capsule 100 mg PO BID 10/03/21 10/03/21 gabapentin 100 mg capsule 100 mg PO TID 10/03/21 10/03/21 latanoprost 0.005 % eye drops 1 drp ophthalmic (eye) QPM 10/03/21 10/03/21 melatonin 3 mg capsule 3 mg PO BEDTIME PRN Insomnia 10/03/21 10/03/21 sennosides 8.6 mg tablet (senna) 8.6 mg PO DAILY 10/03/21 10/03/21 timolol 0.5 % eye drops 1 drp ophthalmic (eye) BID 10/03/21 10/03/21 Mental Status Exam Mental Status Exam Patient Appearance: Well Grooomed and Appropriate Patient Orientation: Person and Situation Level of Consciousness: Awake Patient Behavior: Cooperative Mood Description: Calm Affect Description: Appropriate Patient Cognition Impaired: Yes Ability to Follow Directions: Good Speech Pattern: Clear Hallucinations: None Delusions: Not Present Thought Process: Linear and Slowed Thinking Thought Content: positive for Circumstantial Judgement: Fair Data Data Completed and Pending Completed studies during hospitalization [Text1]: 01/07/22 11:30 COVID-19 (FELISHA) Negative COVID-19 Clin Com See Note 10/16/21 05:00 Neck Gram Stain - Final 10/16/21 05:00 Neck Routine Culture - Final 10/16/21 05:00 Nasal - Drainage Gram Stain - Final 10/16/21 05:00 Nasal - Drainage Routine Culture - Final Imaging Diagnostic Imaging Impressions Head CT 10/04/21 15:04 IMPRESSION: 1. No acute intracranial pathology. 2. Right parietal meningioma without mass effect. 3. Generalized atrophy. Chest X-Ray 12/16/21 13:40 IMPRESSION: No acute cardiopulmonary findings. DS: Summary Hospital Course Hospital Course: The patient was transferred from another facility due to psychotic symptoms and depression with suicidality. Please see the HPI note on the admission for further details. On admission, the patient was a very poor historian he was reporting that he usually sees the ghost of her girlfriend and he knew that he was going to . He also has a other bizarre statements. Apparently he did not have prior psychiatric treatment. On admission, we discussed risks, benefits, side-effects and alternatives and he agreed to start with a low dose of risperidone to target psychotic symptoms and mirtazapine to target depression. The patient tolerated the medication fairly well, he denies suicidal ideation and he is neurovegetative symptoms improved remarkably. Also, his visual hallucinations resolved. The patient has very poor social support. While in the facility, the patient was mostly seclusive but there was no evidence of violence or disorganization. He scored very low on the Sutton test and it was clear that the patient had dementia. The patient had a lesion on his nose and neck that later on were treated by surgery. He had skin cancer that was controlled. At baseline, the patient is very isolative and slightly bizarre, with sarcastic sense of humor but he is logical and future oriented. We discussed several disposition options but apparently due to his impairments the patient needed long-term care. He did not have a [facility] application and he was done while here, he was evident the patient did not have capacity to take informed decisions so we applied for guardianship and conservatorship that were granted. We applied to several facilities and eventually he was accepted at [facility]. Since there were no safety concerns discharge planning was discussed. Time spent discussing smoking cessation with patient: 3 to 10 minutes Status at Discharge Cognitive/behavioral status at discharge: Impaired at baseline Functional status at discharge: independent ambulation Overall status at discharge: patient is back to baseline Time Spent with Patient Time attestation: Total time spent providing and/or coordinating discharge services: Time spent: Less than 30 minutes Discharge Plan Discharge Patient Disposition: Xfer LT Discharge Diagnosis: Major depressive disorder Psychosis Dementia Referrals: [facility] [Other] - 1 Week Center,[facility] [Physician] - 1 Week Discharge Medications: New gabapentin 100 mg Capsule 100 mg PO BID 30 Days Qty: 60 0RF risperidone 0.5 mg Tablet 0.5 mg PO BEDTIME 30 Days Qty: 30 0RF mirtazapine 7.5 mg Tablet 7.5 mg PO BEDTIME 30 Days Qty: 30 0RF Continued latanoprost 0.005 % Drops 1 drp OPHTHALMIC (EYE) QPM Rx Instructions: both eyes sennosides [senna] 8.6 mg Tablet 8.6 mg PO DAILY timolol 0.5 % Drops 1 drp OPHTHALMIC (EYE) BID Rx Instructions: both eyes docusate sodium 100 mg Capsule 100 mg PO BID albuterol 90 mcg/actuation Aerosol 90 mcg INHALATION QID Rx Instructions: 2 puffs melatonin 3 mg Capsule 3 mg PO BEDTIME PRN (Reason: Insomnia) Milk of Magnesia 30 ml PO DAILY brimonidine 0.2 % ophthalmic (eye) TID Rx Instructions: both eyes Discontinued acetaminophen 650 mg Tablet 650 mg PO Q6H PRN (Reason: Pain) gabapentin 100 mg Capsule 100 mg PO TID Discharge Orders: Discharge Order (Routine); Ordered 01/08/22 Ordered By: Andrew Recio Diet: Advance to usual diet Activity on Discharge: As tolerated Stand Alone Forms: Patient Portal Discharge page Care Plan Goals: Care plan goals achieved in this admission Health Concerns: Continue follow-up treatment by primary care physician Plan of Treatment: Continue psychiatric treatment by outpatient providers Assessment: Elderly male with dementia admitted for exacerbation of psychotic symptoms, with resolution of symptoms with improved mood, depression resolved. At this moment safe to be discharged into long-term care due to cognitive impairment, unable to perform his ADLs by himself without help.
[2022-01-08] MEDS: Gabapentin 100 MG CAPSULE PO (08:12)
[2022-01-08] MEDS: Brimonidine Tartrate 0.2% Oph 5 ML BOTTLE 1 DROP EYE-BOTH (08:13)
[2022-01-08] MEDS: timoloL maleate 0.5 % Oph Sol 5 ML DRBTL 1 DROP EYE-BOTH (08:27)
== END 2022-01-08 14:19 | DRG 881 ==
PROVIDERS: Internal Medicine; Social Worker; Admitting Provider Psychiatry & Neurology Psychiatry; Visit Provider Psychiatry & Neurology Psychiatry
DX: F32.9 Major depressive disorder, single episode, unspecified (principal); Z68.1 Body mass index [BMI] 19.9 or less, adult; D32.0 Benign neoplasm of cerebral meninges; F03.90 Unspecified dementia, unspecified severity, without behavioral disturbance, psychotic disturbance, mood disturbance, and anxiety; C44.41 Basal cell carcinoma of skin of scalp and neck; R63.6 Underweight; Z20.822 Contact with and (suspected) exposure to COVID-19; Z88.1 Allergy status to other antibiotic agents; Z88.2 Allergy status to sulfonamides; Z79.899 Other long term (current) drug therapy
CPT/HCPCS: 36415; 70450; 71045; 80048; 80053; 80061; 80076; 82607; 82746; 83036; 84443; 85025; 85027; 87071; 87205; 87635; 88305; 90686; 92526; 92610; 95816